=== PATIENT | male | born 1955 | race Caucasian/White ===

== ENCOUNTER 2019-12-31 05:40 | Outpatient (RCR) | payer BC ==
[~2019-12-31] VITALS: Ht 185 cm; Wt 117.0 kg
[~2019-12-31 05:40] MED LIST: AMLO10TA82 PO; ASP325TEC PO; ASP81CT PO; ASPI-892 PO; ATEN-158 PO; ATEN100T88 PO; ATEN50TA PO; ATOR80TA PO; BICA50TA4 PO; CARV25TA PO; CHLO25TA2 PO; CHLORTHALID PO; CLN.1T PO; CLOP75TA PO; CLPD75T PO; CYCL10TA9 PO; DLT120CCR PO; HCT25T PO; LISI20TA PO; LISI40TA PO; LORA0.5T PO; LVT.025T PO; MULT-633 PO; OMEP-10 PO; OMG1KC PO; PNT40TEC PO; POTA10CA43 PO; PRAV40TA PO; PRV20T PO; VENL150C PO; VILA40TA PO
== END 2019-12-31 13:32 | disposition home or self-care (01) ==
LOC: PREOP 05:40
PROVIDERS: ATTEND Specialist
DX: Z01.812 Encounter for preprocedural laboratory examination (principal); H26.9 Unspecified cataract; Z20.828 Contact with and (suspected) exposure to other viral communicable diseases
CPT/HCPCS: 87635

== ENCOUNTER 2020-01-03 06:59 | Day surgery (SDC) | payer MEDICARE, OTHER ==
[~2020-01-03] VITALS: Ht 185 cm; Wt 117.0 kg
[2020-01-03 07:05] VITALS: BP 182/108
[2020-01-03] MEDS ORDERED: POVIDONE (BETADINE) OPHTH SOLN 5% 30 ML OP ONE (07:15)
[2020-01-03] MEDS ORDERED: MOXIFLOXACIN OPHTH SOLN 5 MG/ML 0.3 ML SYRINGE OP ONE (07:15)
[2020-01-03] MEDS ORDERED: LIDOCAINE PF 1% 2 ML VIAL IR PRN (07:15)
[2020-01-03] MEDS ORDERED: TIMOLOL MALEATE 0.5% 5 ML (TIMOPTIC) BTL OU PRN (07:15)
[2020-01-03] MEDS: TETRACAINE 0.5% OPHTH SOLN 4 ML BTL (SINGLE DOSE ONLY) OU PRN ×4 (07:17→07:49)
[2020-01-03] MEDS: PHENYLEPHRINE 10% OPHTH (NEO-SYN) 5 ML BTL OU SCH ×3 (07:31→07:49)
[2020-01-03] MEDS: CYCLOPENTOLATE 1% (CYCLOGYL) 2 ML DROPS OP SCH ×3 (07:31→07:49)
--- NOTE | 2020-01-03 08:25 | Ophthalmologist Pre-Op Note ---
Pre-Operative Progress Note H&P Reviewed The H&P was reviewed, patient examined and no changes noted. Date H&P Reviewed: Jan 03, 2020 Time H&P Reviewed: 08:25 Pre-Op Dx Cataract, Right Eye CASSY LEVI MD Jan 03, 2020 08:25
[2020-01-03] MEDS ORDERED: MIDAZOLAM 2 MG/2 ML (VERSED) VIAL ONE (08:29)
[2020-01-03] MEDS ORDERED: acetaZOLAMIDE ER 500 MG CAP (DIAMOX SEQUELS) PO ONE (08:30)
--- NOTE | 2020-01-03 08:49 | Ophthalmology Operative Report ---
Cataract removal/placement IOL PREOPERATIVE DIAGNOSIS: Cataract Right Eye POSTOPERATIVE DIAGNOSIS: Cataract Right Eye PROCEDURE: Cataract removal and placement of posterior chamber implant, right eye SURGEON: Christiano Levi ANESTHESIA: Topical with sedation COMPLICATIONS: None ESTIMATED BLOOD LOSS: Minimal DESCRIPTION OF PROCEDURE: After proper informed consent was obtained, the patient, a 64 male, was taken to the Operating Room and the right eye was anesthetized with tetracaine. The right eye was then prepped and draped in the usual manner. A wire lid speculum was placed. A paracentesis was made at the left hand position. Preservative free lidocaine was injected into the anterior chamber followed by viscoelastic. A clear corneal incision was made in the temporal position. A capsulorrhexis was preformed and the central nuclear and cortical material were removed. The posterior capsule was polished and Jono 19.5 AU00T0 IOL was placed into the capsular bag. The residual viscoelastic was aspirated and balanced saline solution was injected into the anterior chamber. Moxifloxacin was injected into the anterior chamber. The wound was checked and found to be water tight. The patient tolerated the procedure well without complications. CHRISTIANO LEVI MD Jan 03, 2020 08:49
[2020-01-03 09:00] VITALS: BP 181/97
--- NOTE | 2020-01-03 12:25 | Anesthesia-General Post-Op ---
MAC Patient Condition Mental Status/LOC: Same as Preop Cardiovascular: Satisfactory Nausea/Vomiting: Absent Respiratory: Satisfactory Pain: Controlled Complications: Absent Post Op Complications Complications None Follow Up Care/Instructions Patient Instructions None needed. Anesthesiology Discharge Order Discharge Order Patient is doing well, no complaints, stable vital signs, no apparent adverse anesthesia problems. No complications reported per nursing. MATTHIEU GOLDBERG CRNA Jan 03, 2020 12:25
== END 2020-01-03 09:00 | disposition home or self-care (01) ==
LOC: SDC 06:59
PROVIDERS: ATTEND Specialist
DX: H25.11 Age-related nuclear cataract, right eye (principal); I10 Essential (primary) hypertension; Z79.899 Other long term (current) drug therapy; Z83.3 Family history of diabetes mellitus
CPT/HCPCS: 66984; V2632

== ENCOUNTER 2020-01-14 05:45 | Outpatient (CLI) | payer MEDICARE, OTHER ==
[~2020-01-14] VITALS: Ht 185.5 cm; Wt 117.0 kg
== END 2020-01-14 13:05 | disposition home or self-care (01) ==
LOC: PREOP 05:45 → EDSTATUS 15:00
PROVIDERS: ATTEND Specialist
DX: Z01.818 Encounter for other preprocedural examination (principal)

== ENCOUNTER 2020-01-17 06:30 | Day surgery (SDC) | payer MEDICARE, OTHER ==
[~2020-01-17] VITALS: Ht 185.5 cm; Wt 117.0 kg
--- OUTSIDE RECORDS SUMMARY | 2020-01-17 06:35 | XMS REPORT ---
Author Author Yogesh Kelly Doctor Organization [facility] Address Unknown Phone Unavailable Care Team Providers Care Runner Out Name Role Phone Migration, Doctor Unavailable Unavailable PROBLEMS Type Condition ICD9-CM Code UUH54-HP Code Onset Dates Condition S tatus SNOMED Code Problem Encounter for long-term (current) use of other medications V58.69 Active 632291839 Problem Routine general medical examination at [facility] V70.0 Active 067890290 Problem Family history of unspecified malignant neoplasm V16.9 Active 823039986 Problem Nonspecific elevation of lev els of transaminase or lactic acid dehydrogenase (LDH) 790.4 Active 84946729 2 Problem Personal history of other allergy, other than to medicinal agents V15.09 Active 320455063 Problem Essential hypertension, benign 401.1 Active 9164549 Problem Coronary atherosclerosis of unspecified type of vessel, rincon or graft 414.00 Active 481205226 Problem Dizziness and giddiness 780.4 Active 926139105 Problem Chest pain, unspecified 786.50 Active 51253912 Problem Lumbago 724.2 Active 780521258 Problem Cervicalgia 723.1 Active 90163848 Problem Other specified cardiac dysrhythmias 427.89 Active 179630895 Problem Peptic ulcer, unspecified si te, unspecified as acute or chronic, without mention of hemorrhage, perforation, or obstruction 533.90 Active 05075223 Problem Right bundle branch block 426.4 Acti ve 84635310 Problem 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 Active 97274664 Problem Unspecified tinnitus 388.30 Active 41125461 Problem Unspecified hearing loss 389.9 Activ e 12868577 Problem Unspecified otalgia 388.70 Active 44089403 Problem Malignant neoplasm of prostate 185 Active 136852562 Problem Polyuria 788.42 Active 22805995 Problem Unspecified viral hepatitis C without hepatic coma 070.70 Active 94786062 Problem Abdominal or pelvic swelling, mass or lump, unspecified si te 789.30 Active 235156882 Problem Dysuria 788.1 Active 08451590 Problem Unspecified cataract 366.9 Active 406782477 Problem Unspecified episodic mood disorder 296.90 Active 006450254 Problem Other and unspecified hyperlipidemia 272.4 Active 70292826 Problem Unspecified hypothyroidism 244.9 Act katty 87147450 ALLERGIES No Information ENCOUNTERS Encounter Location Date Diagnosis [facility] [address] [id number] [address] [place] [address] 14 Sep, 2014 [facility] [address] [id number] [address] [place] [address] Sep, [facility] [address] [id number] [address] [place] [address] Jun, [facility] [address] [id number] [address] [place] [address] Jun, [facility] [address] [id number] [address] [place] [address] May, [facility] [address] [id number] [address] [place] [address] May, [facility] [address] [id number] [address] [place] [address] Feb, [facility] [address] [id number] [address] [place] [address] Feb, [facility] [address] [id number] [address] [place] [address] Feb, [facility] [address] [id number] [address] [place] [address] Jan, [facility] [address] [id number] [address] [place] [address] Jan, [facility] [address] [id number] [address] [place] [address] Nov, [facility] [address] [id number] [address] [place] [address] Nov, [facility] [address] [id number] [address] [place] [address] 05 Nov, 2013 [facility] [address] [id number] [facility] [place] [address] 05 Nov, 2013 [facility] [address] [id number] [facility] [place] [address] Aug, [facility] [address] [id number] [facility] [place] [address] Aug, [facility] [address] [id number] [address] [place] [address], [place] [address] Aug, [facility] [address] [id number] [facility] [place] [address] Aug, [facility] [address] [id number] [address] [place] [address], [place] [address] Aug, [facility] [address] [id number] [address] [place] [address], [place] [address] Aug, [facility] [address] [id number] [address] [place] [address], [place] [address] Aug, [facility] [address] [id number] [address] [place] [address], [place] [address] Aug, [facility] [address] [id number] [address] [place] [address], [place] [address] Aug, [facility] [address] [id number] [address] [place] [address], [place] [address] Aug, [facility] [address] [id number] [address] [place] [address], [place] [address] Jul, [facility] [address] [id number] [address] [place] [address], [place] [address] Jul, [facility] [address] [id number] [address] [place] [address], [place] [address] Jul, [facility] [address] [id number] [address] [place] [address], [place] [address] Jul, [facility] [address] [id number] [address] [place] [address], [place] [address] Jul, [facility] [address] [id number] [address] [place] [address], [place] [address] Jul, [facility] [address] [id number] [address] [place] [address], [place] [address] Jul, [facility] [address] [id number] [address] [place] [address], [place] [address] Jul, [facility] [address] [id number] [address] [place] [address], [place] [address] Jun, [facility] [address] [id number] [address] [place] [address], [place] [address] Jun, [facility] [address] [id number] [address] [place] [address], [place] [address] Jun, [facility] [address] [id number] [address] [place] [address], [place] [address] Jun, [facility] [address] [id number] [address] [place] [address], [place] [address] Jun, [facility] [address] [id number] [address] [place] [address], [place] [address] Jun, [facility] [address] [id number] [address] [place] [address], [place] [address] Jun, [facility] [address] [id number] [address] [place] [address], [place] [address] Jun, [facility] [address] [id number] [address] [place] [address], [place] [address] May, [facility] [address] [id number] [address] [place] [address], [place] [address] May, [facility] [address] [id number] [address] [place] [address], [place] [address] May, [facility] [address] [id number] [address] [place] [address], [place] [address] May, [facility] [address] [id number] [address] [place] [address], [place] [address] May, [facility] [address] [id number] [address] [place] [address], [place] [address] May, [facility] [address] [id number] [address] [place] [address], [place] [address] May, [facility] [address] [id number] [address] [place] [address], [place] [address] May, [facility] [address] [id number] [address] [place] [address], [place] [address] Apr, [facility] [address] [id number] [address] [place] [address] Apr, [facility] [address] [id number] [address] [place] [address], [place] [address] Apr, [facility] [address] [id number] [address] [place] [address], [place] [address] Apr, [facility] [address] [id number] [address] [place] [address], [place] [address] Apr, [facility] [address] [id number] [address] [place] [address] Apr, [facility] [address] [id number] [address] [place] [address] Apr, [facility] [address] [id number] [address] [place] [address] 18 Apr, 2013 [facility] [address] [id number] [address] [place] [address], [place] [address] Mar, [facility] [address] [id number] [address] [place] [address] 14 Mar, 2013 [facility] [address] [id number] [address] [place] [address] 18 Feb, 2013 [facility] [address] [id number] [address] [place] [address], [place] [address] Feb, [facility] [address] [id number] [address] [place] [address], [place] [address] Feb, [facility] [address] [id number] [address] [place] [address], [place] [address] Jan, [facility] [address] [id number] [address] [place] [address], [place] [address] Jan, [facility] [address] [id number] [address] [place] [address], [place] [address] Jan, [facility] [address] [id number] [address] [place] [address], [place] [address] Jan, [facility] [address] [id number] [address] [place] [address], [place] [address] Jan, [facility] [address] [id number] [address] [place] [address], [place] [address] Jan, [facility] [address] [id number] [address] [place] [address], [place] [address] Jan, [facility] [address] [id number] [address] [place] [address], [place] [address] Dec, [facility] [address] [id number] [address] [place] [address], [place] [address] Dec, [facility] [address] [id number] [address] [place] [address], [place] [address] Dec, [facility] [address] [id number] [address] [place] [address], [place] [address] Dec, [facility] [address] [id number] [address] [place] [address], [place] [address] Nov, [facility] [address] [id number] [address] [place] [address], [place] [address] Nov, [facility] [address] [id number] [address] [place] [address], [place] [address] Nov, [facility] [address] [id number] [address] [place] [address], [place] [address] October, [facility] [address] [id number] [address] [place] [address], [place] [address] Sep, [facility] [address] [id number] [address] [place] [address], [place] [address] Sep, [facility] [address] [id number] [address] [place] [address], [place] [address] Sep, [facility] [address] [id number] [address] [place] [address], [place] [address] Sep, [facility] [address] [id number] [address] [place] [address], [place] [address] Sep, [facility] [address] [id number] [address] [place] [address], [place] [address] Sep, [facility] [address] [id number] [address] [place] [address], [place] [address] Sep, [facility] [address] [id number] [address] [place] [address], [place] [address] Sep, [facility] [address] [id number] [address] [place] [address], [place] [address] Sep, [facility] [address] [id number] [address] [place] [address], [place] [address] Aug, [facility] [address] [id number] [address] [place] [address], [place] [address] Aug, [facility] [address] [id number] [address] [place] [address], [place] [address] Jul, [facility] [address] [id number] [address] [place] [address], [place] [address] Jul, [facility] [address] [id number] [address] [place] [address], [place] [address] Jul, [facility] [address] [id number] [address] [place] [address] [place] [address] Jun, [facility] [address] [id number] [address] [place] [address], [place] [address] Apr, [facility] [address] [id number] [address] [place] [address], [place] [address] Apr, [facility] [address] [id number] [address] [place] [address], [place] [address] Apr, [facility] [address] [id number] [address] [place] [address], [place] [address] Apr, [facility] [address] [id number] [address] [place] [address], [place] [address] Apr, [facility] [address] [id number] [address] [place] [address], [place] [address] Apr, [facility] [address] [id number] [address] [place] [address], [place] [address] Apr, [facility] [address] [id number] [address] [place] [address], [place] [address] Apr, [facility] [address] [id number] [address] [place] [address], [place] [address] Apr, [facility] [address] [id number] [address] [place] [address], [place] [address] Apr, [facility] [address] [id number] [address] [place] [address], [place] [address] Apr, [facility] [address] [id number] [address] [place] [address] Apr, [facility] [address] [id number] [address] [place] [address], [place] [address] Mar, [facility] [address] [id number] [address] [place] [address], [place] [address] Mar, [facility] [address] [id number] [address] [place] [address], [place] [address] Mar, [facility] [address] [id number] [address] [place] [address] 15 Mar, 2012 [facility] [address] [id number] [address] [place] [address] Mar, [facility] [address] [id number] [address] [place] [address] Mar, [facility] [address] [id number] [address] [place] [address] Mar, [facility] [address] [id number] [address] [place] [address] 25 Feb, 2012 [facility] [address] [id number] [address] [place] [address] 24 Feb, 2012 [facility] [address] [id number] [address] [place] [address] Feb, [facility] [address] [id number] [address] [place] [address] Feb, [facility] [address] [id number] [address] [place] [address] Jan, [facility] [address] [id number] [address] [place] [address] Jan, [facility] [address] [id number] [address] [place] [address] Jan, [facility] [address] [id number] [address] [place] [address] Jan, IMMUNIZATIONS No Known Immunizations SOCIAL HISTORY Never Assessed REASON FOR VISIT PLAN OF CARE VITAL SIGNS MEDICATIONS Unknown Medications RESULTS No Results PROCEDURES No Known procedures INSTRUCTIONS MEDICATIONS ADMINISTERED No Known Medications
--- OUTSIDE RECORDS SUMMARY | 2020-01-17 06:35 | XMS REPORT ---
Author Author Yogesh Kelly Doctor Organization 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 Name Role Phone Migration, Doctor Unavailable Unavailable PROBLEMS Type Condition ICD9-CM Code [id number] Code Onset Dates Condition S tatus SNOMED Code Problem Encounter for long-term (current) use of other medications V58.69 Active 737898567 Problem Routine general medical examination at [facility] V70.0 Active 853340526 Problem Family history of unspecified malignant neoplasm V16.9 Active 489974629 Problem Nonspecific elevation of lev els of transaminase or lactic acid dehydrogenase (LDH) 790.4 Active 17635411 2 Problem Personal history of other allergy, other than to medicinal agents V15.09 Active 835323745 Problem Essential hypertension, benign 401.1 Active 3863896 Problem Coronary atherosclerosis of unspecified type of vessel, eyak or graft 414.00 Active 346500344 Problem Dizziness and giddiness 780.4 Active 593692064 Problem Chest pain, unspecified 786.50 Active 72386846 Problem Lumbago 724.2 Active 219232819 Problem Cervicalgia 723.1 Active 91326223 Problem Other specified cardiac dysrhythmias 427.89 Active 346581133 Problem Peptic ulcer, unspecified si te, unspecified as acute or chronic, without mention of hemorrhage, perforation, or obstruction 533.90 Active 79932482 Problem Right bundle branch block 426.4 Acti ve 97332211 Problem 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 Active 42868664 Problem Unspecified tinnitus 388.30 Active 53157675 Problem Unspecified hearing loss 389.9 Activ e 01279748 Problem Unspecified otalgia 388.70 Active 96831220 Problem Malignant neoplasm of prostate 185 Active 090798968 Problem Polyuria 788.42 Active 18367876 Problem Unspecified viral hepatitis C without hepatic coma 070.70 Active 29931596 Problem Abdominal or pelvic swelling, mass or lump, unspecified si te 789.30 Active 306019551 Problem Dysuria 788.1 Active 33220623 Problem Unspecified cataract 366.9 Active 084184873 Problem Unspecified episodic mood disorder 296.90 Active 092754619 Problem Other and unspecified hyperlipidemia 272.4 Active 92177437 Problem Unspecified hypothyroidism 244.9 Act katty [id number] ALLERGIES No Information ENCOUNTERS Encounter Location Date Diagnosis [facility] [place] [address] [id number] [address] [place] [phone] 14 Sep, 2014 [facility] [place] [address] [id number] [address] [place] [id number] Sep, [facility] [place] [address] [id number] [address] [place] [phone] Jun, [facility] [place] [address] [id number] [address] [place] [phone] Jun, [facility] [place] [address] [id number] [address] [place] [phone] May, [facility] [place] [address] [id number] [address] [place] [phone] May, [facility] [place] [address] [id number] [address] [place] [phone] Feb, [facility] [place] [address] [id number] [address] [place] [phone] Feb, [facility] [place] [address] [id number] [address] [place] [phone] Feb, [facility] [place] [address] [id number] [address] [place] [phone] Jan, [facility] [place] [address] [id number] [address] [place] [phone] Jan, [facility] [place] [address] [id number] [address] [place] [phone] Nov, [facility] [place] [address] [id number] [address] [place] [phone] Nov, [facility] [place] [address] [id number] [address] [place] [id number] 05 Nov, 2013 [facility] [address] [id number] [facility] [place] [address] 05 Nov, 2013 [facility] [address] [id number] [facility] [place] [address] Aug, [facility] [address] [id number] [facility] [place] [address] Aug, [facility] [address] [id number] [address] [place] [address], [place] [address] Aug, [facility] [address] [id number] [facility] [place] [address] Aug, [facility] [address] [id number] [address] [place] [address], [place] [address] Aug, [facility] [address] [id number] [address] [place] [address], [place] [address] Aug, [facility] [address] [id number] [address] [place] [address], [place] [address] Aug, [facility] [address] [id number] [address] [place] [address], [place] [address] Aug, [facility] [address] [id number] [address] [place] [address], [place] [address] Aug, [facility] [address] [id number] [address] [place] [address], [place] [address] Aug, [facility] [address] [id number] [address] [place] [address], [place] [address] Jul, [facility] [address] [id number] [address] [place] [address], [place] [address] Jul, [facility] [address] [id number] [address] [place] [address], [place] [address] Jul, [facility] [address] [id number] [address] [place] [address], [place] [address] Jul, [facility] [address] [id number] [address] [place] [address], [place] [address] Jul, [facility] [address] [id number] [address] [place] [address], [place] [address] Jul, [facility] [address] [id number] [address] [place] [address], [place] [address] Jul, [facility] [address] [id number] [address] [place] [address], [place] [address] Jul, [facility] [address] [id number] [address] [place] [address], [place] [address] Jun, [facility] [address] [id number] [address] [place] [address], [place] [address] Jun, [facility] [address] [id number] [address] [place] [address], [place] [address] Jun, [facility] [address] [id number] [address] [place] [address], [place] [address] Jun, [facility] [address] [id number] [address] [place] [address], [place] [address] Jun, [facility] [address] [id number] [address] [place] [address], [place] [address] Jun, [facility] [address] [id number] [address] [place] [address], [place] [address] Jun, [facility] [address] [id number] [address] [place] [address], [place] [address] Jun, [facility] [address] [id number] [address] [place] [address], [place] [address] May, [facility] [address] [id number] [address] [place] [address], [place] [address] May, [facility] [address] [id number] [address] [place] [address], [place] [address] May, [facility] [address] [id number] [address] [place] [address], [place] [address] May, [facility] [address] [id number] [address] [place] [address], [place] [address] May, [facility] [address] [id number] [address] [place] [address], [place] [address] May, [facility] [address] [id number] [address] [place] [address], [place] [address] May, [facility] [address] [id number] [address] [place] [address], [place] [address] May, [facility] [address] [id number] [address] [place] [address], [place] [address] Apr, [facility] [address] [id number] [address] [place] [phone] Apr, [facility] [address] [id number] [address] [place] [address], [place] [address] Apr, [facility] [address] [id number] [address] [place] [address], [place] [address] Apr, [facility] [address] [id number] [address] [place] [address], [place] [address] Apr, [facility] [address] [id number] [address] [place] [phone] Apr, [facility] [address] [id number] [address] [place] [phone] Apr, [facility] [address] [id number] [address] [place] [id number] 18 Apr, 2013 [facility] [address] [id number] [address] [place] [address], [place] [address] Mar, [facility] [address] [id number] [address] [place] [phone] 14 Mar, 2013 [facility] [address] [id number] [address] [place] [id number] 18 Feb, 2013 [facility] [address] [id number] [address] [place] [address], [place] [address] Feb, [facility] [address] [id number] [address] [place] [address], [place] [address] Feb, [facility] [address] [id number] [address] [place] [address], [place] [address] Jan, [facility] [address] [id number] [address] [place] [address], [place] [address] Jan, [facility] [address] [id number] [address] [place] [address], [place] [address] Jan, [facility] [address] [id number] [address] [place] [address], [place] [address] Jan, [facility] [address] [id number] [address] [place] [address], [place] [address] Jan, [facility] [address] [id number] [address] [place] [address], [place] [address] Jan, [facility] [address] [id number] [address] [place] [address], [place] [address] Jan, [facility] [address] [id number] [address] [place] [address], [place] [address] Dec, [facility] [address] [id number] [address] [place] [address], [place] [address] Dec, [facility] [address] [id number] [address] [place] [address], [place] [address] Dec, [facility] [address] [id number] [address] [place] [address], [place] [address] Dec, [facility] [address] [id number] [address] [place] [address], [place] [address] Nov, [facility] [address] [id number] [address] [place] [address], [place] [address] Nov, [facility] [address] [id number] [address] [place] [address], [place] [address] Nov, [facility] [address] [id number] [address] [place] [address], [place] [address] October, [facility] [address] [id number] [address] [place] [address], [place] [address] Sep, [facility] [address] [id number] [address] [place] [address], [place] [address] Sep, [facility] [address] [id number] [address] [place] [address], [place] [address] Sep, [facility] [address] [id number] [address] [place] [address], [place] [address] Sep, [facility] [address] [id number] [address] [place] [address], [place] [address] Sep, [facility] [address] [id number] [address] [place] [address], [place] [address] Sep, [facility] [address] [id number] [address] [place] [address], [place] [address] Sep, [facility] [address] [id number] [address] [place] [address], [place] [address] Sep, [facility] [address] [id number] [address] [place] [address], [place] [address] Sep, [facility] [address] [id number] [address] [place] [address], [place] [address] Aug, [facility] [address] [id number] [address] [place] [address], [place] [address] Aug, [facility] [address] [id number] [address] [place] [address], [place] [address] Jul, [facility] [address] [id number] [address] [place] [address], [place] [address] Jul, [facility] [address] [id number] [address] [place] [address], [place] [address] Jul, [facility] [address] [id number] [address] [place] [address] [place] [address] Jun, [facility] [address] [id number] [address] [place] [address], [place] [address] Apr, [facility] [address] [id number] [address] [place] [address], [place] [address] Apr, [facility] [address] [id number] [address] [place] [address], [place] [address] Apr, [facility] [address] [id number] [address] [place] [address], [place] [address] Apr, [facility] [address] [id number] [address] [place] [address], [place] [address] Apr, [facility] [address] [id number] [address] [place] [address], [place] [address] Apr, [facility] [address] [id number] [address] [place] [address], [place] [address] Apr, [facility] [address] [id number] [address] [place] [address], [place] [address] Apr, [facility] [address] [id number] [address] [place] [address], [place] [address] Apr, [facility] [address] [id number] [address] [place] [address], [place] [address] Apr, [facility] [address] [id number] [address] [place] [address], [place] [address] Apr, [facility] [address] [id number] [address] [place] [address] Apr, [facility] [address] [id number] [address] [place] [address], [place] [address] Mar, [facility] [address] [id number] [address] [place] [address], [place] [address] Mar, [facility] [address] [id number] [address] [place] [address], [place] [address] Mar, [facility] [address] [id number] [address] [place] [id number] 15 Mar, 2012 [facility] [place] [address] [id number] [address] [place] [address] Mar, [facility] [place] [address] [id number] [address] [place] [id number] Mar, [facility] [place] [address] [id number] [address] [place] [id number] Mar, [facility] [place] [address] [id number] [address] [place] [id number] 25 Feb, 2012 [facility] [place] [address] [id number] [address] [place] [phone] 24 Feb, 2012 [facility] [place] [address] [id number] [address] [place] [id number] Feb, [facility] [place] [address] [id number] [address] [place] [phone] Feb, [facility] [place] [address] [id number] [address] [place] [phone] Jan, [facility] [place] [address] [id number] [address] [place] [phone] Jan, [facility] [place] [address] [id number] [address] [place] [phone] Jan, [facility] [place] [address] [id number] [address] [place] [phone] Jan, IMMUNIZATIONS No Known Immunizations SOCIAL HISTORY Never Assessed REASON FOR VISIT PLAN OF CARE VITAL SIGNS MEDICATIONS Unknown Medications RESULTS No Results PROCEDURES No Known procedures INSTRUCTIONS MEDICATIONS ADMINISTERED No Known Medications
--- OUTSIDE RECORDS SUMMARY | 2020-01-17 06:35 | XMS REPORT | Clinical Summary ---
Author Author [facility] Organization [facility] Address Unknown Phone Unavailable Care Team Providers Care Assistant Professor Of Economics Name Role Phone Onel Moore PA-C Unavailable Neo Keller MD Unavailable Unavailable Source Comments Some departments are not documenting in the electronic medical record. If you d o not see the information that you expected, contact Release of Information in [facility] [employer] Information Management department at [phone] for further assistan ce in locating additional records.[facility] Allergies Not on File Medications End Date Status Medication Sig Dispensed Refills Start Date Active MULTIVITS-MINERALS/FA/LYC Take by 0 OPENE (ONE-A-DAY MEN'S mouth. MULTIVITAMIN PO) Active aspirin 81 mg chewable Take 81 mg by 0 tablet mouth daily. Active Omeprazole 20 mg TbEC Take by 0 mouth. Active atorvastatin (LIPITOR) 40 Take 40 mg by 0 mg tablet mouth daily. Active amLODIPine (NORVASC) 10 Take 10 mg by 0 mg tablet mouth daily. Active venlafaxine XR (EFFEXOR Take 150 mg 0 XR) 150 mg capsule by mouth daily. Active MV-MIN/FA/C/GLU/ROSALINA Take by 0 HCL/HC124 ([place] (WITH mouth. FOLIC ACID) PO) Active DOXYCYCLINE CALCIUM Take by 0 (VIBRAMYCIN PO) mouth. Active GLUC ACOSTA/MSM/CHONDRO ACOSTA Take by 0 A/C/MN (FLEXI JOINT PO) mouth. Active Problems Problem Noted Date Prostate cancer 06/03/2013 Overview: PSA (05/01/2013) = 9.00 ng/mL. TRUS Vol = 55.4 mL. PNBx (06/03/2013): (L) Zuly 5+4=9, 3 /6 cores, 70-90%; (L) Zuly 3+4=7, 1/6 cores, 75%; (L) Equality 3+3=6, 1/6 cores; (R) Zuly 3+3=6, 1/6 cores, 60%; HG PIN 1/6 cores; Dr. Dominguez. CT & Bone Scan --> no evidence of metas tatic dz. L ast Assessment & Plan: I had an extensive consultation with marty e patient today reviewing the spectrum of prostate cancer treatment o ptions, including the pros and cons and risks and benefits of each. Surgery Radiation (XRT, BrachyTx) Cryoablation Androgen Deprivation Tx (ADT) Active surveillance () D/t his high risk prostate cancer, he w ill likely need a multi-modality approach, no matter which primary tx op tion he elects to pursue. Risks of surgery reviewed in detail including in continence & ED. After careful consideration, the patien t would like to discuss options w/ his local Radiation/ Oncologist. ED (erectile dysfunction) Social History Date Tobacco Use Types Packs/Day Years Used Former Smoker Cigarettes Smokeless Tobacco: Never Used Drinks/Week oz/Week Comments Alcohol Use 1 Cans of beer 1.0 Yes Sex Assigned at Date Recorded Not on file Industry Job Start Date Occupation Not on file Not on file Not on file Travel End Travel History Travel Start No recent travel history available. 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
--- OUTSIDE RECORDS SUMMARY | 2020-01-17 06:36 | XMS REPORT ---
Author Author Yogesh Kelly Doctor Organization [facility] Address Unknown Phone Unavailable Care Team Providers Care Loadmaster Name Role Phone Migration, Doctor Unavailable Unavailable PROBLEMS Type Condition ICD9-CM Code ILU60-SI Code Onset Dates Condition S tatus SNOMED Code Problem Encounter for long-term (current) use of other medications V58.69 Active 536303223 Problem Routine general medical examination at [facility] V70.0 Active 135192087 Problem Family history of unspecified malignant neoplasm V16.9 Active 550250802 Problem Nonspecific elevation of lev els of transaminase or lactic acid dehydrogenase (LDH) 790.4 Active 93218156 2 Problem Personal history of other allergy, other than to medicinal agents V15.09 Active 033095661 Problem Essential hypertension, benign 401.1 Active 8666371 Problem Coronary atherosclerosis of unspecified type of vessel, [place] or graft 414.00 Active 603456522 Problem Dizziness and giddiness 780.4 Active 027855121 Problem Chest pain, unspecified 786.50 Active 72525131 Problem Lumbago 724.2 Active 837757413 Problem Cervicalgia 723.1 Active 62574378 Problem Other specified cardiac dysrhythmias 427.89 Active 044977978 Problem Peptic ulcer, unspecified si te, unspecified as acute or chronic, without mention of hemorrhage, perforation, or obstruction 533.90 Active 91925771 Problem Right bundle branch block 426.4 Acti ve 76598230 Problem 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 Active 90974408 Problem Unspecified tinnitus 388.30 Active 03111367 Problem Unspecified hearing loss 389.9 Activ e 37508475 Problem Unspecified otalgia 388.70 Active 15076197 Problem Malignant neoplasm of prostate 185 Active 514309506 Problem Polyuria 788.42 Active 41488254 Problem Unspecified viral hepatitis C without hepatic coma 070.70 Active 69657393 Problem Abdominal or pelvic swelling, mass or lump, unspecified si te 789.30 Active 564362652 Problem Dysuria 788.1 Active 25781450 Problem Unspecified cataract 366.9 Active 919699991 Problem Unspecified episodic mood disorder 296.90 Active 702498126 Problem Other and unspecified hyperlipidemia 272.4 Active 92888550 Problem Unspecified hypothyroidism 244.9 Act katty [id number] ALLERGIES No Information ENCOUNTERS Encounter Location Date Diagnosis [facility] [address] [id number] [address] [place] [address] 14 Sep, 2014 [facility] [address] [id number] [address] [place] [address] Sep, [facility] [address] [id number] [address] [place] [address] Jun, [facility] [address] [id number] [address] [place] [address] Jun, [facility] [address] [id number] [address] [place] [address] May, [facility] [address] [id number] [address] [place] [address] May, [facility] [address] [id number] [address] [place] [address] Feb, [facility] [address] [id number] [address] [place] [address] Feb, [facility] [address] [id number] [address] [place] [address] Feb, [facility] [address] [id number] [address] [place] [address] Jan, [facility] [address] [id number] [address] [place] [address] Jan, [facility] [address] [id number] [address] [place] [address] Nov, [facility] [address] [id number] [address] [place] [address] Nov, [facility] [address] [id number] [address] [place] [address] 05 Nov, 2013 [facility] [address] [id number] [facility] [place] [address] 05 Nov, 2013 [facility] [address] [id number] [facility] [place] [address] Aug, [facility] [address] [id number] [facility] [place] [address] Aug, [facility] [address] [id number] [address] [place] [address], [place] [address] Aug, [facility] [address] [id number] [facility] [place] [address] Aug, [facility] [address] [id number] [address] [place] [address], [place] [address] Aug, [facility] [address] [id number] [address] [place] [address], [place] [address] Aug, [facility] [address] [id number] [address] [place] [address], [place] [address] Aug, [facility] [address] [id number] [address] [place] [address], [place] [address] Aug, [facility] [address] [id number] [address] [place] [address], [place] [address] Aug, [facility] [address] [id number] [address] [place] [address], [place] [address] Aug, [facility] [address] [id number] [address] [place] [address], [place] [address] Jul, [facility] [address] [id number] [address] [place] [address], [place] [address] Jul, [facility] [address] [id number] [address] [place] [address], [place] [address] Jul, [facility] [address] [id number] [address] [place] [address], [place] [address] Jul, [facility] [address] [id number] [address] [place] [address], [place] [address] Jul, [facility] [address] [id number] [address] [place] [address], [place] [address] Jul, [facility] [address] [id number] [address] [place] [address], [place] [address] Jul, [facility] [address] [id number] [address] [place] [address], [place] [address] Jul, [facility] [address] [id number] [address] [place] [address], [place] [address] Jun, [facility] [address] [id number] [address] [place] [address], [place] [address] Jun, [facility] [address] [id number] [address] [place] [address], [place] [address] Jun, [facility] [address] [id number] [address] [place] [address], [place] [address] Jun, [facility] [address] [id number] [address] [place] [address], [place] [address] Jun, [facility] [address] [id number] [address] [place] [address], [place] [address] Jun, [facility] [address] [id number] [address] [place] [address], [place] [address] Jun, [facility] [address] [id number] [address] [place] [address], [place] [address] Jun, [facility] [address] [id number] [address] [place] [address], [place] [address] May, [facility] [address] [id number] [address] [place] [address], [place] [address] May, [facility] [address] [id number] [address] [place] [address], [place] [address] May, [facility] [address] [id number] [address] [place] [address], [place] [address] May, [facility] [address] [id number] [address] [place] [address], [place] [address] May, [facility] [address] [id number] [address] [place] [address], [place] [address] May, [facility] [address] [id number] [address] [place] [address], [place] [address] May, [facility] [address] [id number] [address] [place] [address], [place] [address] May, [facility] [address] [id number] [address] [place] [address], [place] [address] Apr, [facility] [address] [id number] [address] [place] [address] Apr, [facility] [address] [id number] [address] [place] [address], [place] [address] Apr, [facility] [address] [id number] [address] [place] [address], [place] [address] Apr, [facility] [address] [id number] [address] [place] [address], [place] [address] Apr, [facility] [address] [id number] [address] [place] [address] Apr, [facility] [address] [id number] [address] [place] [address] Apr, [facility] [address] [id number] [address] [place] [address] 18 Apr, 2013 [facility] [address] [id number] [address] [place] [address], [place] [address] Mar, [facility] [address] [id number] [address] [place] [address] 14 Mar, 2013 [facility] [address] [id number] [address] [place] [address] 18 Feb, 2013 [facility] [address] [id number] [address] [place] [address], [place] [address] Feb, [facility] [address] [id number] [address] [place] [address], [place] [address] Feb, [facility] [address] [id number] [address] [place] [address], [place] [address] Jan, [facility] [address] [id number] [address] [place] [address], [place] [address] Jan, [facility] [address] [id number] [address] [place] [address], [place] [address] Jan, [facility] [address] [id number] [address] [place] [address], [place] [address] Jan, [facility] [address] [id number] [address] [place] [address], [place] [address] Jan, [facility] [address] [id number] [address] [place] [address], [place] [address] Jan, [facility] [address] [id number] [address] [place] [address], [place] [address] Jan, [facility] [address] [id number] [address] [place] [address], [place] [address] Dec, [facility] [address] [id number] [address] [place] [address], [place] [address] Dec, [facility] [address] [id number] [address] [place] [address], [place] [address] Dec, [facility] [address] [id number] [address] [place] [address], [place] [address] Dec, [facility] [address] [id number] [address] [place] [address], [place] [address] Nov, [facility] [address] [id number] [address] [place] [address], [place] [address] Nov, [facility] [address] [id number] [address] [place] [address], [place] [address] Nov, [facility] [address] [id number] [address] [place] [address], [place] [address] October, [facility] [address] [id number] [address] [place] [address], [place] [address] Sep, [facility] [address] [id number] [address] [place] [address], [place] [address] Sep, [facility] [address] [id number] [address] [place] [address], [place] [address] Sep, [facility] [address] [id number] [address] [place] [address], [place] [address] Sep, [facility] [address] [id number] [address] [place] [address], [place] [address] Sep, [facility] [address] [id number] [address] [place] [address], [place] [address] Sep, [facility] [address] [id number] [address] [place] [address], [place] [address] Sep, [facility] [address] [id number] [address] [place] [address], [place] [address] Sep, [facility] [address] [id number] [address] [place] [address], [place] [address] Sep, [facility] [address] [id number] [address] [place] [address], [place] [address] Aug, [facility] [address] [id number] [address] [place] [address], [place] [address] Aug, [facility] [address] [id number] [address] [place] [address], [place] [address] Jul, [facility] [address] [id number] [address] [place] [address], [place] [address] Jul, [facility] [address] [id number] [address] [place] [address], [place] [address] Jul, [facility] [address] [id number] [address] [place] [address] [place] [address] Jun, [facility] [address] [id number] [address] [place] [address], [place] [address] Apr, [facility] [address] [id number] [address] [place] [address], [place] [address] Apr, [facility] [address] [id number] [address] [place] [address], [place] [address] Apr, [facility] [address] [id number] [address] [place] [address], [place] [address] Apr, [facility] [address] [id number] [address] [place] [address], [place] [address] Apr, [facility] [address] [id number] [address] [place] [address], [place] [address] Apr, [facility] [address] [id number] [address] [place] [address], [place] [address] Apr, [facility] [address] [id number] [address] [place] [address], [place] [address] Apr, [facility] [address] [id number] [address] [place] [address], [place] [address] Apr, [facility] [address] [id number] [address] [place] [address], [place] [address] Apr, [facility] [address] [id number] [address] [place] [address], [place] [address] Apr, [facility] [address] [id number] [address] [place] [address] Apr, [facility] [address] [id number] [address] [place] [address], [place] [address] Mar, [facility] [address] [id number] [address] [place] [address], [place] [address] Mar, [facility] [address] [id number] [address] [place] [address], [place] [address] Mar, [facility] [address] [id number] [address] [place] [address] 15 Mar, 2012 [facility] [address] [id number] [address] [place] [address] Mar, [facility] [address] [id number] [address] [place] [address] Mar, [facility] [address] [id number] [address] [place] [address] Mar, [facility] [address] [id number] [address] [place] [address] 25 Feb, 2012 [facility] [address] [id number] [address] [place] [address] 24 Feb, 2012 [facility] [address] [id number] [address] [place] [address] Feb, [facility] [address] [id number] [address] [place] [address] Feb, [facility] [address] [id number] [address] [place] [address] Jan, [facility] [address] [id number] [address] [place] [address] Jan, [facility] [address] [id number] [address] [place] [address] Jan, [facility] [address] [id number] [address] [place] [address] Jan, IMMUNIZATIONS No Known Immunizations SOCIAL HISTORY Never Assessed REASON FOR VISIT PLAN OF CARE VITAL SIGNS MEDICATIONS Unknown Medications RESULTS No Results PROCEDURES No Known procedures INSTRUCTIONS MEDICATIONS ADMINISTERED No Known Medications
--- OUTSIDE RECORDS SUMMARY | 2020-01-17 06:36 | XMS REPORT ---
Author Author Yogesh Kelly Doctor Organization [facility] Address Unknown Phone Unavailable Care Team Providers Care [employer] Chair Name Role Phone Migration, Doctor Unavailable Unavailable PROBLEMS Type Condition ICD9-CM Code JTG64-AT Code Onset Dates Condition S tatus SNOMED Code Problem Encounter for long-term (current) use of other medications V58.69 Active 738681576 Problem Routine general medical examination at [facility] V70.0 Active 142820311 Problem Family history of unspecified malignant neoplasm V16.9 Active 897150819 Problem Nonspecific elevation of lev els of transaminase or lactic acid dehydrogenase (LDH) 790.4 Active 28958805 2 Problem Personal history of other allergy, other than to medicinal agents V15.09 Active 389108096 Problem Essential hypertension, benign 401.1 Active 2430785 Problem Coronary atherosclerosis of unspecified type of vessel, duckwater or graft 414.00 Active 426361035 Problem Dizziness and giddiness 780.4 Active 510776811 Problem Chest pain, unspecified 786.50 Active 86817662 Problem Lumbago 724.2 Active 958900378 Problem Cervicalgia 723.1 Active 16498442 Problem Other specified cardiac dysrhythmias 427.89 Active 311701788 Problem Peptic ulcer, unspecified si te, unspecified as acute or chronic, without mention of hemorrhage, perforation, or obstruction 533.90 Active 82366374 Problem Right bundle branch block 426.4 Acti ve 22434954 Problem 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 Active 20445046 Problem Unspecified tinnitus 388.30 Active 71114295 Problem Unspecified hearing loss 389.9 Activ e 10669021 Problem Unspecified otalgia 388.70 Active 58768461 Problem Malignant neoplasm of prostate 185 Active 706840675 Problem Polyuria 788.42 Active 02595687 Problem Unspecified viral hepatitis C without hepatic coma 070.70 Active 46461038 Problem Abdominal or pelvic swelling, mass or lump, unspecified si te 789.30 Active 524378600 Problem Dysuria 788.1 Active 71163089 Problem Unspecified cataract 366.9 Active 701160631 Problem Unspecified episodic mood disorder 296.90 Active 331089798 Problem Other and unspecified hyperlipidemia 272.4 Active 72955458 Problem Unspecified hypothyroidism 244.9 Act katty [id number] ALLERGIES No Information ENCOUNTERS Encounter Location Date Diagnosis [facility] [address] [id number] [address] [place] [id number] 14 Sep, 2014 [facility] [address] [id number] [address] [place] [address] Sep, [facility] [address] [id number] [address] [place] [address] Jun, [facility] [address] [id number] [address] [place] [address] Jun, [facility] [address] [id number] [address] [place] [address] May, [facility] [address] [id number] [address] [place] [address] May, [facility] [address] [id number] [address] [place] [address] Feb, [facility] [address] [id number] [address] [place] [address] Feb, [facility] [address] [id number] [address] [place] [address] Feb, [facility] [address] [id number] [address] [place] [address] Jan, [facility] [address] [id number] [address] [place] [address] Jan, [facility] [address] [id number] [address] [place] [address] Nov, [facility] [address] [id number] [address] [place] [address] Nov, [facility] [address] [id number] [address] [place] [address] 05 Nov, 2013 [facility] [address] [id number] [facility] [place] [address] 05 Nov, 2013 [facility] [address] [id number] [facility] [place] [address] Aug, [facility] [address] [id number] [facility] [place] [address] Aug, [facility] [address] [id number] [address] [place] [address], [place] [address] Aug, [facility] [address] [id number] [facility] [place] [address] Aug, [facility] [address] [id number] [address] [place] [address], [place] [address] Aug, [facility] [address] [id number] [address] [place] [address], [place] [address] Aug, [facility] [address] [id number] [address] [place] [address], [place] [address] Aug, [facility] [address] [id number] [address] [place] [address], [place] [address] Aug, [facility] [address] [id number] [address] [place] [address], [place] [address] Aug, [facility] [address] [id number] [address] [place] [address], [place] [address] Aug, [facility] [address] [id number] [address] [place] [address], [place] [address] Jul, [facility] [address] [id number] [address] [place] [address], [place] [address] Jul, [facility] [address] [id number] [address] [place] [address], [place] [address] Jul, [facility] [address] [id number] [address] [place] [address], [place] [address] Jul, [facility] [address] [id number] [address] [place] [address], [place] [address] Jul, [facility] [address] [id number] [address] [place] [address], [place] [address] Jul, [facility] [address] [id number] [address] [place] [address], [place] [address] Jul, [facility] [address] [id number] [address] [place] [address], [place] [address] Jul, [facility] [address] [id number] [address] [place] [address], [place] [address] Jun, [facility] [address] [id number] [address] [place] [address], [place] [address] Jun, [facility] [address] [id number] [address] [place] [address], [place] [address] Jun, [facility] [address] [id number] [address] [place] [address], [place] [address] Jun, [facility] [address] [id number] [address] [place] [address], [place] [address] Jun, [facility] [address] [id number] [address] [place] [address], [place] [address] Jun, [facility] [address] [id number] [address] [place] [address], [place] [address] Jun, [facility] [address] [id number] [address] [place] [address], [place] [address] Jun, [facility] [address] [id number] [address] [place] [address], [place] [address] May, [facility] [address] [id number] [address] [place] [address], [place] [address] May, [facility] [address] [id number] [address] [place] [address], [place] [address] May, [facility] [address] [id number] [address] [place] [address], [place] [address] May, [facility] [address] [id number] [address] [place] [address], [place] [address] May, [facility] [address] [id number] [address] [place] [address], [place] [address] May, [facility] [address] [id number] [address] [place] [address], [place] [address] May, [facility] [address] [id number] [address] [place] [address], [place] [address] May, [facility] [address] [id number] [address] [place] [address], [place] [address] Apr, [facility] [address] [id number] [address] [place] [address] Apr, [facility] [address] [id number] [address] [place] [address], [place] [address] Apr, [facility] [address] [id number] [address] [place] [address], [place] [address] Apr, [facility] [address] [id number] [address] [place] [address], [place] [address] Apr, [facility] [address] [id number] [address] [place] [address] Apr, [facility] [address] [id number] [address] [place] [address] Apr, [facility] [address] [id number] [address] [place] [address] 18 Apr, 2013 [facility] [address] [id number] [address] [place] [address], [place] [address] Mar, [facility] [address] [id number] [address] [place] [id number] 14 Mar, 2013 [facility] [address] [id number] [address] [place] [address] 18 Feb, 2013 [facility] [address] [id number] [address] [place] [address], [place] [address] Feb, [facility] [address] [id number] [address] [place] [address], [place] [address] Feb, [facility] [address] [id number] [address] [place] [address], [place] [address] Jan, [facility] [address] [id number] [address] [place] [address], [place] [address] Jan, [facility] [address] [id number] [address] [place] [address], [place] [address] Jan, [facility] [address] [id number] [address] [place] [address], [place] [address] Jan, [facility] [address] [id number] [address] [place] [address], [place] [address] Jan, [facility] [address] [id number] [address] [place] [address], [place] [address] Jan, [facility] [address] [id number] [address] [place] [address], [place] [address] Jan, [facility] [address] [id number] [address] [place] [address], [place] [address] Dec, [facility] [address] [id number] [address] [place] [address], [place] [address] Dec, [facility] [address] [id number] [address] [place] [address], [place] [address] Dec, [facility] [address] [id number] [address] [place] [address], [place] [address] Dec, [facility] [address] [id number] [address] [place] [address], [place] [address] Nov, [facility] [address] [id number] [address] [place] [address], [place] [address] Nov, [facility] [address] [id number] [address] [place] [address], [place] [address] Nov, [facility] [address] [id number] [address] [place] [address], [place] [address] October, [facility] [address] [id number] [address] [place] [address], [place] [address] Sep, [facility] [address] [id number] [address] [place] [address], [place] [address] Sep, [facility] [address] [id number] [address] [place] [address], [place] [address] Sep, [facility] [address] [id number] [address] [place] [address], [place] [address] Sep, [facility] [address] [id number] [address] [place] [address], [place] [address] Sep, [facility] [address] [id number] [address] [place] [address], [place] [address] Sep, [facility] [address] [id number] [address] [place] [address], [place] [address] Sep, [facility] [address] [id number] [address] [place] [address], [place] [address] Sep, [facility] [address] [id number] [address] [place] [address], [place] [address] Sep, [facility] [address] [id number] [address] [place] [address], [place] [address] Aug, [facility] [address] [id number] [address] [place] [address], [place] [address] Aug, [facility] [address] [id number] [address] [place] [address], [place] [address] Jul, [facility] [address] [id number] [address] [place] [address], [place] [address] Jul, [facility] [address] [id number] [address] [place] [address], [place] [address] Jul, [facility] [address] [id number] [address] [place] [address] [place] [address] Jun, [facility] [address] [id number] [address] [place] [address], [place] [address] Apr, [facility] [address] [id number] [address] [place] [address], [place] [address] Apr, [facility] [address] [id number] [address] [place] [address], [place] [address] Apr, [facility] [address] [id number] [address] [place] [address], [place] [address] Apr, [facility] [address] [id number] [address] [place] [address], [place] [address] Apr, [facility] [address] [id number] [address] [place] [address], [place] [address] Apr, [facility] [address] [id number] [address] [place] [address], [place] [address] Apr, [facility] [address] [id number] [address] [place] [address], [place] [address] Apr, [facility] [address] [id number] [address] [place] [address], [place] [address] Apr, [facility] [address] [id number] [address] [place] [address], [place] [address] Apr, [facility] [address] [id number] [address] [place] [address], [place] [address] Apr, [facility] [address] [id number] [address] [place] [address] Apr, [facility] [address] [id number] [address] [place] [address], [place] [address] Mar, [facility] [address] [id number] [address] [place] [address], [place] [address] Mar, [facility] [address] [id number] [address] [place] [address], [place] [address] Mar, [facility] [address] [id number] [address] [place] [address] 15 Mar, 2012 [facility] [address] [id number] [address] [place] [address] Mar, [facility] [address] [id number] [address] [place] [address] Mar, [facility] [address] [id number] [address] [place] [address] Mar, [facility] [address] [id number] [address] [place] [address] 25 Feb, 2012 [facility] [address] [id number] [address] [place] [address] 24 Feb, 2012 [facility] [address] [id number] [address] [place] [address] Feb, [facility] [address] [id number] [address] [place] [address] Feb, [facility] [address] [id number] [address] [place] [address] Jan, [facility] [address] [id number] [address] [place] [address] Jan, [facility] [address] [id number] [address] [place] [address] Jan, [facility] [address] [id number] [address] [place] [address] Jan, IMMUNIZATIONS No Known Immunizations SOCIAL HISTORY Never Assessed REASON FOR VISIT PLAN OF CARE VITAL SIGNS MEDICATIONS Unknown Medications RESULTS No Results PROCEDURES No Known procedures INSTRUCTIONS MEDICATIONS ADMINISTERED No Known Medications
--- OUTSIDE RECORDS SUMMARY | 2020-01-17 06:36 | XMS REPORT ---
Author Author Yogesh Kelly Doctor Organization [facility] Address Unknown Phone Unavailable Care Team Providers Care Account Support Rep Name Role Phone Migration, Doctor Unavailable Unavailable PROBLEMS Type Condition ICD9-CM Code UST64-LN Code Onset Dates Condition S tatus SNOMED Code Problem Encounter for long-term (current) use of other medications V58.69 Active 601919728 Problem Routine general medical examination at [facility] V70.0 Active 860270423 Problem Family history of unspecified malignant neoplasm V16.9 Active 492855873 Problem Nonspecific elevation of lev els of transaminase or lactic acid dehydrogenase (LDH) 790.4 Active 80128288 2 Problem Personal history of other allergy, other than to medicinal agents V15.09 Active 378307716 Problem Essential hypertension, benign 401.1 Active 3969833 Problem Coronary atherosclerosis of unspecified type of vessel, douglas or graft 414.00 Active 785097587 Problem Dizziness and giddiness 780.4 Active 620712012 Problem Chest pain, unspecified 786.50 Active 81801200 Problem Lumbago 724.2 Active 435859113 Problem Cervicalgia 723.1 Active 13563727 Problem Other specified cardiac dysrhythmias 427.89 Active 153804906 Problem Peptic ulcer, unspecified si te, unspecified as acute or chronic, without mention of hemorrhage, perforation, or obstruction 533.90 Active 77162386 Problem Right bundle branch block 426.4 Acti ve 90689616 Problem 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 Active 28453608 Problem Unspecified tinnitus 388.30 Active 77169201 Problem Unspecified hearing loss 389.9 Activ e 81225061 Problem Unspecified otalgia 388.70 Active 54627089 Problem Malignant neoplasm of prostate 185 Active 461391977 Problem Polyuria 788.42 Active 12301586 Problem Unspecified viral hepatitis C without hepatic coma 070.70 Active 92621932 Problem Abdominal or pelvic swelling, mass or lump, unspecified si te 789.30 Active 784237261 Problem Dysuria 788.1 Active 20877610 Problem Unspecified cataract 366.9 Active 471559248 Problem Unspecified episodic mood disorder 296.90 Active 477239883 Problem Other and unspecified hyperlipidemia 272.4 Active 77215052 Problem Unspecified hypothyroidism 244.9 Act katty 77875222 ALLERGIES No Information ENCOUNTERS Encounter Location Date Diagnosis [facility] [address] [id number] [address] [place] [id number] 14 Sep, 2014 [facility] [address] [id number] [address] [place] [phone] Sep, [facility] [address] [id number] [address] [place] [phone] Jun, [facility] [address] [id number] [address] [place] [phone] Jun, [facility] [address] [id number] [address] [place] [phone] May, [facility] [address] [id number] [address] [place] [phone] May, [facility] [address] [id number] [address] [place] [phone] Feb, [facility] [address] [id number] [address] [place] [phone] Feb, [facility] [address] [id number] [address] [place] [phone] Feb, [facility] [address] [id number] [address] [place] [phone] Jan, [facility] [address] [id number] [address] [place] [phone] Jan, [facility] [address] [id number] [address] [place] [phone] Nov, [facility] [address] [id number] [address] [place] [phone] Nov, [facility] [address] [id number] [address] [place] [phone] 05 Nov, 2013 [facility] [address] [id number] [address] [place] [address] 05 Nov, 2013 [facility] [address] [id number] [facility] [place] [address] Aug, [facility] [address] [id number] [facility] [place] [address] Aug, [facility] [address] [id number] [address] [place] [address], [place] [address] Aug, [facility] [address] [id number] [address] [place] [address] Aug, [facility] [address] [id number] [address] [place] [address], [place] [address] Aug, [facility] [address] [id number] [address] [place] [address], [place] [address] Aug, [facility] [address] [id number] [address] [place] [address], [place] [address] Aug, [facility] [address] [id number] [address] [place] [address], [place] [address] Aug, [facility] [address] [id number] [address] [place] [address], [place] [address] Aug, [facility] [address] [id number] [address] [place] [address], [place] [address] Aug, [facility] [address] [id number] [address] [place] [address], [place] [address] Jul, [facility] [address] [id number] [address] [place] [address], [place] [address] Jul, [facility] [address] [id number] [address] [place] [address], [place] [address] Jul, [facility] [address] [id number] [address] [place] [address], [place] [address] Jul, [facility] [address] [id number] [address] [place] [address], [place] [address] Jul, [facility] [address] [id number] [address] [place] [address], [place] [address] Jul, [facility] [address] [id number] [address] [place] [address], [place] [address] Jul, [facility] [address] [id number] [address] [place] [address], [place] [address] Jul, [facility] [address] [id number] [address] [place] [address], [place] [address] Jun, [facility] [address] [id number] [address] [place] [address], [place] [address] Jun, [facility] [address] [id number] [address] [place] [address], [place] [address] Jun, [facility] [address] [id number] [address] [place] [address], [place] [address] Jun, [facility] [address] [id number] [address] [place] [address], [place] [address] Jun, [facility] [address] [id number] [address] [place] [address], [place] [address] Jun, [facility] [address] [id number] [address] [place] [address], [place] [address] Jun, [facility] [address] [id number] [address] [place] [address], [place] [address] Jun, [facility] [address] [id number] [address] [place] [address], [place] [address] May, [facility] [address] [id number] [address] [place] [address], [place] [address] May, [facility] [address] [id number] [address] [place] [address], [place] [address] May, [facility] [address] [id number] [address] [place] [address], [place] [address] May, [facility] [address] [id number] [address] [place] [address], [place] [address] May, [facility] [address] [id number] [address] [place] [address], [place] [address] May, [facility] [address] [id number] [address] [place] [address], [place] [address] May, [facility] [address] [id number] [address] [place] [address], [place] [address] May, [facility] [address] [id number] [address] [place] [address], [place] [address] Apr, [facility] [address] [id number] [address] [place] [address] Apr, [facility] [address] [id number] [address] [place] [address], [place] [address] Apr, [facility] [address] [id number] [address] [place] [address], [place] [address] Apr, [facility] [address] [id number] [address] [place] [address], [place] [address] Apr, [facility] [address] [id number] [address] [place] [address] Apr, [facility] [address] [id number] [address] [place] [address] Apr, [facility] [address] [id number] [address] [place] [id number] 18 Apr, 2013 [facility] [address] [id number] [address] [place] [address], [place] [address] Mar, [facility] [address] [id number] [address] [place] [id number] 14 Mar, 2013 [facility] [address] [id number] [address] [place] [phone] 18 Feb, 2013 [facility] [address] [id number] [address] [place] [address], [place] [address] Feb, [facility] [address] [id number] [address] [place] [address], [place] [address] Feb, [facility] [address] [id number] [address] [place] [address], [place] [address] Jan, [facility] [address] [id number] [address] [place] [address], [place] [address] Jan, [facility] [address] [id number] [address] [place] [address], [place] [address] Jan, [facility] [address] [id number] [address] [place] [address], [place] [address] Jan, [facility] [address] [id number] [address] [place] [address], [place] [address] Jan, [facility] [address] [id number] [address] [place] [address], [place] [address] Jan, [facility] [address] [id number] [address] [place] [address], [place] [address] Jan, [facility] [address] [id number] [address] [place] [address], [place] [address] Dec, [facility] [address] [id number] [address] [place] [address], [place] [address] Dec, [facility] [address] [id number] [address] [place] [address], [place] [address] Dec, [facility] [address] [id number] [address] [place] [address], [place] [address] Dec, [facility] [address] [id number] [address] [place] [address], [place] [address] Nov, [facility] [address] [id number] [address] [place] [address], [place] [address] Nov, [facility] [address] [id number] [address] [place] [address], [place] [address] Nov, [facility] [address] [id number] [address] [place] [address], [place] [address] October, [facility] [address] [id number] [address] [place] [address], [place] [address] Sep, [facility] [address] [id number] [address] [place] [address], [place] [address] Sep, [facility] [address] [id number] [address] [place] [address], [place] [address] Sep, [facility] [address] [id number] [address] [place] [address], [place] [address] Sep, [facility] [address] [id number] [address] [place] [address], [place] [address] Sep, [facility] [address] [id number] [address] [place] [address], [place] [address] Sep, [facility] [address] [id number] [address] [place] [address], [place] [address] Sep, [facility] [address] [id number] [address] [place] [address], [place] [address] Sep, [facility] [address] [id number] [address] [place] [address], [place] [address] Sep, [facility] [address] [id number] [address] [place] [address], [place] [address] Aug, [facility] [address] [id number] [address] [place] [address], [place] [address] Aug, [facility] [address] [id number] [address] [place] [address], [place] [address] Jul, [facility] [address] [id number] [address] [place] [address], [place] [address] Jul, [facility] [address] [id number] [address] [place] [address], [place] [address] Jul, [facility] [address] [id number] [address] [place] [address] [place] [address] Jun, [facility] [address] [id number] [address] [place] [address], [place] [address] Apr, [facility] [address] [id number] [address] [place] [address], [place] [address] Apr, [facility] [address] [id number] [address] [place] [address], [place] [address] Apr, [facility] [address] [id number] [address] [place] [address], [place] [address] Apr, [facility] [address] [id number] [address] [place] [address], [place] [address] Apr, [facility] [address] [id number] [address] [place] [address], [place] [address] Apr, [facility] [address] [id number] [address] [place] [address], [place] [address] Apr, [facility] [address] [id number] [address] [place] [address], [place] [address] Apr, [facility] [address] [id number] [address] [place] [address], [place] [address] Apr, [facility] [address] [id number] [address] [place] [address], [place] [address] Apr, [facility] [address] [id number] [address] [place] [address], [place] [address] Apr, [facility] [address] [id number] [address] [place] [address] Apr, [facility] [address] [id number] [address] [place] [address], [place] [address] Mar, [facility] [address] [id number] [address] [place] [address], [place] [address] Mar, [facility] [address] [id number] [address] [place] [address], [place] [address] Mar, [facility] [address] [id number] [address] [place] [address] 15 Mar, 2012 [facility] [address] [id number] [address] [place] [address] 15 Mar, 2012 [facility] [address] [id number] [address] [place] [address] Mar, [facility] [address] [id number] [address] [place] [address] 05 Mar, 2012 [facility] [address] [id number] [address] [place] [address] 25 Feb, 2012 [facility] [address] [id number] [address] [place] [address] 24 Feb, 2012 [facility] [address] [id number] [address] [place] [phone] Feb, [facility] [address] [id number] [address] [place] [phone] 06 Feb, 2012 [facility] [address] [id number] [address] [place] [address] Jan, [facility] [address] [id number] [address] [place] [id number] Jan, [facility] [address] [id number] [address] [place] [phone] Jan, [facility] [address] [id number] [address] [place] [address] Jan, IMMUNIZATIONS No Known Immunizations SOCIAL HISTORY Never Assessed REASON FOR VISIT PLAN OF CARE VITAL SIGNS Height 72 in 2013-05-03 Weight 259.8 lbs 2013-05-03 Temperature 97 degrees Fahrenheit 2013-05-03 Heart Rate 72 bpm 2013-05-03 Respiratory Rate 16 2013-05-03 Blood pressure systolic 108 mmHg 2013-05-03 Blood pressure diastolic 74 mmHg 2013-05-03 MEDICATIONS Unknown Medications RESULTS No Results PROCEDURES Procedure Date Ordered Result Body Site BLOOD SEROLOGY, QUALITATIVE May 03, 2013 ASSAY THYROID STIM HORMONE May 03, 2013 NATRIURETIC PEPTIDE May 03, 2013 GLYCATED HEMOGLOBIN TEST May 03, 2013 LIPID PANEL May 03, 2013 MRI BRAIN W/O&W DYE May 03, 2013 ASSAY OF PSA, FREE May 03, 2013 URINALYSIS, AUTO, W/O SCOPE May 03, 2013 VENIPUNCT, ROUTINE* May 03, 2013 INSTRUCTIONS MEDICATIONS ADMINISTERED No Known Medications
--- OUTSIDE RECORDS SUMMARY | 2020-01-17 06:36 | XMS REPORT ---
Author Author Yogesh Kelly Doctor Organization [facility] Address Unknown Phone Unavailable Care Team Providers Care Hosted Services Analyst Name Role Phone Migration, Doctor Unavailable Unavailable PROBLEMS Type Condition ICD9-CM Code [id number] Code Onset Dates Condition S tatus SNOMED Code Problem Encounter for long-term (current) use of other medications V58.69 Active 075313373 Problem Routine general medical examination at [facility] V70.0 Active 814437374 Problem Family history of unspecified malignant neoplasm V16.9 Active 115224143 Problem Nonspecific elevation of lev els of transaminase or lactic acid dehydrogenase (LDH) 790.4 Active 63608631 2 Problem Personal history of other allergy, other than to medicinal agents V15.09 Active 126677052 Problem Essential hypertension, benign 401.1 Active 9662960 Problem Coronary atherosclerosis of unspecified type of vessel, [place] or graft 414.00 Active 373087259 Problem Dizziness and giddiness 780.4 Active 211295829 Problem Chest pain, unspecified 786.50 Active 32002785 Problem Lumbago 724.2 Active 076861804 Problem Cervicalgia 723.1 Active 32733178 Problem Other specified cardiac dysrhythmias 427.89 Active 377714624 Problem Peptic ulcer, unspecified si te, unspecified as acute or chronic, without mention of hemorrhage, perforation, or obstruction 533.90 Active 97350903 Problem Right bundle branch block 426.4 Acti ve 04184544 Problem 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 Active 36396328 Problem Unspecified tinnitus 388.30 Active 27842398 Problem Unspecified hearing loss 389.9 Activ e 09277321 Problem Unspecified otalgia 388.70 Active 02252157 Problem Malignant neoplasm of prostate 185 Active 965575437 Problem Polyuria 788.42 Active 71375003 Problem Unspecified viral hepatitis C without hepatic coma 070.70 Active 42935924 Problem Abdominal or pelvic swelling, mass or lump, unspecified si te 789.30 Active 752034309 Problem Dysuria 788.1 Active 59789653 Problem Unspecified cataract 366.9 Active 251109832 Problem Unspecified episodic mood disorder 296.90 Active 444353214 Problem Other and unspecified hyperlipidemia 272.4 Active 67860897 Problem Unspecified hypothyroidism 244.9 Act katty 25404037 ALLERGIES No Information ENCOUNTERS Encounter Location Date Diagnosis [facility] [address] [id number] [address] [place] [id number] 14 Sep, 2014 [facility] [address] [id number] [address] [place] [address] Sep, [facility] [address] [id number] [address] [place] [address] Jun, [facility] [address] [id number] [address] [place] [address] Jun, [facility] [address] [id number] [address] [place] [address] May, [facility] [address] [id number] [address] [place] [address] May, [facility] [address] [id number] [address] [place] [address] Feb, [facility] [address] [id number] [address] [place] [address] Feb, [facility] [address] [id number] [address] [place] [address] Feb, [facility] [address] [id number] [address] [place] [address] Jan, [facility] [address] [id number] [address] [place] [address] Jan, [facility] [address] [id number] [address] [place] [address] Nov, [facility] [address] [id number] [address] [place] [address] Nov, [facility] [address] [id number] [address] [place] [address] 05 Nov, 2013 [facility] [address] [id number] [facility] [place] [address] 05 Nov, 2013 [facility] [address] [id number] [facility] [place] [address] Aug, [facility] [address] [id number] [facility] [place] [address] Aug, [facility] [address] [id number] [address] [place] [address], [place] [address] Aug, [facility] [address] [id number] [facility] [place] [address] Aug, [facility] [address] [id number] [address] [place] [address], [place] [address] Aug, [facility] [address] [id number] [address] [place] [address], [place] [address] Aug, [facility] [address] [id number] [address] [place] [address], [place] [address] Aug, [facility] [address] [id number] [address] [place] [address], [place] [address] Aug, [facility] [address] [id number] [address] [place] [address], [place] [address] Aug, [facility] [address] [id number] [address] [place] [address], [place] [address] Aug, [facility] [address] [id number] [address] [place] [address], [place] [address] Jul, [facility] [address] [id number] [address] [place] [address], [place] [address] Jul, [facility] [address] [id number] [address] [place] [address], [place] [address] Jul, [facility] [address] [id number] [address] [place] [address], [place] [address] Jul, [facility] [address] [id number] [address] [place] [address], [place] [address] Jul, [facility] [address] [id number] [address] [place] [address], [place] [address] Jul, [facility] [address] [id number] [address] [place] [address], [place] [address] Jul, [facility] [address] [id number] [address] [place] [address], [place] [address] Jul, [facility] [address] [id number] [address] [place] [address], [place] [address] Jun, [facility] [address] [id number] [address] [place] [address], [place] [address] Jun, [facility] [address] [id number] [address] [place] [address], [place] [address] Jun, [facility] [address] [id number] [address] [place] [address], [place] [address] Jun, [facility] [address] [id number] [address] [place] [address], [place] [address] Jun, [facility] [address] [id number] [address] [place] [address], [place] [address] Jun, [facility] [address] [id number] [address] [place] [address], [place] [address] Jun, [facility] [address] [id number] [address] [place] [address], [place] [address] Jun, [facility] [address] [id number] [address] [place] [address], [place] [address] May, [facility] [address] [id number] [address] [place] [address], [place] [address] May, [facility] [address] [id number] [address] [place] [address], [place] [address] May, [facility] [address] [id number] [address] [place] [address], [place] [address] May, [facility] [address] [id number] [address] [place] [address], [place] [address] May, [facility] [address] [id number] [address] [place] [address], [place] [address] May, [facility] [address] [id number] [address] [place] [address], [place] [address] May, [facility] [address] [id number] [address] [place] [address], [place] [address] May, [facility] [address] [id number] [address] [place] [address], [place] [address] Apr, [facility] [address] [id number] [address] [place] [address] Apr, [facility] [address] [id number] [address] [place] [address], [place] [address] Apr, [facility] [address] [id number] [address] [place] [address], [place] [address] Apr, [facility] [address] [id number] [address] [place] [address], [place] [address] Apr, [facility] [address] [id number] [address] [place] [address] Apr, [facility] [address] [id number] [address] [place] [address] Apr, [facility] [address] [id number] [address] [place] [address] 18 Apr, 2013 [facility] [address] [id number] [address] [place] [address], [place] [address] Mar, [facility] [address] [id number] [address] [place] [address] 14 Mar, 2013 [facility] [address] [id number] [address] [place] [address] 18 Feb, 2013 [facility] [address] [id number] [address] [place] [address], [place] [address] Feb, [facility] [address] [id number] [address] [place] [address], [place] [address] Feb, [facility] [address] [id number] [address] [place] [address], [place] [address] Jan, [facility] [address] [id number] [address] [place] [address], [place] [address] Jan, [facility] [address] [id number] [address] [place] [address], [place] [address] Jan, [facility] [address] [id number] [address] [place] [address], [place] [address] Jan, [facility] [address] [id number] [address] [place] [address], [place] [address] Jan, [facility] [address] [id number] [address] [place] [address], [place] [address] Jan, [facility] [address] [id number] [address] [place] [address], [place] [address] Jan, [facility] [address] [id number] [address] [place] [address], [place] [address] Dec, [facility] [address] [id number] [address] [place] [address], [place] [address] Dec, [facility] [address] [id number] [address] [place] [address], [place] [address] Dec, [facility] [address] [id number] [address] [place] [address], [place] [address] Dec, [facility] [address] [id number] [address] [place] [address], [place] [address] Nov, [facility] [address] [id number] [address] [place] [address], [place] [address] Nov, [facility] [address] [id number] [address] [place] [address], [place] [address] Nov, [facility] [address] [id number] [address] [place] [address], [place] [address] October, [facility] [address] [id number] [address] [place] [address], [place] [address] Sep, [facility] [address] [id number] [address] [place] [address], [place] [address] Sep, [facility] [address] [id number] [address] [place] [address], [place] [address] Sep, [facility] [address] [id number] [address] [place] [address], [place] [address] Sep, [facility] [address] [id number] [address] [place] [address], [place] [address] Sep, [facility] [address] [id number] [address] [place] [address], [place] [address] Sep, [facility] [address] [id number] [address] [place] [address], [place] [address] Sep, [facility] [address] [id number] [address] [place] [address], [place] [address] Sep, [facility] [address] [id number] [address] [place] [address], [place] [address] Sep, [facility] [address] [id number] [address] [place] [address], [place] [address] Aug, [facility] [address] [id number] [address] [place] [address], [place] [address] Aug, [facility] [address] [id number] [address] [place] [address], [place] [address] Jul, [facility] [address] [id number] [address] [place] [address], [place] [address] Jul, [facility] [address] [id number] [address] [place] [address], [place] [address] Jul, [facility] [address] [id number] [address] [place] [address] [place] [address] Jun, [facility] [address] [id number] [address] [place] [address], [place] [address] Apr, [facility] [address] [id number] [address] [place] [address], [place] [address] Apr, [facility] [address] [id number] [address] [place] [address], [place] [address] Apr, [facility] [address] [id number] [address] [place] [address], [place] [address] Apr, [facility] [address] [id number] [address] [place] [address], [place] [address] Apr, [facility] [address] [id number] [address] [place] [address], [place] [address] Apr, [facility] [address] [id number] [address] [place] [address], [place] [address] Apr, [facility] [address] [id number] [address] [place] [address], [place] [address] Apr, [facility] [address] [id number] [address] [place] [address], [place] [address] Apr, [facility] [address] [id number] [address] [place] [address], [place] [address] Apr, [facility] [address] [id number] [address] [place] [address], [place] [address] Apr, [facility] [address] [id number] [address] [place] [address] Apr, [facility] [address] [id number] [address] [place] [address], [place] [address] Mar, [facility] [address] [id number] [address] [place] [address], [place] [address] Mar, [facility] [address] [id number] [address] [place] [address], [place] [address] Mar, [facility] [address] [id number] [address] [place] [address] 15 Mar, 2012 [facility] [address] [id number] [address] [place] [address] Mar, [facility] [address] [id number] [address] [place] [address] Mar, [facility] [address] [id number] [address] [place] [address] Mar, [facility] [address] [id number] [address] [place] [address] 25 Feb, 2012 [facility] [address] [id number] [address] [place] [address] 24 Feb, 2012 [facility] [address] [id number] [address] [place] [address] Feb, [facility] [address] [id number] [address] [place] [address] Feb, [facility] [address] [id number] [address] [place] [address] Jan, [facility] [address] [id number] [address] [place] [address] Jan, [facility] [address] [id number] [address] [place] [address] Jan, [facility] [address] [id number] [address] [place] [address] Jan, IMMUNIZATIONS No Known Immunizations SOCIAL HISTORY Never Assessed REASON FOR VISIT PLAN OF CARE VITAL SIGNS MEDICATIONS Unknown Medications RESULTS No Results PROCEDURES No Known procedures INSTRUCTIONS MEDICATIONS ADMINISTERED No Known Medications
--- OUTSIDE RECORDS SUMMARY | 2020-01-17 06:36 | XMS REPORT ---
Author Author Yogesh Kelly Doctor Organization [facility] Address Unknown Phone Unavailable Care Team Providers Care Business Reporter Name Role Phone Migration, Doctor Unavailable Unavailable PROBLEMS Type Condition ICD9-CM Code [id number] Code Onset Dates Condition S tatus SNOMED Code Problem Encounter for long-term (current) use of other medications V58.69 Active 395447435 Problem Routine general medical examination [facility] V70.0 Active 579451299 Problem Family history of unspecified malignant neoplasm V16.9 Active 393051111 Problem Nonspecific elevation of lev els of transaminase or lactic acid dehydrogenase (LDH) 790.4 Active 75546653 2 Problem Personal history of other allergy, other than to medicinal agents V15.09 Active 399462785 Problem Essential hypertension, benign 401.1 Active 6363081 Problem Coronary atherosclerosis of unspecified type of vessel, [place] or graft 414.00 Active 351976200 Problem Dizziness and giddiness 780.4 Active 852402661 Problem Chest pain, unspecified 786.50 Active 27705959 Problem Lumbago 724.2 Active 868219886 Problem Cervicalgia 723.1 Active 13600682 Problem Other specified cardiac dysrhythmias 427.89 Active 554288995 Problem Peptic ulcer, unspecified si te, unspecified as acute or chronic, without mention of hemorrhage, perforation, or obstruction 533.90 Active 51048497 Problem Right bundle branch block 426.4 Acti ve 73291183 Problem 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 Active 97147501 Problem Unspecified tinnitus 388.30 Active 98854801 Problem Unspecified hearing loss 389.9 Activ e 66085581 Problem Unspecified otalgia 388.70 Active 21315987 Problem Malignant neoplasm of prostate 185 Active 110809932 Problem Polyuria 788.42 Active 00749530 Problem Unspecified viral hepatitis C without hepatic coma 070.70 Active 38908628 Problem Abdominal or pelvic swelling, mass or lump, unspecified si te 789.30 Active 126874493 Problem Dysuria 788.1 Active 28562501 Problem Unspecified cataract 366.9 Active 858828573 Problem Unspecified episodic mood disorder 296.90 Active 388297664 Problem Other and unspecified hyperlipidemia 272.4 Active 53280517 Problem Unspecified hypothyroidism 244.9 Act katty [id number] ALLERGIES No Information ENCOUNTERS Encounter Location Date Diagnosis [facility] [address] [id number] [address] [place] [id number] 14 Sep, 2014 [facility] [address] [id number] [address] [place] [address] Sep, [facility] [address] [id number] [address] [place] [address] Jun, [facility] [address] [id number] [address] [place] [address] Jun, [facility] [address] [id number] [address] [place] [address] May, [facility] [address] [id number] [address] [place] [address] May, [facility] [address] [id number] [address] [place] [address] Feb, [facility] [address] [id number] [address] [place] [address] Feb, [facility] [address] [id number] [address] [place] [address] Feb, [facility] [address] [id number] [address] [place] [address] Jan, [facility] [address] [id number] [address] [place] [address] Jan, [facility] [address] [id number] [address] [place] [address] Nov, [facility] [address] [id number] [address] [place] [address] Nov, [facility] [address] [id number] [address] [place] [id number] 05 Nov, 2013 [facility] [address] [id number] [facility] [place] [address] 05 Nov, 2013 [facility] [address] [id number] [facility] [place] [address] Aug, [facility] [address] [id number] [facility] [place] [address] Aug, [facility] [address] [id number] [address] [place] [address], [place] [address] Aug, [facility] [address] [id number] [facility] [place] [address] Aug, [facility] [address] [id number] [address] [place] [address], [place] [address] Aug, [facility] [address] [id number] [address] [place] [address], [place] [address] Aug, [facility] [address] [id number] [address] [place] [address], [place] [address] Aug, [facility] [address] [id number] [address] [place] [address], [place] [address] Aug, [facility] [address] [id number] [address] [place] [address], [place] [address] Aug, [facility] [address] [id number] [address] [place] [address], [place] [address] Aug, [facility] [address] [id number] [address] [place] [address], [place] [address] Jul, [facility] [address] [id number] [address] [place] [address], [place] [address] Jul, [facility] [address] [id number] [address] [place] [address], [place] [address] Jul, [facility] [address] [id number] [address] [place] [address], [place] [address] Jul, [facility] [address] [id number] [address] [place] [address], [place] [address] Jul, [facility] [address] [id number] [address] [place] [address], [place] [address] Jul, [facility] [address] [id number] [address] [place] [address], [place] [address] Jul, [facility] [address] [id number] [address] [place] [address], [place] [address] Jul, [facility] [address] [id number] [address] [place] [address], [place] [address] Jun, [facility] [address] [id number] [address] [place] [address], [place] [address] Jun, [facility] [address] [id number] [address] [place] [address], [place] [address] Jun, [facility] [address] [id number] [address] [place] [address], [place] [address] Jun, [facility] [address] [id number] [address] [place] [address], [place] [address] Jun, [facility] [address] [id number] [address] [place] [address], [place] [address] Jun, [facility] [address] [id number] [address] [place] [address], [place] [address] Jun, [facility] [address] [id number] [address] [place] [address], [place] [address] Jun, [facility] [address] [id number] [address] [place] [address], [place] [address] May, [facility] [address] [id number] [address] [place] [address], [place] [address] May, [facility] [address] [id number] [address] [place] [address], [place] [address] May, [facility] [address] [id number] [address] [place] [address], [place] [address] May, [facility] [address] [id number] [address] [place] [address], [place] [address] May, [facility] [address] [id number] [address] [place] [address], [place] [address] May, [facility] [address] [id number] [address] [place] [address], [place] [address] May, [facility] [address] [id number] [address] [place] [address], [place] [address] May, [facility] [address] [id number] [address] [place] [address], [place] [address] Apr, [facility] [address] [id number] [address] [place] [address] Apr, [facility] [address] [id number] [address] [place] [address], [place] [address] Apr, [facility] [address] [id number] [address] [place] [address], [place] [address] Apr, [facility] [address] [id number] [address] [place] [address], [place] [address] Apr, [facility] [address] [id number] [address] [place] [address] Apr, [facility] [address] [id number] [address] [place] [address] Apr, [facility] [address] [id number] [address] [place] [address] 18 Apr, 2013 [facility] [address] [id number] [address] [place] [address], [place] [address] Mar, [facility] [address] [id number] [address] [place] [address] 14 Mar, 2013 [facility] [address] [id number] [address] [place] [address] 18 Feb, 2013 [facility] [address] [id number] [address] [place] [address], [place] [address] Feb, [facility] [address] [id number] [address] [place] [address], [place] [address] Feb, [facility] [address] [id number] [address] [place] [address], [place] [address] Jan, [facility] [address] [id number] [address] [place] [address], [place] [address] Jan, [facility] [address] [id number] [address] [place] [address], [place] [address] Jan, [facility] [address] [id number] [address] [place] [address], [place] [address] Jan, [facility] [address] [id number] [address] [place] [address], [place] [address] Jan, [facility] [address] [id number] [address] [place] [address], [place] [address] Jan, [facility] [address] [id number] [address] [place] [address], [place] [address] Jan, [facility] [address] [id number] [address] [place] [address], [place] [address] Dec, [facility] [address] [id number] [address] [place] [address], [place] [address] Dec, [facility] [address] [id number] [address] [place] [address], [place] [address] Dec, [facility] [address] [id number] [address] [place] [address], [place] [address] Dec, [facility] [address] [id number] [address] [place] [address], [place] [address] Nov, [facility] [address] [id number] [address] [place] [address], [place] [address] Nov, [facility] [address] [id number] [address] [place] [address], [place] [address] Nov, [facility] [address] [id number] [address] [place] [address], [place] [address] October, [facility] [address] [id number] [address] [place] [address], [place] [address] Sep, [facility] [address] [id number] [address] [place] [address], [place] [address] Sep, [facility] [address] [id number] [address] [place] [address], [place] [address] Sep, [facility] [address] [id number] [address] [place] [address], [place] [address] Sep, [facility] [address] [id number] [address] [place] [address], [place] [address] Sep, [facility] [address] [id number] [address] [place] [address], [place] [address] Sep, [facility] [address] [id number] [address] [place] [address], [place] [address] Sep, [facility] [address] [id number] [address] [place] [address], [place] [address] Sep, [facility] [address] [id number] [address] [place] [address], [place] [address] Sep, [facility] [address] [id number] [address] [place] [address], [place] [address] Aug, [facility] [address] [id number] [address] [place] [address], [place] [address] Aug, [facility] [address] [id number] [address] [place] [address], [place] [address] Jul, [facility] [address] [id number] [address] [place] [address], [place] [address] Jul, [facility] [address] [id number] [address] [place] [address], [place] [address] Jul, [facility] [address] [id number] [address] [address] [place] [address] Jun, [facility] [address] [id number] [address] [place] [address], [place] [address] Apr, [facility] [address] [id number] [address] [place] [address], [place] [address] Apr, [facility] [address] [id number] [address] [place] [address], [place] [address] Apr, [facility] [address] [id number] [address] [place] [address], [place] [address] Apr, [facility] [address] [id number] [address] [place] [address], [place] [address] Apr, [facility] [address] [id number] [address] [place] [address], [place] [address] Apr, [facility] [address] [id number] [address] [place] [address], [place] [address] Apr, [facility] [address] [id number] [address] [place] [address], [place] [address] Apr, [facility] [address] [id number] [address] [place] [address], [place] [address] Apr, [facility] [address] [id number] [address] [place] [address], [place] [address] Apr, [facility] [address] [id number] [address] [place] [address], [place] [address] Apr, [facility] [address] [id number] [address] [place] [address] Apr, [facility] [address] [id number] [address] [place] [address], [place] [address] Mar, [facility] [address] [id number] [address] [place] [address], [place] [address] Mar, [facility] [address] [id number] [address] [place] [address], [place] [address] Mar, [facility] [address] [id number] [address] [place] [address] 15 Mar, 2012 [facility] [address] [id number] [address] [place] [address] Mar, [facility] [address] [id number] [address] [place] [address] Mar, [facility] [address] [id number] [address] [place] [address] Mar, [facility] [address] [id number] [address] [place] [address] 25 Feb, 2012 [facility] [address] [id number] [address] [place] [address] 24 Feb, 2012 [facility] [address] [id number] [address] [place] [address] Feb, [facility] [address] [id number] [address] [place] [address] Feb, [facility] [address] [id number] [address] [place] [address] Jan, [facility] [address] [id number] [address] [place] [address] Jan, [facility] [address] [id number] [address] [place] [address] Jan, [facility] [address] [id number] [address] [place] [address] Jan, IMMUNIZATIONS No Known Immunizations SOCIAL HISTORY Never Assessed REASON FOR VISIT PLAN OF CARE VITAL SIGNS MEDICATIONS Unknown Medications RESULTS No Results PROCEDURES No Known procedures INSTRUCTIONS MEDICATIONS ADMINISTERED No Known Medications
--- OUTSIDE RECORDS SUMMARY | 2020-01-17 06:36 | XMS REPORT ---
Author Author Yogesh Kelly Doctor Organization [facility] Address Unknown Phone Unavailable Care Team Providers Care Assistant Finance Manager Name Role Phone Migration, Doctor Unavailable Unavailable PROBLEMS Type Condition ICD9-CM Code HTR81-NW Code Onset Dates Condition S tatus SNOMED Code Problem Encounter for long-term (current) use of other medications V58.69 Active 187149895 Problem Routine general medical examination at [facility] V70.0 Active 410649895 Problem Family history of unspecified malignant neoplasm V16.9 Active 208802693 Problem Nonspecific elevation of lev els of transaminase or lactic acid dehydrogenase (LDH) 790.4 Active 20254874 2 Problem Personal history of other allergy, other than to medicinal agents V15.09 Active 315294303 Problem Essential hypertension, benign 401.1 Active 3704403 Problem Coronary atherosclerosis of unspecified type of vessel, jamul or graft 414.00 Active 414247106 Problem Dizziness and giddiness 780.4 Active 391567426 Problem Chest pain, unspecified 786.50 Active 90188990 Problem Lumbago 724.2 Active 751081219 Problem Cervicalgia 723.1 Active 60540767 Problem Other specified cardiac dysrhythmias 427.89 Active 885119127 Problem Peptic ulcer, unspecified si te, unspecified as acute or chronic, without mention of hemorrhage, perforation, or obstruction 533.90 Active 40064852 Problem Right bundle branch block 426.4 Acti ve 03091879 Problem 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 Active 29409405 Problem Unspecified tinnitus 388.30 Active 11429526 Problem Unspecified hearing loss 389.9 Activ e 01411051 Problem Unspecified otalgia 388.70 Active 62304345 Problem Malignant neoplasm of prostate 185 Active 919964989 Problem Polyuria 788.42 Active 47117802 Problem Unspecified viral hepatitis C without hepatic coma 070.70 Active 36339809 Problem Abdominal or pelvic swelling, mass or lump, unspecified si te 789.30 Active 741234342 Problem Dysuria 788.1 Active 27902235 Problem Unspecified cataract 366.9 Active 894349657 Problem Unspecified episodic mood disorder 296.90 Active 911224179 Problem Other and unspecified hyperlipidemia 272.4 Active 94699221 Problem Unspecified hypothyroidism 244.9 Act katty [id number] ALLERGIES No Information ENCOUNTERS Encounter Location Date Diagnosis [facility] [address] [id number] [address] [place] [id number] 14 Sep, 2014 [facility] [address] [id number] [address] [place] [address] Sep, [facility] [address] [id number] [address] [place] [address] Jun, [facility] [address] [id number] [address] [place] [address] Jun, [facility] [address] [id number] [address] [place] [address] May, [facility] [address] [id number] [address] [place] [address] May, [facility] [address] [id number] [address] [place] [phone] Feb, [facility] [address] [id number] [address] [place] [address] Feb, [facility] [address] [id number] [address] [place] [address] Feb, [facility] [address] [id number] [address] [place] [address] Jan, [facility] [address] [id number] [address] [place] [phone] Jan, [facility] [address] [id number] [address] [place] [address] Nov, [facility] [address] [id number] [address] [place] [address] Nov, [facility] [address] [id number] [address] [place] [id number] 05 Nov, 2013 [facility] [address] [id number] [facility] [place] [address] 05 Nov, 2013 [facility] [address] [id number] [facility] [place] [address] Aug, [facility] [address] [id number] [facility] [place] [address] Aug, [facility] [address] [id number] [address] [place] [address], [place] [address] Aug, [facility] [address] [id number] [facility] [place] [address] Aug, [facility] [address] [id number] [address] [place] [address], [place] [address] Aug, [facility] [address] [id number] [address] [place] [address], [place] [address] Aug, [facility] [address] [id number] [address] [place] [address], [place] [address] Aug, [facility] [address] [id number] [address] [place] [address], [place] [address] Aug, [facility] [address] [id number] [address] [place] [address], [place] [address] Aug, [facility] [address] [id number] [address] [place] [address], [place] [address] Aug, [facility] [address] [id number] [address] [place] [address], [place] [address] Jul, [facility] [address] [id number] [address] [place] [address], [place] [address] Jul, [facility] [address] [id number] [address] [place] [address], [place] [address] Jul, [facility] [address] [id number] [address] [place] [address], [place] [address] Jul, [facility] [address] [id number] [address] [place] [address], [place] [address] Jul, [facility] [address] [id number] [address] [place] [address], [place] [address] Jul, [facility] [address] [id number] [address] [place] [address], [place] [address] Jul, [facility] [address] [id number] [address] [place] [address], [place] [address] Jul, [facility] [address] [id number] [address] [place] [address], [place] [address] Jun, [facility] [address] [id number] [address] [place] [address], [place] [address] Jun, [facility] [address] [id number] [address] [place] [address], [place] [address] Jun, [facility] [address] [id number] [address] [place] [address], [place] [address] Jun, [facility] [address] [id number] [address] [place] [address], [place] [address] Jun, [facility] [address] [id number] [address] [place] [address], [place] [address] Jun, [facility] [address] [id number] [address] [place] [address], [place] [address] Jun, [facility] [address] [id number] [address] [place] [address], [place] [address] Jun, [facility] [address] [id number] [address] [place] [address], [place] [address] May, [facility] [address] [id number] [address] [place] [address], [place] [address] May, [facility] [address] [id number] [address] [place] [address], [place] [address] May, [facility] [address] [id number] [address] [place] [address], [place] [address] May, [facility] [address] [id number] [address] [place] [address], [place] [address] May, [facility] [address] [id number] [address] [place] [address], [place] [address] May, [facility] [address] [id number] [address] [place] [address], [place] [address] May, [facility] [address] [id number] [address] [place] [address], [place] [address] May, [facility] [address] [id number] [address] [place] [address], [place] [address] Apr, [facility] [address] [id number] [address] [place] [address] Apr, [facility] [address] [id number] [address] [place] [address], [place] [address] Apr, [facility] [address] [id number] [address] [place] [address], [place] [address] Apr, [facility] [address] [id number] [address] [place] [address], [place] [address] Apr, [facility] [address] [id number] [address] [place] [address] Apr, [facility] [address] [id number] [address] [place] [address] Apr, [facility] [address] [id number] [address] [place] [address] 18 Apr, 2013 [facility] [address] [id number] [address] [place] [address], [place] [address] Mar, [facility] [address] [id number] [address] [place] [address] 14 Mar, 2013 [facility] [address] [id number] [address] [place] [address] 18 Feb, 2013 [facility] [address] [id number] [address] [place] [address], [place] [address] Feb, [facility] [address] [id number] [address] [place] [address], [place] [address] Feb, [facility] [address] [id number] [address] [place] [address], [place] [address] Jan, [facility] [address] [id number] [address] [place] [address], [place] [address] Jan, [facility] [address] [id number] [address] [place] [address], [place] [address] Jan, [facility] [address] [id number] [address] [place] [address], [place] [address] Jan, [facility] [address] [id number] [address] [place] [address], [place] [address] Jan, [facility] [address] [id number] [address] [place] [address], [place] [address] Jan, [facility] [address] [id number] [address] [place] [address], [place] [address] Jan, [facility] [address] [id number] [address] [place] [address], [place] [address] Dec, [facility] [address] [id number] [address] [place] [address], [place] [address] Dec, [facility] [address] [id number] [address] [place] [address], [place] [address] Dec, [facility] [address] [id number] [address] [place] [address], [place] [address] Dec, [facility] [address] [id number] [address] [place] [address], [place] [address] Nov, [facility] [address] [id number] [address] [place] [address], [place] [address] Nov, [facility] [address] [id number] [address] [place] [address], [place] [address] Nov, [facility] [address] [id number] [address] [place] [address], [place] [address] October, [facility] [address] [id number] [address] [place] [address], [place] [address] Sep, [facility] [address] [id number] [address] [place] [address], [place] [address] Sep, [facility] [address] [id number] [address] [place] [address], [place] [address] Sep, [facility] [address] [id number] [address] [place] [address], [place] [address] Sep, [facility] [address] [id number] [address] [place] [address], [place] [address] Sep, [facility] [address] [id number] [address] [place] [address], [place] [address] Sep, [facility] [address] [id number] [address] [place] [address], [place] [address] Sep, [facility] [address] [id number] [address] [place] [address], [place] [address] Sep, [facility] [address] [id number] [address] [place] [address], [place] [address] Sep, [facility] [address] [id number] [address] [place] [address], [place] [address] Aug, [facility] [address] [id number] [address] [place] [address], [place] [address] Aug, [facility] [address] [id number] [address] [place] [address], [place] [address] Jul, [facility] [address] [id number] [address] [place] [address], [place] [address] Jul, [facility] [address] [id number] [address] [place] [address], [place] [address] Jul, [facility] [address] [id number] [address] [place] [address] [place] [address] Jun, [facility] [address] [id number] [address] [place] [address], [place] [address] Apr, [facility] [address] [id number] [address] [place] [address], [place] [address] Apr, [facility] [address] [id number] [address] [place] [address], [place] [address] Apr, [facility] [address] [id number] [address] [place] [address], [place] [address] Apr, [facility] [address] [id number] [address] [place] [address], [place] [address] Apr, [facility] [address] [id number] [address] [place] [address], [place] [address] Apr, [facility] [address] [id number] [address] [place] [address], [place] [address] Apr, [facility] [address] [id number] [address] [place] [address], [place] [address] Apr, [facility] [address] [id number] [address] [place] [address], [place] [address] Apr, [facility] [address] [id number] [address] [place] [address], [place] [address] Apr, [facility] [address] [id number] [address] [place] [address], [place] [address] Apr, [facility] [address] [id number] [address] [place] [address] Apr, [facility] [address] [id number] [address] [place] [address], [place] [address] Mar, [facility] [address] [id number] [address] [place] [address], [place] [address] Mar, [facility] [address] [id number] [address] [place] [address], [place] [address] Mar, [facility] [address] [id number] [address] [place] [address] 15 Mar, 2012 [facility] [address] [id number] [address] [place] [address] Mar, [facility] [address] [id number] [address] [place] [address] Mar, [facility] [address] [id number] [address] [place] [address] Mar, [facility] [address] [id number] [address] [place] [address] 25 Feb, 2012 [facility] [address] [id number] [address] [place] [address] 24 Feb, 2012 [facility] [address] [id number] [address] [place] [address] Feb, [facility] [address] [id number] [address] [place] [address] Feb, [facility] [address] [id number] [address] [place] [address] Jan, [facility] [address] [id number] [address] [place] [address] Jan, [facility] [address] [id number] [address] [place] [phone] Jan, [facility] [address] [id number] [address] [place] [address] Jan, IMMUNIZATIONS No Known Immunizations SOCIAL HISTORY Never Assessed REASON FOR VISIT PLAN OF CARE VITAL SIGNS MEDICATIONS Unknown Medications RESULTS No Results PROCEDURES No Known procedures INSTRUCTIONS MEDICATIONS ADMINISTERED No Known Medications
--- OUTSIDE RECORDS SUMMARY | 2020-01-17 06:36 | XMS REPORT ---
Author Author Yogesh Kelly Doctor Organization [facility] Address Unknown Phone Unavailable Care Team Providers Care Steel Cutter Name Role Phone Migration, Doctor Unavailable Unavailable PROBLEMS Type Condition ICD9-CM Code KRS77-LA Code Onset Dates Condition S tatus SNOMED Code Problem Encounter for long-term (current) use of other medications V58.69 Active 149321429 Problem Routine general medical examination at [facility] V70.0 Active 076280725 Problem Family history of unspecified malignant neoplasm V16.9 Active 391060887 Problem Nonspecific elevation of lev els of transaminase or lactic acid dehydrogenase (LDH) 790.4 Active 33853782 2 Problem Personal history of other allergy, other than to medicinal agents V15.09 Active 338698623 Problem Essential hypertension, benign 401.1 Active 9424551 Problem Coronary atherosclerosis of unspecified type of vessel, [place] or graft 414.00 Active 745485245 Problem Dizziness and giddiness 780.4 Active 286713216 Problem Chest pain, unspecified 786.50 Active 05381122 Problem Lumbago 724.2 Active 048378465 Problem Cervicalgia 723.1 Active 51714636 Problem Other specified cardiac dysrhythmias 427.89 Active 857088743 Problem Peptic ulcer, unspecified si te, unspecified as acute or chronic, without mention of hemorrhage, perforation, or obstruction 533.90 Active 63209950 Problem Right bundle branch block 426.4 Acti ve 88326027 Problem 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 Active 20150514 Problem Unspecified tinnitus 388.30 Active 33339651 Problem Unspecified hearing loss 389.9 Activ e 73457937 Problem Unspecified otalgia 388.70 Active 61151126 Problem Malignant neoplasm of prostate 185 Active 723798305 Problem Polyuria 788.42 Active 83278752 Problem Unspecified viral hepatitis C without hepatic coma 070.70 Active 23245866 Problem Abdominal or pelvic swelling, mass or lump, unspecified si te 789.30 Active 387394378 Problem Dysuria 788.1 Active 49822927 Problem Unspecified cataract 366.9 Active 791045715 Problem Unspecified episodic mood disorder 296.90 Active 716302277 Problem Other and unspecified hyperlipidemia 272.4 Active 25319461 Problem Unspecified hypothyroidism 244.9 Act katty 08164552 ALLERGIES No Information ENCOUNTERS Encounter Location Date Diagnosis [facility] [address] [id number] [address] [place] [id number] 14 Sep, 2014 [facility] [address] [id number] [address] [place] [address] Sep, [facility] [address] [id number] [address] [place] [phone] Jun, [facility] [address] [id number] [address] [place] [phone] Jun, [facility] [address] [id number] [address] [place] [address] May, [facility] [address] [id number] [address] [place] [address] May, [facility] [address] [id number] [address] [place] [address] Feb, [facility] [address] [id number] [address] [place] [phone] Feb, [facility] [address] [id number] [address] [place] [address] Feb, [facility] [address] [id number] [address] [place] [address] Jan, [facility] [address] [id number] [address] [place] [phone] Jan, [facility] [address] [id number] [address] [place] [id number] Nov, [facility] [address] [id number] [address] [place] [id number] Nov, [facility] [address] [id number] [address] [place] [id number] 05 Nov, 2013 [facility] [address] [id number] [facility] [address] 05 Nov, 2013 [facility] [address] [id number] [facility] [address] Aug, [facility] [address] [id number] [facility] [address] Aug, [facility] [address] [id number] [address] [place] [address], [place] [address] Aug, [facility] [address] [id number] [facility] [address] Aug, [facility] [address] [id number] [address] [place] [address], [place] [address] Aug, [facility] [address] [id number] [address] [place] [address], [place] [address] Aug, [facility] [address] [id number] [address] [place] [address], [place] [address] Aug, [facility] [address] [id number] [address] [place] [address], [place] [address] Aug, [facility] [address] [id number] [address] [place] [address], [place] [address] Aug, [facility] [address] [id number] [address] [place] [address], [place] [address] Aug, [facility] [address] [id number] [address] [place] [address], [place] [address] Jul, [facility] [address] [id number] [address] [place] [address], [place] [address] Jul, [facility] [address] [id number] [address] [place] [address], [place] [address] Jul, [facility] [address] [id number] [address] [place] [address], [place] [address] Jul, [facility] [address] [id number] [address] [place] [address], [place] [address] Jul, [facility] [address] [id number] [address] [place] [address], [place] [address] Jul, [facility] [address] [id number] [address] [place] [address], [place] [address] Jul, [facility] [address] [id number] [address] [place] [address], [place] [address] Jul, [facility] [address] [id number] [address] [place] [address], [place] [address] Jun, [facility] [address] [id number] [address] [place] [address], [place] [address] Jun, [facility] [address] [id number] [address] [place] [address], [place] [address] Jun, [facility] [address] [id number] [address] [place] [address], [place] [address] Jun, [facility] [address] [id number] [address] [place] [address], [place] [address] Jun, [facility] [address] [id number] [address] [place] [address], [place] [address] Jun, [facility] [address] [id number] [address] [place] [address], [place] [address] Jun, [facility] [address] [id number] [address] [place] [address], [place] [address] Jun, [facility] [address] [id number] [address] [place] [address], [place] [address] May, [facility] [address] [id number] [address] [place] [address], [place] [address] May, [facility] [address] [id number] [address] [place] [address], [place] [address] May, [facility] [address] [id number] [address] [place] [address], [place] [address] May, [facility] [address] [id number] [address] [place] [address], [place] [address] May, [facility] [address] [id number] [address] [place] [address], [place] [address] May, [facility] [address] [id number] [address] [place] [address], [place] [address] May, [facility] [address] [id number] [address] [place] [address], [place] [address] May, [facility] [address] [id number] [address] [place] [address], [place] [address] Apr, [facility] [address] [id number] [address] [place] [id number] Apr, [facility] [address] [id number] [address] [place] [address], [place] [address] Apr, [facility] [address] [id number] [address] [place] [address], [place] [address] Apr, [facility] [address] [id number] [address] [place] [address], [place] [address] Apr, [facility] [address] [id number] [address] [place] [address] Apr, [facility] [address] [id number] [address] [place] [address] Apr, [facility] [address] [id number] [address] [place] [phone] 18 Apr, 2013 [facility] [address] [id number] [address] [place] [address], [place] [address] Mar, [facility] [address] [id number] [address] [place] [address] 14 Mar, 2013 [facility] [address] [id number] [address] [place] [id number] 18 Feb, 2013 [facility] [address] [id number] [address] [place] [address], [place] [address] Feb, [facility] [address] [id number] [address] [place] [address], [place] [address] Feb, [facility] [address] [id number] [address] [place] [address], [place] [address] Jan, [facility] [address] [id number] [address] [place] [address], [place] [address] Jan, [facility] [address] [id number] [address] [place] [address], [place] [address] Jan, [facility] [address] [id number] [address] [place] [address], [place] [address] Jan, [facility] [address] [id number] [address] [place] [address], [place] [address] Jan, [facility] [address] [id number] [address] [place] [address], [place] [address] Jan, [facility] [address] [id number] [address] [place] [address], [place] [address] Jan, [facility] [address] [id number] [address] [place] [address], [place] [address] Dec, [facility] [address] [id number] [address] [place] [address], [place] [address] Dec, [facility] [address] [id number] [address] [place] [address], [place] [address] Dec, [facility] [address] [id number] [address] [place] [address], [place] [address] Dec, [facility] [address] [id number] [address] [place] [address], [place] [address] Nov, [facility] [address] [id number] [address] [place] [address], [place] [address] Nov, [facility] [address] [id number] [address] [place] [address], [place] [address] Nov, [facility] [address] [id number] [address] [place] [address], [place] [address] October, [facility] [address] [id number] [address] [place] [address], [place] [address] Sep, [facility] [address] [id number] [address] [place] [address], [place] [address] Sep, [facility] [address] [id number] [address] [place] [address], [place] [address] Sep, [facility] [address] [id number] [address] [place] [address], [place] [address] Sep, [facility] [address] [id number] [address] [place] [address], [place] [address] Sep, [facility] [address] [id number] [address] [place] [address], [place] [address] Sep, [facility] [address] [id number] [address] [place] [address], [place] [address] Sep, [facility] [address] [id number] [address] [place] [address], [place] [address] Sep, [facility] [address] [id number] [address] [place] [address], [place] [address] Sep, [facility] [address] [id number] [address] [place] [address], [place] [address] Aug, [facility] [address] [id number] [address] [place] [address], [place] [address] Aug, [facility] [address] [id number] [address] [place] [address], [place] [address] Jul, [facility] [address] [id number] [address] [place] [address], [place] [address] Jul, [facility] [address] [id number] [address] [place] [address], [place] [address] Jul, [facility] [address] [id number] [address] [place] [address] [place] [address] Jun, [facility] [address] [id number] [address] [place] [address], [place] [address] Apr, [facility] [address] [id number] [address] [place] [address], [place] [address] Apr, [facility] [address] [id number] [address] [place] [address], [place] [address] Apr, [facility] [address] [id number] [address] [place] [address], [place] [address] Apr, [facility] [address] [id number] [address] [place] [address], [place] [address] Apr, [facility] [address] [id number] [address] [place] [address], [place] [address] Apr, [facility] [address] [id number] [address] [place] [address], [place] [address] Apr, [facility] [address] [id number] [address] [place] [address], [place] [address] Apr, [facility] [address] [id number] [address] [place] [address], [place] [address] Apr, [facility] [address] [id number] [address] [place] [address], [place] [address] Apr, [facility] [address] [id number] [address] [place] [address], [place] [address] Apr, [facility] [address] [id number] [address] [place] [address] Apr, [facility] [address] [id number] [address] [place] [address], [place] [address] Mar, [facility] [address] [id number] [address] [place] [address], [place] [address] Mar, [facility] [address] [id number] [address] [place] [address], [place] [address] Mar, [facility] [address] [id number] [address] [place] [address] 15 Mar, 2012 [facility] [address] [id number] [address] [place] [address] Mar, [facility] [address] [id number] [address] [place] [address] Mar, [facility] [address] [id number] [address] [place] [address] Mar, [facility] [address] [id number] [address] [place] [address] 25 Feb, 2012 [facility] [address] [id number] [address] [place] [id number] 24 Feb, 2012 [facility] [address] [id number] [address] [place] [address] Feb, [facility] [address] [id number] [address] [place] [address] Feb, [facility] [address] [id number] [address] [place] [address] Jan, [facility] [address] [id number] [address] [place] [address] Jan, [facility] [address] [id number] [address] [place] [address] Jan, [facility] [address] [id number] [address] [place] [address] Jan, IMMUNIZATIONS No Known Immunizations SOCIAL HISTORY Never Assessed REASON FOR VISIT PLAN OF CARE VITAL SIGNS MEDICATIONS Unknown Medications RESULTS No Results PROCEDURES No Known procedures INSTRUCTIONS MEDICATIONS ADMINISTERED No Known Medications
--- OUTSIDE RECORDS SUMMARY | 2020-01-17 06:37 | XMS REPORT ---
Author Author Yogesh Kelly Doctor Organization [facility] Address Unknown Phone Unavailable Care Team Providers Care Musical String Maker Name Role Phone Migration, Doctor Unavailable Unavailable PROBLEMS Type Condition ICD9-CM Code FYA92-GM Code Onset Dates Condition S tatus SNOMED Code Problem Encounter for long-term (current) use of other medications V58.69 Active 066619555 Problem Routine [facility] V70.0 Active 789287238 Problem Family history of unspecified malignant neoplasm V16.9 Active 749457186 Problem Nonspecific elevation of lev els of transaminase or lactic acid dehydrogenase (LDH) 790.4 Active 55173924 2 Problem Personal history of other allergy, other than to medicinal agents V15.09 Active 400895918 Problem Essential hypertension, benign 401.1 Active 9068285 Problem Coronary atherosclerosis of unspecified type of vessel, venetie ira or graft 414.00 Active 459846083 Problem Dizziness and giddiness 780.4 Active 890481460 Problem Chest pain, unspecified 786.50 Active 35407770 Problem Lumbago 724.2 Active 491961150 Problem Cervicalgia 723.1 Active 79453950 Problem Other specified cardiac dysrhythmias 427.89 Active 761211576 Problem Peptic ulcer, unspecified si te, unspecified as acute or chronic, without mention of hemorrhage, perforation, or obstruction 533.90 Active 28180938 Problem Right bundle branch block 426.4 Acti ve 83828860 Problem 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 Active 02944474 Problem Unspecified tinnitus 388.30 Active 17480404 Problem Unspecified hearing loss 389.9 Activ e 77610500 Problem Unspecified otalgia 388.70 Active 37196314 Problem Malignant neoplasm of prostate 185 Active 609093301 Problem Polyuria 788.42 Active 13163866 Problem Unspecified viral hepatitis C without hepatic coma 070.70 Active 57518645 Problem Abdominal or pelvic swelling, mass or lump, unspecified si te 789.30 Active 968074891 Problem Dysuria 788.1 Active 30883265 Problem Unspecified cataract 366.9 Active 810594561 Problem Unspecified episodic mood disorder 296.90 Active 233223714 Problem Other and unspecified hyperlipidemia 272.4 Active 61566717 Problem Unspecified hypothyroidism 244.9 Act katty [id number] ALLERGIES No Information ENCOUNTERS Encounter Location Date Diagnosis [facility] [address] [id number] [address] [place] [address] 14 Sep, 2014 [facility] [address] [id number] [address] [place] [address] Sep, [facility] [address] [id number] [address] [place] [address] Jun, [facility] [address] [id number] [address] [place] [address] Jun, [facility] [address] [id number] [address] [place] [address] May, [facility] [address] [id number] [address] [place] [address] May, [facility] [address] [id number] [address] [place] [address] Feb, [facility] [address] [id number] [address] [place] [address] Feb, [facility] [address] [id number] [address] [place] [address] Feb, [facility] [address] [id number] [address] [place] [address] Jan, [facility] [address] [id number] [address] [place] [address] Jan, [facility] [address] [id number] [address] [place] [address] Nov, [facility] [address] [id number] [address] [place] [address] Nov, [facility] [address] [id number] [address] [place] [address] 05 Nov, 2013 [facility] [address] [id number] [facility] [place] [address] 05 Nov, 2013 [facility] [address] [id number] [facility] [place] [address] Aug, [facility] [address] [id number] [facility] [place] [address] Aug, [facility] [address] [id number] [address] [place] [address], [place] [address] Aug, [facility] [address] [id number] [facility] [place] [address] Aug, [facility] [address] [id number] [address] [place] [address], [place] [address] Aug, [facility] [address] [id number] [address] [place] [address], [place] [address] Aug, [facility] [address] [id number] [address] [place] [address], [place] [address] Aug, [facility] [address] [id number] [address] [place] [address], [place] [address] Aug, [facility] [address] [id number] [address] [place] [address], [place] [address] Aug, [facility] [address] [id number] [address] [place] [address], [place] [address] Aug, [facility] [address] [id number] [address] [place] [address], [place] [address] Jul, [facility] [address] [id number] [address] [place] [address], [place] [address] Jul, [facility] [address] [id number] [address] [place] [address], [place] [address] Jul, [facility] [address] [id number] [address] [place] [address], [place] [address] Jul, [facility] [address] [id number] [address] [place] [address], [place] [address] Jul, [facility] [address] [id number] [address] [place] [address], [place] [address] Jul, [facility] [address] [id number] [address] [place] [address], [place] [address] Jul, [facility] [address] [id number] [address] [place] [address], [place] [address] Jul, [facility] [address] [id number] [address] [place] [address], [place] [address] Jun, [facility] [address] [id number] [address] [place] [address], [place] [address] Jun, [facility] [address] [id number] [address] [place] [address], [place] [address] Jun, [facility] [address] [id number] [address] [place] [address], [place] [address] Jun, [facility] [address] [id number] [address] [place] [address], [place] [address] Jun, [facility] [address] [id number] [address] [place] [address], [place] [address] Jun, [facility] [address] [id number] [address] [place] [address], [place] [address] Jun, [facility] [address] [id number] [address] [place] [address], [place] [address] Jun, [facility] [address] [id number] [address] [place] [address], [place] [address] May, [facility] [address] [id number] [address] [place] [address], [place] [address] May, [facility] [address] [id number] [address] [place] [address], [place] [address] May, [facility] [address] [id number] [address] [place] [address], [place] [address] May, [facility] [address] [id number] [address] [place] [address], [place] [address] May, [facility] [address] [id number] [address] [place] [address], [place] [address] May, [facility] [address] [id number] [address] [place] [address], [place] [address] May, [facility] [address] [id number] [address] [place] [address], [place] [address] May, [facility] [address] [id number] [address] [place] [address], [place] [address] Apr, [facility] [address] [id number] [address] [place] [address] Apr, [facility] [address] [id number] [address] [place] [address], [place] [address] Apr, [facility] [address] [id number] [address] [place] [address], [place] [address] Apr, [facility] [address] [id number] [address] [place] [address], [place] [address] Apr, [facility] [address] [id number] [address] [place] [address] Apr, [facility] [address] [id number] [address] [place] [address] Apr, [facility] [address] [id number] [address] [place] [address] 18 Apr, 2013 [facility] [address] [id number] [address] [place] [address], [place] [address] Mar, [facility] [address] [id number] [address] [place] [address] 14 Mar, 2013 [facility] [address] [id number] [address] [place] [address] 18 Feb, 2013 [facility] [address] [id number] [address] [place] [address], [place] [address] Feb, [facility] [address] [id number] [address] [place] [address], [place] [address] Feb, [facility] [address] [id number] [address] [place] [address], [place] [address] Jan, [facility] [address] [id number] [address] [place] [address], [place] [address] Jan, [facility] [address] [id number] [address] [place] [address], [place] [address] Jan, [facility] [address] [id number] [address] [place] [address], [place] [address] Jan, [facility] [address] [id number] [address] [place] [address], [place] [address] Jan, [facility] [address] [id number] [address] [place] [address], [place] [address] Jan, [facility] [address] [id number] [address] [place] [address], [place] [address] Jan, [facility] [address] [id number] [address] [place] [address], [place] [address] Dec, [facility] [address] [id number] [address] [place] [address], [place] [address] Dec, [facility] [address] [id number] [address] [place] [address], [place] [address] Dec, [facility] [address] [id number] [address] [place] [address], [place] [address] Dec, [facility] [address] [id number] [address] [place] [address], [place] [address] Nov, [facility] [address] [id number] [address] [place] [address], [place] [address] Nov, [facility] [address] [id number] [address] [place] [address], [place] [address] Nov, [facility] [address] [id number] [address] [place] [address], [place] [address] October, [facility] [address] [id number] [address] [place] [address], [place] [address] Sep, [facility] [address] [id number] [address] [place] [address], [place] [address] Sep, [facility] [address] [id number] [address] [place] [address], [place] [address] Sep, [facility] [address] [id number] [address] [place] [address], [place] [address] Sep, [facility] [address] [id number] [address] [place] [address], [place] [address] Sep, [facility] [address] [id number] [address] [place] [address], [place] [address] Sep, [facility] [address] [id number] [address] [place] [address], [place] [address] Sep, [facility] [address] [id number] [address] [place] [address], [place] [address] Sep, [facility] [address] [id number] [address] [place] [address], [place] [address] Sep, [facility] [address] [id number] [address] [place] [address], [place] [address] Aug, [facility] [address] [id number] [address] [place] [address], [place] [address] Aug, [facility] [address] [id number] [address] [place] [address], [place] [address] Jul, [facility] [address] [id number] [address] [place] [address], [place] [address] Jul, [facility] [address] [id number] [address] [place] [address], [place] [address] Jul, [facility] [address] [id number] [address] [place] [address] [place] [address] Jun, [facility] [address] [id number] [address] [place] [address], [place] [address] Apr, [facility] [address] [id number] [address] [place] [address], [place] [address] Apr, [facility] [address] [id number] [address] [place] [address], [place] [address] Apr, [facility] [address] [id number] [address] [place] [address], [place] [address] Apr, [facility] [address] [id number] [address] [place] [address], [place] [address] Apr, [facility] [address] [id number] [address] [place] [address], [place] [address] Apr, [facility] [address] [id number] [address] [place] [address], [place] [address] Apr, [facility] [address] [id number] [address] [place] [address], [place] [address] Apr, [facility] [address] [id number] [address] [place] [address], [place] [address] Apr, [facility] [address] [id number] [address] [place] [address], [place] [address] Apr, [facility] [address] [id number] [address] [place] [address], [place] [address] Apr, [facility] [address] [id number] [address] [place] [address] Apr, [facility] [address] [id number] [address] [place] [address], [place] [address] Mar, [facility] [address] [id number] [address] [place] [address], [place] [address] Mar, [facility] [address] [id number] [address] [place] [address], [place] [address] Mar, [facility] [address] [id number] [address] [place] [address] 15 Mar, 2012 [facility] [address] [id number] [address] [place] [address] 15 Mar, 2012 [facility] [address] [id number] [address] [place] [address] Mar, [facility] [address] [id number] [address] [place] [address] Mar, [facility] [address] [id number] [address] [place] [address] 25 Feb, 2012 [facility] [address] [id number] [address] [place] [address] 24 Feb, 2012 [facility] [address] [id number] [address] [place] [address] Feb, [facility] [address] [id number] [address] [place] [address] Feb, [facility] [address] [id number] [address] [place] [address] Jan, [facility] [address] [id number] [address] [place] [address] Jan, [facility] [address] [id number] [address] [place] [address] Jan, [facility] [address] [id number] [address] [place] [address] Jan, IMMUNIZATIONS No Known Immunizations SOCIAL HISTORY Never Assessed REASON FOR VISIT PLAN OF CARE VITAL SIGNS Height 72 in 2013-03-25 Weight 267 lbs 2013-03-25 Temperature 98.6 degrees Fahrenheit 2013-03-25 Heart Rate 72 bpm 2013-03-25 Respiratory Rate 16 2013-03-25 Blood pressure systolic 128 mmHg 2013-03-25 Blood pressure diastolic 88 mmHg 2013-03-25 MEDICATIONS Unknown Medications RESULTS No Results PROCEDURES No Known procedures INSTRUCTIONS MEDICATIONS ADMINISTERED No Known Medications
--- OUTSIDE RECORDS SUMMARY | 2020-01-17 06:37 | XMS REPORT ---
Author Author Yogesh Kelly Doctor Organization [facility] Address Unknown Phone Unavailable Care Team Providers Care Net Software Architect Name Role Phone Migration, Doctor Unavailable Unavailable PROBLEMS Type Condition ICD9-CM Code TML53-VA Code Onset Dates Condition S tatus SNOMED Code Problem Encounter for long-term (current) use of other medications V58.69 Active 060950117 Problem Routine general medical examination at [facility] V70.0 Active 123683794 Problem Family history of unspecified malignant neoplasm V16.9 Active 634830739 Problem Nonspecific elevation of lev els of transaminase or lactic acid dehydrogenase (LDH) 790.4 Active 32611897 2 Problem Personal history of other allergy, other than to medicinal agents V15.09 Active 252969364 Problem Essential hypertension, benign 401.1 Active 1256164 Problem Coronary atherosclerosis of unspecified type of vessel, [place] or graft 414.00 Active 515890443 Problem Dizziness and giddiness 780.4 Active 717923197 Problem Chest pain, unspecified 786.50 Active 02601328 Problem Lumbago 724.2 Active 873806080 Problem Cervicalgia 723.1 Active 26819910 Problem Other specified cardiac dysrhythmias 427.89 Active 125014648 Problem Peptic ulcer, unspecified si te, unspecified as acute or chronic, without mention of hemorrhage, perforation, or obstruction 533.90 Active 13947952 Problem Right bundle branch block 426.4 Acti ve 19296600 Problem 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 Active 13600631 Problem Unspecified tinnitus 388.30 Active 60680104 Problem Unspecified hearing loss 389.9 Activ e 54586945 Problem Unspecified otalgia 388.70 Active 72325393 Problem Malignant neoplasm of prostate 185 Active 794056073 Problem Polyuria 788.42 Active 35897451 Problem Unspecified viral hepatitis C without hepatic coma 070.70 Active 27790757 Problem Abdominal or pelvic swelling, mass or lump, unspecified si te 789.30 Active 113869971 Problem Dysuria 788.1 Active 22278179 Problem Unspecified cataract 366.9 Active 481579014 Problem Unspecified episodic mood disorder 296.90 Active 260358242 Problem Other and unspecified hyperlipidemia 272.4 Active 46052651 Problem Unspecified hypothyroidism 244.9 Act katty [id number] ALLERGIES No Information ENCOUNTERS Encounter Location Date Diagnosis [facility] [address] [id number] [address] [place] [address] 14 Sep, 2014 [facility] [address] [id number] [address] [place] [address] Sep, [facility] [address] [id number] [address] [place] [address] Jun, [facility] [address] [id number] [address] [place] [address] Jun, [facility] [address] [id number] [address] [place] [address] May, [facility] [address] [id number] [address] [place] [address] May, [facility] [address] [id number] [address] [place] [address] Feb, [facility] [address] [id number] [address] [place] [address] Feb, [facility] [address] [id number] [address] [place] [address] Feb, [facility] [address] [id number] [address] [place] [address] Jan, [facility] [address] [id number] [address] [place] [address] Jan, [facility] [address] [id number] [address] [place] [address] Nov, [facility] [address] [id number] [address] [place] [address] Nov, [facility] [address] [id number] [address] [place] [address] 05 Nov, 2013 [facility] [address] [id number] [facility] [place] [address] 05 Nov, 2013 [facility] [address] [id number] [facility] [place] [address] Aug, [facility] [address] [id number] [facility] [place] [address] Aug, [facility] [address] [id number] [address] [place] [address], [place] [address] Aug, [facility] [address] [id number] [facility] [place] [address] Aug, [facility] [address] [id number] [address] [place] [address], [place] [address] Aug, [facility] [address] [id number] [address] [place] [address], [place] [address] Aug, [facility] [address] [id number] [address] [place] [address], [place] [address] Aug, [facility] [address] [id number] [address] [place] [address], [place] [address] Aug, [facility] [address] [id number] [address] [place] [address], [place] [address] Aug, [facility] [address] [id number] [address] [place] [address], [place] [address] Aug, [facility] [address] [id number] [address] [place] [address], [place] [address] Jul, [facility] [address] [id number] [address] [place] [address], [place] [address] Jul, [facility] [address] [id number] [address] [place] [address], [place] [address] Jul, [facility] [address] [id number] [address] [place] [address], [place] [address] Jul, [facility] [address] [id number] [address] [place] [address], [place] [address] Jul, [facility] [address] [id number] [address] [place] [address], [place] [address] Jul, [facility] [address] [id number] [address] [place] [address], [place] [address] Jul, [facility] [address] [id number] [address] [place] [address], [place] [address] Jul, [facility] [address] [id number] [address] [place] [address], [place] [address] Jun, [facility] [address] [id number] [address] [place] [address], [place] [address] Jun, [facility] [address] [id number] [address] [place] [address], [place] [address] Jun, [facility] [address] [id number] [address] [place] [address], [place] [address] Jun, [facility] [address] [id number] [address] [place] [address], [place] [address] Jun, [facility] [address] [id number] [address] [place] [address], [place] [address] Jun, [facility] [address] [id number] [address] [place] [address], [place] [address] Jun, [facility] [address] [id number] [address] [place] [address], [place] [address] Jun, [facility] [address] [id number] [address] [place] [address], [place] [address] May, [facility] [address] [id number] [address] [place] [address], [place] [address] May, [facility] [address] [id number] [address] [place] [address], [place] [address] May, [facility] [address] [id number] [address] [place] [address], [place] [address] May, [facility] [address] [id number] [address] [place] [address], [place] [address] May, [facility] [address] [id number] [address] [place] [address], [place] [address] May, [facility] [address] [id number] [address] [place] [address], [place] [address] May, [facility] [address] [id number] [address] [place] [address], [place] [address] May, [facility] [address] [id number] [address] [place] [address], [place] [address] Apr, [facility] [address] [id number] [address] [place] [address] Apr, [facility] [address] [id number] [address] [place] [address], [place] [address] Apr, [facility] [address] [id number] [address] [place] [address], [place] [address] Apr, [facility] [address] [id number] [address] [place] [address], [place] [address] Apr, [facility] [address] [id number] [address] [place] [address] Apr, [facility] [address] [id number] [address] [place] [address] Apr, [facility] [address] [id number] [address] [place] [address] 18 Apr, 2013 [facility] [address] [id number] [address] [place] [address], [place] [address] Mar, [facility] [address] [id number] [address] [place] [address] 14 Mar, 2013 [facility] [address] [id number] [address] [place] [address] 18 Feb, 2013 [facility] [address] [id number] [address] [place] [address], [place] [address] Feb, [facility] [address] [id number] [address] [place] [address], [place] [address] Feb, [facility] [address] [id number] [address] [place] [address], [place] [address] Jan, [facility] [address] [id number] [address] [place] [address], [place] [address] Jan, [facility] [address] [id number] [address] [place] [address], [place] [address] Jan, [facility] [address] [id number] [address] [place] [address], [place] [address] Jan, [facility] [address] [id number] [address] [place] [address], [place] [address] Jan, [facility] [address] [id number] [address] [place] [address], [place] [address] Jan, [facility] [address] [id number] [address] [place] [address], [place] [address] Jan, [facility] [address] [id number] [address] [place] [address], [place] [address] Dec, [facility] [address] [id number] [address] [place] [address], [place] [address] Dec, [facility] [address] [id number] [address] [place] [address], [place] [address] Dec, [facility] [address] [id number] [address] [place] [address], [place] [address] Dec, [facility] [address] [id number] [address] [place] [address], [place] [address] Nov, [facility] [address] [id number] [address] [place] [address], [place] [address] Nov, [facility] [address] [id number] [address] [place] [address], [place] [address] Nov, [facility] [address] [id number] [address] [place] [address], [place] [address] October, [facility] [address] [id number] [address] [place] [address], [place] [address] Sep, [facility] [address] [id number] [address] [place] [address], [place] [address] Sep, [facility] [address] [id number] [address] [place] [address], [place] [address] Sep, [facility] [address] [id number] [address] [place] [address], [place] [address] Sep, [facility] [address] [id number] [address] [place] [address], [place] [address] Sep, [facility] [address] [id number] [address] [place] [address], [place] [address] Sep, [facility] [address] [id number] [address] [place] [address], [place] [address] Sep, [facility] [address] [id number] [address] [place] [address], [place] [address] Sep, [facility] [address] [id number] [address] [place] [address], [place] [address] Sep, [facility] [address] [id number] [address] [place] [address], [place] [address] Aug, [facility] [address] [id number] [address] [place] [address], [place] [address] Aug, [facility] [address] [id number] [address] [place] [address], [place] [address] Jul, [facility] [address] [id number] [address] [place] [address], [place] [address] Jul, [facility] [address] [id number] [address] [place] [address], [place] [address] Jul, [facility] [address] [id number] [address] [place] [address] [place] [address] Jun, [facility] [address] [id number] [address] [place] [address], [place] [address] Apr, [facility] [address] [id number] [address] [place] [address], [place] [address] Apr, [facility] [address] [id number] [address] [place] [address], [place] [address] Apr, [facility] [address] [id number] [address] [place] [address], [place] [address] Apr, [facility] [address] [id number] [address] [place] [address], [place] [address] Apr, [facility] [address] [id number] [address] [place] [address], [place] [address] Apr, [facility] [address] [id number] [address] [place] [address], [place] [address] Apr, [facility] [address] [id number] [address] [place] [address], [place] [address] Apr, [facility] [address] [id number] [address] [place] [address], [place] [address] Apr, [facility] [address] [id number] [address] [place] [address], [place] [address] Apr, [facility] [address] [id number] [address] [place] [address], [place] [address] Apr, [facility] [address] [id number] [address] [place] [address] Apr, [facility] [address] [id number] [address] [place] [address], [place] [address] Mar, [facility] [address] [id number] [address] [place] [address], [place] [address] Mar, [facility] [address] [id number] [address] [place] [address], [place] [address] Mar, [facility] [address] [id number] [address] [place] [address] 15 Mar, 2012 [facility] [address] [id number] [address] [place] [address] Mar, [facility] [address] [id number] [address] [place] [address] Mar, [facility] [address] [id number] [address] [place] [address] Mar, [facility] [address] [id number] [address] [place] [address] 25 Feb, 2012 [facility] [address] [id number] [address] [place] [address] 24 Feb, 2012 [facility] [address] [id number] [address] [place] [address] Feb, [facility] [address] [id number] [address] [place] [address] Feb, [facility] [address] [id number] [address] [place] [address] Jan, [facility] [address] [id number] [address] [place] [address] Jan, [facility] [address] [id number] [address] [place] [address] Jan, [facility] [address] [id number] [address] [place] [address] Jan, IMMUNIZATIONS No Known Immunizations SOCIAL HISTORY Never Assessed REASON FOR VISIT PLAN OF CARE VITAL SIGNS MEDICATIONS Unknown Medications RESULTS No Results PROCEDURES No Known procedures INSTRUCTIONS MEDICATIONS ADMINISTERED No Known Medications
--- OUTSIDE RECORDS SUMMARY | 2020-01-17 06:37 | XMS REPORT ---
Author Author Yogesh Kelly Doctor Organization [facility] Address Unknown Phone Unavailable Care Team Providers Care Rv Repairer Name Role Phone Migration, Doctor Unavailable Unavailable PROBLEMS Type Condition ICD9-CM Code [id number] Code Onset Dates Condition S tatus SNOMED Code Problem Encounter for long-term (current) use of other medications V58.69 Active 409296650 Problem Routine general medical examination at [facility] V70.0 Active 639010875 Problem Family history of unspecified malignant neoplasm V16.9 Active 602795499 Problem Nonspecific elevation of lev els of transaminase or lactic acid dehydrogenase (LDH) 790.4 Active 99806610 2 Problem Personal history of other allergy, other than to medicinal agents V15.09 Active 196903156 Problem Essential hypertension, benign 401.1 Active 2140787 Problem Coronary atherosclerosis of unspecified type of vessel, tetlin or graft 414.00 Active 410322107 Problem Dizziness and giddiness 780.4 Active 726901800 Problem Chest pain, unspecified 786.50 Active 41750979 Problem Lumbago 724.2 Active 345469814 Problem Cervicalgia 723.1 Active 04276533 Problem Other specified cardiac dysrhythmias 427.89 Active 221359437 Problem Peptic ulcer, unspecified si te, unspecified as acute or chronic, without mention of hemorrhage, perforation, or obstruction 533.90 Active 62925551 Problem Right bundle branch block 426.4 Acti ve 76369555 Problem 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 Active 31796709 Problem Unspecified tinnitus 388.30 Active 40663939 Problem Unspecified hearing loss 389.9 Activ e 07909460 Problem Unspecified otalgia 388.70 Active 50698630 Problem Malignant neoplasm of prostate 185 Active 554074102 Problem Polyuria 788.42 Active 99832205 Problem Unspecified viral hepatitis C without hepatic coma 070.70 Active 19574540 Problem Abdominal or pelvic swelling, mass or lump, unspecified si te 789.30 Active 656005104 Problem Dysuria 788.1 Active 11765624 Problem Unspecified cataract 366.9 Active 849982199 Problem Unspecified episodic mood disorder 296.90 Active 911318355 Problem Other and unspecified hyperlipidemia 272.4 Active 11604252 Problem Unspecified hypothyroidism 244.9 Act katty 18525751 ALLERGIES No Information ENCOUNTERS Encounter Location Date Diagnosis [facility] [address] [id number] [address] [place] [id number] 14 Sep, 2014 [facility] [address] [id number] [address] [place] [address] Sep, [facility] [address] [id number] [address] [place] [id number] Jun, [facility] [address] [id number] [address] [place] [phone] Jun, [facility] [address] [id number] [address] [place] [address] May, [facility] [address] [id number] [address] [place] [address] May, [facility] [address] [id number] [address] [place] [address] Feb, [facility] [address] [id number] [address] [place] [address] Feb, [facility] [address] [id number] [address] [place] [address] Feb, [facility] [address] [id number] [address] [place] [address] Jan, [facility] [address] [id number] [address] [place] [phone] Jan, [facility] [address] [id number] [address] [place] [address] Nov, [facility] [address] [id number] [address] [place] [phone] Nov, [facility] [address] [id number] [address] [place] [id number] 05 Nov, 2013 [facility] [address] [id number] [facility] [place] [address] 05 Nov, 2013 [facility] [address] [id number] [facility] [place] [address] Aug, [facility] [address] [id number] [facility] [place] [address] Aug, [facility] [address] [id number] [address] [place] [address], [place] [address] Aug, [facility] [address] [id number] [facility] [place] [address] Aug, [facility] [address] [id number] [address] [place] [address], [place] [address] Aug, [facility] [address] [id number] [address] [place] [address], [place] [address] Aug, [facility] [address] [id number] [address] [place] [address], [place] [address] Aug, [facility] [address] [id number] [address] [place] [address], [place] [address] Aug, [facility] [address] [id number] [address] [place] [address], [place] [address] Aug, [facility] [address] [id number] [address] [place] [address], [place] [address] Aug, [facility] [address] [id number] [address] [place] [address], [place] [address] Jul, [facility] [address] [id number] [address] [place] [address], [place] [address] Jul, [facility] [address] [id number] [address] [place] [address], [place] [address] Jul, [facility] [address] [id number] [address] [place] [address], [place] [address] Jul, [facility] [address] [id number] [address] [place] [address], [place] [address] Jul, [facility] [address] [id number] [address] [place] [address], [place] [address] Jul, [facility] [address] [id number] [address] [place] [address], [place] [address] Jul, [facility] [address] [id number] [address] [place] [address], [place] [address] Jul, [facility] [address] [id number] [address] [place] [address], [place] [address] Jun, [facility] [address] [id number] [address] [place] [address], [place] [address] Jun, [facility] [address] [id number] [address] [place] [address], [place] [address] Jun, [facility] [address] [id number] [address] [place] [address], [place] [address] Jun, [facility] [address] [id number] [address] [place] [address], [place] [address] Jun, [facility] [address] [id number] [address] [place] [address], [place] [address] Jun, [facility] [address] [id number] [address] [place] [address], [place] [address] Jun, [facility] [address] [id number] [address] [place] [address], [place] [address] Jun, [facility] [address] [id number] [address] [place] [address], [place] [address] May, [facility] [address] [id number] [address] [place] [address], [place] [address] May, [facility] [address] [id number] [address] [place] [address], [place] [address] May, [facility] [address] [id number] [address] [place] [address], [place] [address] May, [facility] [address] [id number] [address] [place] [address], [place] [address] May, [facility] [address] [id number] [address] [place] [address], [place] [address] May, [facility] [address] [id number] [address] [place] [address], [place] [address] May, [facility] [address] [id number] [address] [place] [address], [place] [address] May, [facility] [address] [id number] [address] [place] [address], [place] [address] Apr, [facility] [address] [id number] [address] [place] [address] Apr, [facility] [address] [id number] [address] [place] [address], [place] [address] Apr, [facility] [address] [id number] [address] [place] [address], [place] [address] Apr, [facility] [address] [id number] [address] [place] [address], [place] [address] Apr, [facility] [address] [id number] [address] [place] [address] Apr, [facility] [address] [id number] [address] [place] [address] Apr, [facility] [address] [id number] [address] [place] [phone] 18 Apr, 2013 [facility] [address] [id number] [address] [place] [address], [place] [address] Mar, [facility] [address] [id number] [address] [place] [address] 14 Mar, 2013 [facility] [address] [id number] [address] [place] [phone] 18 Feb, 2013 [facility] [address] [id number] [address] [place] [address], [place] [address] Feb, [facility] [address] [id number] [address] [place] [address], [place] [address] Feb, [facility] [address] [id number] [address] [place] [address], [place] [address] Jan, [facility] [address] [id number] [address] [place] [address], [place] [address] Jan, [facility] [address] [id number] [address] [place] [address], [place] [address] Jan, [facility] [address] [id number] [address] [place] [address], [place] [address] Jan, [facility] [address] [id number] [address] [place] [address], [place] [address] Jan, [facility] [address] [id number] [address] [place] [address], [place] [address] Jan, [facility] [address] [id number] [address] [place] [address], [place] [address] Jan, [facility] [address] [id number] [address] [place] [address], [place] [address] Dec, [facility] [address] [id number] [address] [place] [address], [place] [address] Dec, [facility] [address] [id number] [address] [place] [address], [place] [address] Dec, [facility] [address] [id number] [address] [place] [address], [place] [address] Dec, [facility] [address] [id number] [address] [place] [address], [place] [address] Nov, [facility] [address] [id number] [address] [place] [address], [place] [address] Nov, [facility] [address] [id number] [address] [place] [address], [place] [address] Nov, [facility] [address] [id number] [address] [place] [address], [place] [address] October, [facility] [address] [id number] [address] [place] [address], [place] [address] Sep, [facility] [address] [id number] [address] [place] [address], [place] [address] Sep, [facility] [address] [id number] [address] [place] [address], [place] [address] Sep, [facility] [address] [id number] [address] [place] [address], [place] [address] Sep, [facility] [address] [id number] [address] [place] [address], [place] [address] Sep, [facility] [address] [id number] [address] [place] [address], [place] [address] Sep, [facility] [address] [id number] [address] [place] [address], [place] [address] Sep, [facility] [address] [id number] [address] [place] [address], [place] [address] Sep, [facility] [address] [id number] [address] [place] [address], [place] [address] Sep, [facility] [address] [id number] [address] [place] [address], [place] [address] Aug, [facility] [address] [id number] [address] [place] [address], [place] [address] Aug, [facility] [address] [id number] [address] [place] [address], [place] [address] Jul, [facility] [address] [id number] [address] [place] [address], [place] [address] Jul, [facility] [address] [id number] [address] [place] [address], [place] [address] Jul, [facility] [address] [id number] [address] [place] [address] [place] [address] Jun, [facility] [address] [id number] [address] [place] [address], [place] [address] Apr, [facility] [address] [id number] [address] [place] [address], [place] [address] Apr, [facility] [address] [id number] [address] [place] [address], [place] [address] Apr, [facility] [address] [id number] [address] [place] [address], [place] [address] Apr, [facility] [address] [id number] [address] [place] [address], [place] [address] Apr, [facility] [address] [id number] [address] [place] [address], [place] [address] Apr, [facility] [address] [id number] [address] [place] [address], [place] [address] Apr, [facility] [address] [id number] [address] [place] [address], [place] [address] Apr, [facility] [address] [id number] [address] [place] [address], [place] [address] Apr, [facility] [address] [id number] [address] [place] [address], [place] [address] Apr, [facility] [address] [id number] [address] [place] [address], [place] [address] Apr, [facility] [address] [id number] [address] [place] [address] Apr, [facility] [address] [id number] [address] [place] [address], [place] [address] Mar, [facility] [address] [id number] [address] [place] [address], [place] [address] Mar, [facility] [address] [id number] [address] [place] [address], [place] [address] Mar, [facility] [address] [id number] [address] [place] [phone] 15 Mar, 2012 [facility] [address] [id number] [address] [place] [address] Mar, [facility] [address] [id number] [address] [place] [address] Mar, [facility] [address] [id number] [address] [place] [address] Mar, [facility] [address] [id number] [address] [place] [address] [address], [address] [facility] [address] [id number] [address] [place] [address] [address], [address] [facility] [address] [id number] [address] [place] [address] Feb, [facility] [address] [id number] [address] [place] [address] Feb, [facility] [address] [id number] [address] [place] [address] Jan, [facility] [address] [id number] [address] [place] [address] Jan, [facility] [address] [id number] [address] [place] [address] Jan, [facility] [address] [id number] [address] [place] [address] Jan, IMMUNIZATIONS No Known Immunizations SOCIAL HISTORY Never Assessed REASON FOR VISIT PLAN OF CARE VITAL SIGNS MEDICATIONS Unknown Medications RESULTS No Results PROCEDURES No Known procedures INSTRUCTIONS MEDICATIONS ADMINISTERED No Known Medications
--- OUTSIDE RECORDS SUMMARY | 2020-01-17 06:37 | XMS REPORT ---
Author Author Yogesh Kelly Doctor Organization [facility] Address Unknown Phone Unavailable Care Team Providers Care [place] Supervisor Name Role Phone Migration, Doctor Unavailable Unavailable PROBLEMS Type Condition ICD9-CM Code RLP15-PC Code Onset Dates Condition S tatus SNOMED Code Problem Encounter for long-term (current) use of other medications V58.69 Active 634900633 Problem Routine general medical examination at [facility] V70.0 Active 536407350 Problem Family history of unspecified malignant neoplasm V16.9 Active 180176782 Problem Nonspecific elevation of lev els of transaminase or lactic acid dehydrogenase (LDH) 790.4 Active 91669631 2 Problem Personal history of other allergy, other than to medicinal agents V15.09 Active 398531535 Problem Essential hypertension, benign 401.1 Active 1001837 Problem Coronary atherosclerosis of unspecified type of vessel, [place] or graft 414.00 Active 766920634 Problem Dizziness and giddiness 780.4 Active 759057321 Problem Chest pain, unspecified 786.50 Active 52857427 Problem Lumbago 724.2 Active 959489020 Problem Cervicalgia 723.1 Active 94212106 Problem Other specified cardiac dysrhythmias 427.89 Active 463281207 Problem Peptic ulcer, unspecified si te, unspecified as acute or chronic, without mention of hemorrhage, perforation, or obstruction 533.90 Active 06737750 Problem Right bundle branch block 426.4 Acti ve 92021968 Problem 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 Active 62637803 Problem Unspecified tinnitus 388.30 Active 61968133 Problem Unspecified hearing loss 389.9 Activ e 77523116 Problem Unspecified otalgia 388.70 Active 18845084 Problem Malignant neoplasm of prostate 185 Active 670504378 Problem Polyuria 788.42 Active 21519849 Problem Unspecified viral hepatitis C without hepatic coma 070.70 Active 26751295 Problem Abdominal or pelvic swelling, mass or lump, unspecified si te 789.30 Active 585527468 Problem Dysuria 788.1 Active 72606110 Problem Unspecified cataract 366.9 Active 468584578 Problem Unspecified episodic mood disorder 296.90 Active 363653094 Problem Other and unspecified hyperlipidemia 272.4 Active 85856613 Problem Unspecified hypothyroidism 244.9 Act katty 28984120 ALLERGIES No Information ENCOUNTERS Encounter Location Date Diagnosis [facility] [address] [id number] [address] [place] [address] 14 Sep, 2014 [facility] [address] [id number] [address] [place] [address] Sep, [facility] [address] [id number] [address] [place] [address] Jun, [facility] [address] [id number] [address] [place] [address] Jun, [facility] [address] [id number] [address] [place] [address] May, [facility] [address] [id number] [address] [place] [address] May, [facility] [address] [id number] [address] [place] [address] Feb, [facility] [address] [id number] [address] [place] [address] Feb, [facility] [address] [id number] [address] [place] [address] Feb, [facility] [address] [id number] [address] [place] [address] Jan, [facility] [address] [id number] [address] [place] [address] Jan, [facility] [address] [id number] [address] [place] [address] Nov, [facility] [address] [id number] [address] [place] [address] Nov, [facility] [address] [id number] [address] [place] [id number] 05 Nov, 2013 [facility] [address] [id number] [facility] [place] [address] 05 Nov, 2013 [facility] [address] [id number] [facility] [place] [address] Aug, [facility] [address] [id number] [facility] [place] [address] Aug, [facility] [address] [id number] [address] [place] [address], [place] [address] Aug, [facility] [address] [id number] [facility] [place] [address] Aug, [facility] [address] [id number] [address] [place] [address], [place] [address] Aug, [facility] [address] [id number] [address] [place] [address], [place] [address] Aug, [facility] [address] [id number] [address] [place] [address], [place] [address] Aug, [facility] [address] [id number] [address] [place] [address], [place] [address] Aug, [facility] [address] [id number] [address] [place] [address], [place] [address] Aug, [facility] [address] [id number] [address] [place] [address], [place] [address] Aug, [facility] [address] [id number] [address] [place] [address], [place] [address] Jul, [facility] [address] [id number] [address] [place] [address], [place] [address] Jul, [facility] [address] [id number] [address] [place] [address], [place] [address] Jul, [facility] [address] [id number] [address] [place] [address], [place] [address] Jul, [facility] [address] [id number] [address] [place] [address], [place] [address] Jul, [facility] [address] [id number] [address] [place] [address], [place] [address] Jul, [facility] [address] [id number] [address] [place] [address], [place] [address] Jul, [facility] [address] [id number] [address] [place] [address], [place] [address] Jul, [facility] [address] [id number] [address] [place] [address], [place] [address] Jun, [facility] [address] [id number] [address] [place] [address], [place] [address] Jun, [facility] [address] [id number] [address] [place] [address], [place] [address] Jun, [facility] [address] [id number] [address] [place] [address], [place] [address] Jun, [facility] [address] [id number] [address] [place] [address], [place] [address] Jun, [facility] [address] [id number] [address] [place] [address], [place] [address] Jun, [facility] [address] [id number] [address] [place] [address], [place] [address] Jun, [facility] [address] [id number] [address] [place] [address], [place] [address] Jun, [facility] [address] [id number] [address] [place] [address], [place] [address] May, [facility] [address] [id number] [address] [place] [address], [place] [address] May, [facility] [address] [id number] [address] [place] [address], [place] [address] May, [facility] [address] [id number] [address] [place] [address], [place] [address] May, [facility] [address] [id number] [address] [place] [address], [place] [address] May, [facility] [address] [id number] [address] [place] [address], [place] [address] May, [facility] [address] [id number] [address] [place] [address], [place] [address] May, [facility] [address] [id number] [address] [place] [address], [place] [address] May, [facility] [address] [id number] [address] [place] [address], [place] [address] Apr, [facility] [address] [id number] [address] [place] [address] Apr, [facility] [address] [id number] [address] [place] [address], [place] [address] Apr, [facility] [address] [id number] [address] [place] [address], [place] [address] Apr, [facility] [address] [id number] [address] [place] [address], [place] [address] Apr, [facility] [address] [id number] [address] [place] [address] Apr, [facility] [address] [id number] [address] [place] [address] Apr, [facility] [address] [id number] [address] [place] [address] 18 Apr, 2013 [facility] [address] [id number] [address] [place] [address], [place] [address] Mar, [facility] [address] [id number] [address] [place] [address] 14 Mar, 2013 [facility] [address] [id number] [address] [place] [address] 18 Feb, 2013 [facility] [address] [id number] [address] [place] [address], [place] [address] Feb, [facility] [address] [id number] [address] [place] [address], [place] [address] Feb, [facility] [address] [id number] [address] [place] [address], [place] [address] Jan, [facility] [address] [id number] [address] [place] [address], [place] [address] Jan, [facility] [address] [id number] [address] [place] [address], [place] [address] Jan, [facility] [address] [id number] [address] [place] [address], [place] [address] Jan, [facility] [address] [id number] [address] [place] [address], [place] [address] Jan, [facility] [address] [id number] [address] [place] [address], [place] [address] Jan, [facility] [address] [id number] [address] [place] [address], [place] [address] Jan, [facility] [address] [id number] [address] [place] [address], [place] [address] Dec, [facility] [address] [id number] [address] [place] [address], [place] [address] Dec, [facility] [address] [id number] [address] [place] [address], [place] [address] Dec, [facility] [address] [id number] [address] [place] [address], [place] [address] Dec, [facility] [address] [id number] [address] [place] [address], [place] [address] Nov, [facility] [address] [id number] [address] [place] [address], [place] [address] Nov, [facility] [address] [id number] [address] [place] [address], [place] [address] Nov, [facility] [address] [id number] [address] [place] [address], [place] [address] October, [facility] [address] [id number] [address] [place] [address], [place] [address] Sep, [facility] [address] [id number] [address] [place] [address], [place] [address] Sep, [facility] [address] [id number] [address] [place] [address], [place] [address] Sep, [facility] [address] [id number] [address] [place] [address], [place] [address] Sep, [facility] [address] [id number] [address] [place] [address], [place] [address] Sep, [facility] [address] [id number] [address] [place] [address], [place] [address] Sep, [facility] [address] [id number] [address] [place] [address], [place] [address] Sep, [facility] [address] [id number] [address] [place] [address], [place] [address] Sep, [facility] [address] [id number] [address] [place] [address], [place] [address] Sep, [facility] [address] [id number] [address] [place] [address], [place] [address] Aug, [facility] [address] [id number] [address] [place] [address], [place] [address] Aug, [facility] [address] [id number] [address] [place] [address], [place] [address] Jul, [facility] [address] [id number] [address] [place] [address], [place] [address] Jul, [facility] [address] [id number] [address] [place] [address], [place] [address] Jul, [facility] [address] [id number] [address] [place] [address] [place] [address] Jun, [facility] [address] [id number] [address] [place] [address], [place] [address] Apr, [facility] [address] [id number] [address] [place] [address], [place] [address] Apr, [facility] [address] [id number] [address] [place] [address], [place] [address] Apr, [facility] [address] [id number] [address] [place] [address], [place] [address] Apr, [facility] [address] [id number] [address] [place] [address], [place] [address] Apr, [facility] [address] [id number] [address] [place] [address], [place] [address] Apr, [facility] [address] [id number] [address] [place] [address], [place] [address] Apr, [facility] [address] [id number] [address] [place] [address], [place] [address] Apr, [facility] [address] [id number] [address] [place] [address], [place] [address] Apr, [facility] [address] [id number] [address] [place] [address], [place] [address] Apr, [facility] [address] [id number] [address] [place] [address], [place] [address] Apr, [facility] [address] [id number] [address] [place] [address] Apr, [facility] [address] [id number] [address] [place] [address], [place] [address] Mar, [facility] [address] [id number] [address] [place] [address], [place] [address] Mar, [facility] [address] [id number] [address] [place] [address], [place] [address] Mar, [facility] [address] [id number] [address] [place] [address] 15 Mar, 2012 [facility] [address] [id number] [address] [place] [address] Mar, [facility] [address] [id number] [address] [place] [address] Mar, [facility] [address] [id number] [address] [place] [address] Mar, [facility] [address] [id number] [address] [place] [address] 25 Feb, 2012 [facility] [address] [id number] [address] [place] [address] 24 Feb, 2012 [facility] [address] [id number] [address] [place] [address] Feb, [facility] [address] [id number] [address] [place] [address] Feb, [facility] [address] [id number] [address] [place] [address] Jan, [facility] [address] [id number] [address] [place] [address] Jan, [facility] [address] [id number] [address] [place] [address] Jan, [facility] [address] [id number] [address] [place] [address] Jan, IMMUNIZATIONS No Known Immunizations SOCIAL HISTORY Never Assessed REASON FOR VISIT PLAN OF CARE VITAL SIGNS MEDICATIONS Unknown Medications RESULTS No Results PROCEDURES No Known procedures INSTRUCTIONS MEDICATIONS ADMINISTERED No Known Medications
--- OUTSIDE RECORDS SUMMARY | 2020-01-17 06:37 | XMS REPORT ---
Author Author Yogesh Kelly Doctor Organization [facility] Address Unknown Phone Unavailable Care Team Providers Care Sales Advisor Name Role Phone Migration, Doctor Unavailable Unavailable PROBLEMS Type Condition ICD9-CM Code XBR35-IQ Code Onset Dates Condition S tatus SNOMED Code Problem Encounter for long-term (current) use of other medications V58.69 Active 829683146 Problem Routine general medical examination at [facility] V70.0 Active 870451952 Problem Family history of unspecified malignant neoplasm V16.9 Active 396675931 Problem Nonspecific elevation of lev els of transaminase or lactic acid dehydrogenase (LDH) 790.4 Active 14047258 2 Problem Personal history of other allergy, other than to medicinal agents V15.09 Active 768734996 Problem Essential hypertension, benign 401.1 Active 8492348 Problem Coronary atherosclerosis of unspecified type of vessel, upper [place] or graft 414.00 Active 796891332 Problem Dizziness and giddiness 780.4 Active 293293065 Problem Chest pain, unspecified 786.50 Active 43758715 Problem Lumbago 724.2 Active 961815774 Problem Cervicalgia 723.1 Active 72714960 Problem Other specified cardiac dysrhythmias 427.89 Active 538484106 Problem Peptic ulcer, unspecified si te, unspecified as acute or chronic, without mention of hemorrhage, perforation, or obstruction 533.90 Active 58893328 Problem Right bundle branch block 426.4 Acti ve 51446862 Problem 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 Active 49110209 Problem Unspecified tinnitus 388.30 Active 76108431 Problem Unspecified hearing loss 389.9 Activ e 98066464 Problem Unspecified otalgia 388.70 Active 06156523 Problem Malignant neoplasm of prostate 185 Active 360164436 Problem Polyuria 788.42 Active 42551008 Problem Unspecified viral hepatitis C without hepatic coma 070.70 Active 59404454 Problem Abdominal or pelvic swelling, mass or lump, unspecified si te 789.30 Active 036265007 Problem Dysuria 788.1 Active 72544059 Problem Unspecified cataract 366.9 Active 555442702 Problem Unspecified episodic mood disorder 296.90 Active 226748359 Problem Other and unspecified hyperlipidemia 272.4 Active 73663063 Problem Unspecified hypothyroidism 244.9 Act katty 11883504 ALLERGIES No Information ENCOUNTERS Encounter Location Date Diagnosis [facility] [address] [id number] [address] [place] [address] 14 Sep, 2014 [facility] [address] [id number] [address] [place] [address] Sep, [facility] [address] [id number] [address] [place] [address] Jun, [facility] [address] [id number] [address] [place] [address] Jun, [facility] [address] [id number] [address] [place] [address] May, [facility] [address] [id number] [address] [place] [address] May, [facility] [address] [id number] [address] [place] [address] Feb, [facility] [address] [id number] [address] [place] [address] Feb, [facility] [address] [id number] [address] [place] [address] Feb, [facility] [address] [id number] [address] [place] [address] Jan, [facility] [address] [id number] [address] [place] [address] Jan, [facility] [address] [id number] [address] [place] [address] Nov, [facility] [address] [id number] [address] [place] [address] Nov, [facility] [address] [id number] [address] [place] [address] 05 Nov, 2013 [facility] [address] [id number] [facility] [place] [address] 05 Nov, 2013 [facility] [address] [id number] [facility] [place] [address] Aug, [facility] [address] [id number] [facility] [place] [address] Aug, [facility] [address] [id number] [address] [place] [address], [place] [address] Aug, [facility] [address] [id number] [facility] [place] [address] Aug, [facility] [address] [id number] [address] [place] [address], [place] [address] Aug, [facility] [address] [id number] [address] [place] [address], [place] [address] Aug, [facility] [address] [id number] [address] [place] [address], [place] [address] Aug, [facility] [address] [id number] [address] [place] [address], [place] [address] Aug, [facility] [address] [id number] [address] [place] [address], [place] [address] Aug, [facility] [address] [id number] [address] [place] [address], [place] [address] Aug, [facility] [address] [id number] [address] [place] [address], [place] [address] Jul, [facility] [address] [id number] [address] [place] [address], [place] [address] Jul, [facility] [address] [id number] [address] [place] [address], [place] [address] Jul, [facility] [address] [id number] [address] [place] [address], [place] [address] Jul, [facility] [address] [id number] [address] [place] [address], [place] [address] Jul, [facility] [address] [id number] [address] [place] [address], [place] [address] Jul, [facility] [address] [id number] [address] [place] [address], [place] [address] Jul, [facility] [address] [id number] [address] [place] [address], [place] [address] Jul, [facility] [address] [id number] [address] [place] [address], [place] [address] Jun, [facility] [address] [id number] [address] [place] [address], [place] [address] Jun, [facility] [address] [id number] [address] [place] [address], [place] [address] Jun, [facility] [address] [id number] [address] [place] [address], [place] [address] Jun, [facility] [address] [id number] [address] [place] [address], [place] [address] Jun, [facility] [address] [id number] [address] [place] [address], [place] [address] Jun, [facility] [address] [id number] [address] [place] [address], [place] [address] Jun, [facility] [address] [id number] [address] [place] [address], [place] [address] Jun, [facility] [address] [id number] [address] [place] [address], [place] [address] May, [facility] [address] [id number] [address] [place] [address], [place] [address] May, [facility] [address] [id number] [address] [place] [address], [place] [address] May, [facility] [address] [id number] [address] [place] [address], [place] [address] May, [facility] [address] [id number] [address] [place] [address], [place] [address] May, [facility] [address] [id number] [address] [place] [address], [place] [address] May, [facility] [address] [id number] [address] [place] [address], [place] [address] May, [facility] [address] [id number] [address] [place] [address], [place] [address] May, [facility] [address] [id number] [address] [place] [address], [place] [address] Apr, [facility] [address] [id number] [address] [place] [address] Apr, [facility] [address] [id number] [address] [place] [address], [place] [address] Apr, [facility] [address] [id number] [address] [place] [address], [place] [address] Apr, [facility] [address] [id number] [address] [place] [address], [place] [address] Apr, [facility] [address] [id number] [address] [place] [address] Apr, [facility] [address] [id number] [address] [place] [address] Apr, [facility] [address] [id number] [address] [place] [address] 18 Apr, 2013 [facility] [address] [id number] [address] [place] [address], [place] [address] Mar, [facility] [address] [id number] [address] [place] [address] 14 Mar, 2013 [facility] [address] [id number] [address] [place] [address] 18 Feb, 2013 [facility] [address] [id number] [address] [place] [address], [place] [address] Feb, [facility] [address] [id number] [address] [place] [address], [place] [address] Feb, [facility] [address] [id number] [address] [place] [address], [place] [address] Jan, [facility] [address] [id number] [address] [place] [address], [place] [address] Jan, [facility] [address] [id number] [address] [place] [address], [place] [address] Jan, [facility] [address] [id number] [address] [place] [address], [place] [address] Jan, [facility] [address] [id number] [address] [place] [address], [place] [address] Jan, [facility] [address] [id number] [address] [place] [address], [place] [address] Jan, [facility] [address] [id number] [address] [place] [address], [place] [address] Jan, [facility] [address] [id number] [address] [place] [address], [place] [address] Dec, [facility] [address] [id number] [address] [place] [address], [place] [address] Dec, [facility] [address] [id number] [address] [place] [address], [place] [address] Dec, [facility] [address] [id number] [address] [place] [address], [place] [address] Dec, [facility] [address] [id number] [address] [place] [address], [place] [address] Nov, [facility] [address] [id number] [address] [place] [address], [place] [address] Nov, [facility] [address] [id number] [address] [place] [address], [place] [address] Nov, [facility] [address] [id number] [address] [place] [address], [place] [address] October, [facility] [address] [id number] [address] [place] [address], [place] [address] Sep, [facility] [address] [id number] [address] [place] [address], [place] [address] Sep, [facility] [address] [id number] [address] [place] [address], [place] [address] Sep, [facility] [address] [id number] [address] [place] [address], [place] [address] Sep, [facility] [address] [id number] [address] [place] [address], [place] [address] Sep, [facility] [address] [id number] [address] [place] [address], [place] [address] Sep, [facility] [address] [id number] [address] [place] [address], [place] [address] Sep, [facility] [address] [id number] [address] [place] [address], [place] [address] Sep, [facility] [address] [id number] [address] [place] [address], [place] [address] Sep, [facility] [address] [id number] [address] [place] [address], [place] [address] Aug, [facility] [address] [id number] [address] [place] [address], [place] [address] Aug, [facility] [address] [id number] [address] [place] [address], [place] [address] Jul, [facility] [address] [id number] [address] [place] [address], [place] [address] Jul, [facility] [address] [id number] [address] [place] [address], [place] [address] Jul, [facility] [address] [id number] [address] [place] [address] [place] [address] Jun, [facility] [address] [id number] [address] [place] [address], [place] [address] Apr, [facility] [address] [id number] [address] [place] [address], [place] [address] Apr, [facility] [address] [id number] [address] [place] [address], [place] [address] Apr, [facility] [address] [id number] [address] [place] [address], [place] [address] Apr, [facility] [address] [id number] [address] [place] [address], [place] [address] Apr, [facility] [address] [id number] [address] [place] [address], [place] [address] Apr, [facility] [address] [id number] [address] [place] [address], [place] [address] Apr, [facility] [address] [id number] [address] [place] [address], [place] [address] Apr, [facility] [address] [id number] [address] [place] [address], [place] [address] Apr, [facility] [address] [id number] [address] [place] [address], [place] [address] Apr, [facility] [address] [id number] [address] [place] [address], [place] [address] Apr, [facility] [address] [id number] [address] [place] [address] Apr, [facility] [address] [id number] [address] [place] [address], [place] [address] Mar, [facility] [address] [id number] [address] [place] [address], [place] [address] Mar, [facility] [address] [id number] [address] [place] [address], [place] [address] Mar, [facility] [address] [id number] [address] [place] [address] 15 Mar, 2012 [facility] [address] [id number] [address] [place] [address] Mar, [facility] [address] [id number] [address] [place] [address] Mar, [facility] [address] [id number] [address] [place] [address] Mar, [facility] [address] [id number] [address] [place] [address] 25 Feb, 2012 [facility] [address] [id number] [address] [place] [address] 24 Feb, 2012 [facility] [address] [id number] [address] [place] [address] Feb, [facility] [address] [id number] [address] [place] [address] Feb, [facility] [address] [id number] [address] [place] [address] Jan, [facility] [address] [id number] [address] [place] [address] Jan, [facility] [address] [id number] [address] [place] [address] Jan, [facility] [address] [id number] [address] [place] [address] Jan, IMMUNIZATIONS No Known Immunizations SOCIAL HISTORY Never Assessed REASON FOR VISIT PLAN OF CARE VITAL SIGNS MEDICATIONS Unknown Medications RESULTS No Results PROCEDURES No Known procedures INSTRUCTIONS MEDICATIONS ADMINISTERED No Known Medications
--- OUTSIDE RECORDS SUMMARY | 2020-01-17 06:37 | XMS REPORT ---
Author Author Yogesh Kelly Doctor Organization [facility] Address Unknown Phone Unavailable Care Team Providers Care Flat Sheet Maker Name Role Phone Migration, Doctor Unavailable Unavailable PROBLEMS Type Condition ICD9-CM Code [id number] Code Onset Dates Condition S tatus SNOMED Code Problem Encounter for long-term (current) use of other medications V58.69 Active 565818329 Problem Routine [facility] V70.0 Active 641253313 Problem Family history of unspecified malignant neoplasm V16.9 Active 424184522 Problem Nonspecific elevation of lev els of transaminase or lactic acid dehydrogenase (LDH) 790.4 Active 24663295 2 Problem Personal history of other allergy, other than to medicinal agents V15.09 Active 169240332 Problem Essential hypertension, benign 401.1 Active 7445640 Problem Coronary atherosclerosis of unspecified type of vessel, [place] or graft 414.00 Active 058095834 Problem Dizziness and giddiness 780.4 Active 359884057 Problem Chest pain, unspecified 786.50 Active 17276756 Problem Lumbago 724.2 Active 994032268 Problem Cervicalgia 723.1 Active 84623687 Problem Other specified cardiac dysrhythmias 427.89 Active 232706927 Problem Peptic ulcer, unspecified si te, unspecified as acute or chronic, without mention of hemorrhage, perforation, or obstruction 533.90 Active 20042281 Problem Right bundle branch block 426.4 Acti ve 44176118 Problem 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 Active 61812706 Problem Unspecified tinnitus 388.30 Active 27558645 Problem Unspecified hearing loss 389.9 Activ e 55666584 Problem Unspecified otalgia 388.70 Active 97601789 Problem Malignant neoplasm of prostate 185 Active 284196792 Problem Polyuria 788.42 Active 02181793 Problem Unspecified viral hepatitis C without hepatic coma 070.70 Active 26881105 Problem Abdominal or pelvic swelling, mass or lump, unspecified si te 789.30 Active 076049768 Problem Dysuria 788.1 Active 44051859 Problem Unspecified cataract 366.9 Active 865542756 Problem Unspecified episodic mood disorder 296.90 Active 744781838 Problem Other and unspecified hyperlipidemia 272.4 Active 97680201 Problem Unspecified hypothyroidism 244.9 Act katty 24045564 ALLERGIES No Information ENCOUNTERS Encounter Location Date Diagnosis [facility] [address] [id number] [address] [place] [address] 14 Sep, 2014 [facility] [address] [id number] [address] [place] [address] Sep, [facility] [address] [id number] [address] [place] [address] Jun, [facility] [address] [id number] [address] [place] [address] Jun, [facility] [address] [id number] [address] [place] [address] May, [facility] [address] [id number] [address] [place] [address] May, [facility] [address] [id number] [address] [place] [address] Feb, [facility] [address] [id number] [address] [place] [address] Feb, [facility] [address] [id number] [address] [place] [address] Feb, [facility] [address] [id number] [address] [place] [address] Jan, [facility] [address] [id number] [address] [place] [address] Jan, [facility] [address] [id number] [address] [place] [address] Nov, [facility] [address] [id number] [address] [place] [address] Nov, [facility] [address] [id number] [address] [place] [address] 05 Nov, 2013 [facility] [address] [id number] [facility] [place] [address] 05 Nov, 2013 [facility] [address] [id number] [facility] [place] [address] Aug, [facility] [address] [id number] [facility] [place] [address] Aug, [facility] [address] [id number] [address] [place] [address], [place] [address] Aug, [facility] [address] [id number] [facility] [place] [address] Aug, [facility] [address] [id number] [address] [place] [address], [place] [address] Aug, [facility] [address] [id number] [address] [place] [address], [place] [address] Aug, [facility] [address] [id number] [address] [place] [address], [place] [address] Aug, [facility] [address] [id number] [address] [place] [address], [place] [address] Aug, [facility] [address] [id number] [address] [place] [address], [place] [address] Aug, [facility] [address] [id number] [address] [place] [address], [place] [address] Aug, [facility] [address] [id number] [address] [place] [address], [place] [address] Jul, [facility] [address] [id number] [address] [place] [address], [place] [address] Jul, [facility] [address] [id number] [address] [place] [address], [place] [address] Jul, [facility] [address] [id number] [address] [place] [address], [place] [address] Jul, [facility] [address] [id number] [address] [place] [address], [place] [address] Jul, [facility] [address] [id number] [address] [place] [address], [place] [address] Jul, [facility] [address] [id number] [address] [place] [address], [place] [address] Jul, [facility] [address] [id number] [address] [place] [address], [place] [address] Jul, [facility] [address] [id number] [address] [place] [address], [place] [address] Jun, [facility] [address] [id number] [address] [place] [address], [place] [address] Jun, [facility] [address] [id number] [address] [place] [address], [place] [address] Jun, [facility] [address] [id number] [address] [place] [address], [place] [address] Jun, [facility] [address] [id number] [address] [place] [address], [place] [address] Jun, [facility] [address] [id number] [address] [place] [address], [place] [address] Jun, [facility] [address] [id number] [address] [place] [address], [place] [address] Jun, [facility] [address] [id number] [address] [place] [address], [place] [address] Jun, [facility] [address] [id number] [address] [place] [address], [place] [address] May, [facility] [address] [id number] [address] [place] [address], [place] [address] May, [facility] [address] [id number] [address] [place] [address], [place] [address] May, [facility] [address] [id number] [address] [place] [address], [place] [address] May, [facility] [address] [id number] [address] [place] [address], [place] [address] May, [facility] [address] [id number] [address] [place] [address], [place] [address] May, [facility] [address] [id number] [address] [place] [address], [place] [address] May, [facility] [address] [id number] [address] [place] [address], [place] [address] May, [facility] [address] [id number] [address] [place] [address], [place] [address] Apr, [facility] [address] [id number] [address] [place] [address] Apr, [facility] [address] [id number] [address] [place] [address], [place] [address] Apr, [facility] [address] [id number] [address] [place] [address], [place] [address] Apr, [facility] [address] [id number] [address] [place] [address], [place] [address] Apr, [facility] [address] [id number] [address] [place] [address] Apr, [facility] [address] [id number] [address] [place] [address] Apr, [facility] [address] [id number] [address] [place] [address] 18 Apr, 2013 [facility] [address] [id number] [address] [place] [address], [place] [address] Mar, [facility] [address] [id number] [address] [place] [address] 14 Mar, 2013 [facility] [address] [id number] [address] [place] [address] 18 Feb, 2013 [facility] [address] [id number] [address] [place] [address], [place] [address] Feb, [facility] [address] [id number] [address] [place] [address], [place] [address] Feb, [facility] [address] [id number] [address] [place] [address], [place] [address] Jan, [facility] [address] [id number] [address] [place] [address], [place] [address] Jan, [facility] [address] [id number] [address] [place] [address], [place] [address] Jan, [facility] [address] [id number] [address] [place] [address], [place] [address] Jan, [facility] [address] [id number] [address] [place] [address], [place] [address] Jan, [facility] [address] [id number] [address] [place] [address], [place] [address] Jan, [facility] [address] [id number] [address] [place] [address], [place] [address] Jan, [facility] [address] [id number] [address] [place] [address], [place] [address] Dec, [facility] [address] [id number] [address] [place] [address], [place] [address] Dec, [facility] [address] [id number] [address] [place] [address], [place] [address] Dec, [facility] [address] [id number] [address] [place] [address], [place] [address] Dec, [facility] [address] [id number] [address] [place] [address], [place] [address] Nov, [facility] [address] [id number] [address] [place] [address], [place] [address] Nov, [facility] [address] [id number] [address] [place] [address], [place] [address] Nov, [facility] [address] [id number] [address] [place] [address], [place] [address] October, [facility] [address] [id number] [address] [place] [address], [place] [address] Sep, [facility] [address] [id number] [address] [place] [address], [place] [address] Sep, [facility] [address] [id number] [address] [place] [address], [place] [address] Sep, [facility] [address] [id number] [address] [place] [address], [place] [address] Sep, [facility] [address] [id number] [address] [place] [address], [place] [address] Sep, [facility] [address] [id number] [address] [place] [address], [place] [address] Sep, [facility] [address] [id number] [address] [place] [address], [place] [address] Sep, [facility] [address] [id number] [address] [place] [address], [place] [address] Sep, [facility] [address] [id number] [address] [place] [address], [place] [address] Sep, [facility] [address] [id number] [address] [place] [address], [place] [address] Aug, [facility] [address] [id number] [address] [place] [address], [place] [address] Aug, [facility] [address] [id number] [address] [place] [address], [place] [address] Jul, [facility] [address] [id number] [address] [place] [address], [place] [address] Jul, [facility] [address] [id number] [address] [place] [address], [place] [address] Jul, [facility] [address] [id number] [address] [place] [address] [place] [address] Jun, [facility] [address] [id number] [address] [place] [address], [place] [address] Apr, [facility] [address] [id number] [address] [place] [address], [place] [address] Apr, [facility] [address] [id number] [address] [place] [address], [place] [address] Apr, [facility] [address] [id number] [address] [place] [address], [place] [address] Apr, [facility] [address] [id number] [address] [place] [address], [place] [address] Apr, [facility] [address] [id number] [address] [place] [address], [place] [address] Apr, [facility] [address] [id number] [address] [place] [address], [place] [address] Apr, [facility] [address] [id number] [address] [place] [address], [place] [address] Apr, [facility] [address] [id number] [address] [place] [address], [place] [address] Apr, [facility] [address] [id number] [address] [place] [address], [place] [address] Apr, [facility] [address] [id number] [address] [place] [address], [place] [address] Apr, [facility] [address] [id number] [address] [place] [address] Apr, [facility] [address] [id number] [address] [place] [address], [place] [address] Mar, [facility] [address] [id number] [address] [place] [address], [place] [address] Mar, [facility] [address] [id number] [address] [place] [address], [place] [address] Mar, [facility] [address] [id number] [address] [place] [address] 15 Mar, 2012 [facility] [address] [id number] [address] [place] [address] Mar, [facility] [address] [id number] [address] [place] [address] Mar, [facility] [address] [id number] [address] [place] [address] Mar, [facility] [address] [id number] [address] [place] [address] 25 Feb, 2012 [facility] [address] [id number] [address] [place] [address] 24 Feb, 2012 [facility] [address] [id number] [address] [place] [address] Feb, [facility] [address] [id number] [address] [place] [address] Feb, [facility] [address] [id number] [address] [place] [address] Jan, [facility] [address] [id number] [address] [place] [address] Jan, [facility] [address] [id number] [address] [place] [address] Jan, [facility] [address] [id number] [address] [place] [address] Jan, IMMUNIZATIONS No Known Immunizations SOCIAL HISTORY Never Assessed REASON FOR VISIT PLAN OF CARE VITAL SIGNS MEDICATIONS Unknown Medications RESULTS No Results PROCEDURES No Known procedures INSTRUCTIONS MEDICATIONS ADMINISTERED No Known Medications
--- OUTSIDE RECORDS SUMMARY | 2020-01-17 06:37 | XMS REPORT ---
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 Role Phone Migration, Doctor Unavailable Unavailable PROBLEMS Type Condition ICD9-CM Code QGU86-SW Code Onset Dates Condition S tatus SNOMED Code Problem Encounter for long-term (current) use of other medications V58.69 Active 624323289 Problem Routine general medical examination at [facility] V70.0 Active 126282109 Problem Family history of unspecified malignant neoplasm V16.9 Active 655019715 Problem Nonspecific elevation of lev els of transaminase or lactic acid dehydrogenase (LDH) 790.4 Active 10950750 2 Problem Personal history of other allergy, other than to medicinal agents V15.09 Active 114266948 Problem Essential hypertension, benign 401.1 Active 7971597 Problem Coronary atherosclerosis of unspecified type of vessel, chickaloon or graft 414.00 Active 125297924 Problem Dizziness and giddiness 780.4 Active 489203810 Problem Chest pain, unspecified 786.50 Active 53872107 Problem Lumbago 724.2 Active 003737015 Problem Cervicalgia 723.1 Active 40981685 Problem Other specified cardiac dysrhythmias 427.89 Active 893593793 Problem Peptic ulcer, unspecified si te, unspecified as acute or chronic, without mention of hemorrhage, perforation, or obstruction 533.90 Active 12635241 Problem Right bundle branch block 426.4 Acti ve 51700842 Problem 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 Active 36277923 Problem Unspecified tinnitus 388.30 Active 10195815 Problem Unspecified hearing loss 389.9 Activ e 79745547 Problem Unspecified otalgia 388.70 Active 42392450 Problem Malignant neoplasm of prostate 185 Active 007885558 Problem Polyuria 788.42 Active 80402094 Problem Unspecified viral hepatitis C without hepatic coma 070.70 Active 82111023 Problem Abdominal or pelvic swelling, mass or lump, unspecified si te 789.30 Active 857379063 Problem Dysuria 788.1 Active 87585190 Problem Unspecified cataract 366.9 Active 984066638 Problem Unspecified episodic mood disorder 296.90 Active 430789345 Problem Other and unspecified hyperlipidemia 272.4 Active 73746638 Problem Unspecified hypothyroidism 244.9 Act katty [id number] ALLERGIES No Information ENCOUNTERS Encounter Location Date Diagnosis [facility] [address] [id number] [address] [place] [address] 14 Sep, 2014 [facility] [address] [id number] [address] [place] [address] Sep, [facility] [address] [id number] [address] [place] [address] Jun, [facility] [address] [id number] [address] [place] [address] Jun, [facility] [address] [id number] [address] [place] [address] May, [facility] [address] [id number] [address] [place] [address] May, [facility] [address] [id number] [address] [place] [address] Feb, [facility] [address] [id number] [address] [place] [address] Feb, [facility] [address] [id number] [address] [place] [address] Feb, [facility] [address] [id number] [address] [place] [address] Jan, [facility] [address] [id number] [address] [place] [address] Jan, [facility] [address] [id number] [address] [place] [address] Nov, [facility] [address] [id number] [address] [place] [address] Nov, [facility] [address] [id number] [address] [place] [address] 05 Nov, 2013 [facility] [address] [id number] [facility] [place] [address] 05 Nov, 2013 [facility] [address] [id number] [facility] [place] [address] Aug, [facility] [address] [id number] [facility] [place] [address] Aug, [facility] [address] [id number] [address] [place] [address], [place] [address] Aug, [facility] [address] [id number] [facility] [place] [address] Aug, [facility] [address] [id number] [address] [place] [address], [place] [address] Aug, [facility] [address] [id number] [address] [place] [address], [place] [address] Aug, [facility] [address] [id number] [address] [place] [address], [place] [address] Aug, [facility] [address] [id number] [address] [place] [address], [place] [address] Aug, [facility] [address] [id number] [address] [place] [address], [place] [address] Aug, [facility] [address] [id number] [address] [place] [address], [place] [address] Aug, [facility] [address] [id number] [address] [place] [address], [place] [address] Jul, [facility] [address] [id number] [address] [place] [address], [place] [address] Jul, [facility] [address] [id number] [address] [place] [address], [place] [address] Jul, [facility] [address] [id number] [address] [place] [address], [place] [address] Jul, [facility] [address] [id number] [address] [place] [address], [place] [address] Jul, [facility] [address] [id number] [address] [place] [address], [place] [address] Jul, [facility] [address] [id number] [address] [place] [address], [place] [address] Jul, [facility] [address] [id number] [address] [place] [address], [place] [address] Jul, [facility] [address] [id number] [address] [place] [address], [place] [address] Jun, [facility] [address] [id number] [address] [place] [address], [place] [address] Jun, [facility] [address] [id number] [address] [place] [address], [place] [address] Jun, [facility] [address] [id number] [address] [place] [address], [place] [address] Jun, [facility] [address] [id number] [address] [place] [address], [place] [address] Jun, [facility] [address] [id number] [address] [place] [address], [place] [address] Jun, [facility] [address] [id number] [address] [place] [address], [place] [address] Jun, [facility] [address] [id number] [address] [place] [address], [place] [address] Jun, [facility] [address] [id number] [address] [place] [address], [place] [address] May, [facility] [address] [id number] [address] [place] [address], [place] [address] May, [facility] [address] [id number] [address] [place] [address], [place] [address] May, [facility] [address] [id number] [address] [place] [address], [place] [address] May, [facility] [address] [id number] [address] [place] [address], [place] [address] May, [facility] [address] [id number] [address] [place] [address], [place] [address] May, [facility] [address] [id number] [address] [place] [address], [place] [address] May, [facility] [address] [id number] [address] [place] [address], [place] [address] May, [facility] [address] [id number] [address] [place] [address], [place] [address] Apr, [facility] [address] [id number] [address] [place] [address] Apr, [facility] [address] [id number] [address] [place] [address], [place] [address] Apr, [facility] [address] [id number] [address] [place] [address], [place] [address] Apr, [facility] [address] [id number] [address] [place] [address], [place] [address] Apr, [facility] [address] [id number] [address] [place] [address] Apr, [facility] [address] [id number] [address] [place] [address] Apr, [facility] [address] [id number] [address] [place] [address] 18 Apr, 2013 [facility] [address] [id number] [address] [place] [address], [place] [address] Mar, [facility] [address] [id number] [address] [place] [address] 14 Mar, 2013 [facility] [address] [id number] [address] [place] [id number] 18 Feb, 2013 [facility] [address] [id number] [address] [place] [address], [place] [address] Feb, [facility] [address] [id number] [address] [place] [address], [place] [address] Feb, [facility] [address] [id number] [address] [place] [address], [place] [address] Jan, [facility] [address] [id number] [address] [place] [address], [place] [address] Jan, [facility] [address] [id number] [address] [place] [address], [place] [address] Jan, [facility] [address] [id number] [address] [place] [address], [place] [address] Jan, [facility] [address] [id number] [address] [place] [address], [place] [address] Jan, [facility] [address] [id number] [address] [place] [address], [place] [address] Jan, [facility] [address] [id number] [address] [place] [address], [place] [address] Jan, [facility] [address] [id number] [address] [place] [address], [place] [address] Dec, [facility] [address] [id number] [address] [place] [address], [place] [address] Dec, [facility] [address] [id number] [address] [place] [address], [place] [address] Dec, [facility] [address] [id number] [address] [place] [address], [place] [address] Dec, [facility] [address] [id number] [address] [place] [address], [place] [address] Nov, [facility] [address] [id number] [address] [place] [address], [place] [address] Nov, [facility] [address] [id number] [address] [place] [address], [place] [address] Nov, [facility] [address] [id number] [address] [place] [address], [place] [address] October, [facility] [address] [id number] [address] [place] [address], [place] [address] Sep, [facility] [address] [id number] [address] [place] [address], [place] [address] Sep, [facility] [address] [id number] [address] [place] [address], [place] [address] Sep, [facility] [address] [id number] [address] [place] [address], [place] [address] Sep, [facility] [address] [id number] [address] [place] [address], [place] [address] Sep, [facility] [address] [id number] [address] [place] [address], [place] [address] Sep, [facility] [address] [id number] [address] [place] [address], [place] [address] Sep, [facility] [address] [id number] [address] [place] [address], [place] [address] Sep, [facility] [address] [id number] [address] [place] [address], [place] [address] Sep, [facility] [address] [id number] [address] [place] [address], [place] [address] Aug, [facility] [address] [id number] [address] [place] [address], [place] [address] Aug, [facility] [address] [id number] [address] [place] [address], [place] [address] Jul, [facility] [address] [id number] [address] [place] [address], [place] [address] Jul, [facility] [address] [id number] [address] [place] [address], [place] [address] Jul, [facility] [address] [id number] [address] [place] [address] [place] [address] Jun, [facility] [address] [id number] [address] [place] [address], [place] [address] Apr, [facility] [address] [id number] [address] [place] [address], [place] [address] Apr, [facility] [address] [id number] [address] [place] [address], [place] [address] Apr, [facility] [address] [id number] [address] [place] [address], [place] [address] Apr, [facility] [address] [id number] [address] [place] [address], [place] [address] Apr, [facility] [address] [id number] [address] [place] [address], [place] [address] Apr, [facility] [address] [id number] [address] [place] [address], [place] [address] Apr, [facility] [address] [id number] [address] [place] [address], [place] [address] Apr, [facility] [address] [id number] [address] [place] [address], [place] [address] Apr, [facility] [address] [id number] [address] [place] [address], [place] [address] Apr, [facility] [address] [id number] [address] [place] [address], [place] [address] Apr, [facility] [address] [id number] [address] [place] [address] Apr, [facility] [address] [id number] [address] [place] [address], [place] [address] Mar, [facility] [address] [id number] [address] [place] [address], [place] [address] Mar, [facility] [address] [id number] [address] [place] [address], [place] [address] Mar, [facility] [address] [id number] [address] [place] [address] 15 Mar, 2012 [facility] [address] [id number] [address] [place] [address] 15 Mar, 2012 [facility] [address] [id number] [address] [place] [address] Mar, [facility] [address] [id number] [address] [place] [address] 05 Mar, 2012 [facility] [address] [id number] [address] [place] [address] 25 Feb, 2012 [facility] [address] [id number] [address] [place] [address] 24 Feb, 2012 [facility] [address] [id number] [address] [place] [address] Feb, [facility] [address] [id number] [address] [place] [address] 06 Feb, 2012 [facility] [address] [id number] [address] [place] [address] Jan, [facility] [address] [id number] [address] [place] [address] Jan, [facility] [address] [id number] [address] [place] [address] Jan, [facility] [address] [id number] [address] [place] [address] Jan, IMMUNIZATIONS No Known Immunizations SOCIAL HISTORY Never Assessed REASON FOR VISIT PLAN OF CARE VITAL SIGNS Height 72 in 2013-01-30 Weight 260.23 lbs 2013-01-30 Temperature 97.3 degrees Fahrenheit 2013-01-30 Heart Rate 47 bpm 2013-01-30 Respiratory Rate 18 2013-01-30 Blood pressure systolic 130 mmHg 2013-01-30 Blood pressure diastolic 92 mmHg 2013-01-30 MEDICATIONS Unknown Medications RESULTS No Results PROCEDURES Procedure Date Ordered Result Body Site IRON BINDING TEST Jan 30, 2013 ASSAY OF IRON Jan 30, 2013 ASSAY OF FERRITIN Jan 30, 2013 ACUTE HEPATITIS PANEL Jan 30, 2013 VENIPUNCT, ROUTINE* Jan 30, 2013 INSTRUCTIONS MEDICATIONS ADMINISTERED No Known Medications
--- OUTSIDE RECORDS SUMMARY | 2020-01-17 06:38 | XMS REPORT ---
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 Role Phone Migration, Doctor Unavailable Unavailable PROBLEMS Type Condition ICD9-CM Code [id number] Code Onset Dates Condition S tatus SNOMED Code Problem Encounter for long-term (current) use of other medications V58.69 Active 438312255 Problem Routine general medical examination at [facility] V70.0 Active 334935264 Problem Family history of unspecified malignant neoplasm V16.9 Active 082468954 Problem Nonspecific elevation of lev els of transaminase or lactic acid dehydrogenase (LDH) 790.4 Active 29405660 2 Problem Personal history of other allergy, other than to medicinal agents V15.09 Active 107287871 Problem Essential hypertension, benign 401.1 Active 7336984 Problem Coronary atherosclerosis of unspecified type of vessel, [place] or graft 414.00 Active 570017688 Problem Dizziness and giddiness 780.4 Active 126430742 Problem Chest pain, unspecified 786.50 Active 78072960 Problem Lumbago 724.2 Active 349173492 Problem Cervicalgia 723.1 Active 15257777 Problem Other specified cardiac dysrhythmias 427.89 Active 911887430 Problem Peptic ulcer, unspecified si te, unspecified as acute or chronic, without mention of hemorrhage, perforation, or obstruction 533.90 Active 21282751 Problem Right bundle branch block 426.4 Acti ve 78258785 Problem 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 Active 72164116 Problem Unspecified tinnitus 388.30 Active 63427948 Problem Unspecified hearing loss 389.9 Activ e 48264078 Problem Unspecified otalgia 388.70 Active 89895091 Problem Malignant neoplasm of prostate 185 Active 204827171 Problem Polyuria 788.42 Active 93450010 Problem Unspecified viral hepatitis C without hepatic coma 070.70 Active 06640029 Problem Abdominal or pelvic swelling, mass or lump, unspecified si te 789.30 Active 234439164 Problem Dysuria 788.1 Active 87164577 Problem Unspecified cataract 366.9 Active 430239315 Problem Unspecified episodic mood disorder 296.90 Active 168699759 Problem Other and unspecified hyperlipidemia 272.4 Active 86296993 Problem Unspecified hypothyroidism 244.9 Act katty [id number] ALLERGIES No Information ENCOUNTERS Encounter Location Date Diagnosis [facility] [id number] [place] [address] 14 Sep, 2014 [facility] [id number] [place] [address] Sep, [facility] [id number] [place] [address] Jun, [facility] [address] [address] Jun, [facility] [id number] [place] [address] May, [facility] [id number] [place] [address] May, [facility] [id number] [place] [address] Feb, [facility] [address] [address] Feb, [facility] [id number] [place] [address] Feb, [facility] [id number] [place] [address] Jan, [facility] [id number] [place] [address] Jan, [facility] [id number] [place] [address] Nov, [facility] [id number] [place] [address] Nov, [facility] [id number] [place] [address] Nov, [facility] [id number] [place] [address] 05 Nov, 2013 [facility] [place] [facility] [address] [facility] [id number] [place] [address] Aug, [facility] [place] [facility] [address] [facility] [id number] [place] [address] 28 Aug, 2013 [facility] [place] [facility] [address] [id number] [place] [address] 14 Aug, 2013 [facility] [place] [facility] [address] [id number] [place] [address] 14 Aug, 2013 [facility] [place] [facility] [address] [facility] [id number] [place] [address] Aug, [facility] [place] [facility] [address] [id number] [place] [address] Aug, [facility] [place] [facility] [address] [id number] [place] [address] Aug, [facility] [place] [facility] [address] [id number] [place] [address] Aug, [facility] [place] [facility] [address] [id number] [place] [address] Aug, [facility] [place] [facility] [address] [id number] [place] [address] Aug, [facility] [place] [facility] [address] [id number] [place] [address] Jul, [facility] [place] [facility] [address] [id number] [place] [address] Jul, [facility] [place] [facility] [address] [id number] [place] [address] Jul, [facility] [place] [facility] [address] [id number] [place] [address] Jul, [facility] [place] [facility] [address] [id number] [place] [address] Jul, [facility] [place] [facility] [address] [id number] [place] [address] Jul, [facility] [place] [facility] [address] [id number] [place] [address] Jul, [facility] [place] [facility] [address] [id number] [place] [address] Jul, [facility] [place] [facility] [address] [id number] [place] [address] Jun, [facility] [place] [facility] [address] [id number] [place] [address] Jun, [facility] [place] [facility] [address] [id number] [place] [address] Jun, [facility] [place] [facility] [address] [id number] [place] [address] Jun, [facility] [place] [facility] [address] [id number] [place] [address] Jun, [facility] [place] [facility] [address] [id number] [place] [address] Jun, [facility] [place] [facility] [address] [id number] [place] [address] Jun, [facility] [place] [facility] [address] [id number] [place] [address] Jun, [facility] [place] [facility] [address] [id number] [place] [address] May, [facility] [place] [facility] [address] [id number] [place] [address] May, [facility] [place] [facility] [address] [id number] [place] [address] May, [facility] [place] [facility] [address] [id number] [place] [address] May, [facility] [place] [facility] [address] [id number] [place] [address] May, [facility] [place] [facility] [address] [id number] [place] [address] May, [facility] [place] [facility] [address] [id number] [place] [address] May, [facility] [place] [facility] [address] [id number] [place] [address] May, [facility] [place] [facility] [address] [id number] [place] [address] Apr, [facility] [place] [facility] [address] [id number] [place] [address] Apr, [facility] [place] [facility] [address] [id number] [place] [address] Apr, [facility] [place] [facility] [address] [id number] [place] [address] Apr, [facility] [place] [facility] [address] [id number] [place] [address] Apr, [facility] [place] [facility] [address] [id number] [place] [address] Apr, [facility] [place] [facility] [address] [id number] [place] [address] Apr, [facility] [place] [facility] [address] [id number] [place] [address] Apr, [facility] [place] [facility] [address] [id number] [place] [address] Mar, [facility] [place] [facility] [address] [id number] [place] [address] Mar, [facility] [place] [facility] [address] [id number] [place] [address] 18 Feb, 2013 [facility] [place] [facility] [address] [id number] [place] [address] 17 Feb, 2013 [facility] [place] [facility] [address] [id number] [place] [address] Feb, [facility] [place] [facility] [address] [id number] [place] [address] Jan, [facility] [place] [facility] [address] [id number] [place] [address] Jan, [facility] [place] [facility] [address] [id number] [place] [address] Jan, [facility] [place] [facility] [address] [id number] [place] [address] Jan, [facility] [place] [facility] [address] [facility] [id number] [place] [address] Jan, [facility] [place] [facility] [address] [id number] [place] [address] Jan, [facility] [place] [facility] [address] [id number] [place] [address] Jan, [facility] [place] [facility] [address] [id number] [place] [address] Dec, [facility] [place] [facility] [address] [id number] [place] [address] Dec, [facility] [place] [facility] [address] [id number] [place] [address] Dec, [facility] [place] [facility] [address] [id number] [place] [address] Dec, [facility] [place] [facility] [address] [id number] [place] [address] Nov, [facility] [place] [facility] [address] [id number] [place] [address] Nov, [facility] [place] [facility] [address] [id number] [place] [address] Nov, [facility] [place] [facility] [address] [id number] [place] [address] October, [facility] [place] [facility] [address] [id number] [place] [address] Sep, [facility] [place] [facility] [address] [id number] [place] [address] Sep, [facility] [place] [facility] [address] [id number] [place] [address] Sep, [facility] [place] [facility] [address] [id number] [place] [address] Sep, [facility] [place] [facility] [address] [id number] [place] [address] Sep, [facility] [place] [facility] [address] [id number] [place] [address] Sep, [facility] [place] [facility] [address] [id number] [place] [address] Sep, [facility] [place] [facility] [address] [id number] [place] [address] Sep, [facility] [place] [facility] [address] [id number] [place] [address] Sep, [facility] [place] [facility] [address] [id number] [place] [address] Aug, [facility] [place] [facility] [address] [id number] [place] [address] Aug, [facility] [address] [id number] [place] [address] Jul, [facility] [place] [facility] [address] [id number] [place] [address] Jul, [facility] [place] [facility] [address] [id number] [place] [address] Jul, [facility] [place] [facility] [address] [id number] [place] [address] Jun, [facility] [place] [facility] [address] [id number] [place] [address] Apr, [facility] [place] [facility] [address] [id number] [place] [address] Apr, [facility] [place] [facility] [address] [id number] [place] [address] Apr, [facility] [place] [facility] [address] [id number] [place] [address] Apr, [facility] [place] [facility] [address] [id number] [place] [address] Apr, [facility] [place] [facility] [address] [id number] [place] [address] Apr, [facility] [place] [facility] [address] [id number] [place] [address] Apr, [facility] [place] [facility] [address] [id number] [place] [address] Apr, [facility] [place] [facility] [address] [id number] [place] [address] Apr, [facility] [place] [facility] [address] [id number] [place] [address] Apr, [facility] [place] [facility] [address] [id number] [place] [address] Apr, [facility] [place] [facility] [address] [id number] [place] [address] Apr, [facility] [place] [facility] [address] [id number] [place] [address] Mar, [facility] [place] [facility] [id number] [place] [address] Mar, [facility] [place] [facility] [address] [id number] [place] [address] Mar, [facility] [place] [facility] [id number] [place] [address] Mar, [facility] [place] [facility] [id number] [place] [address] Mar, [facility] [place] [facility] [id number] [place] [address] Mar, [facility] [place] [facility] [address] [id number] [place] [address] 05 Mar, 2012 [facility] [place] [facility] [address] [id number] [place] [address] 25 Feb, 2012 [facility] [place] [facility] [address] [id number] [place] [address] 24 Sep2011 [facility] [place] [facility] [id number] [place] [address] 10 Feb, 2012 [facility] [place] [facility] [address] [id number] [place] [address] Feb, [facility] [address] [id number] [place] [address] Jan, [facility] [address] [id number] [place] [address] Jan, [facility] [address] [id number] [place] [address] Jan, [facility] [address] [id number] [place] [address] Jan, IMMUNIZATIONS No Known Immunizations SOCIAL HISTORY Never Assessed REASON FOR VISIT PLAN OF CARE VITAL SIGNS MEDICATIONS Unknown Medications RESULTS No Results PROCEDURES No Known procedures INSTRUCTIONS MEDICATIONS ADMINISTERED No Known Medications
--- OUTSIDE RECORDS SUMMARY | 2020-01-17 06:38 | XMS REPORT ---
Author Author Yogesh Kelly Doctor Organization [facility] Address Unknown Phone Unavailable Care Team Providers Care Optimization Consultant Name Role Phone Migration, Doctor Unavailable Unavailable PROBLEMS Type Condition ICD9-CM Code REE50-PY Code Onset Dates Condition S tatus SNOMED Code Problem Encounter for long-term (current) use of other medications V58.69 Active 934947347 Problem Routine general medical examination at [facility] V70.0 Active 722545277 Problem Family history of unspecified malignant neoplasm V16.9 Active 760516847 Problem Nonspecific elevation of lev els of transaminase or lactic acid dehydrogenase (LDH) 790.4 Active 88489236 2 Problem Personal history of other allergy, other than to medicinal agents V15.09 Active 220342269 Problem Essential hypertension, benign 401.1 Active 4414015 Problem Coronary atherosclerosis of unspecified type of vessel, [place] or graft 414.00 Active 043783467 Problem Dizziness and giddiness 780.4 Active 299186073 Problem Chest pain, unspecified 786.50 Active 38315819 Problem Lumbago 724.2 Active 520904507 Problem Cervicalgia 723.1 Active 81696571 Problem Other specified cardiac dysrhythmias 427.89 Active 183871910 Problem Peptic ulcer, unspecified si te, unspecified as acute or chronic, without mention of hemorrhage, perforation, or obstruction 533.90 Active 21746583 Problem Right bundle branch block 426.4 Acti ve 39956269 Problem 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 Active 82101170 Problem Unspecified tinnitus 388.30 Active 24043416 Problem Unspecified hearing loss 389.9 Activ e 79700016 Problem Unspecified otalgia 388.70 Active 69113031 Problem Malignant neoplasm of prostate 185 Active 196511174 Problem Polyuria 788.42 Active 39674714 Problem Unspecified viral hepatitis C without hepatic coma 070.70 Active 49699083 Problem Abdominal or pelvic swelling, mass or lump, unspecified si te 789.30 Active 291114236 Problem Dysuria 788.1 Active 72619454 Problem Unspecified cataract 366.9 Active 191551692 Problem Unspecified episodic mood disorder 296.90 Active 031959887 Problem Other and unspecified hyperlipidemia 272.4 Active 57101873 Problem Unspecified hypothyroidism 244.9 Act katty [id number] ALLERGIES No Information ENCOUNTERS Encounter Location Date Diagnosis [facility] [address] [id number] [address] [place] [id number] 14 Sep, 2014 [facility] [address] [id number] [address] [place] [phone] Sep, [facility] [address] [id number] [address] [place] [phone] Jun, [facility] [address] [id number] [address] [place] [phone] Jun, [facility] [address] [id number] [address] [place] [phone] May, [facility] [address] [id number] [address] [place] [address] May, [facility] [address] [id number] [address] [place] [phone] Feb, [facility] [address] [id number] [address] [place] [phone] Feb, [facility] [address] [id number] [address] [place] [phone] Feb, [facility] [address] [id number] [address] [place] [phone] Jan, [facility] [address] [id number] [address] [place] [address] Jan, [facility] [address] [id number] [address] [place] [phone] Nov, [facility] [address] [id number] [address] [place] [address] Nov, [facility] [address] [id number] [address] [place] [id number] 05 Nov, 2013 [facility] [address] [id number] [facility] [place] [address] 05 Nov, 2013 [facility] [address] [id number] [facility] [place] [address] Aug, [facility] [address] [id number] [facility] [place] [address] Aug, [facility] [address] [id number] [address] [place] [address], [place] [address] Aug, [facility] [address] [id number] [facility] [place] [address] Aug, [facility] [address] [id number] [address] [place] [address], [place] [address] Aug, [facility] [address] [id number] [address] [place] [address], [place] [address] Aug, [facility] [address] [id number] [address] [place] [address], [place] [address] Aug, [facility] [address] [id number] [address] [place] [address], [place] [address] Aug, [facility] [address] [id number] [address] [place] [address], [place] [address] Aug, [facility] [address] [id number] [address] [place] [address], [place] [address] Aug, [facility] [address] [id number] [address] [place] [address], [place] [address] Jul, [facility] [address] [id number] [address] [place] [address], [place] [address] Jul, [facility] [address] [id number] [address] [place] [address], [place] [address] Jul, [facility] [address] [id number] [address] [place] [address], [place] [address] Jul, [facility] [address] [id number] [address] [place] [address], [place] [address] Jul, [facility] [address] [id number] [address] [place] [address], [place] [address] Jul, [facility] [address] [id number] [address] [place] [address], [place] [address] Jul, [facility] [address] [id number] [address] [place] [address], [place] [address] Jul, [facility] [address] [id number] [address] [place] [address], [place] [address] Jun, [facility] [address] [id number] [address] [place] [address], [place] [address] Jun, [facility] [address] [id number] [address] [place] [address], [place] [address] Jun, [facility] [address] [id number] [address] [place] [address], [place] [address] Jun, [facility] [address] [id number] [address] [place] [address], [place] [address] Jun, [facility] [address] [id number] [address] [place] [address], [place] [address] Jun, [facility] [address] [id number] [address] [place] [address], [place] [address] Jun, [facility] [address] [id number] [address] [place] [address], [place] [address] Jun, [facility] [address] [id number] [address] [place] [address], [place] [address] May, [facility] [address] [id number] [address] [place] [address], [place] [address] May, [facility] [address] [id number] [address] [place] [address], [place] [address] May, [facility] [address] [id number] [address] [place] [address], [place] [address] May, [facility] [address] [id number] [address] [place] [address], [place] [address] May, [facility] [address] [id number] [address] [place] [address], [place] [address] May, [facility] [address] [id number] [address] [place] [address], [place] [address] May, [facility] [address] [id number] [address] [place] [address], [place] [address] May, [facility] [address] [id number] [address] [place] [address], [place] [address] Apr, [facility] [address] [id number] [address] [place] [address] Apr, [facility] [address] [id number] [address] [place] [address], [place] [address] Apr, [facility] [address] [id number] [address] [place] [address], [place] [address] Apr, [facility] [address] [id number] [address] [place] [address], [place] [address] Apr, [facility] [address] [id number] [address] [place] [address] Apr, [facility] [address] [id number] [address] [place] [address] Apr, [facility] [address] [id number] [address] [place] [id number] 18 Apr, 2013 [facility] [address] [id number] [address] [place] [address], [place] [address] Mar, [facility] [address] [id number] [address] [place] [address] 14 Mar, 2013 [facility] [address] [id number] [address] [place] [address] 18 Feb, 2013 [facility] [address] [id number] [address] [place] [address], [place] [address] Feb, [facility] [address] [id number] [address] [place] [address], [place] [address] Feb, [facility] [address] [id number] [address] [place] [address], [place] [address] Jan, [facility] [address] [id number] [address] [place] [address], [place] [address] Jan, [facility] [address] [id number] [address] [place] [address], [place] [address] Jan, [facility] [address] [id number] [address] [place] [address], [place] [address] Jan, [facility] [address] [id number] [address] [place] [address], [place] [address] Jan, [facility] [address] [id number] [address] [place] [address], [place] [address] Jan, [facility] [address] [id number] [address] [place] [address], [place] [address] Jan, [facility] [address] [id number] [address] [place] [address], [place] [address] Dec, [facility] [address] [id number] [address] [place] [address], [place] [address] Dec, [facility] [address] [id number] [address] [place] [address], [place] [address] Dec, [facility] [address] [id number] [address] [place] [address], [place] [address] Dec, [facility] [address] [id number] [address] [place] [address], [place] [address] Nov, [facility] [address] [id number] [address] [place] [address], [place] [address] Nov, [facility] [address] [id number] [address] [place] [address], [place] [address] Nov, [facility] [address] [id number] [address] [place] [address], [place] [address] October, [facility] [address] [id number] [address] [place] [address], [place] [address] Sep, [facility] [address] [id number] [address] [place] [address], [place] [address] Sep, [facility] [address] [id number] [address] [place] [address], [place] [address] Sep, [facility] [address] [id number] [address] [place] [address], [place] [address] Sep, [facility] [address] [id number] [address] [place] [address], [place] [address] Sep, [facility] [address] [id number] [address] [place] [address], [place] [address] Sep, [facility] [address] [id number] [address] [place] [address], [place] [address] Sep, [facility] [address] [id number] [address] [place] [address], [place] [address] Sep, [facility] [address] [id number] [address] [place] [address], [place] [address] Sep, [facility] [address] [id number] [address] [place] [address], [place] [address] Aug, [facility] [address] [id number] [address] [place] [address], [place] [address] Aug, [facility] [address] [id number] [address] [place] [address], [place] [address] Jul, [facility] [address] [id number] [address] [place] [address], [place] [address] Jul, [facility] [address] [id number] [address] [place] [address], [place] [address] Jul, [facility] [address] [id number] [address] [place] [address] [place] [address] Jun, [facility] [address] [id number] [address] [place] [address], [place] [address] Apr, [facility] [address] [id number] [address] [place] [address], [place] [address] Apr, [facility] [address] [id number] [address] [place] [address], [place] [address] Apr, [facility] [address] [id number] [address] [place] [address], [place] [address] Apr, [facility] [address] [id number] [address] [place] [address], [place] [address] Apr, [facility] [address] [id number] [address] [place] [address], [place] [address] Apr, [facility] [address] [id number] [address] [place] [address], [place] [address] Apr, [facility] [address] [id number] [address] [place] [address], [place] [address] Apr, [facility] [address] [id number] [address] [place] [address], [place] [address] Apr, [facility] [address] [id number] [address] [place] [address], [place] [address] Apr, [facility] [address] [id number] [address] [place] [address], [place] [address] Apr, [facility] [address] [id number] [address] [place] [address] Apr, [facility] [address] [id number] [address] [place] [address], [place] [address] Mar, [facility] [address] [id number] [address] [place] [address], [place] [address] Mar, [facility] [address] [id number] [address] [place] [address], [place] [address] Mar, [facility] [address] [id number] [address] [place] [address] 15 Mar, 2012 [facility] [address] [id number] [address] [place] [address] 15 Mar, 2012 [facility] [address] [id number] [address] [place] [address] Mar, [facility] [address] [id number] [address] [place] [address] Mar, [facility] [address] [id number] [address] [place] [address] 25 Feb, 2012 [facility] [address] [id number] [address] [place] [address] 24 Feb, 2012 [facility] [address] [id number] [address] [place] [address] Feb, [facility] [address] [id number] [address] [place] [address] Feb, [facility] [address] [id number] [address] [place] [address] Jan, [facility] [address] [id number] [address] [place] [address] Jan, [facility] [address] [id number] [address] [place] [address] Jan, [facility] [address] [id number] [address] [place] [address] Jan, IMMUNIZATIONS No Known Immunizations SOCIAL HISTORY Never Assessed REASON FOR VISIT PLAN OF CARE VITAL SIGNS MEDICATIONS Unknown Medications RESULTS No Results PROCEDURES Procedure Date Ordered Result Body Site ASSAY THYROID STIM HORMONE January 07, 2013 LIPID PANEL January 07, 2013 COMPREHEN METABOLIC PANEL January 07, 2013 VENIPUNCT, ROUTINE* January 07, 2013 INSTRUCTIONS MEDICATIONS ADMINISTERED No Known Medications
--- OUTSIDE RECORDS SUMMARY | 2020-01-17 06:38 | XMS REPORT ---
Author Author Yogesh Kelly Doctor Organization [facility] Address Unknown Phone Unavailable Care Team Providers Care Toolsmith Name Role Phone Migration, Doctor Unavailable Unavailable PROBLEMS Type Condition ICD9-CM Code NSJ70-LC Code Onset Dates Condition S tatus SNOMED Code Problem Encounter for long-term (current) use of other medications V58.69 Active 600577771 Problem Routine general medical examination at [facility] V70.0 Active 730794705 Problem Family history of unspecified malignant neoplasm V16.9 Active 411712252 Problem Nonspecific elevation of lev els of transaminase or lactic acid dehydrogenase (LDH) 790.4 Active 53467355 2 Problem Personal history of other allergy, other than to medicinal agents V15.09 Active 314166196 Problem Essential hypertension, benign 401.1 Active 2103596 Problem Coronary atherosclerosis of unspecified type of vessel, [place] or graft 414.00 Active 399273859 Problem Dizziness and giddiness 780.4 Active 840041500 Problem Chest pain, unspecified 786.50 Active 29205024 Problem Lumbago 724.2 Active 723672211 Problem Cervicalgia 723.1 Active 13217586 Problem Other specified cardiac dysrhythmias 427.89 Active 567033420 Problem Peptic ulcer, unspecified si te, unspecified as acute or chronic, without mention of hemorrhage, perforation, or obstruction 533.90 Active 69219994 Problem Right bundle branch block 426.4 Acti ve 72551272 Problem 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 Active 87584803 Problem Unspecified tinnitus 388.30 Active 54600894 Problem Unspecified hearing loss 389.9 Activ e 18980047 Problem Unspecified otalgia 388.70 Active 89953090 Problem Malignant neoplasm of prostate 185 Active 096529065 Problem Polyuria 788.42 Active 92816747 Problem Unspecified viral hepatitis C without hepatic coma 070.70 Active 79019887 Problem Abdominal or pelvic swelling, mass or lump, unspecified si te 789.30 Active 901916335 Problem Dysuria 788.1 Active 80894109 Problem Unspecified cataract 366.9 Active 078749843 Problem Unspecified episodic mood disorder 296.90 Active 329427363 Problem Other and unspecified hyperlipidemia 272.4 Active 85531000 Problem Unspecified hypothyroidism 244.9 Act katty 92435691 ALLERGIES No Information ENCOUNTERS Encounter Location Date Diagnosis [facility] [address] [id number] [address] [place] [id number] 14 Sep, 2014 [facility] [address] [id number] [address] [place] [phone] Sep, [facility] [address] [id number] [address] [place] [phone] Jun, [facility] [address] [id number] [address] [place] [phone] Jun, [facility] [address] [id number] [address] [place] [phone] May, [facility] [address] [id number] [address] [place] [phone] May, [facility] [address] [id number] [address] [place] [phone] Feb, [facility] [address] [id number] [address] [place] [phone] Feb, [facility] [address] [id number] [address] [place] [phone] Feb, [facility] [address] [id number] [address] [place] [phone] Jan, [facility] [address] [id number] [address] [place] [phone] Jan, [facility] [address] [id number] [address] [place] [phone] Nov, [facility] [address] [id number] [address] [place] [phone] Nov, [facility] [address] [id number] [address] [place] [id number] 05 Nov, 2013 [facility] [address] [id number] [facility] [address] 05 Nov, 2013 [facility] [address] [id number] [facility] [address] Aug, [facility] [address] [id number] [facility] [address] Aug, [facility] [address] [id number] [address] [place] [address], [place] [address] Aug, [facility] [address] [id number] [facility] [address] Aug, [facility] [address] [id number] [address] [place] [address], [place] [address] Aug, [facility] [address] [id number] [address] [place] [address], [place] [address] Aug, [facility] [address] [id number] [address] [place] [address], [place] [address] Aug, [facility] [address] [id number] [address] [place] [address], [place] [address] Aug, [facility] [address] [id number] [address] [place] [address], [place] [address] Aug, [facility] [address] [id number] [address] [place] [address], [place] [address] Aug, [facility] [address] [id number] [address] [place] [address], [place] [address] Jul, [facility] [address] [id number] [address] [place] [address], [place] [address] Jul, [facility] [address] [id number] [address] [place] [address], [place] [address] Jul, [facility] [address] [id number] [address] [place] [address], [place] [address] Jul, [facility] [address] [id number] [address] [place] [address], [place] [address] Jul, [facility] [address] [id number] [address] [place] [address], [place] [address] Jul, [facility] [address] [id number] [address] [place] [address], [place] [address] Jul, [facility] [address] [id number] [address] [place] [address], [place] [address] Jul, [facility] [address] [id number] [address] [place] [address], [place] [address] Jun, [facility] [address] [id number] [address] [place] [address], [place] [address] Jun, [facility] [address] [id number] [address] [place] [address], [place] [address] Jun, [facility] [address] [id number] [address] [place] [address], [place] [address] Jun, [facility] [address] [id number] [address] [place] [address], [place] [address] Jun, [facility] [address] [id number] [address] [place] [address], [place] [address] Jun, [facility] [address] [id number] [address] [place] [address], [place] [address] Jun, [facility] [address] [id number] [address] [place] [address], [place] [address] Jun, [facility] [address] [id number] [address] [place] [address], [place] [address] May, [facility] [address] [id number] [address] [place] [address], [place] [address] May, [facility] [address] [id number] [address] [place] [address], [place] [address] May, [facility] [address] [id number] [address] [place] [address], [place] [address] May, [facility] [address] [id number] [address] [place] [address], [place] [address] May, [facility] [address] [id number] [address] [place] [address], [place] [address] May, [facility] [address] [id number] [address] [place] [address], [place] [address] May, [facility] [address] [id number] [address] [place] [address], [place] [address] May, [facility] [address] [id number] [address] [place] [address], [place] [address] Apr, [facility] [address] [id number] [address] [place] [address] Apr, [facility] [address] [id number] [address] [place] [address], [place] [address] Apr, [facility] [address] [id number] [address] [place] [address], [place] [address] Apr, [facility] [address] [id number] [address] [place] [address], [place] [address] Apr, [facility] [address] [id number] [address] [place] [address] Apr, [facility] [address] [id number] [address] [place] [address] Apr, [facility] [address] [id number] [address] [place] [id number] 18 Apr, 2013 [facility] [address] [id number] [address] [place] [address], [place] [address] Mar, [facility] [address] [id number] [address] [place] [id number] 14 Mar, 2013 [facility] [address] [id number] [address] [place] [id number] 18 Feb, 2013 [facility] [address] [id number] [address] [place] [address], [place] [address] Feb, [facility] [address] [id number] [address] [place] [address], [place] [address] Feb, [facility] [address] [id number] [address] [place] [address], [place] [address] Jan, [facility] [address] [id number] [address] [place] [address], [place] [address] Jan, [facility] [address] [id number] [address] [place] [address], [place] [address] Jan, [facility] [address] [id number] [address] [place] [address], [place] [address] Jan, [facility] [address] [id number] [address] [place] [address], [place] [address] Jan, [facility] [address] [id number] [address] [place] [address], [place] [address] Jan, [facility] [address] [id number] [address] [place] [address], [place] [address] Jan, [facility] [address] [id number] [address] [place] [address], [place] [address] Dec, [facility] [address] [id number] [address] [place] [address], [place] [address] Dec, [facility] [address] [id number] [address] [place] [address], [place] [address] Dec, [facility] [address] [id number] [address] [place] [address], [place] [address] Dec, [facility] [address] [id number] [address] [place] [address], [place] [address] Nov, [facility] [address] [id number] [address] [place] [address], [place] [address] Nov, [facility] [address] [id number] [address] [place] [address], [place] [address] Nov, [facility] [address] [id number] [address] [place] [address], [place] [address] October, [facility] [address] [id number] [address] [place] [address], [place] [address] Sep, [facility] [address] [id number] [address] [place] [address], [place] [address] Sep, [facility] [address] [id number] [address] [place] [address], [place] [address] Sep, [facility] [address] [id number] [address] [place] [address], [place] [address] Sep, [facility] [address] [id number] [address] [place] [address], [place] [address] Sep, [facility] [address] [id number] [address] [place] [address], [place] [address] Sep, [facility] [address] [id number] [address] [place] [address], [place] [address] Sep, [facility] [address] [id number] [address] [place] [address], [place] [address] Sep, [facility] [address] [id number] [address] [place] [address], [place] [address] Sep, [facility] [address] [id number] [address] [place] [address], [place] [address] Aug, [facility] [address] [id number] [address] [place] [address], [place] [address] Aug, [facility] [address] [id number] [address] [place] [address], [place] [address] Jul, [facility] [address] [id number] [address] [place] [address], [place] [address] Jul, [facility] [address] [id number] [address] [place] [address], [place] [address] Jul, [facility] [address] [id number] [address] [place] [address] [place] [address] Jun, [facility] [address] [id number] [address] [place] [address], [place] [address] Apr, [facility] [address] [id number] [address] [place] [address], [place] [address] Apr, [facility] [address] [id number] [address] [place] [address], [place] [address] Apr, [facility] [address] [id number] [address] [place] [address], [place] [address] Apr, [facility] [address] [id number] [address] [place] [address], [place] [address] Apr, [facility] [address] [id number] [address] [place] [address], [place] [address] Apr, [facility] [address] [id number] [address] [place] [address], [place] [address] Apr, [facility] [address] [id number] [address] [place] [address], [place] [address] Apr, [facility] [address] [id number] [address] [place] [address], [place] [address] Apr, [facility] [address] [id number] [address] [place] [address], [place] [address] Apr, [facility] [address] [id number] [address] [place] [address], [place] [address] Apr, [facility] [address] [id number] [address] [place] [address] Apr, [facility] [address] [id number] [address] [place] [address], [place] [address] Mar, [facility] [address] [id number] [address] [place] [address], [place] [address] Mar, [facility] [address] [id number] [address] [place] [address], [place] [address] Mar, [facility] [address] [id number] [address] [place] [address] 15 Mar, 2012 [facility] [address] [id number] [address] [place] [id number] 15 Mar, 2012 [facility] [address] [id number] [address] [place] [address] Mar, [facility] [address] [id number] [address] [place] [address] Mar, [facility] [address] [id number] [address] [place] [address] Feb, [facility] [address] [id number] [address] [place] [id number] 24 Feb, 2012 [facility] [address] [id number] [address] [place] [address] Feb, [facility] [address] [id number] [address] [place] [address] Feb, [facility] [address] [id number] [address] [place] [address] Jan, [facility] [address] [id number] [address] [place] [address] Jan, [facility] [address] [id number] [address] [place] [address] Jan, [facility] [address] [id number] [address] [place] [address] Jan, IMMUNIZATIONS No Known Immunizations SOCIAL HISTORY Never Assessed REASON FOR VISIT PLAN OF CARE VITAL SIGNS MEDICATIONS Unknown Medications RESULTS No Results PROCEDURES Procedure Date Ordered Result Body Site COMPREHEN METABOLIC PANEL Jul 01, 2013 VENMARY, ROUTINE* Jul 01, 2013 INSTRUCTIONS MEDICATIONS ADMINISTERED No Known Medications
--- OUTSIDE RECORDS SUMMARY | 2020-01-17 06:38 | XMS REPORT ---
Author Author Yogesh Kelly Doctor Organization [facility] Address Unknown Phone Unavailable Care Team Providers Care Earth Moving Technician Name Role Phone Migration, Doctor Unavailable Unavailable PROBLEMS Type Condition ICD9-CM Code [id number] Code Onset Dates Condition S tatus SNOMED Code Problem Encounter for long-term (current) use of other medications V58.69 Active 089957931 Problem Routine general medical examination at [facility] V70.0 Active 674748566 Problem Family history of unspecified malignant neoplasm V16.9 Active 178206145 Problem Nonspecific elevation of lev els of transaminase or lactic acid dehydrogenase (LDH) 790.4 Active 26810113 2 Problem Personal history of other allergy, other than to medicinal agents V15.09 Active 064189410 Problem Essential hypertension, benign 401.1 Active 8456206 Problem Coronary atherosclerosis of unspecified type of vessel, big sandy or graft 414.00 Active 031694804 Problem Dizziness and giddiness 780.4 Active 817783036 Problem Chest pain, unspecified 786.50 Active 36232184 Problem Lumbago 724.2 Active 182352126 Problem Cervicalgia 723.1 Active 26914854 Problem Other specified cardiac dysrhythmias 427.89 Active 557407973 Problem Peptic ulcer, unspecified si te, unspecified as acute or chronic, without mention of hemorrhage, perforation, or obstruction 533.90 Active 96746803 Problem Right bundle branch block 426.4 Acti ve 27528435 Problem 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 Active 64259194 Problem Unspecified tinnitus 388.30 Active 52812009 Problem Unspecified hearing loss 389.9 Activ e 15559847 Problem Unspecified otalgia 388.70 Active 25706631 Problem Malignant neoplasm of prostate 185 Active 234903250 Problem Polyuria 788.42 Active 00539011 Problem Unspecified viral hepatitis C without hepatic coma 070.70 Active 91954406 Problem Abdominal or pelvic swelling, mass or lump, unspecified si te 789.30 Active 623748659 Problem Dysuria 788.1 Active 11414950 Problem Unspecified cataract 366.9 Active 323171857 Problem Unspecified episodic mood disorder 296.90 Active 233328383 Problem Other and unspecified hyperlipidemia 272.4 Active 28998777 Problem Unspecified hypothyroidism 244.9 Act katty 58488004 ALLERGIES No Information ENCOUNTERS Encounter Location Date Diagnosis [facility] [address] [id number] [address] [place] [id number] 14 Sep, 2014 [facility] [address] [id number] [address] [place] [address] Sep, [facility] [address] [id number] [address] [place] [phone] Jun, [facility] [address] [id number] [address] [place] [address] Jun, [facility] [address] [id number] [address] [place] [address] May, [facility] [address] [id number] [address] [place] [address] May, [facility] [address] [id number] [address] [place] [id number] Feb, [facility] [address] [id number] [address] [place] [address] Feb, [facility] [address] [id number] [address] [place] [address] Feb, [facility] [address] [id number] [address] [place] [address] Jan, [facility] [address] [id number] [address] [place] [address] Jan, [facility] [address] [id number] [address] [place] [address] Nov, [facility] [address] [id number] [address] [place] [address] Nov, [facility] [address] [id number] [address] [place] [id number] 05 Nov, 2013 [facility] [address] [id number] [facility] [address] 05 Nov, 2013 [facility] [address] [id number] [facility] [place] [address] Aug, [facility] [address] [id number] [facility] [place] [address] Aug, [facility] [address] [id number] [address] [place] [address], [place] [address] Aug, [facility] [address] [id number] [facility] [place] [address] Aug, [facility] [address] [id number] [address] [place] [address], [place] [address] Aug, [facility] [address] [id number] [address] [place] [address], [place] [address] Aug, [facility] [address] [id number] [address] [place] [address], [place] [address] Aug, [facility] [address] [id number] [address] [place] [address], [place] [address] Aug, [facility] [address] [id number] [address] [place] [address], [place] [address] Aug, [facility] [address] [id number] [address] [place] [address], [place] [address] Aug, [facility] [address] [id number] [address] [place] [address], [place] [address] Jul, [facility] [address] [id number] [address] [place] [address], [place] [address] Jul, [facility] [address] [id number] [address] [place] [address], [place] [address] Jul, [facility] [address] [id number] [address] [place] [address], [place] [address] Jul, [facility] [address] [id number] [address] [place] [address], [place] [address] Jul, [facility] [address] [id number] [address] [place] [address], [place] [address] Jul, [facility] [address] [id number] [address] [place] [address], [place] [address] Jul, [facility] [address] [id number] [address] [place] [address], [place] [address] Jul, [facility] [address] [id number] [address] [place] [address], [place] [address] Jun, [facility] [address] [id number] [address] [place] [address], [place] [address] Jun, [facility] [address] [id number] [address] [place] [address], [place] [address] Jun, [facility] [address] [id number] [address] [place] [address], [place] [address] Jun, [facility] [address] [id number] [address] [place] [address], [place] [address] Jun, [facility] [address] [id number] [address] [place] [address], [place] [address] Jun, [facility] [address] [id number] [address] [place] [address], [place] [address] Jun, [facility] [address] [id number] [address] [place] [address], [place] [address] Jun, [facility] [address] [id number] [address] [place] [address], [place] [address] May, [facility] [address] [id number] [address] [place] [address], [place] [address] May, [facility] [address] [id number] [address] [place] [address], [place] [address] May, [facility] [address] [id number] [address] [place] [address], [place] [address] May, [facility] [address] [id number] [address] [place] [address], [place] [address] May, [facility] [address] [id number] [address] [place] [address], [place] [address] May, [facility] [address] [id number] [address] [place] [address], [place] [address] May, [facility] [address] [id number] [address] [place] [address], [place] [address] May, [facility] [address] [id number] [address] [place] [address], [place] [address] Apr, [facility] [address] [id number] [address] [place] [address] Apr, [facility] [address] [id number] [address] [place] [address], [place] [address] Apr, [facility] [address] [id number] [address] [place] [address], [place] [address] Apr, [facility] [address] [id number] [address] [place] [address], [place] [address] Apr, [facility] [address] [id number] [address] [place] [address] Apr, [facility] [address] [id number] [address] [place] [address] Apr, [facility] [address] [id number] [address] [place] [address] 18 Apr, 2013 [facility] [address] [id number] [address] [place] [address], [place] [address] Mar, [facility] [address] [id number] [address] [place] [address] 14 Mar, 2013 [facility] [address] [id number] [address] [place] [address] 18 Feb, 2013 [facility] [address] [id number] [address] [place] [address], [place] [address] Feb, [facility] [address] [id number] [address] [place] [address], [place] [address] Feb, [facility] [address] [id number] [address] [place] [address], [place] [address] Jan, [facility] [address] [id number] [address] [place] [address], [place] [address] Jan, [facility] [address] [id number] [address] [place] [address], [place] [address] Jan, [facility] [address] [id number] [address] [place] [address], [place] [address] Jan, [facility] [address] [id number] [address] [place] [address], [place] [address] Jan, [facility] [address] [id number] [address] [place] [address], [place] [address] Jan, [facility] [address] [id number] [address] [place] [address], [place] [address] Jan, [facility] [address] [id number] [address] [place] [address], [place] [address] Dec, [facility] [address] [id number] [address] [place] [address], [place] [address] Dec, [facility] [address] [id number] [address] [place] [address], [place] [address] Dec, [facility] [address] [id number] [address] [place] [address], [place] [address] Dec, [facility] [address] [id number] [address] [place] [address], [place] [address] Nov, [facility] [address] [id number] [address] [place] [address], [place] [address] Nov, [facility] [address] [id number] [address] [place] [address], [place] [address] Nov, [facility] [address] [id number] [address] [place] [address], [place] [address] October, [facility] [address] [id number] [address] [place] [address], [place] [address] Sep, [facility] [address] [id number] [address] [place] [address], [place] [address] Sep, [facility] [address] [id number] [address] [place] [address], [place] [address] Sep, [facility] [address] [id number] [address] [place] [address], [place] [address] Sep, [facility] [address] [id number] [address] [place] [address], [place] [address] Sep, [facility] [address] [id number] [address] [place] [address], [place] [address] Sep, [facility] [address] [id number] [address] [place] [address], [place] [address] Sep, [facility] [address] [id number] [address] [place] [address], [place] [address] Sep, [facility] [address] [id number] [address] [place] [address], [place] [address] Sep, [facility] [address] [id number] [address] [place] [address], [place] [address] Aug, [facility] [address] [id number] [address] [place] [address], [place] [address] Aug, [facility] [address] [id number] [address] [place] [address], [place] [address] Jul, [facility] [address] [id number] [address] [place] [address], [place] [address] Jul, [facility] [address] [id number] [address] [place] [address], [place] [address] Jul, [facility] [address] [id number] [address] [place] [address] [place] [address] Jun, [facility] [address] [id number] [address] [place] [address], [place] [address] Apr, [facility] [address] [id number] [address] [place] [address], [place] [address] Apr, [facility] [address] [id number] [address] [place] [address], [place] [address] Apr, [facility] [address] [id number] [address] [place] [address], [place] [address] Apr, [facility] [address] [id number] [address] [place] [address], [place] [address] Apr, [facility] [address] [id number] [address] [place] [address], [place] [address] Apr, [facility] [address] [id number] [address] [place] [address], [place] [address] Apr, [facility] [address] [id number] [address] [place] [address], [place] [address] Apr, [facility] [address] [id number] [address] [place] [address], [place] [address] Apr, [facility] [address] [id number] [address] [place] [address], [place] [address] Apr, [facility] [address] [id number] [address] [place] [address], [place] [address] Apr, [facility] [address] [id number] [address] [place] [address] Apr, [facility] [address] [id number] [address] [place] [address], [place] [address] Mar, [facility] [address] [id number] [address] [place] [address], [place] [address] Mar, [facility] [address] [id number] [address] [place] [address], [place] [address] Mar, [facility] [address] [id number] [address] [place] [address] 15 Mar, 2012 [facility] [address] [id number] [address] [place] [address] Mar, [facility] [address] [id number] [address] [place] [address] Mar, [facility] [address] [id number] [address] [place] [address] Mar, [facility] [address] [id number] [address] [place] [address] 25 Feb, 2012 [facility] [address] [id number] [address] [place] [address] 24 Feb, 2012 [facility] [address] [id number] [address] [place] [address] Feb, [facility] [address] [id number] [address] [place] [address] Feb, [facility] [address] [id number] [address] [place] [address] Jan, [facility] [address] [id number] [address] [place] [address] Jan, [facility] [address] [id number] [address] [place] [address] Jan, [facility] [address] [id number] [address] [place] [address] Jan, IMMUNIZATIONS No Known Immunizations SOCIAL HISTORY Never Assessed REASON FOR VISIT PLAN OF CARE VITAL SIGNS MEDICATIONS Unknown Medications RESULTS No Results PROCEDURES No Known procedures INSTRUCTIONS MEDICATIONS ADMINISTERED No Known Medications
--- OUTSIDE RECORDS SUMMARY | 2020-01-17 06:38 | XMS REPORT ---
Author Author Yogesh Kelly Doctor Organization [facility] Address Unknown Phone Unavailable Care Team Providers Care Automotive Lube Technician Name Role Phone Migration, Doctor Unavailable Unavailable PROBLEMS Type Condition ICD9-CM Code PAN23-WE Code Onset Dates Condition S tatus SNOMED Code Problem Encounter for long-term (current) use of other medications V58.69 Active 630750351 Problem Routine general medical examination at [facility] V70.0 Active 141526355 Problem Family history of unspecified malignant neoplasm V16.9 Active 689794841 Problem Nonspecific elevation of lev els of transaminase or lactic acid dehydrogenase (LDH) 790.4 Active 92564024 2 Problem Personal history of other allergy, other than to medicinal agents V15.09 Active 955782315 Problem Essential hypertension, benign 401.1 Active 0303667 Problem Coronary atherosclerosis of unspecified type of vessel, [place] or graft 414.00 Active 048487861 Problem Dizziness and giddiness 780.4 Active 430577086 Problem Chest pain, unspecified 786.50 Active 40644690 Problem Lumbago 724.2 Active 119726880 Problem Cervicalgia 723.1 Active 27443870 Problem Other specified cardiac dysrhythmias 427.89 Active 250882034 Problem Peptic ulcer, unspecified si te, unspecified as acute or chronic, without mention of hemorrhage, perforation, or obstruction 533.90 Active 89937560 Problem Right bundle branch block 426.4 Acti ve 69770207 Problem 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 Active 04653856 Problem Unspecified tinnitus 388.30 Active 73048848 Problem Unspecified hearing loss 389.9 Activ e 31632881 Problem Unspecified otalgia 388.70 Active 15847752 Problem Malignant neoplasm of prostate 185 Active 329742894 Problem Polyuria 788.42 Active 47394281 Problem Unspecified viral hepatitis C without hepatic coma 070.70 Active 24243418 Problem Abdominal or pelvic swelling, mass or lump, unspecified si te 789.30 Active 887126252 Problem Dysuria 788.1 Active 43437238 Problem Unspecified cataract 366.9 Active 279817011 Problem Unspecified episodic mood disorder 296.90 Active 158875536 Problem Other and unspecified hyperlipidemia 272.4 Active 28617835 Problem Unspecified hypothyroidism 244.9 Act katty [id number] ALLERGIES No Information ENCOUNTERS Encounter Location Date Diagnosis [facility] [id number] [place] [address] 14 Sep, 2014 [facility] [id number] [place] [address] Sep, [facility] [id number] [place] [address] Jun, [facility] [address] [address] Jun, [facility] [id number] [place] [address] May, [facility] [id number] [place] [address] May, [facility] [id number] [place] [address] Feb, [facility] [address] [address] Feb, [facility] [id number] [place] [address] Feb, [facility] [id number] [place] [address] Jan, [facility] [id number] [place] [address] Jan, [facility] [id number] [place] [address] Nov, [facility] [id number] [place] [address] Nov, [facility] [id number] [place] [address] Nov, [facility] [id number] [place] [address] 05 Nov, 2013 [facility] [place] [facility] [address] [facility] [id number] [facility] [place] [address] Aug, [facility] [place] [facility] [address] [facility] [id number] [facility] [place] [address] 28 Aug, 2013 [facility] [place] [facility] [address] [id number] [facility] [place] [address] 14 Aug, 2013 [facility] [place] [facility] [address] [id number] [place] [address] 14 Aug, 2013 [facility] [place] [facility] [address] [facility] [id number] [facility] [place] [address] Aug, [facility] [place] [facility] [address] [id number] [place] [address] Aug, [facility] [place] [facility] [address] [id number] [facility] [place] [address] Aug, [facility] [place] [facility] [address] [id number] [facility] [place] [address] Aug, [facility] [place] [facility] [address] [id number] [facility] [place] [address] Aug, [facility] [place] [facility] [address] [id number] [facility] [place] [address] Aug, [facility] [place] [facility] [address] [id number] [place] [address] Jul, [facility] [place] [facility] [address] [id number] [place] [address] Jul, [facility] [place] [facility] [address] [id number] [facility] [place] [address] Jul, [facility] [place] [facility] [address] [id number] [place] [address] Jul, [facility] [place] [facility] [address] [id number] [place] [address] Jul, [facility] [place] [facility] [address] [id number] [place] [address] Jul, [facility] [place] [facility] [address] [id number] [place] [address] Jul, [facility] [place] [facility] [address] [id number] [place] [address] Jul, [facility] [place] [facility] [address] [id number] [place] [address] Jun, [facility] [place] [facility] [address] [id number] [place] [address] Jun, [facility] [place] [facility] [address] [id number] [place] [address] Jun, [facility] [place] [facility] [address] [id number] [place] [address] Jun, [facility] [place] [facility] [address] [id number] [place] [address] Jun, [facility] [place] [facility] [address] [id number] [place] [address] Jun, [facility] [place] [facility] [address] [id number] [place] [address] Jun, [facility] [place] [facility] [address] [id number] [place] [address] Jun, [facility] [place] [facility] [address] [id number] [place] [address] May, [facility] [place] [facility] [address] [id number] [place] [address] May, [facility] [place] [facility] [address] [id number] [place] [address] May, [facility] [place] [facility] [address] [id number] [place] [address] May, [facility] [place] [facility] [address] [id number] [place] [address] May, [facility] [place] [facility] [address] [id number] [place] [address] May, [facility] [place] [facility] [address] [id number] [place] [address] May, [facility] [place] [facility] [address] [id number] [place] [address] May, [facility] [place] [facility] [address] [id number] [place] [address] Apr, [facility] [place] [facility] [address] [id number] [place] [address] Apr, [facility] [place] [facility] [address] [id number] [place] [address] Apr, [facility] [place] [facility] [address] [id number] [place] [address] Apr, [facility] [place] [facility] [address] [id number] [place] [address] Apr, [facility] [place] [facility] [address] [id number] [place] [address] Apr, [facility] [place] [facility] [address] [id number] [place] [address] Apr, [facility] [place] [facility] [address] [id number] [place] [address] Apr, [facility] [place] [facility] [address] [id number] [place] [address] Mar, [facility] [place] [facility] [address] [id number] [place] [address] Mar, [facility] [place] [facility] [address] [id number] [place] [address] 18 Feb, 2013 [facility] [place] [facility] [address] [id number] [place] [address] 17 Feb, 2013 [facility] [place] [facility] [address] [id number] [place] [address] Feb, [facility] [place] [facility] [address] [id number] [place] [address] Jan, [facility] [place] [facility] [address] [id number] [place] [address] Jan, [facility] [place] [facility] [address] [id number] [place] [address] Jan, [facility] [place] [facility] [address] [id number] [place] [address] Jan, [facility] [place] [facility] [address] [facility] [id number] [place] [address] Jan, [facility] [place] [facility] [address] [id number] [place] [address] Jan, [facility] [place] [facility] [address] [id number] [place] [address] Jan, [facility] [place] [facility] [address] [id number] [place] [address] Dec, [facility] [place] [facility] [address] [id number] [place] [address] Dec, [facility] [place] [facility] [address] [id number] [place] [address] Dec, [facility] [place] [facility] [address] [id number] [place] [address] Dec, [facility] [place] [facility] [address] [id number] [place] [address] Nov, [facility] [place] [facility] [address] [id number] [place] [address] Nov, [facility] [place] [facility] [address] [id number] [place] [address] Nov, [facility] [place] [facility] [address] [id number] [place] [address] October, [facility] [place] [facility] [address] [id number] [place] [address] Sep, [facility] [place] [facility] [address] [id number] [place] [address] Sep, [facility] [place] [facility] [address] [id number] [place] [address] Sep, [facility] [place] [facility] [address] [id number] [place] [address] Sep, [facility] [place] [facility] [address] [id number] [place] [address] Sep, [facility] [place] [facility] [address] [id number] [place] [address] Sep, [facility] [place] [facility] [address] [id number] [place] [address] Sep, [facility] [place] [facility] [address] [id number] [place] [address] Sep, [facility] [place] [facility] [address] [id number] [place] [address] Sep, [facility] [place] [facility] [address] [id number] [place] [address] Aug, [facility] [place] [facility] [address] [id number] [place] [address] Aug, [facility] [address] [id number] [place] [address] Jul, [facility] [place] [facility] [address] [id number] [place] [address] Jul, [facility] [place] [facility] [address] [id number] [place] [address] Jul, [facility] [place] [facility] [address] [id number] [place] [address] Jun, [facility] [place] [facility] [address] [id number] [place] [address] Apr, [facility] [place] [facility] [address] [id number] [place] [address] Apr, [facility] [place] [facility] [address] [id number] [place] [address] Apr, [facility] [place] [facility] [address] [id number] [place] [address] Apr, [facility] [place] [facility] [address] [id number] [place] [address] Apr, [facility] [place] [facility] [address] [id number] [place] [address] Apr, [facility] [place] [facility] [address] [id number] [place] [address] Apr, [facility] [place] [facility] [address] [id number] [place] [address] Apr, [facility] [place] [facility] [address] [id number] [place] [address] Apr, [facility] [place] [facility] [address] [id number] [place] [address] Apr, [facility] [place] [facility] [address] [id number] [place] [address] Apr, [facility] [place] [facility] [address] [id number] [place] [address] Apr, [facility] [place] [facility] [address] [id number] [place] [address] Mar, [facility] [place] [facility] [id number] [place] [address] Mar, [facility] [place] [facility] [address] [id number] [place] [address] Mar, [facility] [place] [facility] [id number] [place] [address] Mar, [facility] [place] [facility] [id number] [place] [address] Mar, [facility] [place] [facility] [id number] [place] [address] Mar, [facility] [place] [facility] [address] [id number] [place] [address] 05 Mar, 2012 [facility] [place] [facility] [address] [id number] [place] [address] 25 Feb, 2012 [facility] [place] [facility] [address] [id number] [place] [address] 24 Sep2011 [facility] [place] [facility] [id number] [place] [address] 10 Feb, 2012 [facility] [place] [facility] [address] [id number] [place] [address] Feb, [facility] [address] [id number] [place] [address] Jan, [facility] [address] [id number] [place] [address] Jan, [facility] [address] [id number] [place] [address] Jan, [facility] [address] [id number] [place] [address] Jan, IMMUNIZATIONS No Known Immunizations SOCIAL HISTORY Never Assessed REASON FOR VISIT PLAN OF CARE VITAL SIGNS MEDICATIONS Unknown Medications RESULTS No Results PROCEDURES No Known procedures INSTRUCTIONS MEDICATIONS ADMINISTERED No Known Medications
--- OUTSIDE RECORDS SUMMARY | 2020-01-17 06:38 | XMS REPORT ---
Author Author Yogesh Kelly Doctor Organization [facility] Address Unknown Phone Unavailable Care Team Providers Care Circuit Rider Name Role Phone Migration, Doctor Unavailable Unavailable PROBLEMS Type Condition ICD9-CM Code UUT95-ST Code Onset Dates Condition S tatus SNOMED Code Problem Encounter for long-term (current) use of other medications V58.69 Active 861013614 Problem Routine general medical examination at [facility] V70.0 Active 188441298 Problem Family history of unspecified malignant neoplasm V16.9 Active 365086206 Problem Nonspecific elevation of lev els of transaminase or lactic acid dehydrogenase (LDH) 790.4 Active 06428748 2 Problem Personal history of other allergy, other than to medicinal agents V15.09 Active 651386235 Problem Essential hypertension, benign 401.1 Active 6471442 Problem Coronary atherosclerosis of unspecified type of vessel, tangirnaq or graft 414.00 Active 404520036 Problem Dizziness and giddiness 780.4 Active 325642713 Problem Chest pain, unspecified 786.50 Active 45434740 Problem Lumbago 724.2 Active 228557114 Problem Cervicalgia 723.1 Active 84347676 Problem Other specified cardiac dysrhythmias 427.89 Active 823854141 Problem Peptic ulcer, unspecified si te, unspecified as acute or chronic, without mention of hemorrhage, perforation, or obstruction 533.90 Active 17069113 Problem Right bundle branch block 426.4 Acti ve 60046405 Problem 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 Active 79572441 Problem Unspecified tinnitus 388.30 Active 20782923 Problem Unspecified hearing loss 389.9 Activ e 96594656 Problem Unspecified otalgia 388.70 Active 09231568 Problem Malignant neoplasm of prostate 185 Active 007755468 Problem Polyuria 788.42 Active 67679422 Problem Unspecified viral hepatitis C without hepatic coma 070.70 Active 21008240 Problem Abdominal or pelvic swelling, mass or lump, unspecified si te 789.30 Active 803197954 Problem Dysuria 788.1 Active 42946019 Problem Unspecified cataract 366.9 Active 394219911 Problem Unspecified episodic mood disorder 296.90 Active 674626586 Problem Other and unspecified hyperlipidemia 272.4 Active 73794179 Problem Unspecified hypothyroidism 244.9 Act katty [id number] ALLERGIES No Information ENCOUNTERS Encounter Location Date Diagnosis [facility] [id number] [place] [address] 14 Sep, 2014 [facility] [address] [id number] [place] [address] Sep, [facility] [address] [id number] [place] [address] Jun, [facility] [address] [address] Jun, [facility] [id number] [place] [address] May, [facility] [id number] [place] [address] May, [facility] [address] [id number] [place] [address] Feb, [facility] [address] [address] Feb, [facility] [id number] [place] [address] Feb, [facility] [id number] [place] [address] Jan, [facility] [id number] [place] [address] Jan, [facility] [address] [id number] [place] [address] Nov, [facility] [id number] [place] [address] Nov, [facility] [address] [id number] [place] [address] Nov, [facility] [id number] [place] [address] 05 Nov, 2013 [facility] [place] [facility] [address] [facility] [id number] [facility], [place] [address] Aug, [facility] [place] [facility] [address] [facility] [id number] [facility], [place] [address] 28 Aug, 2013 [facility] [place] [facility] [address] [id number] [facility], [place] [address] 14 Aug, 2013 [facility] [place] [facility] [address] [id number] [place] [address] 14 Aug, 2013 [facility] [place] [facility] [address] [facility] [id number] [facility], [place] [address] Aug, [facility] [place] [facility] [address] [id number] [place] [address] Aug, [facility] [place] [facility] [address] [id number] [facility], [place] [address] Aug, [facility] [place] [facility] [address] [id number] [facility], [place] [address] Aug, [facility] [place] [facility] [address] [id number] [facility], [place] [address] Aug, [facility] [place] [facility] [address] [id number] [facility], [place] [address] Aug, [facility] [place] [facility] [address] [id number] [place] [address] Jul, [facility] [place] [facility] [address] [id number] [place] [address] Jul, [facility] [place] [facility] [address] [id number] [facility], [place] [address] Jul, [facility] [place] [facility] [address] [id number] [place] [address] Jul, [facility] [place] [facility] [address] [id number] [place] [address] Jul, [facility] [place] [facility] [address] [id number] [place] [address] Jul, [facility] [place] [facility] [address] [id number] [place] [address] Jul, [facility] [place] [facility] [address] [id number] [place] [address] Jul, [facility] [place] [facility] [address] [id number] [place] [address] Jun, [facility] [place] [facility] [address] [id number] [place] [address] Jun, [facility] [place] [facility] [address] [id number] [place] [address] Jun, [facility] [place] [facility] [address] [id number] [place] [address] Jun, [facility] [place] [facility] [address] [id number] [place] [address] Jun, [facility] [place] [facility] [address] [id number] [place] [address] Jun, [facility] [place] [facility] [address] [id number] [place] [address] Jun, [facility] [place] [facility] [address] [id number] [place] [address] Jun, [facility] [place] [facility] [address] [id number] [place] [address] May, [facility] [place] [facility] [address] [id number] [place] [address] May, [facility] [place] [facility] [address] [id number] [place] [address] May, [facility] [place] [facility] [address] [id number] [place] [address] May, [facility] [place] [facility] [address] [id number] [place] [address] May, [facility] [place] [facility] [address] [id number] [place] [address] May, [facility] [place] [facility] [address] [id number] [place] [address] May, [facility] [place] [facility] [address] [id number] [place] [address] May, [facility] [place] [facility] [address] [id number] [place] [address] Apr, [facility] [place] [facility] [address] [id number] [place] [address] Apr, [facility] [place] [facility] [address] [id number] [place] [address] Apr, [facility] [place] [facility] [address] [id number] [place] [address] Apr, [facility] [place] [facility] [address] [id number] [place] [address] Apr, [facility] [place] [facility] [address] [id number] [place] [address] Apr, [facility] [place] [facility] [address] [id number] [place] [address] Apr, [facility] [place] [facility] [address] [id number] [place] [address] Apr, [facility] [place] [facility] [address] [id number] [place] [address] Mar, [facility] [place] [facility] [address] [id number] [place] [address] Mar, [facility] [place] [facility] [address] [id number] [place] [address] 18 Feb, 2013 [facility] [place] [facility] [address] [id number] [place] [address] 17 Feb, 2013 [facility] [place] [facility] [address] [id number] [place] [address] Feb, [facility] [place] [facility] [address] [id number] [place] [address] Jan, [facility] [place] [facility] [address] [id number] [place] [address] Jan, [facility] [place] [facility] [address] [id number] [place] [address] Jan, [facility] [place] [facility] [address] [id number] [place] [address] Jan, [facility] [place] [facility] [address] [facility] [id number] [place] [address] Jan, [facility] [place] [facility] [address] [id number] [place] [address] Jan, [facility] [place] [facility] [address] [id number] [place] [address] Jan, [facility] [place] [facility] [address] [id number] [place] [address] Dec, [facility] [place] [facility] [address] [id number] [place] [address] Dec, [facility] [place] [facility] [address] [id number] [place] [address] Dec, [facility] [place] [facility] [address] [id number] [place] [address] Dec, [facility] [place] [facility] [address] [id number] [place] [address] Nov, [facility] [place] [facility] [address] [id number] [place] [address] Nov, [facility] [place] [facility] [address] [id number] [place] [address] Nov, [facility] [place] [facility] [address] [id number] [place] [address] October, [facility] [place] [facility] [address] [id number] [place] [address] Sep, [facility] [place] [facility] [address] [place] [id number] [place] [address] Sep, [facility] [place] [facility] [address] [id number] [place] [address] Sep, [facility] [place] [facility] [address] [id number] [place] [address] Sep, [facility] [place] [facility] [address] [id number] [place] [address] Sep, [facility] [place] [facility] [address] [id number] [place] [address] Sep, [facility] [place] [facility] [address] [id number] [place] [address] Sep, [facility] [place] [facility] [address] [id number] [place] [address] Sep, [facility] [place] [facility] [address] [id number] [place] [address] Sep, [facility] [place] [facility] [address] [id number] [place] [address] Aug, [facility] [place] [facility] [address] [id number] [place] [address] Aug, [facility] [address] [id number] [place] [address] Jul, [facility] [place] [facility] [address] [id number] [place] [address] Jul, [facility] [place] [facility] [address] [id number] [place] [address] Jul, [facility] [place] [facility] [address] [id number] [place] [address] Jun, [facility] [place] [facility] [address] [id number] [place] [address] Apr, [facility] [place] [facility] [address] [id number] [place] [address] Apr, [facility] [place] [facility] [address] [id number] [place] [address] Apr, [facility] [place] [facility] [address] [id number] [place] [address] Apr, [facility] [place] [facility] [address] [id number] [place] [address] Apr, [facility] [place] [facility] [address] [id number] [place] [address] Apr, [facility] [place] [facility] [address] [id number] [place] [address] Apr, [facility] [place] [facility] [address] [id number] [place] [address] Apr, [facility] [place] [facility] [address] [id number] [place] [address] Apr, [facility] [place] [facility] [address] [id number] [place] [address] Apr, [facility] [place] [facility] [address] [id number] [place] [address] Apr, [facility] [place] [facility] [address] [id number] [place] [address] Apr, [facility] [place] [facility] [address] [id number] [place] [address] Mar, [facility] [place] [facility] [id number] [place] [address] Mar, [facility] [place] [facility] [address] [id number] [place] [address] Mar, [facility] [place] [facility] [id number] [place] [address] Mar, [facility] [place] [facility] [id number] [place] [address] Mar, [facility] [place] [facility] [id number] [place] [address] Mar, [facility] [place] [facility] [address] [id number] [place] [address] 05 Mar, 2012 [facility] [place] [facility] [address] [id number] [place] [address] 25 Feb, 2012 [facility] [place] [facility] [address] [id number] [place] [address] 24 Sep2011 [facility] [place] [facility] [id number] [place] [address] 10 Feb, 2012 [facility] [place] [facility] [address] [id number] [place] [address] Feb, [facility] [address] [id number] [place] [address] Jan, [facility] [address] [id number] [place] [address] Jan, [facility] [address] [id number] [place] [address] Jan, [facility] [address] [id number] [place] [address] Jan, IMMUNIZATIONS No Known Immunizations SOCIAL HISTORY Never Assessed REASON FOR VISIT PLAN OF CARE VITAL SIGNS MEDICATIONS Unknown Medications RESULTS No Results PROCEDURES No Known procedures INSTRUCTIONS MEDICATIONS ADMINISTERED No Known Medications
--- OUTSIDE RECORDS SUMMARY | 2020-01-17 06:38 | XMS REPORT ---
Author Author Yogesh Kelly Doctor Organization [facility] Address Unknown Phone Unavailable Care Team Providers Care Gunite Nozzle Operator Name Role Phone Migration, Doctor Unavailable Unavailable PROBLEMS Type Condition ICD9-CM Code [id number] Code Onset Dates Condition S tatus SNOMED Code Problem Encounter for long-term (current) use of other medications V58.69 Active 449394588 Problem Routine general medical examination at [facility] V70.0 Active 742247093 Problem Family history of unspecified malignant neoplasm V16.9 Active 960604385 Problem Nonspecific elevation of lev els of transaminase or lactic acid dehydrogenase (LDH) 790.4 Active 09193675 2 Problem Personal history of other allergy, other than to medicinal agents V15.09 Active 294110230 Problem Essential hypertension, benign 401.1 Active 7046874 Problem Coronary atherosclerosis of unspecified type of vessel, [place] or graft 414.00 Active 223112461 Problem Dizziness and giddiness 780.4 Active 418424565 Problem Chest pain, unspecified 786.50 Active 09135265 Problem Lumbago 724.2 Active 051425555 Problem Cervicalgia 723.1 Active 22470061 Problem Other specified cardiac dysrhythmias 427.89 Active 913128248 Problem Peptic ulcer, unspecified si te, unspecified as acute or chronic, without mention of hemorrhage, perforation, or obstruction 533.90 Active 09722425 Problem Right bundle branch block 426.4 Acti ve 56412643 Problem 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 Active 66631171 Problem Unspecified tinnitus 388.30 Active 68827612 Problem Unspecified hearing loss 389.9 Activ e 02694510 Problem Unspecified otalgia 388.70 Active 11259452 Problem Malignant neoplasm of prostate 185 Active 726142561 Problem Polyuria 788.42 Active 18720590 Problem Unspecified viral hepatitis C without hepatic coma 070.70 Active 00744464 Problem Abdominal or pelvic swelling, mass or lump, unspecified si te 789.30 Active 762424130 Problem Dysuria 788.1 Active 89721610 Problem Unspecified cataract 366.9 Active 836245468 Problem Unspecified episodic mood disorder 296.90 Active 847576129 Problem Other and unspecified hyperlipidemia 272.4 Active 84961739 Problem Unspecified hypothyroidism 244.9 Act katty [id number] ALLERGIES No Information ENCOUNTERS Encounter Location Date Diagnosis [facility] [address] [id number] [address] [place] [address] 14 Sep, 2014 [facility] [address] [id number] [address] [place] [address] Sep, [facility] [address] [id number] [address] [place] [address] Jun, [facility] [address] [id number] [address] [place] [address] Jun, [facility] [address] [id number] [address] [place] [address] May, [facility] [address] [id number] [address] [place] [address] May, [facility] [address] [id number] [address] [place] [address] Feb, [facility] [address] [id number] [address] [place] [address] Feb, [facility] [address] [id number] [address] [place] [address] Feb, [facility] [address] [id number] [address] [place] [address] Jan, [facility] [address] [id number] [address] [place] [address] Jan, [facility] [address] [id number] [address] [place] [address] Nov, [facility] [address] [id number] [address] [place] [address] Nov, [facility] [address] [id number] [address] [place] [address] 05 Nov, 2013 [facility] [address] [id number] [facility] [address] 05 Nov, 2013 [facility] [address] [id number] [facility] [place] [address] Aug, [facility] [address] [id number] [facility] [place] [address] Aug, [facility] [address] [id number] [address] [place] [address], [place] [address] Aug, [facility] [address] [id number] [facility] [place] [address] Aug, [facility] [address] [id number] [address] [place] [address], [place] [address] Aug, [facility] [address] [id number] [address] [place] [address], [place] [address] Aug, [facility] [address] [id number] [address] [place] [address], [place] [address] Aug, [facility] [address] [id number] [address] [place] [address], [place] [address] Aug, [facility] [address] [id number] [address] [place] [address], [place] [address] Aug, [facility] [address] [id number] [address] [place] [address], [place] [address] Aug, [facility] [address] [id number] [address] [place] [address], [place] [address] Jul, [facility] [address] [id number] [address] [place] [address], [place] [address] Jul, [facility] [address] [id number] [address] [place] [address], [place] [address] Jul, [facility] [address] [id number] [address] [place] [address], [place] [address] Jul, [facility] [address] [id number] [address] [place] [address], [place] [address] Jul, [facility] [address] [id number] [address] [place] [address], [place] [address] Jul, [facility] [address] [id number] [address] [place] [address], [place] [address] Jul, [facility] [address] [id number] [address] [place] [address], [place] [address] Jul, [facility] [address] [id number] [address] [place] [address], [place] [address] Jun, [facility] [address] [id number] [address] [place] [address], [place] [address] Jun, [facility] [address] [id number] [address] [place] [address], [place] [address] Jun, [facility] [address] [id number] [address] [place] [address], [place] [address] Jun, [facility] [address] [id number] [address] [place] [address], [place] [address] Jun, [facility] [address] [id number] [address] [place] [address], [place] [address] Jun, [facility] [address] [id number] [address] [place] [address], [place] [address] Jun, [facility] [address] [id number] [address] [place] [address], [place] [address] Jun, [facility] [address] [id number] [address] [place] [address], [place] [address] May, [facility] [address] [id number] [address] [place] [address], [place] [address] May, [facility] [address] [id number] [address] [place] [address], [place] [address] May, [facility] [address] [id number] [address] [place] [address], [place] [address] May, [facility] [address] [id number] [address] [place] [address], [place] [address] May, [facility] [address] [id number] [address] [place] [address], [place] [address] May, [facility] [address] [id number] [address] [place] [address], [place] [address] May, [facility] [address] [id number] [address] [place] [address], [place] [address] May, [facility] [address] [id number] [address] [place] [address], [place] [address] Apr, [facility] [address] [id number] [address] [place] [address] Apr, [facility] [address] [id number] [address] [place] [address], [place] [address] Apr, [facility] [address] [id number] [address] [place] [address], [place] [address] Apr, [facility] [address] [id number] [address] [place] [address], [place] [address] Apr, [facility] [address] [id number] [address] [place] [address] Apr, [facility] [address] [id number] [address] [place] [address] Apr, [facility] [address] [id number] [address] [place] [address] 18 Apr, 2013 [facility] [address] [id number] [address] [place] [address], [place] [address] Mar, [facility] [address] [id number] [address] [place] [address] 14 Mar, 2013 [facility] [address] [id number] [address] [place] [address] 18 Feb, 2013 [facility] [address] [id number] [address] [place] [address], [place] [address] Feb, [facility] [address] [id number] [address] [place] [address], [place] [address] Feb, [facility] [address] [id number] [address] [place] [address], [place] [address] Jan, [facility] [address] [id number] [address] [place] [address], [place] [address] Jan, [facility] [address] [id number] [address] [place] [address], [place] [address] Jan, [facility] [address] [id number] [address] [place] [address], [place] [address] Jan, [facility] [address] [id number] [address] [place] [address], [place] [address] Jan, [facility] [address] [id number] [address] [place] [address], [place] [address] Jan, [facility] [address] [id number] [address] [place] [address], [place] [address] Jan, [facility] [address] [id number] [address] [place] [address], [place] [address] Dec, [facility] [address] [id number] [address] [place] [address], [place] [address] Dec, [facility] [address] [id number] [address] [place] [address], [place] [address] Dec, [facility] [address] [id number] [address] [place] [address], [place] [address] Dec, [facility] [address] [id number] [address] [place] [address], [place] [address] Nov, [facility] [address] [id number] [address] [place] [address], [place] [address] Nov, [facility] [address] [id number] [address] [place] [address], [place] [address] Nov, [facility] [address] [id number] [address] [place] [address], [place] [address] October, [facility] [address] [id number] [address] [place] [address], [place] [address] Sep, [facility] [address] [id number] [address] [place] [address], [place] [address] Sep, [facility] [address] [id number] [address] [place] [address], [place] [address] Sep, [facility] [address] [id number] [address] [place] [address], [place] [address] Sep, [facility] [address] [id number] [address] [place] [address], [place] [address] Sep, [facility] [address] [id number] [address] [place] [address], [place] [address] Sep, [facility] [address] [id number] [address] [place] [address], [place] [address] Sep, [facility] [address] [id number] [address] [place] [address], [place] [address] Sep, [facility] [address] [id number] [address] [place] [address], [place] [address] Sep, [facility] [address] [id number] [address] [place] [address], [place] [address] Aug, [facility] [address] [id number] [address] [place] [address], [place] [address] Aug, [facility] [address] [id number] [address] [place] [address], [place] [address] Jul, [facility] [address] [id number] [address] [place] [address], [place] [address] Jul, [facility] [address] [id number] [address] [place] [address], [place] [address] Jul, [facility] [address] [id number] [address] [place] [address] [place] [address] Jun, [facility] [address] [id number] [address] [place] [address], [place] [address] Apr, [facility] [address] [id number] [address] [place] [address], [place] [address] Apr, [facility] [address] [id number] [address] [place] [address], [place] [address] Apr, [facility] [address] [id number] [address] [place] [address], [place] [address] Apr, [facility] [address] [id number] [address] [place] [address], [place] [address] Apr, [facility] [address] [id number] [address] [place] [address], [place] [address] Apr, [facility] [address] [id number] [address] [place] [address], [place] [address] Apr, [facility] [address] [id number] [address] [place] [address], [place] [address] Apr, [facility] [address] [id number] [address] [place] [address], [place] [address] Apr, [facility] [address] [id number] [address] [place] [address], [place] [address] Apr, [facility] [address] [id number] [address] [place] [address], [place] [address] Apr, [facility] [address] [id number] [address] [place] [address] Apr, [facility] [address] [id number] [address] [place] [address], [place] [address] Mar, [facility] [address] [id number] [address] [place] [address], [place] [address] Mar, [facility] [address] [id number] [address] [place] [address], [place] [address] Mar, [facility] [address] [id number] [address] [place] [address] 15 Mar, 2012 [facility] [address] [id number] [address] [place] [address] Mar, [facility] [address] [id number] [address] [place] [address] Mar, [facility] [address] [id number] [address] [place] [address] Mar, [facility] [address] [id number] [address] [place] [address] 25 Feb, 2012 [facility] [address] [id number] [address] [place] [address] 24 Feb, 2012 [facility] [address] [id number] [address] [place] [address] Feb, [facility] [address] [id number] [address] [place] [address] Feb, [facility] [address] [id number] [address] [place] [address] Jan, [facility] [address] [id number] [address] [place] [address] Jan, [facility] [address] [id number] [address] [place] [address] Jan, [facility] [address] [id number] [address] [place] [address] Jan, IMMUNIZATIONS No Known Immunizations SOCIAL HISTORY Never Assessed REASON FOR VISIT PLAN OF CARE VITAL SIGNS MEDICATIONS Unknown Medications RESULTS No Results PROCEDURES No Known procedures INSTRUCTIONS MEDICATIONS ADMINISTERED No Known Medications
--- OUTSIDE RECORDS SUMMARY | 2020-01-17 06:39 | XMS REPORT ---
Author Author Yogesh Kelly Doctor Organization [facility] Address Unknown Phone Unavailable Care Team Providers Care Building Performance Specialist Name Role Phone Migration, Doctor Unavailable Unavailable PROBLEMS Type Condition ICD9-CM Code [id number] Code Onset Dates Condition S tatus SNOMED Code Problem Encounter for long-term (current) use of other medications V58.69 Active 318706269 Problem Routine general medical examination at [facility] V70.0 Active 863350489 Problem Family history of unspecified malignant neoplasm V16.9 Active 963634620 Problem Nonspecific elevation of lev els of transaminase or lactic acid dehydrogenase (LDH) 790.4 Active 17127553 2 Problem Personal history of other allergy, other than to medicinal agents V15.09 Active 056255429 Problem Essential hypertension, benign 401.1 Active 2515818 Problem Coronary atherosclerosis of unspecified type of vessel, [place] or graft 414.00 Active 874404297 Problem Dizziness and giddiness 780.4 Active 876503878 Problem Chest pain, unspecified 786.50 Active 61007521 Problem Lumbago 724.2 Active 912067179 Problem Cervicalgia 723.1 Active 12614294 Problem Other specified cardiac dysrhythmias 427.89 Active 172518865 Problem Peptic ulcer, unspecified si te, unspecified as acute or chronic, without mention of hemorrhage, perforation, or obstruction 533.90 Active 57237581 Problem Right bundle branch block 426.4 Acti ve 05513091 Problem 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 Active 79379545 Problem Unspecified tinnitus 388.30 Active 84850999 Problem Unspecified hearing loss 389.9 Activ e 17885120 Problem Unspecified otalgia 388.70 Active 20596826 Problem Malignant neoplasm of prostate 185 Active 522182572 Problem Polyuria 788.42 Active 38098484 Problem Unspecified viral hepatitis C without hepatic coma 070.70 Active 47930170 Problem Abdominal or pelvic swelling, mass or lump, unspecified si te 789.30 Active 958890248 Problem Dysuria 788.1 Active 13827238 Problem Unspecified cataract 366.9 Active 479196483 Problem Unspecified episodic mood disorder 296.90 Active 398288251 Problem Other and unspecified hyperlipidemia 272.4 Active 37127139 Problem Unspecified hypothyroidism 244.9 Act katty [id number] ALLERGIES No Information ENCOUNTERS Encounter Location Date Diagnosis [facility] [id number] [place] [address] 14 Sep, 2014 [facility] [id number] [place] [address] Sep, [facility] [id number] [place] [address] Jun, [facility] [address] [address] Jun, [facility] [id number] [place] [address] May, [facility] [id number] [place] [address] May, [facility] [id number] [place] [address] Feb, [facility] [address] [address] Feb, [facility] [id number] [place] [address] Feb, [facility] [id number] [place] [address] Jan, [facility] [id number] [place] [address] Jan, [facility] [id number] [place] [address] Nov, [facility] [id number] [place] [address] Nov, [facility] [id number] [place] [address] Nov, [facility] [id number] [place] [address] 05 Nov, 2013 [facility] [place] [facility] [address] [facility] [id number] [facility] [place] [address] Aug, [facility] [place] [facility] [address] [facility] [id number] [facility] [place] [address] 28 Aug, 2013 [facility] [place] [facility] [address] [id number] [facility] [place] [address] 14 Aug, 2013 [facility] [place] [facility] [address] [id number] [place] [address] 14 Aug, 2013 [facility] [place] [facility] [address] [facility] [id number] [facility] [place] [address] Aug, [facility] [place] [facility] [address] [id number] [place] [address] Aug, [facility] [place] [facility] [address] [id number] [facility] [place] [address] Aug, [facility] [place] [facility] [address] [id number] [facility] [place] [address] Aug, [facility] [place] [facility] [address] [id number] [facility] [place] [address] Aug, [facility] [place] [facility] [address] [id number] [facility] [place] [address] Aug, [facility] [place] [facility] [address] [id number] [place] [address] Jul, [facility] [place] [facility] [address] [id number] [place] [address] Jul, [facility] [place] [facility] [address] [id number] [facility] [place] [address] Jul, [facility] [place] [facility] [address] [id number] [place] [address] Jul, [facility] [place] [facility] [address] [id number] [place] [address] Jul, [facility] [place] [facility] [address] [id number] [place] [address] Jul, [facility] [place] [facility] [address] [id number] [place] [address] Jul, [facility] [place] [facility] [address] [id number] [place] [address] Jul, [facility] [place] [facility] [address] [id number] [place] [address] Jun, [facility] [place] [facility] [address] [id number] [place] [address] Jun, [facility] [place] [facility] [address] [id number] [place] [address] Jun, [facility] [place] [facility] [address] [id number] [place] [address] Jun, [facility] [place] [facility] [address] [id number] [place] [address] Jun, [facility] [place] [facility] [address] [id number] [place] [address] Jun, [facility] [place] [facility] [address] [id number] [place] [address] Jun, [facility] [place] [facility] [address] [id number] [place] [address] Jun, [facility] [place] [facility] [address] [id number] [place] [address] May, [facility] [place] [facility] [address] [id number] [place] [address] May, [facility] [place] [facility] [address] [id number] [place] [address] May, [facility] [place] [facility] [address] [id number] [place] [address] May, [facility] [place] [facility] [address] [id number] [place] [address] May, [facility] [place] [facility] [address] [id number] [place] [address] May, [facility] [place] [facility] [address] [id number] [place] [address] May, [facility] [place] [facility] [address] [id number] [place] [address] May, [facility] [place] [facility] [address] [id number] [place] [address] Apr, [facility] [place] [facility] [address] [id number] [place] [address] Apr, [facility] [place] [facility] [address] [id number] [place] [address] Apr, [facility] [place] [facility] [address] [id number] [place] [address] Apr, [facility] [place] [facility] [address] [id number] [place] [address] Apr, [facility] [place] [facility] [address] [id number] [place] [address] Apr, [facility] [place] [facility] [address] [id number] [place] [address] Apr, [facility] [place] [facility] [address] [id number] [place] [address] Apr, [facility] [place] [facility] [address] [id number] [place] [address] Mar, [facility] [place] [facility] [address] [id number] [place] [address] Mar, [facility] [place] [facility] [address] [id number] [place] [address] 18 Feb, 2013 [facility] [place] [facility] [address] [id number] [place] [address] 17 Feb, 2013 [facility] [place] [facility] [address] [id number] [place] [address] Feb, [facility] [place] [facility] [address] [id number] [place] [address] Jan, [facility] [place] [facility] [address] [id number] [place] [address] Jan, [facility] [place] [facility] [address] [id number] [place] [address] Jan, [facility] [place] [facility] [address] [id number] [place] [address] Jan, [facility] [place] [facility] [address] [facility] [id number] [place] [address] Jan, [facility] [place] [facility] [address] [id number] [place] [address] Jan, [facility] [place] [facility] [address] [id number] [place] [address] Jan, [facility] [place] [facility] [address] [id number] [place] [address] Dec, [facility] [place] [facility] [address] [id number] [place] [address] Dec, [facility] [place] [facility] [address] [id number] [place] [address] Dec, [facility] [place] [facility] [address] [id number] [place] [address] Dec, [facility] [place] [facility] [address] [id number] [place] [address] Nov, [facility] [place] [facility] [address] [id number] [place] [address] Nov, [facility] [place] [facility] [address] [id number] [place] [address] Nov, [facility] [place] [facility] [address] [id number] [place] [address] October, [facility] [place] [facility] [address] [id number] [place] [address] Sep, [facility] [place] [facility] [address] [id number] [place] [address] Sep, [facility] [place] [facility] [address] [id number] [place] [address] Sep, [facility] [place] [facility] [address] [id number] [place] [address] Sep, [facility] [place] [facility] [address] [id number] [place] [address] Sep, [facility] [place] [facility] [address] [id number] [place] [address] Sep, [facility] [place] [facility] [address] [id number] [place] [address] Sep, [facility] [place] [facility] [address] [id number] [place] [address] Sep, [facility] [place] [facility] [address] [id number] [place] [address] Sep, [facility] [place] [facility] [address] [id number] [place] [address] Aug, [facility] [place] [facility] [address] [id number] [place] [address] Aug, [facility] [address] [id number] [place] [address] Jul, [facility] [place] [facility] [address] [id number] [place] [address] Jul, [facility] [place] [facility] [address] [id number] [place] [address] Jul, [facility] [place] [facility] [address] [id number] [place] [address] Jun, [facility] [place] [facility] [address] [id number] [place] [address] Apr, [facility] [place] [facility] [address] [id number] [place] [address] Apr, [facility] [place] [facility] [address] [id number] [place] [address] Apr, [facility] [place] [facility] [address] [id number] [place] [address] Apr, [facility] [place] [facility] [address] [id number] [place] [address] Apr, [facility] [place] [facility] [address] [id number] [place] [address] Apr, [facility] [place] [facility] [address] [id number] [place] [address] Apr, [facility] [place] [facility] [address] [id number] [place] [address] Apr, [facility] [place] [facility] [address] [id number] [place] [address] Apr, [facility] [place] [facility] [address] [id number] [place] [address] Apr, [facility] [place] [facility] [address] [id number] [place] [address] Apr, [facility] [place] [facility] [address] [id number] [place] [address] Apr, [facility] [place] [facility] [address] [id number] [place] [address] Mar, [facility] [place] [facility] [id number] [place] [address] Mar, [facility] [place] [facility] [address] [id number] [place] [address] Mar, [facility] [place] [facility] [id number] [place] [address] Mar, [facility] [place] [facility] [id number] [place] [address] Mar, [facility] [place] [facility] [id number] [place] [address] Mar, [facility] [place] [facility] [address] [id number] [place] [address] 05 Mar, 2012 [facility] [place] [facility] [address] [id number] [place] [address] 25 Feb, 2012 [facility] [place] [facility] [address] [id number] [place] [address] 24 Sep2011 [facility] [place] [facility] [id number] [place] [address] 10 Feb, 2012 [facility] [place] [facility] [address] [id number] [place] [address] Feb, [facility] [address] [id number] [place] [address] Jan, [facility] [address] [id number] [place] [address] Jan, [facility] [address] [id number] [place] [address] Jan, [facility] [address] [id number] [place] [address] Jan, IMMUNIZATIONS No Known Immunizations SOCIAL HISTORY Never Assessed REASON FOR VISIT PLAN OF CARE VITAL SIGNS MEDICATIONS Unknown Medications RESULTS No Results PROCEDURES No Known procedures INSTRUCTIONS MEDICATIONS ADMINISTERED No Known Medications
--- OUTSIDE RECORDS SUMMARY | 2020-01-17 06:39 | XMS REPORT ---
Author Author Yogesh Kelly Doctor Organization [facility] Address Unknown Phone Unavailable Care Team Providers [facility] [place] Worker Name Role Phone Migration, Doctor Unavailable Unavailable PROBLEMS Type Condition ICD9-CM Code [id number] Code Onset Dates Condition S tatus SNOMED Code Problem Encounter for long-term (current) use of other medications V58.69 Active 428732800 Problem Routine general medical examination at [facility] V70.0 Active 822673108 Problem Family history of unspecified malignant neoplasm V16.9 Active 017185800 Problem Nonspecific elevation of lev els of transaminase or lactic acid dehydrogenase (LDH) 790.4 Active 16112429 2 Problem Personal history of other allergy, other than to medicinal agents V15.09 Active 641767041 Problem Essential hypertension, benign 401.1 Active 3399330 Problem Coronary atherosclerosis of unspecified type of vessel, [place] or graft 414.00 Active 132279698 Problem Dizziness and giddiness 780.4 Active 163333328 Problem Chest pain, unspecified 786.50 Active 03905722 Problem Lumbago 724.2 Active 679844984 Problem Cervicalgia 723.1 Active 50320179 Problem Other specified cardiac dysrhythmias 427.89 Active 692514980 Problem Peptic ulcer, unspecified si te, unspecified as acute or chronic, without mention of hemorrhage, perforation, or obstruction 533.90 Active 93194263 Problem Right bundle branch block 426.4 Acti ve 55224311 Problem 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 Active 43006751 Problem Unspecified tinnitus 388.30 Active 66749186 Problem Unspecified hearing loss 389.9 Activ e 85014400 Problem Unspecified otalgia 388.70 Active 67161575 Problem Malignant neoplasm of prostate 185 Active 190813445 Problem Polyuria 788.42 Active 02185046 Problem Unspecified viral hepatitis C without hepatic coma 070.70 Active 43661459 Problem Abdominal or pelvic swelling, mass or lump, unspecified si te 789.30 Active 797441124 Problem Dysuria 788.1 Active 08243057 Problem Unspecified cataract 366.9 Active 012028834 Problem Unspecified episodic mood disorder 296.90 Active 294093039 Problem Other and unspecified hyperlipidemia 272.4 Active 83873678 Problem Unspecified hypothyroidism 244.9 Act katty 01894498 ALLERGIES No Information ENCOUNTERS Encounter Location Date Diagnosis [facility] [id number] [place] [address] 14 Sep, 2014 [facility] [id number] [place] [address] Sep, [facility] [id number] [place] [address] Jun, [facility] [address] [address] Jun, [facility] [id number] [place] [address] May, [facility] [id number] [place] [address] May, [facility] [id number] [place] [address] Feb, [facility] [address] [address] Feb, [facility] [id number] [place] [address] Feb, [facility] [id number] [place] [address] Jan, [facility] [id number] [place] [address] Jan, [facility] [id number] [place] [address] Nov, [facility] [id number] [place] [address] Nov, [facility] [id number] [place] [address] Nov, [facility] [id number] [place] [address] 05 Nov, 2013 [facility] [place] [facility] [address] [facility] [id number] [facility] [place] [address] Aug, [facility] [place] [facility] [address] [facility] [id number] [facility] [place] [address] 28 Aug, 2013 [facility] [place] [facility] [address] [id number] [facility] [place] [address] 14 Aug, 2013 [facility] [place] [facility] [address] [id number] [place] [address] 14 Aug, 2013 [facility] [place] [facility] [address] [facility] [id number] [facility] [place] [address] Aug, [facility] [place] [facility] [address] [id number] [place] [address] Aug, [facility] [place] [facility] [address] [id number] [facility] [place] [address] Aug, [facility] [place] [facility] [address] [id number] [facility] [place] [address] Aug, [facility] [place] [facility] [address] [id number] [facility] [place] [address] Aug, [facility] [place] [facility] [address] [id number] [facility] [place] [address] Aug, [facility] [place] [facility] [address] [id number] [place] [address] Jul, [facility] [place] [facility] [address] [id number] [place] [address] Jul, [facility] [place] [facility] [address] [id number] [facility] [place] [address] Jul, [facility] [place] [facility] [address] [id number] [place] [address] Jul, [facility] [place] [facility] [address] [id number] [place] [address] Jul, [facility] [place] [facility] [address] [id number] [place] [address] Jul, [facility] [place] [facility] [address] [id number] [place] [address] Jul, [facility] [place] [facility] [address] [id number] [place] [address] Jul, [facility] [place] [facility] [address] [id number] [place] [address] Jun, [facility] [place] [facility] [address] [id number] [place] [address] Jun, [facility] [place] [facility] [address] [id number] [place] [address] Jun, [facility] [place] [facility] [address] [id number] [place] [address] Jun, [facility] [place] [facility] [address] [id number] [place] [address] Jun, [facility] [place] [facility] [address] [id number] [place] [address] Jun, [facility] [place] [facility] [address] [id number] [place] [address] Jun, [facility] [place] [facility] [address] [id number] [place] [address] Jun, [facility] [place] [facility] [address] [id number] [place] [address] May, [facility] [place] [facility] [address] [id number] [place] [address] May, [facility] [place] [facility] [address] [id number] [place] [address] May, [facility] [place] [facility] [address] [id number] [place] [address] May, [facility] [place] [facility] [address] [id number] [place] [address] May, [facility] [place] [facility] [address] [id number] [place] [address] May, [facility] [place] [facility] [address] [id number] [place] [address] May, [facility] [place] [facility] [address] [id number] [place] [address] May, [facility] [place] [facility] [address] [id number] [place] [address] Apr, [facility] [place] [facility] [address] [id number] [place] [address] Apr, [facility] [place] [facility] [address] [id number] [place] [address] Apr, [facility] [place] [facility] [address] [id number] [place] [address] Apr, [facility] [place] [facility] [address] [id number] [place] [address] Apr, [facility] [place] [facility] [address] [id number] [place] [address] Apr, [facility] [place] [facility] [address] [id number] [place] [address] Apr, [facility] [place] [facility] [address] [id number] [place] [address] Apr, [facility] [place] [facility] [address] [id number] [place] [address] Mar, [facility] [place] [facility] [address] [id number] [place] [address] Mar, [facility] [place] [facility] [address] [id number] [place] [address] 18 Feb, 2013 [facility] [place] [facility] [address] [id number] [place] [address] 17 Feb, 2013 [facility] [place] [facility] [address] [id number] [place] [address] Feb, [facility] [place] [facility] [address] [id number] [place] [address] Jan, [facility] [place] [facility] [address] [id number] [place] [address] Jan, [facility] [place] [facility] [address] [id number] [place] [address] Jan, [facility] [place] [facility] [address] [id number] [place] [address] Jan, [facility] [place] [facility] [address] [facility] [id number] [place] [address] Jan, [facility] [place] [facility] [address] [id number] [place] [address] Jan, [facility] [place] [facility] [address] [id number] [place] [address] Jan, [facility] [place] [facility] [address] [id number] [place] [address] Dec, [facility] [place] [facility] [address] [id number] [place] [address] Dec, [facility] [place] [facility] [address] [id number] [place] [address] Dec, [facility] [place] [facility] [address] [id number] [place] [address] Dec, [facility] [place] [facility] [address] [id number] [place] [address] Nov, [facility] [place] [facility] [address] [id number] [place] [address] Nov, [facility] [place] [facility] [address] [id number] [place] [address] Nov, [facility] [place] [facility] [address] [id number] [place] [address] October, [facility] [place] [facility] [address] [id number] [place] [address] Sep, [facility] [place] [facility] [address] [id number] [place] [address] Sep, [facility] [place] [facility] [address] [id number] [place] [address] Sep, [facility] [place] [facility] [address] [id number] [place] [address] Sep, [facility] [place] [facility] [address] [id number] [place] [address] Sep, [facility] [place] [facility] [address] [id number] [place] [address] Sep, [facility] [place] [facility] [address] [id number] [place] [address] Sep, [facility] [place] [facility] [address] [id number] [place] [address] Sep, [facility] [place] [facility] [address] [id number] [place] [address] Sep, [facility] [place] [facility] [address] [id number] [place] [address] Aug, [facility] [place] [facility] [address] [id number] [place] [address] Aug, [facility] [address] [id number] [place] [address] Jul, [facility] [place] [facility] [address] [id number] [place] [address] Jul, [facility] [place] [facility] [address] [id number] [place] [address] Jul, [facility] [place] [facility] [address] [id number] [place] [address] Jun, [facility] [place] [facility] [address] [id number] [place] [address] Apr, [facility] [place] [facility] [address] [id number] [place] [address] Apr, [facility] [place] [facility] [address] [id number] [place] [address] Apr, [facility] [place] [facility] [address] [id number] [place] [address] Apr, [facility] [place] [facility] [address] [id number] [place] [address] Apr, [facility] [place] [facility] [address] [id number] [place] [address] Apr, [facility] [place] [facility] [address] [id number] [place] [address] Apr, [facility] [place] [facility] [address] [id number] [place] [address] Apr, [facility] [place] [facility] [address] [id number] [place] [address] Apr, [facility] [place] [facility] [address] [id number] [place] [address] Apr, [facility] [place] [facility] [address] [id number] [place] [address] Apr, [facility] [place] [facility] [address] [id number] [place] [address] Apr, [facility] [place] [facility] [address] [id number] [place] [address] Mar, [facility] [place] [facility] [id number] [place] [address] Mar, [facility] [place] [facility] [address] [id number] [place] [address] Mar, [facility] [place] [facility] [id number] [place] [address] Mar, [facility] [place] [facility] [id number] [place] [address] Mar, [facility] [place] [facility] [id number] [place] [address] Mar, [facility] [place] [facility] [address] [id number] [place] [address] 05 Mar, 2012 [facility] [place] [facility] [address] [id number] [place] [address] 25 Feb, 2012 [facility] [place] [facility] [address] [id number] [place] [address] 24 Sep2011 [facility] [place] [facility] [id number] [place] [address] 10 Feb, 2012 [facility] [place] [facility] [address] [id number] [place] [address] Feb, [facility] [address] [id number] [place] [address] Jan, [facility] [address] [id number] [place] [address] Jan, [facility] [address] [id number] [place] [address] Jan, [facility] [address] [id number] [place] [address] Jan, IMMUNIZATIONS No Known Immunizations SOCIAL HISTORY Never Assessed REASON FOR VISIT PLAN OF CARE VITAL SIGNS MEDICATIONS Unknown Medications RESULTS No Results PROCEDURES No Known procedures INSTRUCTIONS MEDICATIONS ADMINISTERED No Known Medications
--- OUTSIDE RECORDS SUMMARY | 2020-01-17 06:39 | XMS REPORT ---
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 Name Role Phone Migration, Doctor Unavailable Unavailable PROBLEMS Type Condition ICD9-CM Code HXE13-OR Code Onset Dates Condition S tatus SNOMED Code Problem Encounter for long-term (current) use of other medications V58.69 Active 852032654 Problem Routine general medical examination at [facility] V70.0 Active 442126675 Problem Family history of unspecified malignant neoplasm V16.9 Active 412887019 Problem Nonspecific elevation of lev els of transaminase or lactic acid dehydrogenase (LDH) 790.4 Active 48173595 2 Problem Personal history of other allergy, other than to medicinal agents V15.09 Active 408876133 Problem Essential hypertension, benign 401.1 Active 0480640 Problem Coronary atherosclerosis of unspecified type of vessel, [place] or graft 414.00 Active 812532141 Problem Dizziness and giddiness 780.4 Active 786572649 Problem Chest pain, unspecified 786.50 Active 05431290 Problem Lumbago 724.2 Active 238435473 Problem Cervicalgia 723.1 Active 89336573 Problem Other specified cardiac dysrhythmias 427.89 Active 508434862 Problem Peptic ulcer, unspecified si te, unspecified as acute or chronic, without mention of hemorrhage, perforation, or obstruction 533.90 Active 12444364 Problem Right bundle branch block 426.4 Acti ve 79909445 Problem 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 Active 65598779 Problem Unspecified tinnitus 388.30 Active 84256291 Problem Unspecified hearing loss 389.9 Activ e 44268181 Problem Unspecified otalgia 388.70 Active 34471167 Problem Malignant neoplasm of prostate 185 Active 049613052 Problem Polyuria 788.42 Active 14802214 Problem Unspecified viral hepatitis C without hepatic coma 070.70 Active 41870055 Problem Abdominal or pelvic swelling, mass or lump, unspecified si te 789.30 Active 056004179 Problem Dysuria 788.1 Active 74357250 Problem Unspecified cataract 366.9 Active 850507359 Problem Unspecified episodic mood disorder 296.90 Active 393974146 Problem Other and unspecified hyperlipidemia 272.4 Active 34731343 Problem Unspecified hypothyroidism 244.9 Act katty 17869777 ALLERGIES No Information ENCOUNTERS Encounter Location Date Diagnosis [facility] [id number] [place] [address] 14 Sep, 2014 [facility] [id number] [place] [address] Sep, [facility] [id number] [place] [address] Jun, [facility] [address] [address] Jun, [facility] [id number] [place] [address] May, [facility] [id number] [place] [address] May, [facility] [id number] [place] [address] Feb, [facility] [address] [address] Feb, [facility] [id number] [place] [address] Feb, [facility] [id number] [place] [address] Jan, [facility] [id number] [place] [address] Jan, [facility] [id number] [place] [address] Nov, [facility] [id number] [place] [address] Nov, [facility] [id number] [place] [address] Nov, [facility] [id number] [place] [address] 05 Nov, 2013 [facility] [place] [facility] [address] [facility] [id number] [facility] [address] Aug, [facility] [place] [facility] [address] [facility] [id number] [facility] [address] 28 Aug, 2013 [facility] [place] [facility] [address] [id number] [facility] [address] 14 Aug, 2013 [facility] [place] [facility] [address] [id number] [place] [address] 14 Aug, 2013 [facility] [place] [facility] [address] [facility] [id number] [facility] [address] Aug, [facility] [place] [facility] [address] [id number] [place] [address] Aug, [facility] [place] [facility] [address] [id number] [facility] [address] Aug, [facility] [place] [facility] [address] [id number] [facility] [address] Aug, [facility] [place] [facility] [address] [id number] [facility] [address] Aug, [facility] [place] [facility] [address] [id number] [facility] [address] Aug, [facility] [place] [facility] [address] [id number] [place] [address] Jul, [facility] [place] [facility] [address] [id number] [place] [address] Jul, [facility] [place] [facility] [address] [id number] [facility] [address] Jul, [facility] [place] [facility] [address] [id number] [place] [address] Jul, [facility] [place] [facility] [address] [id number] [place] [address] Jul, [facility] [place] [facility] [address] [id number] [place] [address] Jul, [facility] [place] [facility] [address] [id number] [place] [address] Jul, [facility] [place] [facility] [address] [id number] [place] [address] Jul, [facility] [place] [facility] [address] [id number] [place] [address] Jun, [facility] [place] [facility] [address] [id number] [place] [address] Jun, [facility] [place] [facility] [address] [id number] [place] [address] Jun, [facility] [place] [facility] [address] [id number] [place] [address] Jun, [facility] [place] [facility] [address] [id number] [place] [address] Jun, [facility] [place] [facility] [address] [id number] [place] [address] Jun, [facility] [place] [facility] [address] [id number] [place] [address] Jun, [facility] [place] [facility] [address] [id number] [place] [address] Jun, [facility] [place] [facility] [address] [id number] [place] [address] May, [facility] [place] [facility] [address] [id number] [place] [address] May, [facility] [place] [facility] [address] [id number] [place] [address] May, [facility] [place] [facility] [address] [id number] [place] [address] May, [facility] [place] [facility] [address] [id number] [place] [address] May, [facility] [place] [facility] [address] [id number] [place] [address] May, [facility] [place] [facility] [address] [id number] [place] [address] May, [facility] [place] [facility] [address] [id number] [place] [address] May, [facility] [place] [facility] [address] [id number] [place] [address] Apr, [facility] [place] [facility] [address] [id number] [place] [address] Apr, [facility] [place] [facility] [address] [id number] [place] [address] Apr, [facility] [place] [facility] [address] [id number] [place] [address] Apr, [facility] [place] [facility] [address] [id number] [place] [address] Apr, [facility] [place] [facility] [address] [id number] [place] [address] Apr, [facility] [place] [facility] [address] [id number] [place] [address] Apr, [facility] [place] [facility] [address] [id number] [place] [address] Apr, [facility] [place] [facility] [address] [id number] [place] [address] Mar, [facility] [place] [facility] [address] [id number] [place] [address] Mar, [facility] [place] [facility] [address] [id number] [place] [address] 18 Feb, 2013 [facility] [place] [facility] [address] [id number] [place] [address] 17 Feb, 2013 [facility] [place] [facility] [address] [id number] [place] [address] Feb, [facility] [place] [facility] [address] [id number] [place] [address] Jan, [facility] [place] [facility] [address] [id number] [place] [address] Jan, [facility] [place] [facility] [address] [id number] [place] [address] Jan, [facility] [place] [facility] [address] [id number] [place] [address] Jan, [facility] [place] [facility] [address] [facility] [id number] [place] [address] Jan, [facility] [place] [facility] [address] [id number] [place] [address] Jan, [facility] [place] [facility] [address] [id number] [place] [address] Jan, [facility] [place] [facility] [address] [id number] [place] [address] Dec, [facility] [place] [facility] [address] [id number] [place] [address] Dec, [facility] [place] [facility] [address] [id number] [place] [address] Dec, [facility] [place] [facility] [address] [id number] [place] [address] Dec, [facility] [place] [facility] [address] [id number] [place] [address] Nov, [facility] [place] [facility] [address] [id number] [place] [address] Nov, [facility] [place] [facility] [address] [id number] [place] [address] Nov, [facility] [place] [facility] [address] [id number] [place] [address] October, [facility] [place] [facility] [address] [id number] [place] [address] Sep, [facility] [place] [facility] [address] [id number] [place] [address] Sep, [facility] [place] [facility] [address] [id number] [place] [address] Sep, [facility] [place] [facility] [address] [id number] [place] [address] Sep, [facility] [place] [facility] [address] [id number] [place] [address] Sep, [facility] [place] [facility] [address] [id number] [place] [address] Sep, [facility] [place] [facility] [address] [id number] [place] [address] Sep, [facility] [place] [facility] [address] [id number] [place] [address] Sep, [facility] [place] [facility] [address] [id number] [place] [address] Sep, [facility] [place] [facility] [address] [id number] [place] [address] Aug, [facility] [place] [facility] [address] [id number] [place] [address] Aug, [facility] [address] [id number] [place] [address] Jul, [facility] [place] [facility] [address] [id number] [place] [address] Jul, [facility] [place] [facility] [address] [id number] [place] [address] Jul, [facility] [place] [facility] [address] [id number] [place] [address] Jun, [facility] [place] [facility] [address] [id number] [place] [address] Apr, [facility] [place] [facility] [address] [id number] [place] [address] Apr, [facility] [place] [facility] [address] [id number] [place] [address] Apr, [facility] [place] [facility] [address] [id number] [place] [address] Apr, [facility] [place] [facility] [address] [id number] [place] [address] Apr, [facility] [place] [facility] [address] [id number] [place] [address] Apr, [facility] [place] [facility] [address] [id number] [place] [address] Apr, [facility] [place] [facility] [address] [id number] [place] [address] Apr, [facility] [place] [facility] [address] [id number] [place] [address] Apr, [facility] [place] [facility] [address] [id number] [place] [address] Apr, [facility] [place] [facility] [address] [id number] [place] [address] Apr, [facility] [place] [facility] [address] [id number] [place] [address] Apr, [facility] [place] [facility] [address] [id number] [place] [address] Mar, [facility] [place] [facility] [id number] [place] [address] Mar, [facility] [place] [facility] [address] [id number] [place] [address] Mar, [facility] [place] [facility] [id number] [place] [address] Mar, [facility] [place] [facility] [id number] [place] [address] Mar, [facility] [place] [facility] [id number] [place] [address] Mar, [facility] [place] [facility] [address] [id number] [place] [address] 05 Mar, 2012 [facility] [place] [facility] [address] [id number] [place] [address] 25 Feb, 2012 [facility] [place] [facility] [address] [id number] [place] [address] 24 Sep2011 [facility] [place] [facility] [id number] [place] [address] 10 Feb, 2012 [facility] [place] [facility] [address] [id number] [place] [address] Feb, [facility] [address] [id number] [place] [address] Jan, [facility] [address] [id number] [place] [address] Jan, [facility] [address] [id number] [place] [address] Jan, [facility] [address] [id number] [place] [address] Jan, IMMUNIZATIONS No Known Immunizations SOCIAL HISTORY Never Assessed REASON FOR VISIT PLAN OF CARE VITAL SIGNS MEDICATIONS Unknown Medications RESULTS No Results PROCEDURES Procedure Date Ordered Result Body Site ASSAY THYROID STIM HORMONE Aug 01, 2013 LIPID PANEL Aug 01, 2013 COMPREHEN METABOLIC PANEL Aug 01, 2013 VENIPUNCT, ROUTINE* Aug 01, 2013 INSTRUCTIONS MEDICATIONS ADMINISTERED No Known Medications
--- OUTSIDE RECORDS SUMMARY | 2020-01-17 06:39 | XMS REPORT ---
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 Name Role Phone Migration, Doctor Unavailable Unavailable PROBLEMS Type Condition ICD9-CM Code YZZ49-SS Code Onset Dates Condition S tatus SNOMED Code Problem Encounter for long-term (current) use of other medications V58.69 Active 185566474 Problem Routine general medical examination at [facility] V70.0 Active 652143242 Problem Family history of unspecified malignant neoplasm V16.9 Active 040851278 Problem Nonspecific elevation of lev els of transaminase or lactic acid dehydrogenase (LDH) 790.4 Active 22898804 2 Problem Personal history of other allergy, other than to medicinal agents V15.09 Active 330878983 Problem Essential hypertension, benign 401.1 Active 6219354 Problem Coronary atherosclerosis of unspecified type of vessel, [place] or graft 414.00 Active 295186581 Problem Dizziness and giddiness 780.4 Active 208158074 Problem Chest pain, unspecified 786.50 Active 18114156 Problem Lumbago 724.2 Active 704098203 Problem Cervicalgia 723.1 Active 97655717 Problem Other specified cardiac dysrhythmias 427.89 Active 908455414 Problem Peptic ulcer, unspecified si te, unspecified as acute or chronic, without mention of hemorrhage, perforation, or obstruction 533.90 Active 75288303 Problem Right bundle branch block 426.4 Acti ve 58660130 Problem 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 Active 08483297 Problem Unspecified tinnitus 388.30 Active 47051412 Problem Unspecified hearing loss 389.9 Activ e 23663599 Problem Unspecified otalgia 388.70 Active 24170754 Problem Malignant neoplasm of prostate 185 Active 644269037 Problem Polyuria 788.42 Active 13171149 Problem Unspecified viral hepatitis C without hepatic coma 070.70 Active 99771544 Problem Abdominal or pelvic swelling, mass or lump, unspecified si te 789.30 Active 030016680 Problem Dysuria 788.1 Active 76096998 Problem Unspecified cataract 366.9 Active 237094086 Problem Unspecified episodic mood disorder 296.90 Active 360386087 Problem Other and unspecified hyperlipidemia 272.4 Active 30820564 Problem Unspecified hypothyroidism 244.9 Act katty [id number] ALLERGIES No Information ENCOUNTERS Encounter Location Date Diagnosis [facility] [place] [id number] [place] [address] 14 Sep, 2014 [facility] [place] [id number] [place] [address] Sep, [facility] [place] [id number] [place] [address] Jun, [facility] [place] [address] [address] Jun, [facility] [place] [id number] [place] [address] May, [facility] [place] [id number] [place] [address] May, [facility] [place] [id number] [place] [address] Feb, [facility] [place] [address] [address] Feb, [facility] [place] [id number] [place] [address] Feb, [facility] [place] [id number] [place] [address] Jan, [facility] [place] [id number] [place] [address] Jan, [facility] [place] [id number] [place] [address] Nov, [facility] [place] [id number] [place] [address] Nov, [facility] [place] [id number] [place] [address] Nov, [facility] [place] [id number] [place] [address] 05 Nov, 2013 [facility] [place] [facility] [address] [facility] [id number] [facility] [place] [address] Aug, [facility] [place] [facility] [address] [facility] [id number] [facility] [place] [address] 28 Aug, 2013 [facility] [place] [facility] [address] [id number] [facility] [place] [address] 14 Aug, 2013 [facility] [place] [facility] [address] [id number] [place] [address] 14 Aug, 2013 [facility] [place] [facility] [address] [facility] [id number] [facility] [place] [address] Aug, [facility] [place] [facility] [address] [id number] [place] [address] Aug, [facility] [place] [facility] [address] [id number] [facility] [place] [address] Aug, [facility] [place] [facility] [address] [id number] [facility] [place] [address] Aug, [facility] [place] [facility] [address] [id number] [facility] [place] [address] Aug, [facility] [place] [facility] [address] [id number] [facility] [place] [address] Aug, [facility] [place] [facility] [address] [id number] [place] [address] Jul, [facility] [place] [facility] [address] [id number] [place] [address] Jul, [facility] [place] [facility] [address] [id number] [facility] [place] [address] Jul, [facility] [place] [facility] [address] [id number] [place] [address] Jul, [facility] [place] [facility] [address] [id number] [place] [address] Jul, [facility] [place] [facility] [address] [id number] [place] [address] Jul, [facility] [place] [facility] [address] [id number] [place] [address] Jul, [facility] [place] [facility] [address] [id number] [place] [address] Jul, [facility] [place] [facility] [address] [id number] [place] [address] Jun, [facility] [place] [facility] [address] [id number] [place] [address] Jun, [facility] [place] [facility] [address] [id number] [place] [address] Jun, [facility] [place] [facility] [address] [id number] [place] [address] Jun, [facility] [place] [facility] [address] [id number] [place] [address] Jun, [facility] [place] [facility] [address] [id number] [place] [address] Jun, [facility] [place] [facility] [address] [id number] [place] [address] Jun, [facility] [place] [facility] [address] [id number] [place] [address] Jun, [facility] [place] [facility] [address] [id number] [place] [address] May, [facility] [place] [facility] [address] [id number] [place] [address] May, [facility] [place] [facility] [address] [id number] [place] [address] May, [facility] [place] [facility] [address] [id number] [place] [address] May, [facility] [place] [facility] [address] [id number] [place] [address] May, [facility] [place] [facility] [address] [id number] [place] [address] May, [facility] [place] [facility] [address] [id number] [place] [address] May, [facility] [place] [facility] [address] [id number] [place] [address] May, [facility] [place] [facility] [address] [id number] [place] [address] Apr, [facility] [place] [facility] [address] [id number] [place] [address] Apr, [facility] [place] [facility] [address] [id number] [place] [address] Apr, [facility] [place] [facility] [address] [id number] [place] [address] Apr, [facility] [place] [facility] [address] [id number] [place] [address] Apr, [facility] [place] [facility] [address] [id number] [place] [address] Apr, [facility] [place] [facility] [address] [id number] [place] [address] Apr, [facility] [place] [facility] [address] [id number] [place] [address] Apr, [facility] [place] [facility] [address] [id number] [place] [address] Mar, [facility] [place] [facility] [address] [id number] [place] [address] Mar, [facility] [place] [facility] [address] [id number] [place] [address] 18 Feb, 2013 [facility] [place] [facility] [address] [id number] [place] [address] 17 Feb, 2013 [facility] [place] [facility] [address] [id number] [place] [address] Feb, [facility] [place] [facility] [address] [id number] [place] [address] Jan, [facility] [place] [facility] [address] [id number] [place] [address] Jan, [facility] [place] [facility] [address] [id number] [place] [address] Jan, [facility] [place] [facility] [address] [id number] [place] [address] Jan, [facility] [place] [facility] [address] [facility] [id number] [place] [address] Jan, [facility] [place] [facility] [address] [id number] [place] [address] Jan, [facility] [place] [facility] [address] [id number] [place] [address] Jan, [facility] [place] [facility] [address] [id number] [place] [address] Dec, [facility] [place] [facility] [address] [id number] [place] [address] Dec, [facility] [place] [facility] [address] [id number] [place] [address] Dec, [facility] [place] [address] [id number] [place] [address] Dec, [facility] [place] [address] [id number] [place] [address] Nov, [facility] [place] [facility] [address] [id number] [place] [address] Nov, [facility] [place] [facility] [address] [id number] [place] [address] Nov, [facility] [place] [facility] [address] [id number] [place] [address] October, [facility] [place] [facility] [address] [id number] [place] [address] Sep, [facility] [place] [facility] [address] [id number] [place] [address] Sep, [facility] [place] [facility] [address] [id number] [place] [address] Sep, [facility] [place] [facility] [address] [id number] [place] [address] Sep, [facility] [place] [facility] [address] [id number] [place] [address] Sep, [facility] [place] [facility] [address] [id number] [place] [address] Sep, [facility] [place] [facility] [address] [id number] [place] [address] Sep, [facility] [place] [facility] [address] [id number] [place] [address] Sep, [facility] [place] [facility] [address] [id number] [place] [address] Sep, [facility] [place] [facility] [address] [id number] [place] [address] Aug, [facility] [place] [facility] [address] [id number] [place] [address] Aug, [facility] [address] [id number] [place] [address] Jul, [facility] [place] [facility] [address] [id number] [place] [address] Jul, [facility] [place] [facility] [address] [id number] [place] [address] Jul, [facility] [place] [facility] [address] [id number] [place] [address] Jun, [facility] [place] [facility] [address] [id number] [place] [address] Apr, [facility] [place] [facility] [address] [id number] [place] [address] Apr, [facility] [place] [facility] [address] [id number] [place] [address] Apr, [facility] [place] [facility] [address] [id number] [place] [address] Apr, [facility] [place] [facility] [address] [id number] [place] [address] Apr, [facility] [place] [facility] [address] [id number] [place] [address] Apr, [facility] [place] [facility] [address] [id number] [place] [address] Apr, [facility] [place] [facility] [address] [id number] [place] [address] Apr, [facility] [place] [facility] [address] [id number] [place] [address] Apr, [facility] [place] [facility] [address] [id number] [place] [address] Apr, [facility] [place] [facility] [address] [id number] [place] [address] Apr, [facility] [place] [facility] [address] [id number] [place] [address] Apr, [facility] [place] [facility] [address] [id number] [place] [address] Mar, [facility] [place] [facility] [id number] [place] [address] Mar, [facility] [place] [facility] [address] [id number] [place] [address] Mar, [facility] [place] [facility] [id number] [place] [address] Mar, [facility] [place] [facility] [id number] [place] [address] Mar, [facility] [place] [facility] [id number] [place] [address] Mar, [facility] [place] [facility] [address] [id number] [place] [address] 05 Mar, 2012 [facility] [place] [facility] [address] [id number] [place] [address] 25 Feb, 2012 [facility] [place] [facility] [address] [id number] [place] [address] 24 Sep2011 [facility] [place] [facility] [id number] [place] [address] 10 Feb, 2012 [facility] [place] [facility] [address] [id number] [place] [address] Feb, [facility] [place] [address] [id number] [place] [address] Jan, [facility] [place] [address] [id number] [place] [address] Jan, [facility] [place] [address] [id number] [place] [address] Jan, [facility] [place] [address] [id number] [place] [address] Jan, IMMUNIZATIONS No Known Immunizations SOCIAL HISTORY Never Assessed REASON FOR VISIT PLAN OF CARE VITAL SIGNS MEDICATIONS Unknown Medications RESULTS No Results PROCEDURES No Known procedures INSTRUCTIONS MEDICATIONS ADMINISTERED No Known Medications
--- OUTSIDE RECORDS SUMMARY | 2020-01-17 06:39 | XMS REPORT ---
Author Author Yogesh LEDEZMA Organization [facility] Address [address] [place] [address] Care Team Providers Care Copyright Manager Name Role Phone ARIANNA LEDEZMA Unavailable PROBLEMS Type Condition ICD9-CM Code HQA10-WK Code Onset Dates Condition S tatus SNOMED Code Problem Encounter for long-term (current) use of other medications V58.69 Active 273442608 Problem Routine general medical examination at [facility] V70.0 Active 098647594 Problem Family history of unspecified malignant neoplasm V16.9 Active 567642983 Problem Nonspecific elevation of lev els of transaminase or lactic acid dehydrogenase (LDH) 790.4 Active 05257565 2 Problem Personal history of other allergy, other than to medicinal agents V15.09 Active 840700711 Problem Essential hypertension, benign 401.1 Active 1766079 Problem Coronary atherosclerosis of unspecified type of vessel, [place] or graft 414.00 Active 768708742 Problem Dizziness and giddiness 780.4 Active 519308742 Problem Chest pain, unspecified 786.50 Active 06733696 Problem Lumbago 724.2 Active 407530722 Problem Cervicalgia 723.1 Active 59071591 Problem Other specified cardiac dysrhythmias 427.89 Active 184108970 Problem Peptic ulcer, unspecified si te, unspecified as acute or chronic, without mention of hemorrhage, perforation, or obstruction 533.90 Active 51260297 Problem Right bundle branch block 426.4 Acti ve 61883524 Problem 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 Active 88128265 Problem Unspecified tinnitus 388.30 Active 88141149 Problem Unspecified hearing loss 389.9 Activ e 78180567 Problem Unspecified otalgia 388.70 Active 79202269 Problem Malignant neoplasm of prostate 185 Active 882481578 Problem Polyuria 788.42 Active 27629776 Problem Unspecified viral hepatitis C without hepatic coma 070.70 Active 67578116 Problem Abdominal or pelvic swelling, mass or lump, unspecified si te 789.30 Active 282958970 Problem Dysuria 788.1 Active 01121133 Problem Unspecified cataract 366.9 Active 768388589 Problem Unspecified episodic mood disorder 296.90 Active 587563848 Problem Other and unspecified hyperlipidemia 272.4 Active 16352214 Problem Unspecified hypothyroidism 244.9 Act katty 25181994 ALLERGIES No Information ENCOUNTERS Encounter Location Date Diagnosis [facility] [address] [address] 14 Sep, 2014 [facility] [address] [address] Sep, [facility] [address] [address] Jun, [facility] [address] [address] Jun, [facility] [address] [address] May, [facility] [address] [address] May, [facility] [address] [address] Feb, [facility] [address] [address] Feb, [facility] [address] [address] Feb, [facility] [address] [address] Jan, [facility] [address] [address] Jan, [facility] [address] [address] Nov, [facility] [address] [address] Nov, [facility] [address] [address] Nov, [facility] [place] [facility] [address] [facility] [id number] [facility] [place] [address] Nov, [facility] [place] [facility] [address] [facility] [id number] [facility] [place] [address] Aug, [facility] [place] [facility] [address] [id number] [facility] [place] [address] Aug, [facility] [place] [facility] [address] [id number] [facility] [place] [address] Aug, [facility] [place] [facility] [address] [facility] [id number] [facility] [place] [address] Aug, [facility] [place] [facility] [address] [id number] [place] [address] Aug, [facility] [place] [facility] [address] [id number] [place] [address] Aug, [facility] [place] [facility] [address] [id number] [facility] [place] [address] Aug, [facility] [place] [facility] [address] [id number] [place] [address] Aug, [facility] [place] [facility] [address] [id number] [place] [address] Aug, [facility] [place] [facility] [address] [id number] [place] [address] Aug, [facility] [place] [facility] [address] [id number] [place] [address] Jul, [facility] [place] [facility] [address] [facility] [id number] [facility] [place] [address] Jul, [facility] [place] [facility] [address] [id number] [place] [address] Jul, [facility] [place] [facility] [address] [id number] [place] [address] Jul, [facility] [place] [facility] [address] [id number] [place] [address] Jul, [facility] [place] [facility] [address] [id number] [place] [address] Jul, [facility] [place] [facility] [address] [id number] [place] [address] Jul, [facility] [place] [facility] [address] [id number] [place] [address] Jul, [facility] [place] [facility] [address] [id number] [place] [address] Jun, [facility] [place] [facility] [address] [id number] [place] [address] Jun, [facility] [place] [facility] [address] [id number] [place] [address] Jun, [facility] [place] [facility] [address] [id number] [place] [address] Jun, [facility] [place] [facility] [address] [id number] [place] [address] Jun, [facility] [place] [facility] [address] [id number] [place] [address] Jun, [facility] [place] [facility] [address] [id number] [place] [address] Jun, [facility] [place] [facility] [address] [id number] [place] [address] Jun, [facility] [place] [facility] [address] [id number] [place] [address] May, [facility] [place] [facility] [address] [id number] [place] [address] May, [facility] [place] [facility] [address] [id number] [place] [address] May, [facility] [place] [facility] [address] [id number] [place] [address] May, [facility] [place] [facility] [address] [id number] [place] [address] May, [facility] [place] [facility] [address] [id number] [place] [address] May, [facility] [place] [facility] [address] [id number] [place] [address] May, [facility] [place] [facility] [address] [id number] [place] [address] May, [facility] [place] [facility] [address] [id number] [place] [address] Apr, [facility] [place] [facility] [address] [id number] [place] [address] Apr, [facility] [place] [facility] [address] [id number] [place] [address] Apr, [facility] [place] [facility] [address] [id number] [place] [address] Apr, [facility] [place] [facility] [address] [id number] [place] [address] Apr, [facility] [place] [facility] [address] [id number] [place] [address] Apr, [facility] [place] [facility] [address] [id number] [place] [address] Apr, [facility] [place] [facility] [address] [id number] [place] [address] Apr, [facility] [place] [facility] [address] [id number] [place] [address] Mar, [facility] [place] [facility] [address] [id number] [place] [address] 14 Mar, 2013 [facility] [place] [facility] [address] [id number] [place] [address] 18 Feb, 2013 [facility] [place] [facility] [address] [id number] [place] [address] 17 Feb, 2013 [facility] [place] [facility] [address] [id number] [place] [address] 04 Feb, 2013 [facility] [place] [facility] [address] [id number] [place] [address] Jan, [facility] [place] [facility] [address] [id number] [place] [address] Jan, [facility] [place] [facility] [address] [id number] [place] [address] Jan, [facility] [place] [facility] [address] [id number] [place] [address] Jan, [facility] [place] [facility] [address] [id number] [place] [address] Jan, [facility] [place] [facility] [address] [id number] [place] [address] Jan, [facility] [place] [facility] [address] [id number] [place] [address] Jan, [facility] [place] [facility] [address] [id number] [place] [address] Dec, [facility] [place] [facility] [address] [id number] [place] [address] Dec, [facility] [place] [facility] [address] [id number] [place] [address] Dec, [facility] [place] [facility] [address] [id number] [place] [address] Dec, [facility] [place] [facility] [address] [id number] [place] [address] Nov, [facility] [place] [facility] [address] [id number] [place] [address] Nov, [facility] [place] [facility] [address] [id number] [place] [address] Nov, [facility] [place] [facility] [address] [id number] [place] [address] October, [facility] [place] [facility] [address] [id number] [place] [address] Sep, [facility] [place] [facility] [address] [id number] [place] [address] Sep, [facility] [place] [facility] [address] [id number] [place] [address] Sep, [facility] [place] [facility] [address] [id number] [place] [address] Sep, [facility] [address] [id number] [place] [address] Sep, [facility] [place] [facility] [address] [id number] [place] [address] Sep, [facility] [address] [id number] [place] [address] Sep, [facility] [place] [facility] [address] [id number] [place] [address] Sep, [facility] [place] [facility] [address] [id number] [place] [address] Sep, [facility] [place] [facility] [address] [id number] [place] [address] Aug, [facility] [address] [id number] [place] [address] Aug, [facility] [place] [facility] [address] [id number] [place] [address] Jul, [facility] [place] [facility] [address] [id number] [place] [address] Jul, [facility] [place] [facility] [address] [id number] [place] [address] Jul, [facility] [place] [facility] [address] [id number] [place] [address] Jun, [facility] [place] [facility] [address] [id number] [place] [address] Apr, [facility] [place] [facility] [address] [id number] [place] [address] Apr, [facility] [place] [facility] [address] [id number] [place] [address] Apr, [facility] [place] [facility] [address] [id number] [place] [address] Apr, [facility] [place] [facility] [address] [id number] [place] [address] Apr, [facility] [place] [facility] [address] [id number] [place] [address] Apr, [facility] [place] [facility] [address] [id number] [place] [address] Apr, [facility] [place] [facility] [address] [id number] [place] [address] Apr, [facility] [place] [facility] [address] [id number] [place] [address] Apr, [facility] [place] [facility] [address] [id number] [place] [address] Apr, [facility] [place] [facility] [address] [id number] [place] [address] Apr, [facility] [place] [facility] [address] [id number] [place] [address] Apr, [facility] [place] [facility] [address] [id number] [place] [address] Mar, [facility] [place] [facility] [address] [id number] [place] [address] Mar, [facility] [place] [facility] [id number] [place] [address] Mar, [facility] [place] [facility] [id number] [place] [address] Mar, [facility] [place] [facility] [id number] [place] [address] Mar, [facility] [place] [facility] [address] [id number] [place] [address] Mar, [facility] [place] [facility] [address] [id number] [place] [address] 05 Mar, 2012 [facility] [place] [facility] [address] [id number] [place] [address] 25 Feb, 2012 [facility] [place] [facility] [address] [id number] [place] [address] 24 Feb, 2012 [facility] [place] [facility] [address] [id number] [place] [address] Feb, [facility] [address] [id number] [place] [address] Feb, [facility] [address] [id number] [place] [address] Jan, [facility] [address] [id number] [place] [address] Jan, [facility] [address] [id number] [place] [address] Jan, [facility] [address] [id number] [place] [address] Jan, IMMUNIZATIONS No Known Immunizations SOCIAL HISTORY Never Assessed REASON FOR VISIT PLAN OF CARE VITAL SIGNS MEDICATIONS Unknown Medications RESULTS No Results PROCEDURES No Known procedures INSTRUCTIONS MEDICATIONS ADMINISTERED No Known Medications
--- OUTSIDE RECORDS SUMMARY | 2020-01-17 06:39 | XMS REPORT ---
Author Author Yogesh Kelly Doctor Organization [facility] Address Unknown Phone Unavailable Care Team Providers Care Lawn Sprinkler Installer Name Role Phone Migration, Doctor Unavailable Unavailable PROBLEMS Type Condition ICD9-CM Code [id number] Code Onset Dates Condition S tatus SNOMED Code Problem Encounter for long-term (current) use of other medications V58.69 Active 070399430 Problem [facility]ine [facility] at [facility] V70.0 Active 190012067 Problem Family history of unspecified malignant neoplasm V16.9 Active 686263142 Problem Nonspecific elevation of lev els of transaminase or lactic acid dehydrogenase (LDH) 790.4 Active 13735092 2 Problem Personal history of other allergy, other than to medicinal agents V15.09 Active 930817702 Problem Essential hypertension, benign 401.1 Active 7003248 Problem Coronary atherosclerosis of unspecified type of vessel, [place] or graft 414.00 Active 043474688 Problem Dizziness and giddiness 780.4 Active 292550376 Problem Chest pain, unspecified 786.50 Active 77688771 Problem Lumbago 724.2 Active 365137502 Problem Cervicalgia 723.1 Active 08282933 Problem Other specified cardiac dysrhythmias 427.89 Active 157979807 Problem Peptic ulcer, unspecified si te, unspecified as acute or chronic, without mention of hemorrhage, perforation, or obstruction 533.90 Active 64071727 Problem Right bundle branch block 426.4 Acti ve 69600852 Problem 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 Active 51235540 Problem Unspecified tinnitus 388.30 Active 81114468 Problem Unspecified hearing loss 389.9 Activ e 31046140 Problem Unspecified otalgia 388.70 Active 89032509 Problem Malignant neoplasm of prostate 185 Active 624844229 Problem Polyuria 788.42 Active 17158627 Problem Unspecified viral hepatitis C without hepatic coma 070.70 Active 49622965 Problem Abdominal or pelvic swelling, mass or lump, unspecified si te 789.30 Active 684277259 Problem Dysuria 788.1 Active 70377664 Problem Unspecified cataract 366.9 Active 005868502 Problem Unspecified episodic mood disorder 296.90 Active 632041118 Problem Other and unspecified hyperlipidemia 272.4 Active 14974796 Problem Unspecified hypothyroidism 244.9 Act katty 73226534 ALLERGIES No Information ENCOUNTERS Encounter Location Date Diagnosis [facility] [id number] [place] [address] 14 Sep, 2014 [facility] [id number] [place] [address] Sep, [facility] [id number] [place] [address] Jun, [facility] [address] [address] Jun, [facility] [id number] [place] [address] May, [facility] [id number] [place] [address] May, [facility] [id number] [place] [address] Feb, [facility] [address] [address] Feb, [facility] [id number] [place] [address] Feb, [facility] [id number] [place] [address] Jan, [facility] [id number] [place] [address] Jan, [facility] [id number] [place] [address] Nov, [facility] [id number] [place] [address] Nov, [facility] [id number] [place] [address] Nov, [facility] [id number] [place] [address] 05 Nov, 2013 [facility] [place] [facility] [address] [facility] [place] [place] [id number] [facility] [place] [address] Aug, [facility] [place] [facility] [address] [facility] [id number] [facility] [place] [address] 28 Aug, 2013 [facility] [place] [facility] [address] [id number] [facility] [place] [address] 14 Aug, 2013 [facility] [place] [facility] [address] [id number] [place] [address] 14 Aug, 2013 [facility] [place] [facility] [address] [facility] [place] [id number] [facility] [place] [address] Aug, [facility] [place] [facility] [address] [id number] [place] [address] Aug, [facility] [place] [facility] [address] [id number] [facility] [place] [address] Aug, [facility] [place] [facility] [address] [id number] [facility] [place] [address] Aug, [facility] [place] [facility] [address] [id number] [facility] [place] [address] Aug, [facility] [place] [facility] [address] [id number] [facility] [place] [address] Aug, [facility] [place] [facility] [address] [id number] [place] [address] Jul, [facility] [place] [facility] [address] [id number] [place] [address] Jul, [facility] [place] [facility] [address] [id number] [facility] [place] [address] Jul, [facility] [place] [facility] [address] [id number] [place] [address] Jul, [facility] [place] [facility] [address] [id number] [place] [address] Jul, [facility] [place] [facility] [address] [id number] [place] [address] Jul, [facility] [place] [facility] [address] [id number] [place] [address] Jul, [facility] [place] [facility] [address] [id number] [place] [address] Jul, [facility] [place] [facility] [address] [id number] [place] [address] Jun, [facility] [place] [facility] [address] [id number] [place] [address] Jun, [facility] [place] [facility] [address] [id number] [place] [address] Jun, [facility] [place] [facility] [address] [id number] [place] [address] Jun, [facility] [place] [facility] [address] [id number] [place] [address] Jun, [facility] [place] [facility] [address] [id number] [place] [address] Jun, [facility] [place] [facility] [address] [id number] [place] [address] Jun, [facility] [place] [facility] [address] [id number] [place] [address] Jun, [facility] [place] [facility] [address] [id number] [place] [address] May, [facility] [place] [facility] [address] [id number] [place] [address] May, [facility] [place] [facility] [address] [id number] [place] [address] May, [facility] [place] [facility] [address] [id number] [place] [address] May, [facility] [place] [facility] [address] [id number] [place] [address] May, [facility] [place] [facility] [address] [id number] [place] [address] May, [facility] [place] [facility] [address] [id number] [place] [address] May, [facility] [place] [facility] [address] [id number] [place] [address] May, [facility] [place] [facility] [address] [id number] [place] [address] Apr, [facility] [place] [facility] [address] [id number] [place] [address] Apr, [facility] [place] [facility] [address] [id number] [place] [address] Apr, [facility] [place] [facility] [address] [id number] [place] [address] Apr, [facility] [place] [facility] [address] [id number] [place] [address] Apr, [facility] [place] [facility] [address] [id number] [place] [address] Apr, [facility] [place] [facility] [address] [id number] [place] [address] Apr, [facility] [place] [facility] [address] [id number] [place] [address] Apr, [facility] [place] [facility] [address] [id number] [place] [address] Mar, [facility] [place] [facility] [address] [id number] [place] [address] Mar, [facility] [place] [facility] [address] [id number] [place] [address] 18 Feb, 2013 [facility] [place] [facility] [address] [id number] [place] [address] 17 Feb, 2013 [facility] [place] [facility] [address] [id number] [place] [address] Feb, [facility] [place] [facility] [address] [id number] [place] [address] Jan, [facility] [place] [facility] [address] [id number] [place] [address] Jan, [facility] [place] [facility] [address] [id number] [place] [address] Jan, [facility] [place] [facility] [address] [id number] [place] [address] Jan, [facility] [place] [facility] [address] [facility] [place] [id number] [place] [address] Jan, [facility] [place] [facility] [address] [id number] [place] [address] Jan, [facility] [place] [facility] [address] [id number] [place] [address] Jan, [facility] [place] [facility] [address] [id number] [place] [address] Dec, [facility] [place] [facility] [address] [id number] [place] [address] Dec, [facility] [place] [facility] [address] [id number] [place] [address] Dec, [facility] [place] [facility] [address] [id number] [place] [address] Dec, [facility] [place] [facility] [address] [id number] [place] [address] Nov, [facility] [place] [facility] [address] [id number] [place] [address] Nov, [facility] [place] [facility] [address] [id number] [place] [address] Nov, [facility] [place] [facility] [address] [id number] [place] [address] October, [facility] [place] [facility] [address] [id number] [place] [address] Sep, [facility] [place] [facility] [address] [id number] [place] [address] Sep, [facility] [place] [facility] [address] [id number] [place] [address] Sep, [facility] [place] [facility] [address] [id number] [place] [address] Sep, [facility] [place] [facility] [address] [id number] [place] [address] Sep, [facility] [facility] [address] [id number] [place] [address] Sep, [facility] [place] [facility] [address] [id number] [place] [address] Sep, [facility] [place] [facility] [address] [id number] [place] [address] Sep, [facility] [place] [facility] [address] [id number] [place] [address] Sep, [facility] [place] [facility] [address] [id number] [place] [address] Aug, [facility] [place] [facility] [address] [id number] [place] [address] Aug, [facility] [address] [id number] [place] [address] Jul, [facility] [place] [facility] [address] [id number] [place] [address] Jul, [facility] [place] [facility] [address] [id number] [place] [address] Jul, [facility] [place] [facility] [address] [id number] [place] [address] Jun, [facility] [place] [facility] [address] [id number] [place] [address] Apr, [facility] [place] [facility] [address] [id number] [place] [address] Apr, [facility] [place] [facility] [address] [id number] [place] [address] Apr, [facility] [place] [facility] [address] [id number] [place] [address] Apr, [facility] [place] [facility] [address] [id number] [place] [address] Apr, [facility] [place] [facility] [address] [id number] [place] [address] Apr, [facility] [place] [facility] [address] [id number] [place] [address] Apr, [facility] [place] [facility] [address] [id number] [place] [address] Apr, [facility] [place] [facility] [address] [id number] [place] [address] Apr, [facility] [place] [facility] [address] [id number] [place] [address] Apr, [facility] [place] [facility] [address] [id number] [place] [address] Apr, [facility] [place] [facility] [address] [id number] [place] [address] Apr, [facility] [place] [facility] [address] [id number] [place] [address] Mar, [facility] [place] [facility] [id number] [place] [address] Mar, [facility] [place] [facility] [address] [id number] [place] [address] Mar, [facility] [place] [facility] [id number] [place] [address] Mar, [facility] [place] [facility] [id number] [place] [address] Mar, [facility] [place] [facility] [id number] [place] [address] Mar, [facility] [place] [facility] [address] [id number] [place] [address] 05 Mar, 2012 [facility] [place] [facility] [address] [id number] [place] [address] 25 Feb, 2012 [facility] [place] [address] [id number] [place] [address] 24 Sep2011 [facility] [place] [facility] [id number] [place] [address] 10 Feb, 2012 [facility] [place] [facility] [address] [id number] [place] [address] Feb, [facility] [address] [id number] [place] [address] Jan, [facility] [address] [id number] [place] [address] Jan, [facility] [address] [id number] [place] [address] Jan, [facility] [address] [id number] [place] [address] Jan, IMMUNIZATIONS No Known Immunizations SOCIAL HISTORY Never Assessed REASON FOR VISIT PLAN OF CARE VITAL SIGNS MEDICATIONS Unknown Medications RESULTS No Results PROCEDURES No Known procedures INSTRUCTIONS MEDICATIONS ADMINISTERED No Known Medications
--- OUTSIDE RECORDS SUMMARY | 2020-01-17 06:40 | XMS REPORT ---
Author Author Yogesh Kelly Doctor Organization [facility] Address Unknown Phone Unavailable Care Team Providers Care Bilingual Spanish Inbound Sales Name Role Phone Migration, Doctor Unavailable Unavailable PROBLEMS Type Condition ICD9-CM Code WAW41-DM Code Onset Dates Condition S tatus SNOMED Code Problem Encounter for long-term (current) use of other medications V58.69 Active 831364404 Problem Routine general medical examination at [facility] V70.0 Active 849321143 Problem Family history of unspecified malignant neoplasm V16.9 Active 722288204 Problem Nonspecific elevation of lev els of transaminase or lactic acid dehydrogenase (LDH) 790.4 Active 66923063 2 Problem Personal history of other allergy, other than to medicinal agents V15.09 Active 248562785 Problem Essential hypertension, benign 401.1 Active 2410604 Problem Coronary atherosclerosis of unspecified type of vessel, [place] or graft 414.00 Active 803049896 Problem Dizziness and giddiness 780.4 Active 753701085 Problem Chest pain, unspecified 786.50 Active 11725980 Problem Lumbago 724.2 Active 113863369 Problem Cervicalgia 723.1 Active 37284628 Problem Other specified cardiac dysrhythmias 427.89 Active 858326464 Problem Peptic ulcer, unspecified si te, unspecified as acute or chronic, without mention of hemorrhage, perforation, or obstruction 533.90 Active 47399549 Problem Right bundle branch block 426.4 Acti ve 35309125 Problem 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 Active 43970735 Problem Unspecified tinnitus 388.30 Active 44159151 Problem Unspecified hearing loss 389.9 Activ e 97657932 Problem Unspecified otalgia 388.70 Active 21093317 Problem Malignant neoplasm of prostate 185 Active 011087756 Problem Polyuria 788.42 Active 95605154 Problem Unspecified viral hepatitis C without hepatic coma 070.70 Active 75835623 Problem Abdominal or pelvic swelling, mass or lump, unspecified si te 789.30 Active 473875864 Problem Dysuria 788.1 Active 93883413 Problem Unspecified cataract 366.9 Active 518516451 Problem Unspecified episodic mood disorder 296.90 Active 755618835 Problem Other and unspecified hyperlipidemia 272.4 Active 90885962 Problem Unspecified hypothyroidism 244.9 Act katty [id number] ALLERGIES No Information ENCOUNTERS Encounter Location Date Diagnosis [facility] [id number] [place] [address] 14 Sep, 2014 [facility] [id number] [place] [address] Sep, [facility] [id number] [place] [address] Jun, [facility] [address] [address] Jun, [facility] [id number] [place] [address] May, [facility] [id number] [place] [address] May, [facility] [id number] [place] [address] Feb, [facility] [address] [address] Feb, [facility] [id number] [place] [address] Feb, [facility] [id number] [place] [address] Jan, [facility] [id number] [place] [address] Jan, [facility] [id number] [place] [address] Nov, [facility] [id number] [place] [address] Nov, [facility] [id number] [place] [address] Nov, [facility] [id number] [place] [address] 05 Nov, 2013 [facility] [place] [facility] [address] [facility] [id number] [place] [address] Aug, [facility] [place] [facility] [address] [facility] [id number] [place] [address] 28 Aug, 2013 [facility] [place] [facility] [address] [id number] [place] [address] 14 Aug, 2013 [facility] [place] [facility] [address] [id number] [place] [address] 14 Aug, 2013 [facility] [place] [facility] [address] [facility] [id number] [place] [address] Aug, [facility] [place] [facility] [address] [id number] [place] [address] Aug, [facility] [place] [facility] [address] [id number] [place] [address] Aug, [facility] [place] [facility] [address] [id number] [place] [address] Aug, [facility] [place] [facility] [address] [id number] [place] [address] Aug, [facility] [place] [facility] [address] [id number] [place] [address] Aug, [facility] [place] [facility] [address] [id number] [place] [address] Jul, [facility] [place] [facility] [address] [id number] [place] [address] Jul, [facility] [place] [facility] [address] [id number] [place] [address] Jul, [facility] [place] [facility] [address] [id number] [place] [address] Jul, [facility] [place] [facility] [address] [id number] [place] [address] Jul, [facility] [place] [facility] [address] [id number] [place] [address] Jul, [facility] [place] [facility] [address] [id number] [place] [address] Jul, [facility] [place] [facility] [address] [id number] [place] [address] Jul, [facility] [place] [facility] [address] [id number] [place] [address] Jun, [facility] [place] [facility] [address] [id number] [place] [address] Jun, [facility] [place] [facility] [address] [id number] [place] [address] Jun, [facility] [place] [facility] [address] [id number] [place] [address] Jun, [facility] [place] [facility] [address] [id number] [place] [address] Jun, [facility] [place] [facility] [address] [id number] [place] [address] Jun, [facility] [place] [facility] [address] [id number] [place] [address] Jun, [facility] [place] [facility] [address] [id number] [place] [address] Jun, [facility] [place] [facility] [address] [id number] [place] [address] May, [facility] [place] [facility] [address] [id number] [place] [address] May, [facility] [place] [facility] [address] [id number] [place] [address] May, [facility] [place] [facility] [address] [id number] [place] [address] May, [facility] [place] [facility] [address] [id number] [place] [address] May, [facility] [place] [facility] [address] [id number] [place] [address] May, [facility] [place] [facility] [address] [id number] [place] [address] May, [facility] [place] [facility] [address] [id number] [place] [address] May, [facility] [place] [facility] [address] [id number] [place] [address] Apr, [facility] [place] [facility] [address] [id number] [place] [address] Apr, [facility] [place] [facility] [address] [id number] [place] [address] Apr, [facility] [place] [facility] [address] [id number] [place] [address] Apr, [facility] [place] [facility] [address] [id number] [place] [address] Apr, [facility] [place] [facility] [address] [id number] [place] [address] Apr, [facility] [place] [facility] [address] [id number] [place] [address] Apr, [facility] [place] [facility] [address] [id number] [place] [address] Apr, [facility] [place] [facility] [address] [id number] [place] [address] Mar, [facility] [place] [facility] [address] [id number] [place] [address] Mar, [facility] [place] [facility] [address] [id number] [place] [address] 18 Feb, 2013 [facility] [place] [facility] [address] [id number] [place] [address] 17 Feb, 2013 [facility] [place] [facility] [address] [id number] [place] [address] Feb, [facility] [place] [facility] [address] [id number] [place] [address] Jan, [facility] [place] [facility] [address] [id number] [place] [address] Jan, [facility] [place] [facility] [address] [id number] [place] [address] Jan, [facility] [place] [facility] [address] [id number] [place] [address] Jan, [facility] [place] [facility] [address] [facility] [id number] [place] [address] Jan, [facility] [place] [facility] [address] [id number] [place] [address] Jan, [facility] [place] [facility] [address] [id number] [place] [address] Jan, [facility] [place] [facility] [address] [id number] [place] [address] Dec, [facility] [place] [facility] [address] [id number] [place] [address] Dec, [facility] [place] [facility] [address] [id number] [place] [address] Dec, [facility] [place] [facility] [address] [id number] [place] [address] Dec, [facility] [place] [facility] [address] [id number] [place] [address] Nov, [facility] [place] [facility] [address] [id number] [place] [address] Nov, [facility] [place] [facility] [address] [id number] [place] [address] Nov, [facility] [place] [facility] [address] [id number] [place] [address] October, [facility] [place] [facility] [address] [id number] [place] [address] Sep, [facility] [place] [facility] [address] [id number] [place] [address] Sep, [facility] [place] [facility] [address] [id number] [place] [address] Sep, [facility] [place] [facility] [address] [id number] [place] [address] Sep, [facility] [place] [facility] [address] [id number] [place] [address] Sep, [facility] [place] [facility] [address] [id number] [place] [address] Sep, [facility] [place] [facility] [address] [id number] [place] [address] Sep, [facility] [place] [facility] [address] [id number] [place] [address] Sep, [facility] [place] [facility] [address] [id number] [place] [address] Sep, [facility] [place] [facility] [address] [id number] [place] [address] Aug, [facility] [place] [facility] [address] [id number] [place] [address] Aug, [facility] [address] [id number] [place] [address] Jul, [facility] [place] [facility] [address] [id number] [place] [address] Jul, [facility] [place] [facility] [address] [id number] [place] [address] Jul, [facility] [place] [facility] [address] [id number] [place] [address] Jun, [facility] [place] [facility] [address] [id number] [place] [address] Apr, [facility] [place] [facility] [address] [id number] [place] [address] Apr, [facility] [place] [facility] [address] [id number] [place] [address] Apr, [facility] [place] [facility] [address] [id number] [place] [address] Apr, [facility] [place] [facility] [address] [id number] [place] [address] Apr, [facility] [place] [facility] [address] [id number] [place] [address] Apr, [facility] [place] [facility] [address] [id number] [place] [address] Apr, [facility] [place] [facility] [address] [id number] [place] [address] Apr, [facility] [place] [facility] [address] [id number] [place] [address] Apr, [facility] [place] [facility] [address] [id number] [place] [address] Apr, [facility] [place] [facility] [address] [id number] [place] [address] Apr, [facility] [place] [facility] [address] [id number] [place] [address] Apr, [facility] [place] [facility] [address] [id number] [place] [address] Mar, [facility] [place] [facility] [id number] [place] [address] Mar, [facility] [place] [facility] [address] [id number] [place] [address] Mar, [facility] [place] [facility] [id number] [place] [address] Mar, [facility] [place] [facility] [id number] [place] [address] Mar, [facility] [place] [facility] [id number] [place] [address] Mar, [facility] [place] [facility] [address] [id number] [place] [address] 05 Mar, 2012 [facility] [place] [facility] [address] [id number] [place] [address] 25 Feb, 2012 [facility] [place] [facility] [address] [id number] [place] [address] 24 Sep2011 [facility] [place] [facility] [id number] [place] [address] 10 Feb, 2012 [facility] [place] [facility] [address] [id number] [place] [address] Feb, [facility] [address] [id number] [place] [address] Jan, [facility] [address] [id number] [place] [address] Jan, [facility] [address] [id number] [place] [address] Jan, [facility] [address] [id number] [place] [address] Jan, IMMUNIZATIONS No Known Immunizations SOCIAL HISTORY Never Assessed REASON FOR VISIT PLAN OF CARE VITAL SIGNS Height 72 in 2013-08-19 Weight 271.01 lbs 2013-08-19 Temperature 98.3 degrees Fahrenheit 2013-08-19 Heart Rate 80 bpm 2013-08-19 Respiratory Rate 24 2013-08-19 Blood pressure systolic 128 mmHg 2013-08-19 Blood pressure diastolic 78 mmHg 2013-08-19 MEDICATIONS Unknown Medications RESULTS No Results PROCEDURES No Known procedures INSTRUCTIONS MEDICATIONS ADMINISTERED No Known Medications
--- OUTSIDE RECORDS SUMMARY | 2020-01-17 06:40 | XMS REPORT ---
Author Author Yogesh Kelly Doctor Organization [facility] Address Unknown Phone Unavailable Care Team Providers Care Safety Professional Name Role Phone Migration, Doctor Unavailable Unavailable PROBLEMS Type Condition ICD9-CM Code [id number] Code Onset Dates Condition S tatus SNOMED Code Problem Encounter for long-term (current) use of other medications V58.69 Active 972299724 Problem Routine general medical examination at [facility] V70.0 Active 839665557 Problem Family history of unspecified malignant neoplasm V16.9 Active 371875358 Problem Nonspecific elevation of lev els of transaminase or lactic acid dehydrogenase (LDH) 790.4 Active 05792547 2 Problem Personal history of other allergy, other than to medicinal agents V15.09 Active 840426551 Problem Essential hypertension, benign 401.1 Active 9842158 Problem Coronary atherosclerosis of unspecified type of vessel, [place] or graft 414.00 Active 074390375 Problem Dizziness and giddiness 780.4 Active 873661845 Problem Chest pain, unspecified 786.50 Active 96014117 Problem Lumbago 724.2 Active 291161444 Problem Cervicalgia 723.1 Active 45729066 Problem Other specified cardiac dysrhythmias 427.89 Active 891238926 Problem Peptic ulcer, unspecified si te, unspecified as acute or chronic, without mention of hemorrhage, perforation, or obstruction 533.90 Active 29509731 Problem Right bundle branch block 426.4 Acti ve 08078551 Problem 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 Active 96038374 Problem Unspecified tinnitus 388.30 Active 96072727 Problem Unspecified hearing loss 389.9 Activ e 76230768 Problem Unspecified otalgia 388.70 Active 41285528 Problem Malignant neoplasm of prostate 185 Active 141260637 Problem Polyuria 788.42 Active 06883878 Problem Unspecified viral hepatitis C without hepatic coma 070.70 Active 09097502 Problem Abdominal or pelvic swelling, mass or lump, unspecified si te 789.30 Active 425159703 Problem Dysuria 788.1 Active 89566267 Problem Unspecified cataract 366.9 Active 951680008 Problem Unspecified episodic mood disorder 296.90 Active 847659090 Problem Other and unspecified hyperlipidemia 272.4 Active 91948281 Problem Unspecified hypothyroidism 244.9 Act katty 25252854 ALLERGIES No Information ENCOUNTERS Encounter Location Date Diagnosis [facility] [id number] [place] [address] 14 Sep, 2014 [facility] [id number] [place] [address] Sep, [facility] [id number] [place] [address] Jun, [facility] [address] [address] Jun, [facility] [id number] [place] [address] May, [facility] [id number] [place] [address] May, [facility] [id number] [place] [address] Feb, [facility] [address] [address] Feb, [facility] [id number] [place] [address] Feb, [facility] [id number] [place] [address] Jan, [facility] [id number] [place] [address] Jan, [facility] [id number] [place] [address] Nov, [facility] [id number] [place] [address] Nov, [facility] [id number] [place] [address] Nov, [facility] [id number] [place] [address] 05 Nov, 2013 [facility] [place] [facility] [address] [facility] [id number] [facility] [place] [address] Aug, [facility] [place] [facility] [address] [facility] [id number] [facility] [place] [address] 28 Aug, 2013 [facility] [place] [facility] [address] [id number] [facility] [place] [address] 14 Aug, 2013 [facility] [place] [facility] [address] [id number] [place] [address] 14 Aug, 2013 [facility] [place] [facility] [address] [facility] [id number] [facility] [place] [address] Aug, [facility] [place] [facility] [address] [id number] [place] [address] Aug, [facility] [place] [facility] [address] [id number] [facility] [place] [address] Aug, [facility] [place] [facility] [address] [id number] [facility] [place] [address] Aug, [facility] [place] [facility] [address] [id number] [facility] [place] [address] Aug, [facility] [place] [facility] [address] [id number] [facility] [place] [address] Aug, [facility] [place] [facility] [address] [id number] [place] [address] Jul, [facility] [place] [facility] [address] [id number] [place] [address] Jul, [facility] [place] [facility] [address] [id number] [facility] [place] [address] Jul, [facility] [place] [facility] [address] [id number] [place] [address] Jul, [facility] [place] [facility] [address] [id number] [place] [address] Jul, [facility] [place] [facility] [address] [id number] [place] [address] Jul, [facility] [place] [facility] [address] [id number] [place] [address] Jul, [facility] [place] [facility] [address] [id number] [place] [address] Jul, [facility] [place] [facility] [address] [id number] [place] [address] Jun, [facility] [place] [facility] [address] [id number] [place] [address] Jun, [facility] [place] [facility] [address] [id number] [place] [address] Jun, [facility] [place] [facility] [address] [id number] [place] [address] Jun, [facility] [place] [facility] [address] [id number] [place] [address] Jun, [facility] [place] [facility] [address] [id number] [place] [address] Jun, [facility] [place] [facility] [address] [id number] [place] [address] Jun, [facility] [place] [facility] [address] [id number] [place] [address] Jun, [facility] [place] [facility] [address] [id number] [place] [address] May, [facility] [place] [facility] [address] [id number] [place] [address] May, [facility] [place] [facility] [address] [id number] [place] [address] May, [facility] [place] [facility] [address] [id number] [place] [address] May, [facility] [place] [facility] [address] [id number] [place] [address] May, [facility] [place] [facility] [address] [id number] [place] [address] May, [facility] [place] [facility] [address] [id number] [place] [address] May, [facility] [place] [facility] [address] [id number] [place] [address] May, [facility] [place] [facility] [address] [id number] [place] [address] Apr, [facility] [place] [facility] [address] [id number] [place] [address] Apr, [facility] [place] [facility] [address] [id number] [place] [address] Apr, [facility] [place] [facility] [address] [id number] [place] [address] Apr, [facility] [place] [facility] [address] [id number] [place] [address] Apr, [facility] [place] [facility] [address] [id number] [place] [address] Apr, [facility] [place] [facility] [address] [id number] [place] [address] Apr, [facility] [place] [facility] [address] [id number] [place] [address] Apr, [facility] [place] [facility] [address] [id number] [place] [address] Mar, [facility] [place] [facility] [address] [id number] [place] [address] Mar, [facility] [place] [facility] [address] [id number] [place] [address] 18 Feb, 2013 [facility] [place] [facility] [address] [id number] [place] [address] 17 Feb, 2013 [facility] [place] [facility] [address] [id number] [place] [address] Feb, [facility] [place] [facility] [address] [id number] [place] [address] Jan, [facility] [place] [facility] [address] [id number] [place] [address] Jan, [facility] [place] [facility] [address] [id number] [place] [address] Jan, [facility] [place] [facility] [address] [id number] [place] [address] Jan, [facility] [place] [facility] [address] [facility] [id number] [place] [address] Jan, [facility] [place] [facility] [address] [id number] [place] [address] Jan, [facility] [place] [facility] [address] [id number] [place] [address] Jan, [facility] [place] [facility] [address] [id number] [place] [address] Dec, [facility] [place] [facility] [address] [id number] [place] [address] Dec, [facility] [place] [facility] [address] [id number] [place] [address] Dec, [facility] [place] [facility] [address] [id number] [place] [address] Dec, [facility] [place] [facility] [address] [id number] [place] [address] Nov, [facility] [place] [facility] [address] [id number] [place] [address] Nov, [facility] [place] [facility] [address] [id number] [place] [address] Nov, [facility] [place] [facility] [address] [id number] [place] [address] October, [facility] [place] [facility] [address] [id number] [place] [address] Sep, [facility] [place] [facility] [address] [id number] [place] [address] Sep, [facility] [place] [facility] [address] [id number] [place] [address] Sep, [facility] [place] [facility] [address] [id number] [place] [address] Sep, [facility] [place] [facility] [address] [id number] [place] [address] Sep, [facility] [place] [facility] [address] [id number] [place] [address] Sep, [facility] [place] [facility] [address] [id number] [place] [address] Sep, [facility] [place] [facility] [address] [id number] [place] [address] Sep, [facility] [place] [facility] [address] [id number] [place] [address] Sep, [facility] [place] [facility] [address] [id number] [place] [address] Aug, [facility] [place] [facility] [address] [id number] [place] [address] Aug, [facility] [address] [id number] [place] [address] Jul, [facility] [place] [facility] [address] [id number] [place] [address] Jul, [facility] [place] [facility] [address] [id number] [place] [address] Jul, [facility] [place] [facility] [address] [id number] [place] [address] Jun, [facility] [place] [facility] [address] [id number] [place] [address] Apr, [facility] [place] [facility] [address] [id number] [place] [address] Apr, [facility] [place] [facility] [address] [id number] [place] [address] Apr, [facility] [place] [facility] [address] [id number] [place] [address] Apr, [facility] [place] [facility] [address] [id number] [place] [address] Apr, [facility] [place] [facility] [address] [id number] [place] [address] Apr, [facility] [place] [facility] [address] [id number] [place] [address] Apr, [facility] [place] [facility] [address] [id number] [place] [address] Apr, [facility] [place] [facility] [address] [id number] [place] [address] Apr, [facility] [place] [facility] [address] [id number] [place] [address] Apr, [facility] [place] [facility] [address] [id number] [place] [address] Apr, [facility] [place] [facility] [address] [id number] [place] [address] Apr, [facility] [place] [facility] [address] [id number] [place] [address] Mar, [facility] [place] [facility] [id number] [place] [address] Mar, [facility] [place] [facility] [address] [id number] [place] [address] Mar, [facility] [place] [facility] [id number] [place] [address] Mar, [facility] [place] [facility] [id number] [place] [address] Mar, [facility] [place] [facility] [id number] [place] [address] Mar, [facility] [place] [facility] [address] [id number] [place] [address] 05 Mar, 2012 [facility] [place] [facility] [address] [id number] [place] [address] 25 Feb, 2012 [facility] [place] [facility] [address] [id number] [place] [address] 24 Sep2011 [facility] [place] [facility] [id number] [place] [address] 10 Feb, 2012 [facility] [place] [facility] [address] [id number] [place] [address] Feb, [facility] [address] [id number] [place] [address] Jan, [facility] [address] [id number] [place] [address] Jan, [facility] [address] [id number] [place] [address] Jan, [facility] [address] [id number] [place] [address] Jan, IMMUNIZATIONS No Known Immunizations SOCIAL HISTORY Never Assessed REASON FOR VISIT PLAN OF CARE VITAL SIGNS MEDICATIONS Unknown Medications RESULTS No Results PROCEDURES No Known procedures INSTRUCTIONS MEDICATIONS ADMINISTERED No Known Medications
--- OUTSIDE RECORDS SUMMARY | 2020-01-17 06:40 | XMS REPORT ---
Author Author Yogesh Kelly Doctor Organization [facility] Address Unknown Phone Unavailable Care Team Providers Care Laboratory Asst Name Role Phone Migration, Doctor Unavailable Unavailable PROBLEMS Type Condition ICD9-CM Code ZRD14-TY Code Onset Dates Condition S tatus SNOMED Code Problem Encounter for long-term (current) use of other medications V58.69 Active 164732797 Problem Routine general medical examination at [email or web address]] V70.0 Active 636147831 Problem Family history of unspecified malignant neoplasm V16.9 Active 953542997 Problem Nonspecific elevation of lev els of transaminase or lactic acid dehydrogenase (LDH) 790.4 Active 26263761 2 Problem Personal history of other allergy, other than to medicinal agents V15.09 Active 355444845 Problem Essential hypertension, benign 401.1 Active 5061901 Problem Coronary atherosclerosis of unspecified type of vessel, [place] or graft 414.00 Active 408129774 Problem Dizziness and giddiness 780.4 Active 123781357 Problem Chest pain, unspecified 786.50 Active 89321112 Problem Lumbago 724.2 Active 797127158 Problem Cervicalgia 723.1 Active 19197040 Problem Other specified cardiac dysrhythmias 427.89 Active 422722394 Problem Peptic ulcer, unspecified si te, unspecified as acute or chronic, without mention of hemorrhage, perforation, or obstruction 533.90 Active 81518038 Problem Right bundle branch block 426.4 Acti ve 40691923 Problem 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 Active 41107588 Problem Unspecified tinnitus 388.30 Active 68357017 Problem Unspecified hearing loss 389.9 Activ e 59863296 Problem Unspecified otalgia 388.70 Active 93026317 Problem Malignant neoplasm of prostate 185 Active 595678257 Problem Polyuria 788.42 Active 89698487 Problem Unspecified viral hepatitis C without hepatic coma 070.70 Active 91920597 Problem Abdominal or pelvic swelling, mass or lump, unspecified si te 789.30 Active 140954214 Problem Dysuria 788.1 Active 46292831 Problem Unspecified cataract 366.9 Active 403317973 Problem Unspecified episodic mood disorder 296.90 Active 999724509 Problem Other and unspecified hyperlipidemia 272.4 Active 71610198 Problem Unspecified hypothyroidism 244.9 Act katty 87651637 ALLERGIES No Information ENCOUNTERS Encounter Location Date Diagnosis [facility] [address] [id number] [address] [place] [id number] 14 Sep, 2014 [facility] [address] [id number] [address] [place] [phone] Sep, [facility] [address] [id number] [address] [place] [phone] Jun, [facility] [address] [id number] [address] [place] [id number] Jun, [facility] [address] [id number] [address] [place] [phone] May, [facility] [address] [id number] [address] [place] [phone] May, [facility] [address] [id number] [address] [place] [phone] Feb, [facility] [address] [id number] [address] [place] [address] Feb, [facility] [address] [id number] [address] [place] [phone] Feb, [facility] [address] [id number] [address] [place] [phone] Jan, [facility] [address] [id number] [address] [place] [phone] Jan, [facility] [address] [id number] [address] [place] [phone] Nov, [facility] [address] [id number] [address] [place] [phone] Nov, [facility] [address] [id number] [address] [place] [id number] 05 Nov, 2013 [facility] [address] [id number] [facility] [place] [address] 05 Nov, 2013 [facility] [address] [id number] [facility] [place] [address] Aug, [facility] [address] [id number] [facility] [place] [address] Aug, [facility] [address] [id number] [address] [place] [address], [place] [address] Aug, [facility] [address] [id number] [facility] [place] [address] Aug, [facility] [address] [id number] [address] [place] [address], [place] [address] Aug, [facility] [address] [id number] [address] [place] [address], [place] [address] Aug, [facility] [address] [id number] [address] [place] [address], [place] [address] Aug, [facility] [address] [id number] [address] [place] [address], [place] [address] Aug, [facility] [address] [id number] [address] [place] [address], [place] [address] Aug, [facility] [address] [id number] [address] [place] [address], [place] [address] Aug, [facility] [address] [id number] [address] [place] [address], [place] [address] Jul, [facility] [address] [id number] [address] [place] [address], [place] [address] Jul, [facility] [address] [id number] [address] [place] [address], [place] [address] Jul, [facility] [address] [id number] [address] [place] [address], [place] [address] Jul, [facility] [address] [id number] [address] [place] [address], [place] [address] Jul, [facility] [address] [id number] [address] [place] [address], [place] [address] Jul, [facility] [address] [id number] [address] [place] [address], [place] [address] Jul, [facility] [address] [id number] [address] [place] [address], [place] [address] Jul, [facility] [address] [id number] [address] [place] [address], [place] [address] Jun, [facility] [address] [id number] [address] [place] [address], [place] [address] Jun, [facility] [address] [id number] [address] [place] [address], [place] [address] Jun, [facility] [address] [id number] [address] [place] [address], [place] [address] Jun, [facility] [address] [id number] [address] [place] [address], [place] [address] Jun, [facility] [address] [id number] [address] [place] [address], [place] [address] Jun, [facility] [address] [id number] [address] [place] [address], [place] [address] Jun, [facility] [address] [id number] [address] [place] [address], [place] [address] Jun, [facility] [address] [id number] [address] [place] [address], [place] [address] May, [facility] [address] [id number] [address] [place] [address], [place] [address] May, [facility] [address] [id number] [address] [place] [address], [place] [address] May, [facility] [address] [id number] [address] [place] [address], [place] [address] May, [facility] [address] [id number] [address] [place] [address], [place] [address] May, [facility] [address] [id number] [address] [place] [address], [place] [address] May, [facility] [address] [id number] [address] [place] [address], [place] [address] May, [facility] [address] [id number] [address] [place] [address], [place] [address] May, [facility] [address] [id number] [address] [place] [address], [place] [address] Apr, [facility] [address] [id number] [address] [place] [address] Apr, [facility] [address] [id number] [address] [place] [address], [place] [address] Apr, [facility] [address] [id number] [address] [place] [address], [place] [address] Apr, [facility] [address] [id number] [address] [place] [address], [place] [address] Apr, [facility] [address] [id number] [address] [place] [address] Apr, [facility] [address] [id number] [address] [place] [phone] Apr, [facility] [address] [id number] [address] [place] [id number] 18 Apr, 2013 [facility] [address] [id number] [address] [place] [address], [place] [address] Mar, [facility] [address] [id number] [address] [place] [id number] 14 Mar, 2013 [facility] [address] [id number] [address] [place] [id number] 18 Feb, 2013 [facility] [address] [id number] [address] [place] [address], [place] [address] Feb, [facility] [address] [id number] [address] [place] [address], [place] [address] Feb, [facility] [address] [id number] [address] [place] [address], [place] [address] Jan, [facility] [address] [id number] [address] [place] [address], [place] [address] Jan, [facility] [address] [id number] [address] [place] [address], [place] [address] Jan, [facility] [address] [id number] [address] [place] [address], [place] [address] Jan, [facility] [address] [id number] [address] [place] [address], [place] [address] Jan, [facility] [address] [id number] [address] [place] [address], [place] [address] Jan, [facility] [address] [id number] [address] [place] [address], [place] [address] Jan, [facility] [address] [id number] [address] [place] [address], [place] [address] Dec, [facility] [address] [id number] [address] [place] [address], [place] [address] Dec, [facility] [address] [id number] [address] [place] [address], [place] [address] Dec, [facility] [address] [id number] [address] [place] [address], [place] [address] Dec, [facility] [address] [id number] [address] [place] [address], [place] [address] Nov, [facility] [address] [id number] [address] [place] [address], [place] [address] Nov, [facility] [address] [id number] [address] [place] [address], [place] [address] Nov, [facility] [address] [id number] [address] [place] [address], [place] [address] October, [facility] [address] [id number] [address] [place] [address], [place] [address] Sep, [facility] [address] [id number] [address] [place] [address], [place] [address] Sep, [facility] [address] [id number] [address] [place] [address], [place] [address] Sep, [facility] [address] [id number] [address] [place] [address], [place] [address] Sep, [facility] [address] [id number] [address] [place] [address], [place] [address] Sep, [facility] [address] [id number] [address] [place] [address], [place] [address] Sep, [facility] [address] [id number] [address] [place] [address], [place] [address] Sep, [facility] [address] [id number] [address] [place] [address], [place] [address] Sep, [facility] [address] [id number] [address] [place] [address], [place] [address] Sep, [facility] [address] [id number] [address] [place] [address], [place] [address] Aug, [facility] [address] [id number] [address] [place] [address], [place] [address] Aug, [facility] [address] [id number] [address] [place] [address], [place] [address] Jul, [facility] [address] [id number] [address] [place] [address], [place] [address] Jul, [facility] [address] [id number] [address] [place] [address], [place] [address] Jul, [facility] [address] [id number] [address] [place] [address] [place] [address] Jun, [facility] [address] [id number] [address] [place] [address], [place] [address] Apr, [facility] [address] [id number] [address] [place] [address], [place] [address] Apr, [facility] [address] [id number] [address] [place] [address], [place] [address] Apr, [facility] [address] [id number] [address] [place] [address], [place] [address] Apr, [facility] [address] [id number] [address] [place] [address], [place] [address] Apr, [facility] [address] [id number] [address] [place] [address], [place] [address] Apr, [facility] [address] [id number] [address] [place] [address], [place] [address] Apr, [facility] [address] [id number] [address] [place] [address], [place] [address] Apr, [facility] [address] [id number] [address] [place] [address], [place] [address] Apr, [facility] [address] [id number] [address] [place] [address], [place] [address] Apr, [facility] [address] [id number] [address] [place] [address], [place] [address] Apr, [facility] [address] [id number] [address] [place] [address] Apr, [facility] [address] [id number] [address] [place] [address], [place] [address] Mar, [facility] [address] [id number] [address] [place] [address], [place] [address] Mar, [facility] [address] [id number] [address] [place] [address], [place] [address] Mar, [facility] [address] [id number] [address] [place] [id number] 15 Mar, 2012 [facility] [address] [id number] [address] [place] [address] Mar, [facility] [address] [id number] [address] [place] [address] Mar, [facility] [address] [id number] [address] [place] [address] Mar, [facility] [address] [id number] [address] [place] [id number] 25 Feb, 2012 [facility] [address] [id number] [address] [place] [id number] 24 Feb, 2012 [facility] [address] [id number] [address] [place] [address] Feb, [facility] [address] [id number] [address] [place] [address] Feb, [facility] [address] [id number] [address] [place] [address] Jan, [facility] [address] [id number] [address] [place] [id number] Jan, [facility] [address] [id number] [address] [place] [id number] Jan, [facility] [address] [id number] [address] [place] [address] Jan, IMMUNIZATIONS No Known Immunizations SOCIAL HISTORY Never Assessed REASON FOR VISIT PLAN OF CARE VITAL SIGNS MEDICATIONS Unknown Medications RESULTS No Results PROCEDURES No Known procedures INSTRUCTIONS MEDICATIONS ADMINISTERED No Known Medications
--- OUTSIDE RECORDS SUMMARY | 2020-01-17 06:40 | XMS REPORT ---
Author Author Yogesh Kelly Doctor Organization [facility] Address Unknown Phone Unavailable Care Team Providers Care Franchise Sales Director Name Role Phone Migration, Doctor Unavailable Unavailable PROBLEMS Type Condition ICD9-CM Code [id number] Code Onset Dates Condition S tatus SNOMED Code Problem Encounter for long-term (current) use of other medications V58.69 Active 675895649 Problem Routine general medical examination at [facility] V70.0 Active 478807255 Problem Family history of unspecified malignant neoplasm V16.9 Active 786527939 Problem Nonspecific elevation of lev els of transaminase or lactic acid dehydrogenase (LDH) 790.4 Active 00558002 2 Problem Personal history of other allergy, other than to medicinal agents V15.09 Active 905275308 Problem Essential hypertension, benign 401.1 Active 6484190 Problem Coronary atherosclerosis of unspecified type of vessel, [place] or graft 414.00 Active 670828670 Problem Dizziness and giddiness 780.4 Active 358456006 Problem Chest pain, unspecified 786.50 Active 32636940 Problem Lumbago 724.2 Active 962694596 Problem Cervicalgia 723.1 Active 60803105 Problem Other specified cardiac dysrhythmias 427.89 Active 153374779 Problem Peptic ulcer, unspecified si te, unspecified as acute or chronic, without mention of hemorrhage, perforation, or obstruction 533.90 Active 66618961 Problem Right bundle branch block 426.4 Acti ve 81165756 Problem 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 Active 04738490 Problem Unspecified tinnitus 388.30 Active 95326725 Problem Unspecified hearing loss 389.9 Activ e 61221409 Problem Unspecified otalgia 388.70 Active 15251492 Problem Malignant neoplasm of prostate 185 Active 241636445 Problem Polyuria 788.42 Active 81532705 Problem Unspecified viral hepatitis C without hepatic coma 070.70 Active 74508959 Problem Abdominal or pelvic swelling, mass or lump, unspecified si te 789.30 Active 416491356 Problem Dysuria 788.1 Active 13382999 Problem Unspecified cataract 366.9 Active 840962026 Problem Unspecified episodic mood disorder 296.90 Active 790175206 Problem Other and unspecified hyperlipidemia 272.4 Active 75239399 Problem Unspecified hypothyroidism 244.9 Act katty 74955952 ALLERGIES No Information ENCOUNTERS Encounter Location Date Diagnosis [facility] [id number] [place] [address] 14 Sep, 2014 [facility] [id number] [place] [address] Sep, [facility] [id number] [place] [address] Jun, [facility] [address] [address] Jun, [facility] [id number] [place] [address] May, [facility] [id number] [place] [address] May, [facility] [id number] [place] [address] Feb, [facility] [address] [address] Feb, [facility] [id number] [place] [address] Feb, [facility] [id number] [place] [address] Jan, [facility] [id number] [place] [address] Jan, [facility] [id number] [place] [address] Nov, [facility] [id number] [place] [address] Nov, [facility] [id number] [place] [address] Nov, [facility] [id number] [place] [address] 05 Nov, 2013 [facility] [place] [facility] [address] [facility] [id number] [place] [address] Aug, [facility] [place] [facility] [address] [facility] [id number] [place] [address] 28 Aug, 2013 [facility] [place] [facility] [address] [id number] [place] [address] 14 Aug, 2013 [facility] [place] [facility] [address] [id number] [place] [address] 14 Aug, 2013 [facility] [place] [facility] [address] [facility] [id number] [place] [address] Aug, [facility] [place] [facility] [address] [id number] [place] [address] Aug, [facility] [place] [facility] [address] [id number] [place] [address] Aug, [facility] [place] [facility] [address] [id number] [place] [address] Aug, [facility] [place] [facility] [address] [id number] [place] [address] Aug, [facility] [place] [facility] [address] [id number] [place] [address] Aug, [facility] [place] [facility] [address] [id number] [place] [address] Jul, [facility] [place] [facility] [address] [id number] [place] [address] Jul, [facility] [place] [facility] [address] [id number] [place] [address] Jul, [facility] [place] [facility] [address] [id number] [place] [address] Jul, [facility] [place] [facility] [address] [id number] [place] [address] Jul, [facility] [place] [facility] [address] [id number] [place] [address] Jul, [facility] [place] [facility] [address] [id number] [place] [address] Jul, [facility] [place] [facility] [address] [id number] [place] [address] Jul, [facility] [place] [facility] [address] [id number] [place] [address] Jun, [facility] [place] [facility] [address] [id number] [place] [address] Jun, [facility] [place] [facility] [address] [id number] [place] [address] Jun, [facility] [place] [facility] [address] [id number] [place] [address] Jun, [facility] [place] [facility] [address] [id number] [place] [address] Jun, [facility] [place] [facility] [address] [id number] [place] [address] Jun, [facility] [place] [facility] [address] [id number] [place] [address] Jun, [facility] [place] [facility] [address] [id number] [place] [address] Jun, [facility] [place] [facility] [address] [id number] [place] [address] May, [facility] [place] [facility] [address] [id number] [place] [address] May, [facility] [place] [facility] [address] [id number] [place] [address] May, [facility] [place] [facility] [address] [id number] [place] [address] May, [facility] [place] [facility] [address] [id number] [place] [address] May, [facility] [place] [facility] [address] [id number] [place] [address] May, [facility] [place] [facility] [address] [id number] [place] [address] May, [facility] [place] [facility] [address] [id number] [place] [address] May, [facility] [place] [facility] [address] [id number] [place] [address] Apr, [facility] [place] [facility] [address] [id number] [place] [address] Apr, [facility] [place] [facility] [address] [id number] [place] [address] Apr, [facility] [place] [facility] [address] [id number] [place] [address] Apr, [facility] [place] [facility] [address] [id number] [place] [address] Apr, [facility] [place] [facility] [address] [id number] [place] [address] Apr, [facility] [place] [facility] [address] [id number] [place] [address] Apr, [facility] [place] [facility] [address] [id number] [place] [address] Apr, [facility] [place] [facility] [address] [id number] [place] [address] Mar, [facility] [place] [facility] [address] [id number] [place] [address] Mar, [facility] [place] [facility] [address] [id number] [place] [address] 18 Feb, 2013 [facility] [place] [facility] [address] [id number] [place] [address] 17 Feb, 2013 [facility] [place] [facility] [address] [id number] [place] [address] Feb, [facility] [place] [facility] [address] [id number] [place] [address] Jan, [facility] [place] [facility] [address] [id number] [place] [address] Jan, [facility] [place] [facility] [address] [id number] [place] [address] Jan, [facility] [place] [facility] [address] [id number] [place] [address] Jan, [facility] [place] [facility] [address] [facility] [id number] [place] [address] Jan, [facility] [place] [facility] [address] [id number] [place] [address] Jan, [facility] [place] [facility] [address] [id number] [place] [address] Jan, [facility] [place] [facility] [address] [id number] [place] [address] Dec, [facility] [place] [facility] [address] [id number] [place] [address] Dec, [facility] [place] [facility] [address] [id number] [place] [address] Dec, [facility] [place] [facility] [address] [id number] [place] [address] Dec, [facility] [place] [facility] [address] [id number] [place] [address] Nov, [facility] [place] [facility] [address] [id number] [place] [address] Nov, [facility] [place] [facility] [address] [id number] [place] [address] Nov, [facility] [place] [facility] [address] [id number] [place] [address] October, [facility] [place] [facility] [address] [id number] [place] [address] Sep, [facility] [place] [facility] [address] [id number] [place] [address] Sep, [facility] [place] [facility] [address] [id number] [place] [address] Sep, [facility] [place] [facility] [address] [id number] [place] [address] Sep, [facility] [place] [facility] [address] [id number] [place] [address] Sep, [facility] [place] [facility] [address] [id number] [place] [address] Sep, [facility] [place] [facility] [address] [id number] [place] [address] Sep, [facility] [place] [facility] [address] [id number] [place] [address] Sep, [facility] [place] [facility] [address] [id number] [place] [address] Sep, [facility] [place] [facility] [address] [id number] [place] [address] Aug, [facility] [place] [facility] [address] [id number] [place] [address] Aug, [facility] [address] [id number] [place] [address] Jul, [facility] [place] [facility] [address] [id number] [place] [address] Jul, [facility] [place] [facility] [address] [id number] [place] [address] Jul, [facility] [place] [facility] [address] [id number] [place] [address] Jun, [facility] [place] [facility] [address] [id number] [place] [address] Apr, [facility] [place] [facility] [address] [id number] [place] [address] Apr, [facility] [place] [facility] [address] [id number] [place] [address] Apr, [facility] [place] [facility] [address] [id number] [place] [address] Apr, [facility] [place] [facility] [address] [id number] [place] [address] Apr, [facility] [place] [facility] [address] [id number] [place] [address] Apr, [facility] [place] [facility] [address] [id number] [place] [address] Apr, [facility] [place] [facility] [address] [id number] [place] [address] Apr, [facility] [place] [facility] [address] [id number] [place] [address] Apr, [facility] [place] [facility] [address] [id number] [place] [address] Apr, [facility] [place] [facility] [address] [id number] [place] [address] Apr, [facility] [place] [facility] [address] [id number] [place] [address] Apr, [facility] [place] [facility] [address] [id number] [place] [address] Mar, [facility] [place] [facility] [id number] [place] [address] Mar, [facility] [place] [facility] [address] [id number] [place] [address] Mar, [facility] [place] [facility] [id number] [place] [address] Mar, [facility] [place] [facility] [id number] [place] [address] Mar, [facility] [place] [facility] [id number] [place] [address] Mar, [facility] [place] [facility] [address] [id number] [place] [address] 05 Mar, 2012 [facility] [place] [facility] [address] [id number] [place] [address] 25 Feb, 2012 [facility] [place] [facility] [address] [id number] [place] [address] 24 Sep2011 [facility] [place] [facility] [id number] [place] [address] 10 Feb, 2012 [facility] [place] [facility] [address] [id number] [place] [address] Feb, [facility] [address] [id number] [place] [address] Jan, [facility] [address] [id number] [place] [address] Jan, [facility] [address] [id number] [place] [address] Jan, [facility] [address] [id number] [place] [address] Jan, IMMUNIZATIONS No Known Immunizations SOCIAL HISTORY Never Assessed REASON FOR VISIT PLAN OF CARE VITAL SIGNS MEDICATIONS Unknown Medications RESULTS No Results PROCEDURES No Known procedures INSTRUCTIONS MEDICATIONS ADMINISTERED No Known Medications
--- OUTSIDE RECORDS SUMMARY | 2020-01-17 06:40 | XMS REPORT ---
Author Author Yogesh Kelly Doctor Organization [facility] Address Unknown Phone Unavailable Care Team Providers Care Cookie Mixer Helper Name Role Phone Migration, Doctor Unavailable Unavailable PROBLEMS Type Condition ICD9-CM Code BUF16-YB Code Onset Dates Condition S tatus SNOMED Code Problem Encounter for long-term (current) use of other medications V58.69 Active 591966227 Problem Routine general medical examination at [facility] V70.0 Active 942690218 Problem Family history of unspecified malignant neoplasm V16.9 Active 131944736 Problem Nonspecific elevation of lev els of transaminase or lactic acid dehydrogenase (LDH) 790.4 Active 46084495 2 Problem Personal history of other allergy, other than to medicinal agents V15.09 Active 772090891 Problem Essential hypertension, benign 401.1 Active 0403782 Problem Coronary atherosclerosis of unspecified type of vessel, [place] or graft 414.00 Active 751712139 Problem Dizziness and giddiness 780.4 Active 940153595 Problem Chest pain, unspecified 786.50 Active 11404796 Problem Lumbago 724.2 Active 678519479 Problem Cervicalgia 723.1 Active 40836425 Problem Other specified cardiac dysrhythmias 427.89 Active 596495053 Problem Peptic ulcer, unspecified si te, unspecified as acute or chronic, without mention of hemorrhage, perforation, or obstruction 533.90 Active 82220167 Problem Right bundle branch block 426.4 Acti ve 39733711 Problem 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 Active 80504567 Problem Unspecified tinnitus 388.30 Active 68868312 Problem Unspecified hearing loss 389.9 Activ e 72768194 Problem Unspecified otalgia 388.70 Active 46405083 Problem Malignant neoplasm of prostate 185 Active 934272831 Problem Polyuria 788.42 Active 50925078 Problem Unspecified viral hepatitis C without hepatic coma 070.70 Active 16016567 Problem Abdominal or pelvic swelling, mass or lump, unspecified si te 789.30 Active 561087878 Problem Dysuria 788.1 Active 04354307 Problem Unspecified cataract 366.9 Active 397043072 Problem Unspecified episodic mood disorder 296.90 Active 228593407 Problem Other and unspecified hyperlipidemia 272.4 Active 39725025 Problem Unspecified hypothyroidism 244.9 Act katty 20391709 ALLERGIES No Information ENCOUNTERS Encounter Location Date Diagnosis [facility] [id number] [place] [address] 14 Sep, 2014 [facility] [id number] [place] [address] Sep, [facility] [id number] [place] [address] Jun, [facility] [address] [address] Jun, [facility] [id number] [place] [address] May, [facility] [id number] [place] [address] May, [facility] [id number] [place] [address] Feb, [facility] [address] [address] Feb, [facility] [id number] [place] [address] Feb, [facility] [id number] [place] [address] Jan, [facility] [id number] [place] [address] Jan, [facility] [id number] [place] [address] Nov, [facility] [id number] [place] [address] Nov, [facility] [id number] [place] [address] Nov, [facility] [id number] [place] [address] 05 Nov, 2013 [facility] [place] [facility] [address] [facility] [id number] [facility] [place] [address] Aug, [facility] [place] [facility] [address] [facility] [id number] [facility] [place] [address] 28 Aug, 2013 [facility] [place] [facility] [address] [id number] [facility] [place] [address] 14 Aug, 2013 [facility] [place] [facility] [address] [id number] [place] [address] 14 Aug, 2013 [facility] [place] [facility] [address] [facility] [id number] [facility] [place] [address] Aug, [facility] [place] [facility] [address] [id number] [place] [address] Aug, [facility] [place] [facility] [address] [id number] [facility] [place] [address] Aug, [facility] [place] [facility] [address] [id number] [facility] [place] [address] Aug, [facility] [place] [facility] [address] [id number] [facility] [place] [address] Aug, [facility] [place] [facility] [address] [id number] [facility] [place] [address] Aug, [facility] [place] [facility] [address] [id number] [place] [address] Jul, [facility] [place] [facility] [address] [id number] [place] [address] Jul, [facility] [place] [facility] [address] [id number] [facility] [place] [address] Jul, [facility] [place] [facility] [address] [id number] [place] [address] Jul, [facility] [place] [facility] [address] [id number] [place] [address] Jul, [facility] [place] [facility] [address] [id number] [place] [address] Jul, [facility] [place] [facility] [address] [id number] [place] [address] Jul, [facility] [place] [facility] [address] [id number] [place] [address] Jul, [facility] [place] [facility] [address] [id number] [place] [address] Jun, [facility] [place] [facility] [address] [id number] [place] [address] Jun, [facility] [place] [facility] [address] [id number] [place] [address] Jun, [facility] [place] [facility] [address] [id number] [place] [address] Jun, [facility] [place] [facility] [address] [id number] [place] [address] Jun, [facility] [place] [facility] [address] [id number] [place] [address] Jun, [facility] [place] [facility] [address] [id number] [place] [address] Jun, [facility] [place] [facility] [address] [id number] [place] [address] Jun, [facility] [place] [facility] [address] [id number] [place] [address] May, [facility] [place] [facility] [address] [id number] [place] [address] May, [facility] [place] [facility] [address] [id number] [place] [address] May, [facility] [place] [facility] [address] [id number] [place] [address] May, [facility] [place] [facility] [address] [id number] [place] [address] May, [facility] [place] [facility] [address] [id number] [place] [address] May, [facility] [place] [facility] [address] [id number] [place] [address] May, [facility] [place] [facility] [address] [id number] [place] [address] May, [facility] [place] [facility] [address] [id number] [place] [address] Apr, [facility] [place] [facility] [address] [id number] [place] [address] Apr, [facility] [place] [facility] [address] [id number] [place] [address] Apr, [facility] [place] [facility] [address] [id number] [place] [address] Apr, [facility] [place] [facility] [address] [id number] [place] [address] Apr, [facility] [place] [facility] [address] [id number] [place] [address] Apr, [facility] [place] [facility] [address] [id number] [place] [address] Apr, [facility] [place] [facility] [address] [id number] [place] [address] Apr, [facility] [place] [facility] [address] [id number] [place] [address] Mar, [facility] [place] [facility] [address] [id number] [place] [address] Mar, [facility] [place] [facility] [address] [id number] [place] [address] 18 Feb, 2013 [facility] [place] [facility] [address] [id number] [place] [address] 17 Feb, 2013 [facility] [place] [facility] [address] [id number] [place] [address] Feb, [facility] [place] [facility] [address] [id number] [place] [address] Jan, [facility] [place] [facility] [address] [id number] [place] [address] Jan, [facility] [place] [facility] [address] [id number] [place] [address] Jan, [facility] [place] [facility] [address] [id number] [place] [address] Jan, [facility] [place] [facility] [address] [facility] [id number] [place] [address] Jan, [facility] [place] [facility] [address] [id number] [place] [address] Jan, [facility] [place] [facility] [address] [id number] [place] [address] Jan, [facility] [place] [facility] [address] [id number] [place] [address] Dec, [facility] [place] [facility] [address] [id number] [place] [address] Dec, [facility] [place] [facility] [address] [id number] [place] [address] Dec, [facility] [place] [facility] [address] [id number] [place] [address] Dec, [facility] [place] [facility] [address] [id number] [place] [address] Nov, [facility] [place] [facility] [address] [id number] [place] [address] Nov, [facility] [place] [facility] [address] [id number] [place] [address] Nov, [facility] [place] [facility] [address] [id number] [place] [address] October, [facility] [place] [facility] [address] [id number] [place] [address] Sep, [facility] [place] [facility] [address] [id number] [place] [address] Sep, [facility] [place] [facility] [address] [id number] [place] [address] Sep, [facility] [place] [facility] [address] [id number] [place] [address] Sep, [facility] [place] [facility] [address] [id number] [place] [address] Sep, [facility] [place] [facility] [address] [id number] [place] [address] Sep, [facility] [place] [facility] [address] [id number] [place] [address] Sep, [facility] [place] [facility] [address] [id number] [place] [address] Sep, [facility] [place] [facility] [address] [id number] [place] [address] Sep, [facility] [place] [facility] [address] [id number] [place] [address] Aug, [facility] [place] [facility] [address] [id number] [place] [address] Aug[facility] [address] [id number] [place] [address] Jul, [facility] [place] [facility] [address] [id number] [place] [address] Jul, [facility] [place] [facility] [address] [id number] [place] [address] Jul, [facility] [place] [facility] [address] [id number] [place] [address] Jun, [facility] [place] [facility] [address] [id number] [place] [address] Apr, [facility] [place] [facility] [address] [id number] [place] [address] Apr, [facility] [place] [facility] [address] [id number] [place] [address] Apr, [facility] [place] [facility] [address] [id number] [place] [address] Apr, [facility] [place] [facility] [address] [id number] [place] [address] Apr, [facility] [place] [facility] [address] [id number] [place] [address] Apr, [facility] [place] [facility] [address] [id number] [place] [address] Apr, [facility] [place] [facility] [address] [id number] [place] [address] Apr, [facility] [place] [facility] [address] [id number] [place] [address] Apr, [facility] [place] [facility] [address] [id number] [place] [address] Apr, [facility] [place] [facility] [address] [id number] [place] [address] Apr, [facility] [place] [facility] [address] [id number] [place] [address] Apr, [facility] [place] [facility] [address] [id number] [place] [address] Mar, [facility] [place] [facility] [id number] [place] [address] Mar, [facility] [place] [facility] [address] [id number] [place] [address] Mar, [facility] [place] [facility] [id number] [place] [address] Mar, [facility] [place] [facility] [id number] [place] [address] Mar, [facility] [place] [facility] [id number] [place] [address] Mar, [facility] [place] [facility] [address] [id number] [place] [address] 05 Mar, 2012 [facility] [place] [facility] [address] [id number] [place] [address] 25 Feb, 2012 [facility] [place] [facility] [address] [id number] [place] [address] 24 Sep2011 [facility] [place] [facility] [id number] [place] [address] 10 Feb, 2012 [facility] [place] [facility] [address] [id number] [place] [address] Feb, [facility] [address] [id number] [place] [address] Jan, [facility] [address] [id number] [place] [address] Jan, [facility] [address] [id number] [place] [address] Jan, [facility] [address] [id number] [place] [address] Jan, IMMUNIZATIONS No Known Immunizations SOCIAL HISTORY Never Assessed REASON FOR VISIT PLAN OF CARE VITAL SIGNS MEDICATIONS Unknown Medications RESULTS No Results PROCEDURES No Known procedures INSTRUCTIONS MEDICATIONS ADMINISTERED No Known Medications
--- OUTSIDE RECORDS SUMMARY | 2020-01-17 06:40 | XMS REPORT ---
Author Author Yogesh Kelly Doctor Organization [facility] Address Unknown Phone Unavailable Care Team Providers Care Delivery Crew Member Name Role Phone Migration, Doctor Unavailable Unavailable PROBLEMS Type Condition ICD9-CM Code [id number] Code Onset Dates Condition S tatus SNOMED Code Problem Encounter for long-term (current) use of other medications V58.69 Active 668129446 Problem Routine general medical examination at rust V70.0 Active 629423720 Problem Family history of unspecified malignant neoplasm V16.9 Active 692801753 Problem Nonspecific elevation of lev els of transaminase or lactic acid dehydrogenase (LDH) 790.4 Active 39886308 2 Problem Personal history of other allergy, other than to medicinal agents V15.09 Active 653946601 Problem Essential hypertension, benign 401.1 Active 7336184 Problem Coronary atherosclerosis of unspecified type of vessel, afognak or graft 414.00 Active 834096383 Problem Dizziness and giddiness 780.4 Active 449071121 Problem Chest pain, unspecified 786.50 Active 75821689 Problem Lumbago 724.2 Active 817499734 Problem Cervicalgia 723.1 Active 43100119 Problem Other specified cardiac dysrhythmias 427.89 Active 428610619 Problem Peptic ulcer, unspecified si te, unspecified as acute or chronic, without mention of hemorrhage, perforation, or obstruction 533.90 Active 35779253 Problem Right bundle branch block 426.4 Acti ve 48941748 Problem 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 Active 24414916 Problem Unspecified tinnitus 388.30 Active 40561592 Problem Unspecified hearing loss 389.9 Activ e 25824387 Problem Unspecified otalgia 388.70 Active 31996239 Problem Malignant neoplasm of prostate 185 Active 066570910 Problem Polyuria 788.42 Active 41492614 Problem Unspecified viral hepatitis C without hepatic coma 070.70 Active 29555967 Problem Abdominal or pelvic swelling, mass or lump, unspecified si te 789.30 Active 438981055 Problem Dysuria 788.1 Active 88273189 Problem Unspecified cataract 366.9 Active 978187346 Problem Unspecified episodic mood disorder 296.90 Active 666198551 Problem Other and unspecified hyperlipidemia 272.4 Active 66077524 Problem Unspecified hypothyroidism 244.9 Act katty [id number] ALLERGIES No Information ENCOUNTERS Encounter Location Date Diagnosis [facility] [id number] [place] [address] 14 Sep, 2014 [facility] [id number] [place] [address] Sep, [facility] [id number] [place] [address] Jun, [facility] [address] [address] Jun, [facility] [id number] [place] [address] May, [facility] [id number] [place] [address] May, [facility] [id number] [place] [address] Feb, [facility] [address] [address] Feb, [facility] [id number] [place] [address] Feb, [facility] [id number] [place] [address] Jan, [facility] [id number] [place] [address] Jan, [facility] [id number] [place] [address] Nov, [facility] [id number] [place] [address] Nov, [facility] [id number] [place] [address] Nov, [facility] [id number] [place] [address] 05 Nov, 2013 [facility] [place] [facility] [address] [facility] [id number] [place] [address] Aug, [facility] [place] [facility] [address] [facility] [facility] [id number] [place] [address] 28 Aug, 2013 [facility] [place] [facility] [address] [id number] [place] [address] 14 Aug, 2013 [facility] [place] [facility] [address] [id number] [place] [address] 14 Aug, 2013 [facility] [place] [facility] [address] [facility] [id number] [place] [address] Aug, [facility] [place] [facility] [address] [id number] [place] [address] Aug, [facility] [place] [facility] [address] [id number] [place] [address] Aug, [facility] [place] [facility] [address] [id number] [place] [address] Aug, [facility] [place] [facility] [address] [id number] [place] [address] Aug, [facility] [place] [facility] [address] [id number] [place] [address] Aug, [facility] [place] [facility] [address] [id number] [place] [address] Jul, [facility] [place] [facility] [address] [id number] [place] [address] Jul, [facility] [place] [facility] [address] [id number] [place] [address] Jul, [facility] [place] [facility] [address] [id number] [place] [address] Jul, [facility] [place] [facility] [address] [id number] [place] [address] Jul, [facility] [place] [facility] [address] [id number] [place] [address] Jul, [facility] [place] [facility] [address] [id number] [place] [address] Jul, [facility] [place] [facility] [address] [id number] [place] [address] Jul, [facility] [place] [facility] [address] [id number] [place] [address] Jun, [facility] [place] [facility] [address] [id number] [place] [address] Jun, [facility] [place] [facility] [address] [id number] [place] [address] Jun, [facility] [place] [facility] [address] [id number] [place] [address] Jun, [facility] [place] [facility] [address] [id number] [place] [address] Jun, [facility] [place] [facility] [address] [id number] [place] [address] Jun, [facility] [place] [facility] [address] [id number] [place] [address] Jun, [facility] [place] [facility] [address] [id number] [place] [address] Jun, [facility] [place] [facility] [address] [id number] [place] [address] May, [facility] [place] [facility] [address] [id number] [place] [address] May, [facility] [place] [facility] [address] [id number] [place] [address] May, [facility] [place] [facility] [address] [id number] [place] [address] May, [facility] [place] [facility] [address] [id number] [place] [address] May, [facility] [place] [facility] [address] [id number] [place] [address] May, [facility] [place] [facility] [address] [id number] [place] [address] May, [facility] [place] [facility] [address] [id number] [place] [address] May, [facility] [place] [facility] [address] [id number] [place] [address] Apr, [facility] [place] [facility] [address] [id number] [place] [address] Apr, [facility] [place] [facility] [address] [id number] [place] [address] Apr, [facility] [place] [facility] [address] [id number] [place] [address] Apr, [facility] [place] [facility] [address] [id number] [place] [address] Apr, [facility] [place] [facility] [address] [id number] [place] [address] Apr, [facility] [place] [facility] [address] [id number] [place] [address] Apr, [facility] [place] [facility] [address] [id number] [place] [address] Apr, [facility] [place] [facility] [address] [id number] [place] [address] Mar, [facility] [place] [facility] [address] [id number] [place] [address] Mar, [facility] [place] [facility] [address] [id number] [place] [address] 18 Feb, 2013 [facility] [place] [facility] [address] [id number] [place] [address] 17 Feb, 2013 [facility] [place] [facility] [address] [id number] [place] [address] Feb, [facility] [place] [facility] [address] [id number] [place] [address] Jan, [facility] [place] [facility] [address] [id number] [place] [address] Jan, [facility] [place] [facility] [address] [id number] [place] [address] Jan, [facility] [place] [facility] [address] [id number] [place] [address] Jan, [facility] [place] [facility] [address] [facility] [id number] [place] [address] Jan, [facility] [place] [facility] [address] [id number] [place] [address] Jan, [facility] [place] [facility] [address] [id number] [place] [address] Jan, [facility] [place] [facility] [address] [id number] [place] [address] Dec, [facility] [place] [facility] [address] [id number] [place] [address] Dec, [facility] [place] [facility] [address] [id number] [place] [address] Dec, [facility] [place] [facility] [address] [id number] [place] [address] Dec, [facility] [place] [facility] [address] [id number] [place] [address] Nov, [facility] [place] [facility] [address] [id number] [place] [address] Nov, [facility] [place] [facility] [address] [id number] [place] [address] Nov, [facility] [place] [facility] [address] [id number] [place] [address] October, [facility] [place] [facility] [address] [id number] [place] [address] Sep, [facility] [place] [facility] [address] [id number] [place] [address] Sep, [facility] [place] [facility] [address] [id number] [place] [address] Sep, [facility] [place] [facility] [address] [id number] [place] [address] Sep, [facility] [place] [facility] [address] [id number] [place] [address] Sep, [facility] [place] [facility] [address] [id number] [place] [address] Sep, [facility] [place] [facility] [address] [id number] [place] [address] Sep, [facility] [place] [facility] [address] [id number] [place] [address] Sep, [facility] [place] [facility] [address] [id number] [place] [address] Sep, [facility] [place] [facility] [address] [id number] [place] [address] Aug, [facility] [place] [facility] [address] [id number] [place] [address] Aug, [facility] [address] [id number] [place] [address] Jul, [facility] [place] [facility] [address] [id number] [place] [address] Jul, [facility] [place] [facility] [address] [id number] [place] [address] Jul, [facility] [place] [facility] [address] [id number] [place] [address] Jun, [facility] [place] [facility] [address] [id number] [place] [address] Apr, [facility] [place] [facility] [address] [id number] [place] [address] Apr, [facility] [place] [facility] [address] [id number] [place] [address] Apr, [facility] [place] [facility] [address] [id number] [place] [address] Apr, [facility] [place] [facility] [address] [id number] [place] [address] Apr, [facility] [place] [facility] [address] [id number] [place] [address] Apr, [facility] [place] [facility] [address] [id number] [place] [address] Apr, [facility] [place] [facility] [address] [id number] [place] [address] Apr, [facility] [place] [facility] [address] [id number] [place] [address] Apr, [facility] [place] [facility] [address] [id number] [place] [address] Apr, [facility] [place] [facility] [address] [id number] [place] [address] Apr, [facility] [place] [facility] [address] [id number] [place] [address] Apr, [facility] [place] [facility] [address] [id number] [place] [address] Mar, [facility] [place] [facility] [id number] [place] [address] Mar, [facility] [place] [facility] [address] [id number] [place] [address] Mar, [facility] [place] [facility] [id number] [place] [address] Mar, [facility] [place] [facility] [id number] [place] [address] Mar, [facility] [place] [facility] [id number] [place] [address] Mar, [facility] [place] [facility] [address] [id number] [place] [address] 05 Mar, 2012 [facility] [place] [facility] [address] [id number] [place] [address] 25 Feb, 2012 [facility] [place] [facility] [address] [id number] [place] [address] 24 Sep2011 [facility] [place] [facility] [id number] [place] [address] 10 Feb, 2012 [facility] [address] [id number] [place] [address] Feb, [facility] [address] [id number] [place] [address] Jan, [facility] [address] [id number] [place] [address] Jan, [facility] [address] [id number] [place] [address] Jan, [facility] [address] [id number] [place] [address] Jan, IMMUNIZATIONS No Known Immunizations SOCIAL HISTORY Never Assessed REASON FOR VISIT PLAN OF CARE VITAL SIGNS MEDICATIONS Unknown Medications RESULTS No Results PROCEDURES No Known procedures INSTRUCTIONS MEDICATIONS ADMINISTERED No Known Medications
--- OUTSIDE RECORDS SUMMARY | 2020-01-17 06:40 | XMS REPORT ---
Author Author Yogesh Kelly Doctor Organization [facility] Address Unknown Phone Unavailable Care Team Providers Care Double Cut Off Saw Operator Name Role Phone Migration, Doctor Unavailable Unavailable PROBLEMS Type Condition ICD9-CM Code [id number] Code Onset Dates Condition S tatus SNOMED Code Problem Encounter for long-term (current) use of other medications V58.69 Active 077518082 Problem Routine general medical examination at [facility] V70.0 Active 100059961 Problem Family history of unspecified malignant neoplasm V16.9 Active 627115873 Problem Nonspecific elevation of lev els of transaminase or lactic acid dehydrogenase (LDH) 790.4 Active 13131462 2 Problem Personal history of other allergy, other than to medicinal agents V15.09 Active 237331788 Problem Essential hypertension, benign 401.1 Active 6769831 Problem Coronary atherosclerosis of unspecified type of vessel, belkofski or graft 414.00 Active 389343389 Problem Dizziness and giddiness 780.4 Active 800481861 Problem Chest pain, unspecified 786.50 Active 15085151 Problem Lumbago 724.2 Active 834221332 Problem Cervicalgia 723.1 Active 23995304 Problem Other specified cardiac dysrhythmias 427.89 Active 333483456 Problem Peptic ulcer, unspecified si te, unspecified as acute or chronic, without mention of hemorrhage, perforation, or obstruction 533.90 Active 09868774 Problem Right bundle branch block 426.4 Acti ve 14404845 Problem 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 Active 77282297 Problem Unspecified tinnitus 388.30 Active 32659991 Problem Unspecified hearing loss 389.9 Activ e 63290043 Problem Unspecified otalgia 388.70 Active 99662235 Problem Malignant neoplasm of prostate 185 Active 896355593 Problem Polyuria 788.42 Active 05068202 Problem Unspecified viral hepatitis C without hepatic coma 070.70 Active 68409703 Problem Abdominal or pelvic swelling, mass or lump, unspecified si te 789.30 Active 839513640 Problem Dysuria 788.1 Active 57611059 Problem Unspecified cataract 366.9 Active 545741862 Problem Unspecified episodic mood disorder 296.90 Active 870714705 Problem Other and unspecified hyperlipidemia 272.4 Active 55839342 Problem Unspecified hypothyroidism 244.9 Act katty [id number] ALLERGIES No Information ENCOUNTERS Encounter Location Date Diagnosis [facility] [id number] [place] [address] 14 Sep, 2014 [facility] [id number] [place] [address] Sep, [facility] [id number] [place] [address] Jun, [facility] [address] [address] Jun, [facility] [id number] [place] [address] May, [facility] [id number] [place] [address] May, [facility] [id number] [place] [address] Feb, [facility] [address] [address] Feb, [facility] [id number] [place] [address] Feb, [facility] [id number] [place] [address] Jan, [facility] [id number] [place] [address] Jan, [facility] [id number] [place] [address] Nov, [facility] [id number] [place] [address] Nov, [facility] [id number] [place] [address] Nov, [facility] [id number] [place] [address] 05 Nov, 2013 [facility] [place] [facility] [address] [facility] [id number] [facility] [place] [address] Aug, [facility] [place] [facility] [address] [facility] [id number] [facility] [place] [address] 28 Aug, 2013 [facility] [place] [facility] [address] [id number] [facility] [place] [address] 14 Aug, 2013 [facility] [place] [facility] [address] [id number] [place] [address] 14 Aug, 2013 [facility] [place] [facility] [address] [facility] [id number] [facility] [place] [address] Aug, [facility] [place] [facility] [address] [id number] [place] [address] Aug, [facility] [place] [facility] [address] [id number] [facility] [place] [address] Aug, [facility] [place] [facility] [address] [id number] [facility] [place] [address] Aug, [facility] [place] [facility] [address] [id number] [facility] [place] [place] [address] Aug, [facility] [place] [facility] [address] [id number] [facility] [place] [address] Aug, [facility] [place] [facility] [address] [id number] [place] [address] Jul, [facility] [place] [facility] [address] [id number] [place] [address] Jul, [facility] [place] [facility] [address] [id number] [facility] [place] [address] Jul, [facility] [place] [facility] [address] [id number] [place] [address] Jul, [facility] [place] [facility] [address] [id number] [place] [address] Jul, [facility] [place] [facility] [address] [id number] [place] [address] Jul, [facility] [place] [facility] [address] [id number] [place] [address] Jul, [facility] [place] [facility] [address] [id number] [place] [address] Jul, [facility] [place] [facility] [address] [id number] [place] [address] Jun, [facility] [place] [facility] [address] [id number] [place] [address] Jun, [facility] [place] [facility] [address] [id number] [place] [address] Jun, [facility] [place] [facility] [address] [id number] [place] [address] Jun, [facility] [place] [facility] [address] [id number] [place] [address] Jun, [facility] [place] [facility] [address] [id number] [place] [address] Jun, [facility] [place] [facility] [address] [id number] [place] [address] Jun, [facility] [place] [facility] [address] [id number] [place] [address] Jun, [facility] [place] [facility] [address] [id number] [place] [address] May, [facility] [place] [facility] [address] [id number] [place] [address] May, [facility] [place] [facility] [address] [id number] [place] [address] May, [facility] [place] [facility] [address] [id number] [place] [address] May, [facility] [place] [facility] [address] [id number] [place] [address] May, [facility] [place] [facility] [address] [id number] [place] [address] May, [facility] [place] [facility] [address] [id number] [place] [address] May, [facility] [place] [facility] [address] [id number] [place] [address] May, [facility] [place] [facility] [address] [id number] [place] [address] Apr, [facility] [place] [facility] [address] [id number] [place] [address] Apr, [facility] [place] [facility] [address] [id number] [place] [address] Apr, [facility] [place] [facility] [address] [id number] [place] [address] Apr, [facility] [place] [facility] [address] [id number] [place] [address] Apr, [facility] [place] [facility] [address] [id number] [place] [address] Apr, [facility] [place] [facility] [address] [id number] [place] [address] Apr, [facility] [place] [facility] [address] [id number] [place] [address] Apr, [facility] [place] [facility] [address] [id number] [place] [address] Mar, [facility] [place] [facility] [address] [id number] [place] [address] Mar, [facility] [place] [facility] [address] [id number] [place] [address] 18 Feb, 2013 [facility] [place] [facility] [address] [id number] [place] [address] 17 Feb, 2013 [facility] [place] [facility] [address] [id number] [place] [address] Feb, [facility] [place] [facility] [address] [id number] [place] [address] Jan, [facility] [place] [facility] [address] [id number] [place] [address] Jan, [facility] [place] [facility] [address] [id number] [place] [address] Jan, [facility] [place] [facility] [address] [id number] [place] [address] Jan, [facility] [place] [facility] [address] [facility] [id number] [place] [address] Jan, [facility] [place] [facility] [address] [id number] [place] [address] Jan, [facility] [place] [facility] [address] [id number] [place] [address] Jan, [facility] [place] [facility] [address] [id number] [place] [address] Dec, [facility] [place] [facility] [address] [id number] [place] [address] Dec, [facility] [place] [facility] [address] [id number] [place] [address] Dec, [facility] [place] [facility] [address] [id number] [place] [address] Dec, [facility] [place] [facility] [address] [id number] [place] [address] Nov, [facility] [place] [facility] [address] [id number] [place] [address] Nov, [facility] [place] [facility] [address] [id number] [place] [address] Nov, [facility] [place] [facility] [address] [id number] [place] [address] October, [facility] [place] [facility] [address] [id number] [place] [address] Sep, [facility] [place] [facility] [address] [id number] [place] [address] Sep, [facility] [place] [facility] [address] [id number] [place] [address] Sep, [facility] [address] [id number] [place] [address] Sep, [facility] [place] [facility] [address] [id number] [place] [address] Sep, [facility] [place] [facility] [address] [id number] [place] [address] Sep, [facility] [place] [facility] [address] [id number] [place] [address] Sep, [facility] [place] [facility] [address] [id number] [place] [address] Sep, [facility] [place] [facility] [address] [id number] [place] [address] Sep, [facility] [place] [facility] [address] [id number] [place] [address] Aug, [facility] [place] [facility] [address] [id number] [place] [address] Aug, [facility] [address] [id number] [place] [address] Jul, [facility] [place] [facility] [address] [id number] [place] [address] Jul, [facility] [place] [facility] [address] [id number] [place] [address] Jul, [facility] [place] [facility] [address] [id number] [place] [address] Jun, [facility] [place] [facility] [address] [id number] [place] [address] Apr, [facility] [place] [facility] [address] [id number] [place] [address] Apr, [facility] [place] [facility] [address] [id number] [place] [address] Apr, [facility] [place] [facility] [address] [id number] [place] [address] Apr, [facility] [place] [facility] [address] [id number] [place] [address] Apr, [facility] [place] [facility] [address] [id number] [place] [address] Apr, [facility] [place] [facility] [address] [id number] [place] [address] Apr, [facility] [place] [facility] [address] [id number] [place] [address] Apr, [facility] [place] [facility] [address] [id number] [place] [address] Apr, [facility] [place] [facility] [address] [id number] [place] [address] Apr, [facility] [place] [facility] [address] [id number] [place] [address] Apr, [facility] [place] [facility] [address] [id number] [place] [address] Apr, [facility] [place] [facility] [address] [id number] [place] [address] Mar, [facility] [place] [facility] [id number] [place] [address] Mar, [facility] [place] [facility] [address] [id number] [place] [address] Mar, [facility] [place] [facility] [id number] [place] [address] Mar, [facility] [place] [facility] [id number] [place] [address] Mar, [facility] [id number] [place] [address] Mar, [facility] [place] [facility] [address] [id number] [place] [address] 05 Mar, 2012 [facility] [place] [facility] [address] [id number] [place] [address] 25 Feb, 2012 [facility] [place] [facility] [address] [id number] [place] [address] 24 Sep2011 [facility] [place] [facility] [id number] [place] [address] 10 Feb, 2012 [facility] [place] [facility] [address] [id number] [place] [address] Feb, [facility] [address] [id number] [place] [address] Jan, [facility] [address] [id number] [place] [address] Jan, [facility] [address] [id number] [place] [address] Jan, [facility] [address] [id number] [place] [address] Jan, IMMUNIZATIONS No Known Immunizations SOCIAL HISTORY Never Assessed REASON FOR VISIT PLAN OF CARE VITAL SIGNS MEDICATIONS Unknown Medications RESULTS No Results PROCEDURES No Known procedures INSTRUCTIONS MEDICATIONS ADMINISTERED No Known Medications
--- OUTSIDE RECORDS SUMMARY | 2020-01-17 06:41 | XMS REPORT ---
Author Author Yogesh Kelly Doctor Organization [facility] Address Unknown Phone Unavailable Care Team Providers Care Elder Counselor Name Role Phone Migration, Doctor Unavailable Unavailable PROBLEMS Type Condition ICD9-CM Code WVH67-VR Code Onset Dates Condition S tatus SNOMED Code Problem Encounter for long-term (current) use of other medications V58.69 Active 365414719 Problem Routine general medical examination at [facility] V70.0 Active 721581709 Problem Family history of unspecified malignant neoplasm V16.9 Active 985842000 Problem Nonspecific elevation of lev els of transaminase or lactic acid dehydrogenase (LDH) 790.4 Active 42553080 2 Problem Personal history of other allergy, other than to medicinal agents V15.09 Active 723003246 Problem Essential hypertension, benign 401.1 Active 7550427 Problem Coronary atherosclerosis of unspecified type of vessel, [place] or graft 414.00 Active 178278828 Problem Dizziness and giddiness 780.4 Active 997319529 Problem Chest pain, unspecified 786.50 Active 95375617 Problem Lumbago 724.2 Active 352551203 Problem Cervicalgia 723.1 Active 60078652 Problem Other specified cardiac dysrhythmias 427.89 Active 848772994 Problem Peptic ulcer, unspecified si te, unspecified as acute or chronic, without mention of hemorrhage, perforation, or obstruction 533.90 Active 42436362 Problem Right bundle branch block 426.4 Acti ve 69188737 Problem 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 Active 92460460 Problem Unspecified tinnitus 388.30 Active 09056737 Problem Unspecified hearing loss 389.9 Activ e 89643423 Problem Unspecified otalgia 388.70 Active 99089465 Problem Malignant neoplasm of prostate 185 Active 095268406 Problem Polyuria 788.42 Active 34865298 Problem Unspecified viral hepatitis C without hepatic coma 070.70 Active 39356294 Problem Abdominal or pelvic swelling, mass or lump, unspecified si te 789.30 Active 530179314 Problem Dysuria 788.1 Active 67462044 Problem Unspecified cataract 366.9 Active 292349151 Problem Unspecified episodic mood disorder 296.90 Active 187076316 Problem Other and unspecified hyperlipidemia 272.4 Active 11683480 Problem Unspecified hypothyroidism 244.9 Act katty [id number] ALLERGIES No Information ENCOUNTERS Encounter Location Date Diagnosis [facility] [address] [id number] [address] [place] [address] 14 Sep, 2014 [facility] [address] [id number] [address] [place] [address] Sep, [facility] [address] [id number] [address] [place] [address] Jun, [facility] [address] [id number] [address] [place] [address] Jun, [facility] [address] [id number] [address] [place] [address] May, [facility] [address] [id number] [address] [place] [address] May, [facility] [address] [id number] [address] [place] [address] Feb, [facility] [address] [id number] [address] [place] [address] Feb, [facility] [address] [id number] [address] [place] [address] Feb, [facility] [address] [id number] [address] [place] [address] Jan, [facility] [address] [id number] [address] [place] [address] Jan, [facility] [address] [id number] [address] [place] [address] Nov, [facility] [address] [id number] [address] [place] [address] Nov, [facility] [address] [id number] [address] [place] [address] 05 Nov, 2013 [facility] [address] [id number] [facility] [place] [address] 05 Nov, 2013 [facility] [address] [id number] [facility] [place] [address] Aug, [facility] [address] [id number] [facility] [place] [address] Aug, [facility] [address] [id number] [address] [place] [address], [place] [address] Aug, [facility] [address] [id number] [facility] [place] [address] Aug, [facility] [address] [id number] [address] [place] [address], [place] [address] Aug, [facility] [address] [id number] [address] [place] [address], [place] [address] Aug, [facility] [address] [id number] [address] [place] [address], [place] [address] Aug, [facility] [address] [id number] [address] [place] [address], [place] [address] Aug, [facility] [address] [id number] [address] [place] [address], [place] [address] Aug, [facility] [address] [id number] [address] [place] [address], [place] [address] Aug, [facility] [address] [id number] [address] [place] [address], [place] [address] Jul, [facility] [address] [id number] [address] [place] [address], [place] [address] Jul, [facility] [address] [id number] [address] [place] [address], [place] [address] Jul, [facility] [address] [id number] [address] [place] [address], [place] [address] Jul, [facility] [address] [id number] [address] [place] [address], [place] [address] Jul, [facility] [address] [id number] [address] [place] [address], [place] [address] Jul, [facility] [address] [id number] [address] [place] [address], [place] [address] Jul, [facility] [address] [id number] [address] [place] [address], [place] [address] Jul, [facility] [address] [id number] [address] [place] [address], [place] [address] Jun, [facility] [address] [id number] [address] [place] [address], [place] [address] Jun, [facility] [address] [id number] [address] [place] [address], [place] [address] Jun, [facility] [address] [id number] [address] [place] [address], [place] [address] Jun, [facility] [address] [id number] [address] [place] [address], [place] [address] Jun, [facility] [address] [id number] [address] [place] [address], [place] [address] Jun, [facility] [address] [id number] [address] [place] [address], [place] [address] Jun, [facility] [address] [id number] [address] [place] [address], [place] [address] Jun, [facility] [address] [id number] [address] [place] [address], [place] [address] May, [facility] [address] [id number] [address] [place] [address], [place] [address] May, [facility] [address] [id number] [address] [place] [address], [place] [address] May, [facility] [address] [id number] [address] [place] [address], [place] [address] May, [facility] [address] [id number] [address] [place] [address], [place] [address] May, [facility] [address] [id number] [address] [place] [address], [place] [address] May, [facility] [address] [id number] [address] [place] [address], [place] [address] May, [facility] [address] [id number] [address] [place] [address], [place] [address] May, [facility] [address] [id number] [address] [place] [address], [place] [address] Apr, [facility] [address] [id number] [address] [place] [address] Apr, [facility] [address] [id number] [address] [place] [address], [place] [address] Apr, [facility] [address] [id number] [address] [place] [address], [place] [address] Apr, [facility] [address] [id number] [address] [place] [address], [place] [address] Apr, [facility] [address] [id number] [address] [place] [address] Apr, [facility] [address] [id number] [address] [place] [address] Apr, [facility] [address] [id number] [address] [place] [address] 18 Apr, 2013 [facility] [address] [id number] [address] [place] [address], [place] [address] Mar, [facility] [address] [id number] [address] [place] [address] 14 Mar, 2013 [facility] [address] [id number] [address] [place] [address] 18 Feb, 2013 [facility] [address] [id number] [address] [place] [address], [place] [address] Feb, [facility] [address] [id number] [address] [place] [address], [place] [address] Feb, [facility] [address] [id number] [address] [place] [address], [place] [address] Jan, [facility] [address] [id number] [address] [place] [address], [place] [address] Jan, [facility] [address] [id number] [address] [place] [address], [place] [address] Jan, [facility] [address] [id number] [address] [place] [address], [place] [address] Jan, [facility] [address] [id number] [address] [place] [address], [place] [address] Jan, [facility] [address] [id number] [address] [place] [address], [place] [address] Jan, [facility] [address] [id number] [address] [place] [address], [place] [address] Jan, [facility] [address] [id number] [address] [place] [address], [place] [address] Dec, [facility] [address] [id number] [address] [place] [address], [place] [address] Dec, [facility] [address] [id number] [address] [place] [address], [place] [address] Dec, [facility] [address] [id number] [address] [place] [address], [place] [address] Dec, [facility] [address] [id number] [address] [place] [address], [place] [address] Nov, [facility] [address] [id number] [address] [place] [address], [place] [address] Nov, [facility] [address] [id number] [address] [place] [address], [place] [address] Nov, [facility] [address] [id number] [address] [place] [address], [place] [address] October, [facility] [address] [id number] [address] [place] [address], [place] [address] Sep, [facility] [address] [id number] [address] [place] [address], [place] [address] Sep, [facility] [address] [id number] [address] [place] [address], [place] [address] Sep, [facility] [address] [id number] [address] [place] [address], [place] [address] Sep, [facility] [address] [id number] [address] [place] [address], [place] [address] Sep, [facility] [address] [id number] [address] [place] [address], [place] [address] Sep, [facility] [address] [id number] [address] [place] [address], [place] [address] Sep, [facility] [address] [id number] [address] [place] [address], [place] [address] Sep, [facility] [address] [id number] [address] [place] [address], [place] [address] Sep, [facility] [address] [id number] [address] [place] [address], [place] [address] Aug, [facility] [address] [id number] [address] [place] [address], [place] [address] Aug, [facility] [address] [id number] [address] [place] [address], [place] [address] Jul, [facility] [address] [id number] [address] [place] [address], [place] [address] Jul, [facility] [address] [id number] [address] [place] [address], [place] [address] Jul, [facility] [address] [id number] [address] [place] [address] [place] [address] Jun, [facility] [address] [id number] [address] [place] [address], [place] [address] Apr, [facility] [address] [id number] [address] [place] [address], [place] [address] Apr, [facility] [address] [id number] [address] [place] [address], [place] [address] Apr, [facility] [address] [id number] [address] [place] [address], [place] [address] Apr, [facility] [address] [id number] [address] [place] [address], [place] [address] Apr, [facility] [address] [id number] [address] [place] [address], [place] [address] Apr, [facility] [address] [id number] [address] [place] [address], [place] [address] Apr, [facility] [address] [id number] [address] [place] [address], [place] [address] Apr, [facility] [address] [id number] [address] [place] [address], [place] [address] Apr, [facility] [address] [id number] [address] [place] [address], [place] [address] Apr, [facility] [address] [id number] [address] [place] [address], [place] [address] Apr, [facility] [address] [id number] [address] [place] [address] Apr, [facility] [address] [id number] [address] [place] [address], [place] [address] Mar, [facility] [address] [id number] [address] [place] [address], [place] [address] Mar, [facility] [address] [id number] [address] [place] [address], [place] [address] Mar, [facility] [address] [id number] [address] [place] [address] 15 Mar, 2012 [facility] [address] [id number] [address] [place] [address] Mar, [facility] [address] [id number] [address] [place] [address] Mar, [facility] [address] [id number] [address] [place] [address] Mar, [facility] [address] [id number] [address] [place] [address] 25 Feb, 2012 [facility] [address] [id number] [address] [place] [address] 24 Feb, 2012 [facility] [address] [id number] [address] [place] [address] Feb, [facility] [address] [id number] [address] [place] [address] Feb, [facility] [address] [id number] [address] [place] [address] Jan, [facility] [address] [id number] [address] [place] [address] Jan, [facility] [address] [id number] [address] [place] [address] Jan, [facility] [address] [id number] [address] [place] [address] Jan, IMMUNIZATIONS No Known Immunizations SOCIAL HISTORY Never Assessed REASON FOR VISIT EMR-[facility] PLAN OF CARE VITAL SIGNS MEDICATIONS Unknown Medications RESULTS No Results PROCEDURES No Known procedures INSTRUCTIONS MEDICATIONS ADMINISTERED No Known Medications
--- OUTSIDE RECORDS SUMMARY | 2020-01-17 06:41 | XMS REPORT ---
Author Author Yogesh Kelly Doctor Organization [facility] Address Unknown Phone Unavailable Care Team Providers Care Degreaser Operator Name Role Phone Migration, Doctor Unavailable Unavailable PROBLEMS Type Condition ICD9-CM Code XLX46-DQ Code Onset Dates Condition S tatus SNOMED Code Problem Encounter for long-term (current) use of other medications V58.69 Active 986708932 Problem [facility] V70.0 Active 459177450 Problem Family history of unspecified malignant neoplasm V16.9 Active 404508264 Problem Nonspecific elevation of lev els of transaminase or lactic acid dehydrogenase (LDH) 790.4 Active 44090560 2 Problem Personal history of other allergy, other than to medicinal agents V15.09 Active 569064051 Problem Essential hypertension, benign 401.1 Active 0715645 Problem Coronary atherosclerosis of unspecified type of vessel, gambell or graft 414.00 Active 588348610 Problem Dizziness and giddiness 780.4 Active 446399560 Problem Chest pain, unspecified 786.50 Active 22150773 Problem Lumbago 724.2 Active 409137887 Problem Cervicalgia 723.1 Active 27133701 Problem Other specified cardiac dysrhythmias 427.89 Active 283764742 Problem Peptic ulcer, unspecified si te, unspecified as acute or chronic, without mention of hemorrhage, perforation, or obstruction 533.90 Active 16373457 Problem Right bundle branch block 426.4 Acti ve 70409845 Problem 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 Active 90965811 Problem Unspecified tinnitus 388.30 Active 71981416 Problem Unspecified hearing loss 389.9 Activ e 82414418 Problem Unspecified otalgia 388.70 Active 32058056 Problem Malignant neoplasm of prostate 185 Active 900243728 Problem Polyuria 788.42 Active 37248538 Problem Unspecified viral hepatitis C without hepatic coma 070.70 Active 20169766 Problem Abdominal or pelvic swelling, mass or lump, unspecified si te 789.30 Active 672649095 Problem Dysuria 788.1 Active 28092241 Problem Unspecified cataract 366.9 Active 151891775 Problem Unspecified episodic mood disorder 296.90 Active 823149913 Problem Other and unspecified hyperlipidemia 272.4 Active 33895538 Problem Unspecified hypothyroidism 244.9 Act katty [id number] ALLERGIES No Information ENCOUNTERS Encounter Location Date Diagnosis [facility] [address] [id number] [address] [place] [id number] 14 Sep, 2014 [facility] [address] [id number] [address] [place] [address] Sep, [facility] [address] [id number] [address] [place] [address] Jun, [facility] [address] [id number] [address] [place] [phone] Jun, [facility] [address] [id number] [address] [place] [phone] May, [facility] [address] [id number] [address] [place] [address] May, [facility] [address] [id number] [address] [place] [phone] Feb, [facility] [address] [id number] [address] [place] [phone] Feb, [facility] [address] [id number] [address] [place] [phone] Feb, [facility] [address] [id number] [address] [place] [phone] Jan, [facility] [address] [id number] [address] [place] [phone] Jan, [facility] [address] [id number] [address] [place] [address] Nov, [facility] [address] [id number] [address] [place] [phone] Nov, [facility] [address] [id number] [address] [place] [id number] 05 Nov, 2013 [facility] [address] [id number] [facility] [place] [address] 05 Nov, 2013 [facility] [address] [id number] [facility] [place] [address] Aug, [facility] [address] [id number] [facility] [place] [address] Aug, [facility] [address] [id number] [address] [place] [address], [place] [address] Aug, [facility] [address] [id number] [facility] [place] [address] Aug, [facility] [address] [id number] [address] [place] [address], [place] [address] Aug, [facility] [address] [id number] [address] [place] [address], [place] [address] Aug, [facility] [address] [id number] [address] [place] [address], [place] [address] Aug, [facility] [address] [id number] [address] [place] [address], [place] [address] Aug, [facility] [address] [id number] [address] [place] [address], [place] [address] Aug, [facility] [address] [id number] [address] [place] [address], [place] [address] Aug, [facility] [address] [id number] [address] [place] [address], [place] [address] Jul, [facility] [address] [id number] [address] [place] [address], [place] [address] Jul, [facility] [address] [id number] [address] [place] [address], [place] [address] Jul, [facility] [address] [id number] [address] [place] [address], [place] [address] Jul, [facility] [address] [id number] [address] [place] [address], [place] [address] Jul, [facility] [address] [id number] [address] [place] [address], [place] [address] Jul, [facility] [address] [id number] [address] [place] [address], [place] [address] Jul, [facility] [address] [id number] [address] [place] [address], [place] [address] Jul, [facility] [address] [id number] [address] [place] [address], [place] [address] Jun, [facility] [address] [id number] [address] [place] [address], [place] [address] Jun, [facility] [address] [id number] [address] [place] [address], [place] [address] Jun, [facility] [address] [id number] [address] [place] [address], [place] [address] Jun, [facility] [address] [id number] [address] [place] [address], [place] [address] Jun, [facility] [address] [id number] [address] [place] [address], [place] [address] Jun, [facility] [address] [id number] [address] [place] [address], [place] [address] Jun, [facility] [address] [id number] [address] [place] [address], [place] [address] Jun, [facility] [address] [id number] [address] [place] [address], [place] [address] May, [facility] [address] [id number] [address] [place] [address], [place] [address] May, [facility] [address] [id number] [address] [place] [address], [place] [address] May, [facility] [address] [id number] [address] [place] [address], [place] [address] May, [facility] [address] [id number] [address] [place] [address], [place] [address] May, [facility] [address] [id number] [address] [place] [address], [place] [address] May, [facility] [address] [id number] [address] [place] [address], [place] [address] May, [facility] [address] [id number] [address] [place] [address], [place] [address] May, [facility] [address] [id number] [address] [place] [address], [place] [address] Apr, [facility] [address] [id number] [address] [place] [address] Apr, [facility] [address] [id number] [address] [place] [address], [place] [address] Apr, [facility] [address] [id number] [address] [place] [address], [place] [address] Apr, [facility] [address] [id number] [address] [place] [address], [place] [address] Apr, [facility] [address] [id number] [address] [place] [address] Apr, [facility] [address] [id number] [address] [place] [address] Apr, [facility] [address] [id number] [address] [place] [address] 18 Apr, 2013 [facility] [address] [id number] [address] [place] [address], [place] [address] Mar, [facility] [address] [id number] [address] [place] [address] 14 Mar, 2013 [facility] [address] [id number] [address] [place] [phone] 18 Feb, 2013 [facility] [address] [id number] [address] [place] [address], [place] [address] Feb, [facility] [address] [id number] [address] [place] [address], [place] [address] Feb, [facility] [address] [id number] [address] [place] [address], [place] [address] Jan, [facility] [address] [id number] [address] [place] [address], [place] [address] Jan, [facility] [address] [id number] [address] [place] [address], [place] [address] Jan, [facility] [address] [id number] [address] [place] [address], [place] [address] Jan, [facility] [address] [id number] [address] [place] [address], [place] [address] Jan, [facility] [address] [id number] [address] [place] [address], [place] [address] Jan, [facility] [address] [id number] [address] [place] [address], [place] [address] Jan, [facility] [address] [id number] [address] [place] [address], [place] [address] Dec, [facility] [address] [id number] [address] [place] [address], [place] [address] Dec, [facility] [address] [id number] [address] [place] [address], [place] [address] Dec, [facility] [address] [id number] [address] [place] [address], [place] [address] Dec, [facility] [address] [id number] [address] [place] [address], [place] [address] Nov, [facility] [address] [id number] [address] [place] [address], [place] [address] Nov, [facility] [address] [id number] [address] [place] [address], [place] [address] Nov, [facility] [address] [id number] [address] [place] [address], [place] [address] October, [facility] [address] [id number] [address] [place] [address], [place] [address] Sep, [facility] [address] [id number] [address] [place] [address], [place] [address] Sep, [facility] [address] [id number] [address] [place] [address], [place] [address] Sep, [facility] [address] [id number] [address] [place] [address], [place] [address] Sep, [facility] [address] [id number] [address] [place] [address], [place] [address] Sep, [facility] [address] [id number] [address] [place] [address], [place] [address] Sep, [facility] [address] [id number] [address] [place] [address], [place] [address] Sep, [facility] [address] [id number] [address] [place] [address], [place] [address] Sep, [facility] [address] [id number] [address] [place] [address], [place] [address] Sep, [facility] [address] [id number] [address] [place] [address], [place] [address] Aug, [facility] [address] [id number] [address] [place] [address], [place] [address] Aug, [facility] [address] [id number] [address] [place] [address], [place] [address] Jul, [facility] [address] [id number] [address] [place] [address], [place] [address] Jul, [facility] [address] [id number] [address] [place] [address], [place] [address] Jul, [facility] [address] [id number] [address] [place] [address] [place] [address] Jun, [facility] [address] [id number] [address] [place] [address], [place] [address] Apr, [facility] [address] [id number] [address] [place] [address], [place] [address] Apr, [facility] [address] [id number] [address] [place] [address], [place] [address] Apr, [facility] [address] [id number] [address] [place] [address], [place] [address] Apr, [facility] [address] [id number] [address] [place] [address], [place] [address] Apr, [facility] [address] [id number] [address] [place] [address], [place] [address] Apr, [facility] [address] [id number] [address] [place] [address], [place] [address] Apr, [facility] [address] [id number] [address] [place] [address], [place] [address] Apr, [facility] [address] [id number] [address] [place] [address], [place] [address] Apr, [facility] [address] [id number] [address] [place] [address], [place] [address] Apr, [facility] [address] [id number] [address] [place] [address], [place] [address] Apr, [facility] [address] [id number] [address] [place] [address] Apr, [facility] [address] [id number] [address] [place] [address], [place] [address] Mar, [facility] [address] [id number] [address] [place] [address], [place] [address] Mar, [facility] [address] [id number] [address] [place] [address], [place] [address] Mar, [facility] [address] [id number] [address] [place] [id number] 15 Mar, 2012 [facility] [address] [id number] [address] [place] [address] Mar, [facility] [address] [id number] [address] [place] [address] Mar, [facility] [address] [id number] [address] [place] [address] Mar, [facility] [address] [id number] [address] [place] [id number] 25 Feb, 2012 [facility] [address] [id number] [address] [place] [id number] 24 Feb, 2012 [facility] [address] [id number] [address] [place] [address] Feb, [facility] [address] [id number] [address] [place] [address] Feb, [facility] [address] [id number] [address] [place] [address] Jan, [facility] [address] [id number] [address] [place] [address] Jan, [facility] [address] [id number] [address] [place] [address] Jan, [facility] [address] [id number] [address] [place] [address] Jan, IMMUNIZATIONS No Known Immunizations SOCIAL HISTORY Never Assessed REASON FOR VISIT EMR-[facility] [place] PLAN OF CARE VITAL SIGNS MEDICATIONS Unknown Medications RESULTS No Results PROCEDURES No Known procedures INSTRUCTIONS MEDICATIONS ADMINISTERED No Known Medications
--- OUTSIDE RECORDS SUMMARY | 2020-01-17 06:41 | XMS REPORT ---
Author Author Yogesh Kelly Doctor Organization [facility] Address Unknown Phone Unavailable Care Team Providers Care Senior Gis Analyst Name Role Phone Migration, Doctor Unavailable Unavailable PROBLEMS Type Condition ICD9-CM Code TFY44-CO Code Onset Dates Condition S tatus SNOMED Code Problem Encounter for long-term (current) use of other medications V58.69 Active 717619889 Problem Routine general medical examination at [facility] V70.0 Active 340887724 Problem Family history of unspecified malignant neoplasm V16.9 Active 057932882 Problem Nonspecific elevation of lev els of transaminase or lactic acid dehydrogenase (LDH) 790.4 Active 22063738 2 Problem Personal history of other allergy, other than to medicinal agents V15.09 Active 780333702 Problem Essential hypertension, benign 401.1 Active 1546144 Problem Coronary atherosclerosis of unspecified type of vessel, dry creek or graft 414.00 Active 754724149 Problem Dizziness and giddiness 780.4 Active 454388080 Problem Chest pain, unspecified 786.50 Active 32375438 Problem Lumbago 724.2 Active 121364375 Problem Cervicalgia 723.1 Active 10410240 Problem Other specified cardiac dysrhythmias 427.89 Active 058579022 Problem Peptic ulcer, unspecified si te, unspecified as acute or chronic, without mention of hemorrhage, perforation, or obstruction 533.90 Active 80053359 Problem Right bundle branch block 426.4 Acti ve 64951308 Problem 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 Active 05556376 Problem Unspecified tinnitus 388.30 Active 56029461 Problem Unspecified hearing loss 389.9 Activ e 57195431 Problem Unspecified otalgia 388.70 Active 99073589 Problem Malignant neoplasm of prostate 185 Active 113970529 Problem Polyuria 788.42 Active 95541110 Problem Unspecified viral hepatitis C without hepatic coma 070.70 Active 73527222 Problem Abdominal or pelvic swelling, mass or lump, unspecified si te 789.30 Active 331475405 Problem Dysuria 788.1 Active 33207858 Problem Unspecified cataract 366.9 Active 772510005 Problem Unspecified episodic mood disorder 296.90 Active 266050713 Problem Other and unspecified hyperlipidemia 272.4 Active 08878588 Problem Unspecified hypothyroidism 244.9 Act katty [id number] ALLERGIES No Information ENCOUNTERS Encounter Location Date Diagnosis [facility] [address] [id number] [address] [place] [id number] 14 Sep, 2014 [facility] [address] [id number] [address] [place] [address] Sep, [facility] [address] [id number] [address] [place] [address] Jun, [facility] [address] [id number] [address] [place] [address] Jun, [facility] [address] [id number] [address] [place] [address] May, [facility] [address] [id number] [address] [place] [address] May, [facility] [address] [id number] [address] [place] [address] Feb, [facility] [address] [id number] [address] [place] [address] Feb, [facility] [address] [id number] [address] [place] [address] Feb, [facility] [address] [id number] [address] [place] [address] Jan, [facility] [address] [id number] [address] [place] [address] Jan, [facility] [address] [id number] [address] [place] [address] Nov, [facility] [address] [id number] [address] [place] [address] Nov, [facility] [address] [id number] [address] [place] [id number] 05 Nov, 2013 [facility] [address] [id number] [facility] [place] [address] 05 Nov, 2013 [facility] [address] [id number] [facility] [place] [address] Aug, [facility] [address] [id number] [facility] [place] [address] Aug, [facility] [address] [id number] [address] [place] [address], [place] [address] Aug, [facility] [address] [id number] [facility] [place] [address] Aug, [facility] [address] [id number] [address] [place] [address], [place] [address] Aug, [facility] [address] [id number] [address] [place] [address], [place] [address] Aug, [facility] [address] [id number] [address] [place] [address], [place] [address] Aug, [facility] [address] [id number] [address] [place] [address], [place] [address] Aug, [facility] [address] [id number] [address] [place] [address], [place] [address] Aug, [facility] [address] [id number] [address] [place] [address], [place] [address] Aug, [facility] [address] [id number] [address] [place] [address], [place] [address] Jul, [facility] [address] [id number] [address] [place] [address], [place] [address] Jul, [facility] [address] [id number] [address] [place] [address], [place] [address] Jul, [facility] [address] [id number] [address] [place] [address], [place] [address] Jul, [facility] [address] [id number] [address] [place] [address], [place] [address] Jul, [facility] [address] [id number] [address] [place] [address], [place] [address] Jul, [facility] [address] [id number] [address] [place] [address], [place] [address] Jul, [facility] [address] [id number] [address] [place] [address], [place] [address] Jul, [facility] [address] [id number] [address] [place] [address], [place] [address] Jun, [facility] [address] [id number] [address] [place] [address], [place] [address] Jun, [facility] [address] [id number] [address] [place] [address], [place] [address] Jun, [facility] [address] [id number] [address] [place] [address], [place] [address] Jun, [facility] [address] [id number] [address] [place] [address], [place] [address] Jun, [facility] [address] [id number] [address] [place] [address], [place] [address] Jun, [facility] [address] [id number] [address] [place] [address], [place] [address] Jun, [facility] [address] [id number] [address] [place] [address], [place] [address] Jun, [facility] [address] [id number] [address] [place] [address], [place] [address] May, [facility] [address] [id number] [address] [place] [address], [place] [address] May, [facility] [address] [id number] [address] [place] [address], [place] [address] May, [facility] [address] [id number] [address] [place] [address], [place] [address] May, [facility] [address] [id number] [address] [place] [address], [place] [address] May, [facility] [address] [id number] [address] [place] [address], [place] [address] May, [facility] [address] [id number] [address] [place] [address], [place] [address] May, [facility] [address] [id number] [address] [place] [address], [place] [address] May, [facility] [address] [id number] [address] [place] [address], [place] [address] Apr, [facility] [address] [id number] [address] [place] [address] Apr, [facility] [address] [id number] [address] [place] [address], [place] [address] Apr, [facility] [address] [id number] [address] [place] [address], [place] [address] Apr, [facility] [address] [id number] [address] [place] [address], [place] [address] Apr, [facility] [address] [id number] [address] [place] [address] Apr, [facility] [address] [id number] [address] [place] [address] Apr, [facility] [address] [id number] [address] [place] [address] 18 Apr, 2013 [facility] [address] [id number] [address] [place] [address], [place] [address] Mar, [facility] [address] [id number] [address] [place] [address] 14 Mar, 2013 [facility] [address] [id number] [address] [place] [address] 18 Feb, 2013 [facility] [address] [id number] [address] [place] [address], [place] [address] Feb, [facility] [address] [id number] [address] [place] [address], [place] [address] Feb, [facility] [address] [id number] [address] [place] [address], [place] [address] Jan, [facility] [address] [id number] [address] [place] [address], [place] [address] Jan, [facility] [address] [id number] [address] [place] [address], [place] [address] Jan, [facility] [address] [id number] [address] [place] [address], [place] [address] Jan, [facility] [address] [id number] [address] [place] [address], [place] [address] Jan, [facility] [address] [id number] [address] [place] [address], [place] [address] Jan, [facility] [address] [id number] [address] [place] [address], [place] [address] Jan, [facility] [address] [id number] [address] [place] [address], [place] [address] Dec, [facility] [address] [id number] [address] [place] [address], [place] [address] Dec, [facility] [address] [id number] [address] [place] [address], [place] [address] Dec, [facility] [address] [id number] [address] [place] [address], [place] [address] Dec, [facility] [address] [id number] [address] [place] [address], [place] [address] Nov, [facility] [address] [id number] [address] [place] [address], [place] [address] Nov, [facility] [address] [id number] [address] [place] [address], [place] [address] Nov, [facility] [address] [id number] [address] [place] [address], [place] [address] October, [facility] [address] [id number] [address] [place] [address], [place] [address] Sep, [facility] [address] [id number] [address] [place] [address], [place] [address] Sep, [facility] [address] [id number] [address] [place] [address], [place] [address] Sep, [facility] [address] [id number] [address] [place] [address], [place] [address] Sep, [facility] [address] [id number] [address] [place] [address], [place] [address] Sep, [facility] [address] [id number] [address] [place] [address], [place] [address] Sep, [facility] [address] [id number] [address] [place] [address], [place] [address] Sep, [facility] [address] [id number] [address] [place] [address], [place] [address] Sep, [facility] [address] [id number] [address] [place] [address], [place] [address] Sep, [facility] [address] [id number] [address] [place] [address], [place] [address] Aug, [facility] [address] [id number] [address] [place] [address], [place] [address] Aug, [facility] [address] [id number] [address] [place] [address], [place] [address] Jul, [facility] [address] [id number] [address] [place] [address], [place] [address] Jul, [facility] [address] [id number] [address] [place] [address], [place] [address] Jul, [facility] [address] [id number] [address] [place] [address] [place] [address] Jun, [facility] [address] [id number] [address] [place] [address], [place] [address] Apr, [facility] [address] [id number] [address] [place] [address], [place] [address] Apr, [facility] [address] [id number] [address] [place] [address], [place] [address] Apr, [facility] [address] [id number] [address] [place] [address], [place] [address] Apr, [facility] [address] [id number] [address] [place] [address], [place] [address] Apr, [facility] [address] [id number] [address] [place] [address], [place] [address] Apr, [facility] [address] [id number] [address] [place] [address], [place] [address] Apr, [facility] [address] [id number] [address] [place] [address], [place] [address] Apr, [facility] [address] [id number] [address] [place] [address], [place] [address] Apr, [facility] [address] [id number] [address] [place] [address], [place] [address] Apr, [facility] [address] [id number] [address] [place] [address], [place] [address] Apr, [facility] [address] [id number] [address] [place] [address] Apr, [facility] [address] [id number] [address] [place] [address], [place] [address] Mar, [facility] [address] [id number] [address] [place] [address], [place] [address] Mar, [facility] [address] [id number] [address] [place] [address], [place] [address] Mar, [facility] [address] [id number] [address] [place] [address] 15 Mar, 2012 [facility] [address] [id number] [address] [place] [address] Mar, [facility] [address] [id number] [address] [place] [address] Mar, [facility] [address] [id number] [address] [place] [address] Mar, [facility] [address] [id number] [address] [place] [address] 25 Feb, 2012 [facility] [address] [id number] [address] [place] [address] 24 Feb, 2012 [facility] [address] [id number] [address] [place] [address] Feb, [facility] [address] [id number] [address] [place] [address] Feb, [facility] [address] [id number] [address] [place] [address] Jan, [facility] [address] [id number] [address] [place] [address] Jan, [facility] [address] [id number] [address] [place] [address] Jan, [facility] [address] [id number] [address] [place] [address] Jan, IMMUNIZATIONS No Known Immunizations SOCIAL HISTORY Never Assessed REASON FOR VISIT PLAN OF CARE VITAL SIGNS MEDICATIONS Unknown Medications RESULTS No Results PROCEDURES No Known procedures INSTRUCTIONS MEDICATIONS ADMINISTERED No Known Medications
--- OUTSIDE RECORDS SUMMARY | 2020-01-17 06:41 | XMS REPORT ---
Author Author Yogesh Kelly Doctor Organization [facility] Address Unknown Phone Unavailable Care Team Providers Care Landscape Architecture Professor Name Role Phone Migration, Doctor Unavailable Unavailable PROBLEMS Type Condition ICD9-CM Code GAI68-TB Code Onset Dates Condition S tatus SNOMED Code Problem Encounter for long-term (current) use of other medications V58.69 Active 610260133 Problem Routine general medical examination at [facility] V70.0 Active 278974392 Problem Family history of unspecified malignant neoplasm V16.9 Active 183414846 Problem Nonspecific elevation of lev els of transaminase or lactic acid dehydrogenase (LDH) 790.4 Active 89938480 2 Problem Personal history of other allergy, other than to medicinal agents V15.09 Active 259932580 Problem Essential hypertension, benign 401.1 Active 7996175 Problem Coronary atherosclerosis of unspecified type of vessel, [place] or graft 414.00 Active 803279163 Problem Dizziness and giddiness 780.4 Active 823101300 Problem Chest pain, unspecified 786.50 Active 23171944 Problem Lumbago 724.2 Active 897241471 Problem Cervicalgia 723.1 Active 75894327 Problem Other specified cardiac dysrhythmias 427.89 Active 244869759 Problem Peptic ulcer, unspecified si te, unspecified as acute or chronic, without mention of hemorrhage, perforation, or obstruction 533.90 Active 98570044 Problem Right bundle branch block 426.4 Acti ve 45135850 Problem 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 Active 51891596 Problem Unspecified tinnitus 388.30 Active 89013411 Problem Unspecified hearing loss 389.9 Activ e 95986461 Problem Unspecified otalgia 388.70 Active 86438249 Problem Malignant neoplasm of prostate 185 Active 667944189 Problem Polyuria 788.42 Active 28029002 Problem Unspecified viral hepatitis C without hepatic coma 070.70 Active 63170404 Problem Abdominal or pelvic swelling, mass or lump, unspecified si te 789.30 Active 261176210 Problem Dysuria 788.1 Active 34558832 Problem Unspecified cataract 366.9 Active 791789556 Problem Unspecified episodic mood disorder 296.90 Active 520689836 Problem Other and unspecified hyperlipidemia 272.4 Active 93015325 Problem Unspecified hypothyroidism 244.9 Act katty 05181931 ALLERGIES Substance Reaction Event Type Date Status Norvasc Oral Tablet 10 Mg 10 Mg Tablet dc'd by Dr. Vance Non Dr latif Allergy Sep, Active ENCOUNTERS Encounter Location Date Diagnosis [facility] [place] [address] [id number] [address] [place] [address] Sep, [facility] [place] [address] [id number] [address] [place] [address] Sep, [facility] [place] [address] [id number] [address] [place] [phone] Jun, [facility] [place] [address] [id number] [address] [place] [address] Jun, [facility] [place] [address] [id number] [address] [place] [address] May, [facility] [place] [address] [id number] [address] [place] [phone] May, [facility] [place] [address] [id number] [address] [place] [phone] Feb, [facility] [place] [address] [id number] [address] [place] [address] Feb, [facility] [place] [address] [id number] [address] [place] [address] Feb, [facility] [place] [address] [id number] [address] [place] [phone] Jan, [facility] [place] [address] [id number] [address] [place] [address] Jan, [facility] [place] [address] [id number] [address] [place] [address] Nov, [facility] [place] [address] [id number] [address] [place] [phone] Nov, [facility] [address] [id number] [facility] [place] [place] [address] Nov, [facility] [address] [id number] [address] [place] [address], [place] [address] Nov, [facility] [address] [id number] [facility] [place] [place] [address] Aug, [facility] [address] [id number] [address] [place] [address], [place] [address] 28 Aug, 2013 [facility] [address] [id number] [facility] [place] [place] [address] 14 Aug, 2013 [facility] [address] [id number] [address] [place] [address], [place] [address] 14 Aug, 2013 [facility] [address] [id number] [address] [place] [address], [place] [address] Aug, [facility] [address] [id number] [address] [place] [address], [place] [address] Aug, [facility] [address] [id number] [address] [place] [address], [place] [address] Aug, [facility] [address] [id number] [address] [place] [address], [place] [address] Aug, [facility] [address] [id number] [address] [place] [address], [place] [address] Aug, [facility] [address] [id number] [address] [place] [address], [place] [address] Aug, [facility] [address] [id number] [address] [place] [address], [place] [address] Jul, [facility] [address] [id number] [address] [place] [address], [place] [address] Jul, [facility] [address] [id number] [address] [place] [address], [place] [address] Jul, [facility] [address] [id number] [address] [place] [address], [place] [address] Jul, [facility] [address] [id number] [address] [place] [address], [place] [address] Jul, [facility] [address] [id number] [address] [place] [address], [place] [address] Jul, [facility] [address] [id number] [address] [place] [address], [place] [address] Jul, [facility] [address] [id number] [address] [place] [address], [place] [address] Jul, [facility] [address] [id number] [address] [place] [address], [place] [address] Jun, [facility] [address] [id number] [address] [place] [address], [place] [address] Jun, [facility] [address] [id number] [address] [place] [address], [place] [address] Jun, [facility] [address] [id number] [address] [place] [address], [place] [address] Jun, [facility] [address] [id number] [address] [place] [address], [place] [address] Jun, [facility] [address] [id number] [address] [place] [address], [place] [address] Jun, [facility] [address] [id number] [address] [place] [address], [place] [address] Jun, [facility] [address] [id number] [address] [place] [address], [place] [address] Jun, [facility] [address] [id number] [address] [place] [address], [place] [address] May, [facility] [address] [id number] [address] [place] [address], [place] [address] May, [facility] [address] [id number] [address] [place] [address], [place] [address] May, [facility] [address] [id number] [address] [place] [address], [place] [address] May, [facility] [address] [id number] [address] [place] [address], [place] [address] May, [facility] [address] [id number] [address] [place] [address], [place] [address] May, [facility] [address] [id number] [address] [place] [address], [place] [address] May, [facility] [address] [id number] [address] [place] [address], [place] [address] May, [facility] [address] [id number] [address] [place] [address] Apr, [facility] [address] [id number] [address] [place] [address], [place] [address] Apr, [facility] [address] [id number] [address] [place] [address] Apr, [facility] [address] [id number] [address] [place] [address], [place] [address] Apr, [facility] [address] [id number] [address] [place] [address] Apr, [facility] [address] [id number] [address] [place] [address] Apr, [facility] [address] [id number] [address] [place] [address] Apr, [facility] [address] [id number] [address] [place] [address], [place] [address] 18 Apr, 2013 [facility] [address] [id number] [address] [place] [address] 14 Mar, 2013 [facility] [address] [id number] [address] [place] [phone] 14 Mar, 2013 [facility] [address] [id number] [address] [place] [address], [place] [address] 18 Feb, 2013 [facility] [address] [id number] [address] [place] [address], [place] [address] 17 Feb, 2013 [facility] [address] [id number] [address] [place] [address], [place] [address] 04 Feb, 2013 [facility] [address] [id number] [address] [place] [address], [place] [address] Jan, [facility] [address] [id number] [address] [place] [address], [place] [address] Jan, [facility] [address] [id number] [address] [place] [address], [place] [address] Jan, [facility] [address] [id number] [address] [place] [address], [place] [address] Jan, [facility] [address] [id number] [address] [place] [address], [place] [address] Jan, [facility] [address] [id number] [address] [place] [address], [place] [address] Jan, [facility] [address] [id number] [address] [place] [address], [place] [address] Jan, [facility] [address] [id number] [address] [place] [address], [place] [address] Dec, [facility] [address] [id number] [address] [place] [address], [place] [address] Dec, [facility] [address] [id number] [address] [place] [address], [place] [address] Dec, [facility] [address] [id number] [address] [place] [address], [place] [address] Dec, [facility] [address] [id number] [address] [place] [address], [place] [address] Nov, [facility] [address] [id number] [address] [place] [address], [place] [address] Nov, [facility] [address] [id number] [address] [place] [address], [place] [address] Nov, [facility] [address] [id number] [address] [place] [address], [place] [address] October, [facility] [address] [id number] [address] [place] [address], [place] [address] Sep, [facility] [address] [id number] [address] [place] [address], [place] [address] Sep, [facility] [address] [id number] [address] [place] [address], [place] [address] Sep, [facility] [address] [id number] [address] [place] [address], [place] [address] Sep, [facility] [address] [id number] [address] [place] [address], [place] [address] Sep, [facility] [address] [id number] [address] [place] [address], [place] [address] Sep, [facility] [address] [id number] [address] [place] [address], [place] [address] Sep, [facility] [address] [id number] [address] [place] [address], [place] [address] Sep, [facility] [address] [id number] [address] [place] [address], [place] [address] Sep, [facility] [address] [id number] [address] [place] [address], [place] [address] Aug, [facility] [address] [id number] [address] [place] [address], [place] [address] Aug, [facility] [address] [id number] [address] [place] [address], [place] [address] Jul, [facility] [address] [id number] [address] [place] [address], [place] [address] Jul, [facility] [address] [id number] [address] [place] [address] Jul, [facility] [address] [id number] [address] [place] [address], [place] [address] Jun, [facility] [address] [id number] [address] [place] [address], [place] [address] Apr, [facility] [address] [id number] [address] [place] [address], [place] [address] Apr, [facility] [address] [id number] [address] [place] [address], [place] [address] Apr, [facility] [address] [id number] [address] [place] [address], [place] [address] Apr, [facility] [address] [id number] [address] [place] [address], [place] [address] Apr, [facility] [address] [id number] [address] [place] [address] Apr, [facility] [address] [id number] [address] [place] [address], [place] [address] Apr, [facility] [address] [id number] [address] [place] [address], [place] [address] Apr, [facility] [address] [id number] [address] [place] [address], [place] [address] Apr, [facility] [address] [id number] [address] [place] [address], [place] [address] Apr, [facility] [address] [id number] [address] [place] [address] Apr, [facility] [address] [id number] [address] [place] [address] Apr, [facility] [address] [id number] [address] [place] [address], [place] [address] Mar, [facility] [address] [id number] [address] [place] [address], [place] [address] Mar, [facility] [address] [id number] [address] [place] [address] Mar, [facility] [place] [address] [id number] [address] [place] [address] Mar, [facility] [place] [address] [id number] [address] [place] [address] Mar, [facility] [place] [address] [id number] [address] [place] [address] Mar, [facility] [place] [address] [id number] [address] [place] [address] Mar, [facility] [place] [address] [id number] [address] [place] [address] Feb, [facility] [place] [address] [id number] [address] [place] [address] Feb, [facility] [place] [address] [id number] [address] [place] [address] Feb, [facility] [place] [address] [id number] [address] [place] [address] Feb, [facility] [place] [address] [id number] [address] [place] [address] Jan, [facility] [place] [address] [id number] [address] [place] [address] Jan, [facility] [address] [id number] [address] [place] [address] Jan, [facility] [address] [id number] [address] [place] [address] Jan, IMMUNIZATIONS No Known Immunizations SOCIAL HISTORY Never Assessed REASON FOR VISIT EMR-[facility] PLAN OF CARE VITAL SIGNS MEDICATIONS Medication Instructions Dosage Frequency Start Date End Date Duration S mattius Viibryd 40 mg take 1 tablet (40 mg) by oral route once daily with food Nov, Active Casodex 50 mg take 1 tablet (50 mg) by oral route once daily Aug, Active Atenolol 25 mg take 1 tablet by Oral route 1 time per day Nov, Active Plavix 75 mg take 1 tablet (75 mg) by oral route once daily Nov, Active Augmentin 875-125 mg 1 tablet by Oral route 2 times pe r day for 10 day(s) Jul, Active PredniSONE 20 mg 1 tablet by Oral route 1 time per day for 5 day(s) Jul, Active atorvastatin 80 mg take 1 tablet by Ora l route at bedtime 1 time per day Avoid grapefruit juice Nov, Activ e Flonase 50 mcg/actuation 1 sprays by Nico al route 2 times per day in each nostril Sep, Active MethylPREDNISolone 4 mg by Oral route day for 6 days as directed per dose pack Aug, Active Cardizem 120 mg take 1 tablet by Oral route 1 time per day Nov, Active Aspirin 81 mg take 1 tablet by Oral route 1 time per day Nov, Active Azithromycin 250 mg 2 Tablet by Oral rou te on day 1 then take 1 daily for 4 days Aug, Active Symbicort 80-4.5 mcg/actuation 2 puffs b y Inhalation route 2 times per day for 30 day(s) Aug, Active Effexor XR 150 mg 1 capsule by Oral route 1 time per d ay take with dinner Nov, Active RESULTS No Results PROCEDURES No Known procedures INSTRUCTIONS MEDICATIONS ADMINISTERED No Known Medications
--- OUTSIDE RECORDS SUMMARY | 2020-01-17 06:41 | XMS REPORT ---
Author Author Yogesh Kelly Doctor Organization [facility] Address Unknown Phone Unavailable Care Team Providers Care Customs Director Name Role Phone Migration, Doctor Unavailable Unavailable PROBLEMS Type Condition ICD9-CM Code [id number] Code Onset Dates Condition S tatus SNOMED Code Problem Encounter for long-term (current) use of other medications V58.69 Active 789129808 Problem Routine general medical examination at [facility] V70.0 Active 096685120 Problem Family history of unspecified malignant neoplasm V16.9 Active 097050278 Problem Nonspecific elevation of lev els of transaminase or lactic acid dehydrogenase (LDH) 790.4 Active 02725194 2 Problem Personal history of other allergy, other than to medicinal agents V15.09 Active 955593887 Problem Essential hypertension, benign 401.1 Active 9160271 Problem Coronary atherosclerosis of unspecified type of vessel, [place] or graft 414.00 Active 088449742 Problem Dizziness and giddiness 780.4 Active 907874101 Problem Chest pain, unspecified 786.50 Active 80616979 Problem Lumbago 724.2 Active 450470366 Problem Cervicalgia 723.1 Active 85585883 Problem Other specified cardiac dysrhythmias 427.89 Active 236569541 Problem Peptic ulcer, unspecified si te, unspecified as acute or chronic, without mention of hemorrhage, perforation, or obstruction 533.90 Active 68880012 Problem Right bundle branch block 426.4 Acti ve 96343833 Problem 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 Active 19438565 Problem Unspecified tinnitus 388.30 Active 05625077 Problem Unspecified hearing loss 389.9 Activ e 10014917 Problem Unspecified otalgia 388.70 Active 09722241 Problem Malignant neoplasm of prostate 185 Active 032749619 Problem Polyuria 788.42 Active 84584689 Problem Unspecified viral hepatitis C without hepatic coma 070.70 Active 11753300 Problem Abdominal or pelvic swelling, mass or lump, unspecified si te 789.30 Active 453702991 Problem Dysuria 788.1 Active 73038502 Problem Unspecified cataract 366.9 Active 193833610 Problem Unspecified episodic mood disorder 296.90 Active 140177822 Problem Other and unspecified hyperlipidemia 272.4 Active 98632593 Problem Unspecified hypothyroidism 244.9 Act katty [id number] ALLERGIES No Information ENCOUNTERS Encounter Location Date Diagnosis [facility] [address] [id number] [address] [place] [id number] 14 Sep, 2014 [facility] [address] [id number] [address] [place] [address] Sep, [facility] [address] [id number] [address] [place] [address] Jun, [facility] [address] [id number] [address] [place] [id number] Jun, [facility] [address] [id number] [address] [place] [address] May, [facility] [address] [id number] [address] [place] [address] May, [facility] [address] [id number] [address] [place] [phone] Feb, [facility] [address] [id number] [address] [place] [address] Feb, [facility] [address] [id number] [address] [place] [address] Feb, [facility] [address] [id number] [address] [place] [address] Jan, [facility] [address] [id number] [address] [place] [address] Jan, [facility] [address] [id number] [address] [place] [address] Nov, [facility] [address] [id number] [address] [place] [address] Nov, [facility] [address] [id number] [address] [place] [id number] 05 Nov, 2013 [facility] [address] [id number] [facility] [place] [address] 05 Nov, 2013 [facility] [address] [id number] [facility] [place] [address] Aug, [facility] [address] [id number] [facility] [place] [address] Aug, [facility] [address] [id number] [address] [place] [address], [place] [address] Aug, [facility] [address] [id number] [facility] [place] [address] Aug, [facility] [address] [id number] [address] [place] [address], [place] [address] Aug, [facility] [address] [id number] [address] [place] [address], [place] [address] Aug, [facility] [address] [id number] [address] [place] [address], [place] [address] Aug, [facility] [address] [id number] [address] [place] [address], [place] [address] Aug, [facility] [address] [id number] [address] [place] [address], [place] [address] Aug, [facility] [address] [id number] [address] [place] [address], [place] [address] Aug, [facility] [address] [id number] [address] [place] [address], [place] [address] Jul, [facility] [address] [id number] [address] [place] [address], [place] [address] Jul, [facility] [address] [id number] [address] [place] [address], [place] [address] Jul, [facility] [address] [id number] [address] [place] [address], [place] [address] Jul, [facility] [address] [id number] [address] [place] [address], [place] [address] Jul, [facility] [address] [id number] [address] [place] [address], [place] [address] Jul, [facility] [address] [id number] [address] [place] [address], [place] [address] Jul, [facility] [address] [id number] [address] [place] [address], [place] [address] Jul, [facility] [address] [id number] [address] [place] [address], [place] [address] Jun, [facility] [address] [id number] [address] [place] [address], [place] [address] Jun, [facility] [address] [id number] [address] [place] [address], [place] [address] Jun, [facility] [address] [id number] [address] [place] [address], [place] [address] Jun, [facility] [address] [id number] [address] [place] [address], [place] [address] Jun, [facility] [address] [id number] [address] [place] [address], [place] [address] Jun, [facility] [address] [id number] [address] [place] [address], [place] [address] Jun, [facility] [address] [id number] [address] [place] [address], [place] [address] Jun, [facility] [address] [id number] [address] [place] [address], [place] [address] May, [facility] [address] [id number] [address] [place] [address], [place] [address] May, [facility] [address] [id number] [address] [place] [address], [place] [address] May, [facility] [address] [id number] [address] [place] [address], [place] [address] May, [facility] [address] [id number] [address] [place] [address], [place] [address] May, [facility] [address] [id number] [address] [place] [address], [place] [address] May, [facility] [address] [id number] [address] [place] [address], [place] [address] May, [facility] [address] [id number] [address] [place] [address], [place] [address] May, [facility] [address] [id number] [address] [place] [address], [place] [address] Apr, [facility] [address] [id number] [address] [place] [address] Apr, [facility] [address] [id number] [address] [place] [address], [place] [address] Apr, [facility] [address] [id number] [address] [place] [address], [place] [address] Apr, [facility] [address] [id number] [address] [place] [address], [place] [address] Apr, [facility] [address] [id number] [address] [place] [address] Apr, [facility] [address] [id number] [address] [place] [address] Apr, [facility] [address] [id number] [address] [place] [id number] 18 Apr, 2013 [facility] [address] [id number] [address] [place] [address], [place] [address] Mar, [facility] [address] [id number] [address] [place] [id number] 14 Mar, 2013 [facility] [address] [id number] [address] [place] [id number] 18 Feb, 2013 [facility] [address] [id number] [address] [place] [address], [place] [address] Feb, [facility] [address] [id number] [address] [place] [address], [place] [address] Feb, [facility] [address] [id number] [address] [place] [address], [place] [address] Jan, [facility] [address] [id number] [address] [place] [address], [place] [address] Jan, [facility] [address] [id number] [address] [place] [address], [place] [address] Jan, [facility] [address] [id number] [address] [place] [address], [place] [address] Jan, [facility] [address] [id number] [address] [place] [address], [place] [address] Jan, [facility] [address] [id number] [address] [place] [address], [place] [address] Jan, [facility] [address] [id number] [address] [place] [address], [place] [address] Jan, [facility] [address] [id number] [address] [place] [address], [place] [address] Dec, [facility] [address] [id number] [address] [place] [address], [place] [address] Dec, [facility] [address] [id number] [address] [place] [address], [place] [address] Dec, [facility] [address] [id number] [address] [place] [address], [place] [address] Dec, [facility] [address] [id number] [address] [place] [address], [place] [address] Nov, [facility] [address] [id number] [address] [place] [address], [place] [address] Nov, [facility] [address] [id number] [address] [place] [address], [place] [address] Nov, [facility] [address] [id number] [address] [place] [address], [place] [address] October, [facility] [address] [id number] [address] [place] [address], [place] [address] Sep, [facility] [address] [id number] [address] [place] [address], [place] [address] Sep, [facility] [address] [id number] [address] [place] [address], [place] [address] Sep, [facility] [address] [id number] [address] [place] [address], [place] [address] Sep, [facility] [address] [id number] [address] [place] [address], [place] [address] Sep, [facility] [address] [id number] [address] [place] [address], [place] [address] Sep, [facility] [address] [id number] [address] [place] [address], [place] [address] Sep, [facility] [address] [id number] [address] [place] [address], [place] [address] Sep, [facility] [address] [id number] [address] [place] [address], [place] [address] Sep, [facility] [address] [id number] [address] [place] [address], [place] [address] Aug, [facility] [address] [id number] [address] [place] [address], [place] [address] Aug, [facility] [address] [id number] [address] [place] [address], [place] [address] Jul, [facility] [address] [id number] [address] [place] [address], [place] [address] Jul, [facility] [address] [id number] [address] [place] [address], [place] [address] Jul, [facility] [address] [id number] [address] [place] [address] [place] [address] Jun, [facility] [address] [id number] [address] [place] [address], [place] [address] Apr, [facility] [address] [id number] [address] [place] [address], [place] [address] Apr, [facility] [address] [id number] [address] [place] [address], [place] [address] Apr, [facility] [address] [id number] [address] [place] [address], [place] [address] Apr, [facility] [address] [id number] [address] [place] [address], [place] [address] Apr, [facility] [address] [id number] [address] [place] [address], [place] [address] Apr, [facility] [address] [id number] [address] [place] [address], [place] [address] Apr, [facility] [address] [id number] [address] [place] [address], [place] [address] Apr, [facility] [address] [id number] [address] [place] [address], [place] [address] Apr, [facility] [address] [id number] [address] [place] [address], [place] [address] Apr, [facility] [address] [id number] [address] [place] [address], [place] [address] Apr, [facility] [address] [id number] [address] [place] [address] Apr, [facility] [address] [id number] [address] [place] [address], [place] [address] Mar, [facility] [address] [id number] [address] [place] [address], [place] [address] Mar, [facility] [address] [id number] [address] [place] [address], [place] [address] Mar, [facility] [address] [id number] [address] [place] [address] 15 Mar, 2012 [facility] [address] [id number] [address] [place] [address] Mar, [facility] [address] [id number] [address] [place] [address] Mar, [facility] [address] [id number] [address] [place] [address] Mar, [facility] [address] [id number] [address] [place] [address] 25 Feb, 2012 [facility] [address] [id number] [address] [place] [id number] 24 Feb, 2012 [facility] [address] [id number] [address] [place] [address] Feb, [facility] [address] [id number] [address] [place] [address] Feb, [facility] [address] [id number] [address] [place] [address] Jan, [facility] [address] [id number] [address] [place] [address] Jan, [facility] [address] [id number] [address] [place] [address] Jan, [facility] [address] [id number] [address] [place] [address] Jan, IMMUNIZATIONS No Known Immunizations SOCIAL HISTORY Never Assessed REASON FOR VISIT EMR[place] [place] OF CARE VITAL SIGNS MEDICATIONS Unknown Medications RESULTS No Results PROCEDURES No Known procedures INSTRUCTIONS MEDICATIONS ADMINISTERED No Known Medications
--- OUTSIDE RECORDS SUMMARY | 2020-01-17 06:41 | XMS REPORT ---
Author Author Yogesh Kelly Doctor Organization [facility] Address Unknown Phone Unavailable Care Team Providers Care Merchandise Complaint Adjuster Name Role Phone Migration, Doctor Unavailable Unavailable PROBLEMS Type Condition ICD9-CM Code QLC12-RG Code Onset Dates Condition S tatus SNOMED Code Problem Encounter for long-term (current) use of other medications V58.69 Active 902227845 Problem Routine general medical examination at [facility] V70.0 Active 165911005 Problem Family history of unspecified malignant neoplasm V16.9 Active 047915477 Problem Nonspecific elevation of lev els of transaminase or lactic acid dehydrogenase (LDH) 790.4 Active 68210762 2 Problem Personal history of other allergy, other than to medicinal agents V15.09 Active 908459360 Problem Essential hypertension, benign 401.1 Active 8337780 Problem Coronary atherosclerosis of unspecified type of vessel, redding or graft 414.00 Active 302101919 Problem Dizziness and giddiness 780.4 Active 913138554 Problem Chest pain, unspecified 786.50 Active 27037995 Problem Lumbago 724.2 Active 103784968 Problem Cervicalgia 723.1 Active 52223963 Problem Other specified cardiac dysrhythmias 427.89 Active 019770214 Problem Peptic ulcer, unspecified si te, unspecified as acute or chronic, without mention of hemorrhage, perforation, or obstruction 533.90 Active 57688648 Problem Right bundle branch block 426.4 Acti ve 25995586 Problem 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 Active 49250446 Problem Unspecified tinnitus 388.30 Active 25345951 Problem Unspecified hearing loss 389.9 Activ e 40707938 Problem Unspecified otalgia 388.70 Active 74202991 Problem Malignant neoplasm of prostate 185 Active 329195867 Problem Polyuria 788.42 Active 85003609 Problem Unspecified viral hepatitis C without hepatic coma 070.70 Active 72192435 Problem Abdominal or pelvic swelling, mass or lump, unspecified si te 789.30 Active 600935770 Problem Dysuria 788.1 Active 81990950 Problem Unspecified cataract 366.9 Active 392230052 Problem Unspecified episodic mood disorder 296.90 Active 006189630 Problem Other and unspecified hyperlipidemia 272.4 Active 95545322 Problem Unspecified hypothyroidism 244.9 Act katty 10083440 ALLERGIES No Information ENCOUNTERS Encounter Location Date Diagnosis [facility] [address] [id number] [address] [place] [address] 14 Sep, 2014 [facility] [address] [id number] [address] [place] [address] Sep, [facility] [address] [id number] [address] [place] [address] Jun, [facility] [address] [id number] [address] [place] [address] Jun, [facility] [address] [id number] [address] [place] [address] May, [facility] [address] [id number] [address] [place] [address] May, [facility] [address] [id number] [address] [place] [address] Feb, [facility] [address] [id number] [address] [place] [address] Feb, [facility] [address] [id number] [address] [place] [address] Feb, [facility] [address] [id number] [address] [place] [address] Jan, [facility] [address] [id number] [address] [place] [address] Jan, [facility] [address] [id number] [address] [place] [address] Nov, [facility] [address] [id number] [address] [place] [address] Nov, [facility] [address] [id number] [address] [place] [address] 05 Nov, 2013 [facility] [address] [id number] [facility] [place] [address] 05 Nov, 2013 [facility] [address] [id number] [facility] [place] [address] Aug, [facility] [address] [id number] [facility] [place] [address] Aug, [facility] [address] [id number] [address] [place] [address], [place] [address] Aug, [facility] [address] [id number] [facility] [place] [address] Aug, [facility] [address] [id number] [address] [place] [address], [place] [address] Aug, [facility] [address] [id number] [address] [place] [address], [place] [address] Aug, [facility] [address] [id number] [address] [place] [address], [place] [address] Aug, [facility] [address] [id number] [address] [place] [address], [place] [address] Aug, [facility] [address] [id number] [address] [place] [address], [place] [address] Aug, [facility] [address] [id number] [address] [place] [address], [place] [address] Aug, [facility] [address] [id number] [address] [place] [address], [place] [address] Jul, [facility] [address] [id number] [address] [place] [address], [place] [address] Jul, [facility] [address] [id number] [address] [place] [address], [place] [address] Jul, [facility] [address] [id number] [address] [place] [address], [place] [address] Jul, [facility] [address] [id number] [address] [place] [address], [place] [address] Jul, [facility] [address] [id number] [address] [place] [address], [place] [address] Jul, [facility] [address] [id number] [address] [place] [address], [place] [address] Jul, [facility] [address] [id number] [address] [place] [address], [place] [address] Jul, [facility] [address] [id number] [address] [place] [address], [place] [address] Jun, [facility] [address] [id number] [address] [place] [address], [place] [address] Jun, [facility] [address] [id number] [address] [place] [address], [place] [address] Jun, [facility] [address] [id number] [address] [place] [address], [place] [address] Jun, [facility] [address] [id number] [address] [place] [address], [place] [address] Jun, [facility] [address] [id number] [address] [place] [address], [place] [address] Jun, [facility] [address] [id number] [address] [place] [address], [place] [address] Jun, [facility] [address] [id number] [address] [place] [address], [place] [address] Jun, [facility] [address] [id number] [address] [place] [address], [place] [address] May, [facility] [address] [id number] [address] [place] [address], [place] [address] May, [facility] [address] [id number] [address] [place] [address], [place] [address] May, [facility] [address] [id number] [address] [place] [address], [place] [address] May, [facility] [address] [id number] [address] [place] [address], [place] [address] May, [facility] [address] [id number] [address] [place] [address], [place] [address] May, [facility] [address] [id number] [address] [place] [address], [place] [address] May, [facility] [address] [id number] [address] [place] [address], [place] [address] May, [facility] [address] [id number] [address] [place] [address], [place] [address] Apr, [facility] [address] [id number] [address] [place] [address] Apr, [facility] [address] [id number] [address] [place] [address], [place] [address] Apr, [facility] [address] [id number] [address] [place] [address], [place] [address] Apr, [facility] [address] [id number] [address] [place] [address], [place] [address] Apr, [facility] [address] [id number] [address] [place] [address] Apr, [facility] [address] [id number] [address] [place] [address] Apr, [facility] [address] [id number] [address] [place] [address] 18 Apr, 2013 [facility] [address] [id number] [address] [place] [address], [place] [address] Mar, [facility] [address] [id number] [address] [place] [address] 14 Mar, 2013 [facility] [address] [id number] [address] [place] [address] 18 Feb, 2013 [facility] [address] [id number] [address] [place] [address], [place] [address] Feb, [facility] [address] [id number] [address] [place] [address], [place] [address] Feb, [facility] [address] [id number] [address] [place] [address], [place] [address] Jan, [facility] [address] [id number] [address] [place] [address], [place] [address] Jan, [facility] [address] [id number] [address] [place] [address], [place] [address] Jan, [facility] [address] [id number] [address] [place] [address], [place] [address] Jan, [facility] [address] [id number] [address] [place] [address], [place] [address] Jan, [facility] [address] [id number] [address] [place] [address], [place] [address] Jan, [facility] [address] [id number] [address] [place] [address], [place] [address] Jan, [facility] [address] [id number] [address] [place] [address], [place] [address] Dec, [facility] [address] [id number] [address] [place] [address], [place] [address] Dec, [facility] [address] [id number] [address] [place] [address], [place] [address] Dec, [facility] [address] [id number] [address] [place] [address], [place] [address] Dec, [facility] [address] [id number] [address] [place] [address], [place] [address] Nov, [facility] [address] [id number] [address] [place] [address], [place] [address] Nov, [facility] [address] [id number] [address] [place] [address], [place] [address] Nov, [facility] [address] [id number] [address] [place] [address], [place] [address] October, [facility] [address] [id number] [address] [place] [address], [place] [address] Sep, [facility] [address] [id number] [address] [place] [address], [place] [address] Sep, [facility] [address] [id number] [address] [place] [address], [place] [address] Sep, [facility] [address] [id number] [address] [place] [address], [place] [address] Sep, [facility] [address] [id number] [address] [place] [address], [place] [address] Sep, [facility] [address] [id number] [address] [place] [address], [place] [address] Sep, [facility] [address] [id number] [address] [place] [address], [place] [address] Sep, [facility] [address] [id number] [address] [place] [address], [place] [address] Sep, [facility] [address] [id number] [address] [place] [address], [place] [address] Sep, [facility] [address] [id number] [address] [place] [address], [place] [address] Aug, [facility] [address] [id number] [address] [place] [address], [place] [address] Aug, [facility] [address] [id number] [address] [place] [address], [place] [address] Jul, [facility] [address] [id number] [address] [place] [address], [place] [address] Jul, [facility] [address] [id number] [address] [place] [address], [place] [address] Jul, [facility] [address] [id number] [address] [place] [address] [place] [address] Jun, [facility] [address] [id number] [address] [place] [address], [place] [address] Apr, [facility] [address] [id number] [address] [place] [address], [place] [address] Apr, [facility] [address] [id number] [address] [place] [address], [place] [address] Apr, [facility] [address] [id number] [address] [place] [address], [place] [address] Apr, [facility] [address] [id number] [address] [place] [address], [place] [address] Apr, [facility] [address] [id number] [address] [place] [address], [place] [address] Apr, [facility] [address] [id number] [address] [place] [address], [place] [address] Apr, [facility] [address] [id number] [address] [place] [address], [place] [address] Apr, [facility] [address] [id number] [address] [place] [address], [place] [address] Apr, [facility] [address] [id number] [address] [place] [address], [place] [address] Apr, [facility] [address] [id number] [address] [place] [address], [place] [address] Apr, [facility] [address] [id number] [address] [place] [address] Apr, [facility] [address] [id number] [address] [place] [address], [place] [address] Mar, [facility] [address] [id number] [address] [place] [address], [place] [address] Mar, [facility] [address] [id number] [address] [place] [address], [place] [address] Mar, [facility] [address] [id number] [address] [place] [address] 15 Mar, 2012 [facility] [address] [id number] [address] [place] [address] Mar, [facility] [address] [id number] [address] [place] [address] Mar, [facility] [address] [id number] [address] [place] [address] Mar, [facility] [address] [id number] [address] [place] [address] 25 Feb, 2012 [facility] [address] [id number] [address] [place] [address] 24 Feb, 2012 [facility] [address] [id number] [address] [place] [address] Feb, [facility] [address] [id number] [address] [place] [address] Feb, [facility] [address] [id number] [address] [place] [address] Jan, [facility] [address] [id number] [address] [place] [address] Jan, [facility] [address] [id number] [address] [place] [address] Jan, [facility] [address] [id number] [address] [place] [address] Jan, IMMUNIZATIONS No Known Immunizations SOCIAL HISTORY Never Assessed REASON FOR VISIT PLAN OF CARE VITAL SIGNS MEDICATIONS Unknown Medications RESULTS No Results PROCEDURES No Known procedures INSTRUCTIONS MEDICATIONS ADMINISTERED No Known Medications
--- OUTSIDE RECORDS SUMMARY | 2020-01-17 06:42 | XMS REPORT ---
Author Author Yogesh Kelly Doctor Organization 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 Name Role Phone Migration, Doctor Unavailable Unavailable PROBLEMS Type Condition ICD9-CM Code LLF73-XG Code Onset Dates Condition S tatus SNOMED Code Problem Encounter for long-term (current) use of other medications V58.69 Active 556392738 Problem Routine general medical examination at [facility] V70.0 Active 809122225 Problem Family history of unspecified malignant neoplasm V16.9 Active 441789953 Problem Nonspecific elevation of lev els of transaminase or lactic acid dehydrogenase (LDH) 790.4 Active 45750888 2 Problem Personal history of other allergy, other than to medicinal agents V15.09 Active 419591300 Problem Essential hypertension, benign 401.1 Active 0436579 Problem Coronary atherosclerosis of unspecified type of vessel, inupiat or graft 414.00 Active 701521119 Problem Dizziness and giddiness 780.4 Active 175650484 Problem Chest pain, unspecified 786.50 Active 42702177 Problem Lumbago 724.2 Active 473851641 Problem Cervicalgia 723.1 Active 21414081 Problem Other specified cardiac dysrhythmias 427.89 Active 958517591 Problem Peptic ulcer, unspecified si te, unspecified as acute or chronic, without mention of hemorrhage, perforation, or obstruction 533.90 Active 57517681 Problem Right bundle branch block 426.4 Acti ve 45310563 Problem 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 Active 76229008 Problem Unspecified tinnitus 388.30 Active 99349964 Problem Unspecified hearing loss 389.9 Activ e 03957696 Problem Unspecified otalgia 388.70 Active 26672354 Problem Malignant neoplasm of prostate 185 Active 779548032 Problem Polyuria 788.42 Active 25251450 Problem Unspecified viral hepatitis C without hepatic coma 070.70 Active 73688462 Problem Abdominal or pelvic swelling, mass or lump, unspecified si te 789.30 Active 002801921 Problem Dysuria 788.1 Active 67511006 Problem Unspecified cataract 366.9 Active 643778566 Problem Unspecified episodic mood disorder 296.90 Active 531251115 Problem Other and unspecified hyperlipidemia 272.4 Active 81762376 Problem Unspecified hypothyroidism 244.9 Act katty 88373731 ALLERGIES No Information ENCOUNTERS Encounter Location Date Diagnosis [facility] [address] [id number] [address] [place] [id number] 14 Sep, 2014 [facility] [address] [id number] [address] [place] [address] Sep, [facility] [address] [id number] [address] [place] [address] Jun, [facility] [address] [id number] [address] [place] [address] Jun, [facility] [address] [id number] [address] [place] [address] May, [facility] [address] [id number] [address] [place] [address] May, [facility] [address] [id number] [address] [place] [address] Feb, [facility] [address] [id number] [address] [place] [address] Feb, [facility] [address] [id number] [address] [place] [address] Feb, [facility] [address] [id number] [address] [place] [address] Jan, [facility] [address] [id number] [address] [place] [phone] Jan, [facility] [address] [id number] [address] [place] [address] Nov, [facility] [address] [id number] [address] [place] [address] Nov, [facility] [address] [id number] [address] [place] [id number] 05 Nov, 2013 [facility] [address] [id number] [facility] [place] [address] 05 Nov, 2013 [facility] [address] [id number] [facility] [place] [address] Aug, [facility] [address] [id number] [facility] [place] [address] Aug, [facility] [address] [id number] [address] [place] [address], [place] [address] Aug, [facility] [address] [id number] [facility] [place] [address] Aug, [facility] [address] [id number] [address] [place] [address], [place] [address] Aug, [facility] [address] [id number] [address] [place] [address], [place] [address] Aug, [facility] [address] [id number] [address] [place] [address], [place] [address] Aug, [facility] [address] [id number] [address] [place] [address], [place] [address] Aug, [facility] [address] [id number] [address] [place] [address], [place] [address] Aug, [facility] [address] [id number] [address] [place] [address], [place] [address] Aug, [facility] [address] [id number] [address] [place] [address], [place] [address] Jul, [facility] [address] [id number] [address] [place] [address], [place] [address] Jul, [facility] [address] [id number] [address] [place] [address], [place] [address] Jul, [facility] [address] [id number] [address] [place] [address], [place] [address] Jul, [facility] [address] [id number] [address] [place] [address], [place] [address] Jul, [facility] [address] [id number] [address] [place] [address], [place] [address] Jul, [facility] [address] [id number] [address] [place] [address], [place] [address] Jul, [facility] [address] [id number] [address] [place] [address], [place] [address] Jul, [facility] [address] [id number] [address] [place] [address], [place] [address] Jun, [facility] [address] [id number] [address] [place] [address], [place] [address] Jun, [facility] [address] [id number] [address] [place] [address], [place] [address] Jun, [facility] [address] [id number] [address] [place] [address], [place] [address] Jun, [facility] [address] [id number] [address] [place] [address], [place] [address] Jun, [facility] [address] [id number] [address] [place] [address], [place] [address] Jun, [facility] [address] [id number] [address] [place] [address], [place] [address] Jun, [facility] [address] [id number] [address] [place] [address], [place] [address] Jun, [facility] [address] [id number] [address] [place] [address], [place] [address] May, [facility] [address] [id number] [address] [place] [address], [place] [address] May, [facility] [address] [id number] [address] [place] [address], [place] [address] May, [facility] [address] [id number] [address] [place] [address], [place] [address] May, [facility] [address] [id number] [address] [place] [address], [place] [address] May, [facility] [address] [id number] [address] [place] [address], [place] [address] May, [facility] [address] [id number] [address] [place] [address], [place] [address] May, [facility] [address] [id number] [address] [place] [address], [place] [address] May, [facility] [address] [id number] [address] [place] [address], [place] [address] Apr, [facility] [address] [id number] [address] [place] [address] Apr, [facility] [address] [id number] [address] [place] [address], [place] [address] Apr, [facility] [address] [id number] [address] [place] [address], [place] [address] Apr, [facility] [address] [id number] [address] [place] [address], [place] [address] Apr, [facility] [address] [id number] [address] [place] [address] Apr, [facility] [address] [id number] [address] [place] [address] Apr, [facility] [address] [id number] [address] [place] [address] 18 Apr, 2013 [facility] [address] [id number] [address] [place] [address], [place] [address] Mar, [facility] [address] [id number] [address] [place] [address] 14 Mar, 2013 [facility] [address] [id number] [address] [place] [id number] 18 Feb, 2013 [facility] [address] [id number] [address] [place] [address], [place] [address] Feb, [facility] [address] [id number] [address] [place] [address], [place] [address] Feb, [facility] [address] [id number] [address] [place] [address], [place] [address] Jan, [facility] [address] [id number] [address] [place] [address], [place] [address] Jan, [facility] [address] [id number] [address] [place] [address], [place] [address] Jan, [facility] [address] [id number] [address] [place] [address], [place] [address] Jan, [facility] [address] [id number] [address] [place] [address], [place] [address] Jan, [facility] [address] [id number] [address] [place] [address], [place] [address] Jan, [facility] [address] [id number] [address] [place] [address], [place] [address] Jan, [facility] [address] [id number] [address] [place] [address], [place] [address] Dec, [facility] [address] [id number] [address] [place] [address], [place] [address] Dec, [facility] [address] [id number] [address] [place] [address], [place] [address] Dec, [facility] [address] [id number] [address] [place] [address], [place] [address] Dec, [facility] [address] [id number] [address] [place] [address], [place] [address] Nov, [facility] [address] [id number] [address] [place] [address], [place] [address] Nov, [facility] [address] [id number] [address] [place] [address], [place] [address] Nov, [facility] [address] [id number] [address] [place] [address], [place] [address] October, [facility] [address] [id number] [address] [place] [address], [place] [address] Sep, [facility] [address] [id number] [address] [place] [address], [place] [address] Sep, [facility] [address] [id number] [address] [place] [address], [place] [address] Sep, [facility] [address] [id number] [address] [place] [address], [place] [address] Sep, [facility] [address] [id number] [address] [place] [address], [place] [address] Sep, [facility] [address] [id number] [address] [place] [address], [place] [address] Sep, [facility] [address] [id number] [address] [place] [address], [place] [address] Sep, [facility] [address] [id number] [address] [place] [address], [place] [address] Sep, [facility] [address] [id number] [address] [place] [address], [place] [address] Sep, [facility] [address] [id number] [address] [place] [address], [place] [address] Aug, [facility] [address] [id number] [address] [place] [address], [place] [address] Aug, [facility] [address] [id number] [address] [place] [address], [place] [address] Jul, [facility] [address] [id number] [address] [place] [address], [place] [address] Jul, [facility] [address] [id number] [address] [place] [address], [place] [address] Jul, [facility] [address] [id number] [address] [place] [address] [place] [address] Jun, [facility] [address] [id number] [address] [place] [address], [place] [address] Apr, [facility] [address] [id number] [address] [place] [address], [place] [address] Apr, [facility] [address] [id number] [address] [place] [address], [place] [address] Apr, [facility] [address] [id number] [address] [place] [address], [place] [address] Apr, [facility] [address] [id number] [address] [place] [address], [place] [address] Apr, [facility] [address] [id number] [address] [place] [address], [place] [address] Apr, [facility] [address] [id number] [address] [place] [address], [place] [address] Apr, [facility] [address] [id number] [address] [place] [address], [place] [address] Apr, [facility] [address] [id number] [address] [place] [address], [place] [address] Apr, [facility] [address] [id number] [address] [place] [address], [place] [address] Apr, [facility] [address] [id number] [address] [place] [address], [place] [address] Apr, [facility] [address] [id number] [address] [place] [address] Apr, [facility] [address] [id number] [address] [place] [address], [place] [address] Mar, [facility] [address] [id number] [address] [place] [address], [place] [address] Mar, [facility] [address] [id number] [address] [place] [address], [place] [address] Mar, [facility] [address] [id number] [address] [place] [address] 15 Mar, 2012 [facility] [address] [id number] [address] [place] [address] Mar, [facility] [address] [id number] [address] [place] [address] Mar, [facility] [address] [id number] [address] [place] [address] Mar, [facility] [address] [id number] [address] [place] [address] 25 Feb, 2012 [facility] [address] [id number] [address] [place] [address] 24 Feb, 2012 [facility] [address] [id number] [address] [place] [address] Feb, [facility] [address] [id number] [address] [place] [address] Feb, [facility] [address] [id number] [address] [place] [address] Jan, [facility] [address] [id number] [address] [place] [address] Jan, [facility] [address] [id number] [address] [place] [address] Jan, [facility] [address] [id number] [address] [place] [address] Jan, IMMUNIZATIONS No Known Immunizations SOCIAL HISTORY Never Assessed REASON FOR VISIT EMR-[facility] PLAN OF CARE VITAL SIGNS MEDICATIONS Unknown Medications RESULTS No Results PROCEDURES No Known procedures INSTRUCTIONS MEDICATIONS ADMINISTERED No Known Medications
--- OUTSIDE RECORDS SUMMARY | 2020-01-17 06:42 | XMS REPORT ---
Author Author Yogesh Kelly Doctor Organization 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 Name Role Phone Migration, Doctor Unavailable Unavailable PROBLEMS Type Condition ICD9-CM Code XNR74-GW Code Onset Dates Condition S tatus SNOMED Code Problem Encounter for long-term (current) use of other medications V58.69 Active 752799647 Problem Routine general medical examination at [facility] V70.0 Active 071733720 Problem Family history of unspecified malignant neoplasm V16.9 Active 422084329 Problem Nonspecific elevation of lev els of transaminase or lactic acid dehydrogenase (LDH) 790.4 Active 73787174 2 Problem Personal history of other allergy, other than to medicinal agents V15.09 Active 762284545 Problem Essential hypertension, benign 401.1 Active 0452379 Problem Coronary atherosclerosis of unspecified type of vessel, [place] or graft 414.00 Active 317742712 Problem Dizziness and giddiness 780.4 Active 340605941 Problem Chest pain, unspecified 786.50 Active 08732200 Problem Lumbago 724.2 Active 767858049 Problem Cervicalgia 723.1 Active 46808058 Problem Other specified cardiac dysrhythmias 427.89 Active 231301888 Problem Peptic ulcer, unspecified si te, unspecified as acute or chronic, without mention of hemorrhage, perforation, or obstruction 533.90 Active 07866048 Problem Right bundle branch block 426.4 Acti ve 40460086 Problem 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 Active 71816825 Problem Unspecified tinnitus 388.30 Active 37648964 Problem Unspecified hearing loss 389.9 Activ e 02712389 Problem Unspecified otalgia 388.70 Active 46735581 Problem Malignant neoplasm of prostate 185 Active 237040044 Problem Polyuria 788.42 Active 77702098 Problem Unspecified viral hepatitis C without hepatic coma 070.70 Active 31580004 Problem Abdominal or pelvic swelling, mass or lump, unspecified si te 789.30 Active 258900758 Problem Dysuria 788.1 Active 70971124 Problem Unspecified cataract 366.9 Active 149437302 Problem Unspecified episodic mood disorder 296.90 Active 727321307 Problem Other and unspecified hyperlipidemia 272.4 Active 98730746 Problem Unspecified hypothyroidism 244.9 Act katty [id number] ALLERGIES No Information ENCOUNTERS Encounter Location Date Diagnosis [facility] [address] [id number] [address] [place] [address] 14 Sep, 2014 [facility] [address] [id number] [address] [place] [address] Sep, [facility] [address] [id number] [address] [place] [address] Jun, [facility] [address] [id number] [address] [place] [address] Jun, [facility] [address] [id number] [address] [place] [address] May, [facility] [address] [id number] [address] [place] [address] May, [facility] [address] [id number] [address] [place] [address] Feb, [facility] [address] [id number] [address] [place] [address] Feb, [facility] [address] [id number] [address] [place] [address] Feb, [facility] [address] [id number] [address] [place] [address] Jan, [facility] [address] [id number] [address] [place] [address] Jan, [facility] [address] [id number] [address] [place] [address] Nov, [facility] [address] [id number] [address] [place] [address] Nov, [facility] [address] [id number] [address] [place] [address] 05 Nov, 2013 [facility] [address] [id number] [facility] [place] [address] 05 Nov, 2013 [facility] [address] [id number] [facility] [place] [address] Aug, [facility] [address] [id number] [facility] [place] [address] Aug, [facility] [address] [id number] [address] [place] [address], [place] [address] Aug, [facility] [address] [id number] [facility] [place] [address] Aug, [facility] [address] [id number] [address] [place] [address], [place] [address] Aug, [facility] [address] [id number] [address] [place] [address], [place] [address] Aug, [facility] [address] [id number] [address] [place] [address], [place] [address] Aug, [facility] [address] [id number] [address] [place] [address], [place] [address] Aug, [facility] [address] [id number] [address] [place] [address], [place] [address] Aug, [facility] [address] [id number] [address] [place] [address], [place] [address] Aug, [facility] [address] [id number] [address] [place] [address], [place] [address] Jul, [facility] [address] [id number] [address] [place] [address], [place] [address] Jul, [facility] [address] [id number] [address] [place] [address], [place] [address] Jul, [facility] [address] [id number] [address] [place] [address], [place] [address] Jul, [facility] [address] [id number] [address] [place] [address], [place] [address] Jul, [facility] [address] [id number] [address] [place] [address], [place] [address] Jul, [facility] [address] [id number] [address] [place] [address], [place] [address] Jul, [facility] [address] [id number] [address] [place] [address], [place] [address] Jul, [facility] [address] [id number] [address] [place] [address], [place] [address] Jun, [facility] [address] [id number] [address] [place] [address], [place] [address] Jun, [facility] [address] [id number] [address] [place] [address], [place] [address] Jun, [facility] [address] [id number] [address] [place] [address], [place] [address] Jun, [facility] [address] [id number] [address] [place] [address], [place] [address] Jun, [facility] [address] [id number] [address] [place] [address], [place] [address] Jun, [facility] [address] [id number] [address] [place] [address], [place] [address] Jun, [facility] [address] [id number] [address] [place] [address], [place] [address] Jun, [facility] [address] [id number] [address] [place] [address], [place] [address] May, [facility] [address] [id number] [address] [place] [address], [place] [address] May, [facility] [address] [id number] [address] [place] [address], [place] [address] May, [facility] [address] [id number] [address] [place] [address], [place] [address] May, [facility] [address] [id number] [address] [place] [address], [place] [address] May, [facility] [address] [id number] [address] [place] [address], [place] [address] May, [facility] [address] [id number] [address] [place] [address], [place] [address] May, [facility] [address] [id number] [address] [place] [address], [place] [address] May, [facility] [address] [id number] [address] [place] [address], [place] [address] Apr, [facility] [address] [id number] [address] [place] [address] Apr, [facility] [address] [id number] [address] [place] [address], [place] [address] Apr, [facility] [address] [id number] [address] [place] [address], [place] [address] Apr, [facility] [address] [id number] [address] [place] [address], [place] [address] Apr, [facility] [address] [id number] [address] [place] [address] Apr, [facility] [address] [id number] [address] [place] [address] Apr, [facility] [address] [id number] [address] [place] [address] 18 Apr, 2013 [facility] [address] [id number] [address] [place] [address], [place] [address] Mar, [facility] [address] [id number] [address] [place] [address] 14 Mar, 2013 [facility] [address] [id number] [address] [place] [address] 18 Feb, 2013 [facility] [address] [id number] [address] [place] [address], [place] [address] Feb, [facility] [address] [id number] [address] [place] [address], [place] [address] Feb, [facility] [address] [id number] [address] [place] [address], [place] [address] Jan, [facility] [address] [id number] [address] [place] [address], [place] [address] Jan, [facility] [address] [id number] [address] [place] [address], [place] [address] Jan, [facility] [address] [id number] [address] [place] [address], [place] [address] Jan, [facility] [address] [id number] [address] [place] [address], [place] [address] Jan, [facility] [address] [id number] [address] [place] [address], [place] [address] Jan, [facility] [address] [id number] [address] [place] [address], [place] [address] Jan, [facility] [address] [id number] [address] [place] [address], [place] [address] Dec, [facility] [address] [id number] [address] [place] [address], [place] [address] Dec, [facility] [address] [id number] [address] [place] [address], [place] [address] Dec, [facility] [address] [id number] [address] [place] [address], [place] [address] Dec, [facility] [address] [id number] [address] [place] [address], [place] [address] Nov, [facility] [address] [id number] [address] [place] [address], [place] [address] Nov, [facility] [address] [id number] [address] [place] [address], [place] [address] Nov, [facility] [address] [id number] [address] [place] [address], [place] [address] October, [facility] [address] [id number] [address] [place] [address], [place] [address] Sep, [facility] [address] [id number] [address] [place] [address], [place] [address] Sep, [facility] [address] [id number] [address] [place] [address], [place] [address] Sep, [facility] [address] [id number] [address] [place] [address], [place] [address] Sep, [facility] [address] [id number] [address] [place] [address], [place] [address] Sep, [facility] [address] [id number] [address] [place] [address], [place] [address] Sep, [facility] [address] [id number] [address] [place] [address], [place] [address] Sep, [facility] [address] [id number] [address] [place] [address], [place] [address] Sep, [facility] [address] [id number] [address] [place] [address], [place] [address] Sep, [facility] [address] [id number] [address] [place] [address], [place] [address] Aug, [facility] [address] [id number] [address] [place] [address], [place] [address] Aug, [facility] [address] [id number] [address] [place] [address], [place] [address] Jul, [facility] [address] [id number] [address] [place] [address], [place] [address] Jul, [facility] [address] [id number] [address] [place] [address], [place] [address] Jul, [facility] [address] [id number] [address] [place] [address] [place] [address] Jun, [facility] [address] [id number] [address] [place] [address], [place] [address] Apr, [facility] [address] [id number] [address] [place] [address], [place] [address] Apr, [facility] [address] [id number] [address] [place] [address], [place] [address] Apr, [facility] [address] [id number] [address] [place] [address], [place] [address] Apr, [facility] [address] [id number] [address] [place] [address], [place] [address] Apr, [facility] [address] [id number] [address] [place] [address], [place] [address] Apr, [facility] [address] [id number] [address] [place] [address], [place] [address] Apr, [facility] [address] [id number] [address] [place] [address], [place] [address] Apr, [facility] [address] [id number] [address] [place] [address], [place] [address] Apr, [facility] [address] [id number] [address] [place] [address], [place] [address] Apr, [facility] [address] [id number] [address] [place] [address], [place] [address] Apr, [facility] [address] [id number] [address] [place] [address] Apr, [facility] [address] [id number] [address] [place] [address], [place] [address] Mar, [facility] [address] [id number] [address] [place] [address], [place] [address] Mar, [facility] [address] [id number] [address] [place] [address], [place] [address] Mar, [facility] [address] [id number] [address] [place] [address] 15 Mar, 2012 [facility] [address] [id number] [address] [place] [address] Mar, [facility] [address] [id number] [address] [place] [address] Mar, [facility] [address] [id number] [address] [place] [address] Mar, [facility] [address] [id number] [address] [place] [address] 25 Feb, 2012 [facility] [address] [id number] [address] [place] [address] 24 Feb, 2012 [facility] [address] [id number] [address] [place] [address] Feb, [facility] [address] [id number] [address] [place] [address] Feb, [facility] [address] [id number] [address] [place] [address] Jan, [facility] [address] [id number] [address] [place] [address] Jan, [facility] [address] [id number] [address] [place] [address] Jan, [facility] [address] [id number] [address] [place] [address] Jan, IMMUNIZATIONS No Known Immunizations SOCIAL HISTORY Never Assessed REASON FOR VISIT EMR-[facility] PLAN OF CARE VITAL SIGNS MEDICATIONS Unknown Medications RESULTS No Results PROCEDURES No Known procedures INSTRUCTIONS MEDICATIONS ADMINISTERED No Known Medications
--- OUTSIDE RECORDS SUMMARY | 2020-01-17 06:42 | XMS REPORT ---
Author Author Yogesh Kelly Doctor Organization [facility] Address Unknown Phone Unavailable Care Team Providers Care Court Registry Officer Name Role Phone Migration, Doctor Unavailable Unavailable PROBLEMS Type Condition ICD9-CM Code ZIQ99-LA Code Onset Dates Condition S tatus SNOMED Code Problem Encounter for long-term (current) use of other medications V58.69 Active 997282466 Problem Routine general medical examination at [facility] V70.0 Active 085851988 Problem Family history of unspecified malignant neoplasm V16.9 Active 786431540 Problem Nonspecific elevation of lev els of transaminase or lactic acid dehydrogenase (LDH) 790.4 Active 63072701 2 Problem Personal history of other allergy, other than to medicinal agents V15.09 Active 160333676 Problem Essential hypertension, benign 401.1 Active 7740810 Problem Coronary atherosclerosis of unspecified type of vessel, resighini or graft 414.00 Active 608783774 Problem Dizziness and giddiness 780.4 Active 601102289 Problem Chest pain, unspecified 786.50 Active 19307013 Problem Lumbago 724.2 Active 471210342 Problem Cervicalgia 723.1 Active 50302314 Problem Other specified cardiac dysrhythmias 427.89 Active 571141387 Problem Peptic ulcer, unspecified si te, unspecified as acute or chronic, without mention of hemorrhage, perforation, or obstruction 533.90 Active 00795092 Problem Right bundle branch block 426.4 Acti ve 08102571 Problem 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 Active 15575311 Problem Unspecified tinnitus 388.30 Active 13892760 Problem Unspecified hearing loss 389.9 Activ e 36501436 Problem Unspecified otalgia 388.70 Active 18978378 Problem Malignant neoplasm of prostate 185 Active 479021588 Problem Polyuria 788.42 Active 35884004 Problem Unspecified viral hepatitis C without hepatic coma 070.70 Active 47749076 Problem Abdominal or pelvic swelling, mass or lump, unspecified si te 789.30 Active 663980743 Problem Dysuria 788.1 Active 72721426 Problem Unspecified cataract 366.9 Active 288175959 Problem Unspecified episodic mood disorder 296.90 Active 811869849 Problem Other and unspecified hyperlipidemia 272.4 Active 74387306 Problem Unspecified hypothyroidism 244.9 Act katty 62402250 ALLERGIES No Information ENCOUNTERS Encounter Location Date Diagnosis [facility] [address] [id number] [address] [place] [phone] 14 Sep, 2014 [facility] [address] [id number] [address] [place] [phone] Sep, [facility] [address] [id number] [address] [place] [phone] Jun, [facility] [address] [id number] [address] [place] [phone] Jun, [facility] [address] [id number] [address] [place] [phone] May, [facility] [address] [id number] [address] [place] [phone] May, [facility] [address] [id number] [address] [place] [phone] Feb, [facility] [address] [id number] [address] [place] [phone] Feb, [facility] [address] [id number] [address] [place] [phone] Feb, [facility] [address] [id number] [address] [place] [phone] Jan, [facility] [address] [id number] [address] [place] [phone] Jan, [facility] [address] [id number] [address] [place] [phone] Nov, [facility] [address] [id number] [address] [place] [phone] Nov, [facility] [address] [id number] [address] [place] [phone] 05 Nov, 2013 [facility] [address] [id number] [facility] [place] [address] 05 Nov, 2013 [facility] [address] [id number] [facility] [place] [address] Aug, [facility] [address] [id number] [facility] [place] [address] Aug, [facility] [address] [id number] [address] [place] [address], [place] [address] Aug, [facility] [address] [id number] [facility] [place] [address] Aug, [facility] [address] [id number] [address] [place] [address], [place] [address] Aug, [facility] [address] [id number] [address] [place] [address], [place] [address] Aug, [facility] [address] [id number] [address] [place] [address], [place] [address] Aug, [facility] [address] [id number] [address] [place] [address], [place] [address] Aug, [facility] [address] [id number] [address] [place] [address], [place] [address] Aug, [facility] [address] [id number] [address] [place] [address], [place] [address] Aug, [facility] [address] [id number] [address] [place] [address], [place] [address] Jul, [facility] [address] [id number] [address] [place] [address], [place] [address] Jul, [facility] [address] [id number] [address] [place] [address], [place] [address] Jul, [facility] [address] [id number] [address] [place] [address], [place] [address] Jul, [facility] [address] [id number] [address] [place] [address], [place] [address] Jul, [facility] [address] [id number] [address] [place] [address], [place] [address] Jul, [facility] [address] [id number] [address] [place] [address], [place] [address] Jul, [facility] [address] [id number] [address] [place] [address], [place] [address] Jul, [facility] [address] [id number] [address] [place] [address], [place] [address] Jun, [facility] [address] [id number] [address] [place] [address], [place] [address] Jun, [facility] [address] [id number] [address] [place] [address], [place] [address] Jun, [facility] [address] [id number] [address] [place] [address], [place] [address] Jun, [facility] [address] [id number] [address] [place] [address], [place] [address] Jun, [facility] [address] [id number] [address] [place] [address], [place] [address] Jun, [facility] [address] [id number] [address] [place] [address], [place] [address] Jun, [facility] [address] [id number] [address] [place] [address], [place] [address] Jun, [facility] [address] [id number] [address] [place] [address], [place] [address] May, [facility] [address] [id number] [address] [place] [address], [place] [address] May, [facility] [address] [id number] [address] [place] [address], [place] [address] May, [facility] [address] [id number] [address] [place] [address], [place] [address] May, [facility] [address] [id number] [address] [place] [address], [place] [address] May, [facility] [address] [id number] [address] [place] [address], [place] [address] May, [facility] [address] [id number] [address] [place] [address], [place] [address] May, [facility] [address] [id number] [address] [place] [address], [place] [address] May, [facility] [address] [id number] [address] [place] [address], [place] [address] Apr, [facility] [address] [id number] [address] [place] [phone] Apr, [facility] [address] [id number] [address] [place] [address], [place] [address] Apr, [facility] [address] [id number] [address] [place] [address], [place] [address] Apr, [facility] [address] [id number] [address] [place] [address], [place] [address] Apr, [facility] [address] [id number] [address] [place] [phone] Apr, [facility] [address] [id number] [address] [place] [phone] Apr, [facility] [address] [id number] [address] [place] [phone] 18 Apr, 2013 [facility] [address] [id number] [address] [place] [address], [place] [address] Mar, [facility] [address] [id number] [address] [place] [phone] 14 Mar, 2013 [facility] [address] [id number] [address] [place] [phone] 18 Feb, 2013 [facility] [address] [id number] [address] [place] [address], [place] [address] Feb, [facility] [address] [id number] [address] [place] [address], [place] [address] Feb, [facility] [address] [id number] [address] [place] [address], [place] [address] Jan, [facility] [address] [id number] [address] [place] [address], [place] [address] Jan, [facility] [address] [id number] [address] [place] [address], [place] [address] Jan, [facility] [address] [id number] [address] [place] [address], [place] [address] Jan, [facility] [address] [id number] [address] [place] [address], [place] [address] Jan, [facility] [address] [id number] [address] [place] [address], [place] [address] Jan, [facility] [address] [id number] [address] [place] [address], [place] [address] Jan, [facility] [address] [id number] [address] [place] [address], [place] [address] Dec, [facility] [address] [id number] [address] [place] [address], [place] [address] Dec, [facility] [address] [id number] [address] [place] [address], [place] [address] Dec, [facility] [address] [id number] [address] [place] [address], [place] [address] Dec, [facility] [address] [id number] [address] [place] [address], [place] [address] Nov, [facility] [address] [id number] [address] [place] [address], [place] [address] Nov, [facility] [address] [id number] [address] [place] [address], [place] [address] Nov, [facility] [address] [id number] [address] [place] [address], [place] [address] October, [facility] [address] [id number] [address] [place] [address], [place] [address] Sep, [facility] [address] [id number] [address] [place] [address], [place] [address] Sep, [facility] [address] [id number] [address] [place] [address], [place] [address] Sep, [facility] [address] [id number] [address] [place] [address], [place] [address] Sep, [facility] [address] [id number] [address] [place] [address], [place] [address] Sep, [facility] [address] [id number] [address] [place] [address], [place] [address] Sep, [facility] [address] [id number] [address] [place] [address], [place] [address] Sep, [facility] [address] [id number] [address] [place] [address], [place] [address] Sep, [facility] [address] [id number] [address] [place] [address], [place] [address] Sep, [facility] [address] [id number] [address] [place] [address], [place] [address] Aug, [facility] [address] [id number] [address] [place] [address], [place] [address] Aug, [facility] [address] [id number] [address] [place] [address], [place] [address] Jul, [facility] [address] [id number] [address] [place] [address], [place] [address] Jul, [facility] [address] [id number] [address] [place] [address], [place] [address] Jul, [facility] [address] [id number] [address] [place] [address] [place] [address] Jun, [facility] [address] [id number] [address] [place] [address], [place] [address] Apr, [facility] [address] [id number] [address] [place] [address], [place] [address] Apr, [facility] [address] [id number] [address] [place] [address], [place] [address] Apr, [facility] [address] [id number] [address] [place] [address], [place] [address] Apr, [facility] [address] [id number] [address] [place] [address], [place] [address] Apr, [facility] [address] [id number] [address] [place] [address], [place] [address] Apr, [facility] [address] [id number] [address] [place] [address], [place] [address] Apr, [facility] [address] [id number] [address] [place] [address], [place] [address] Apr, [facility] [address] [id number] [address] [place] [address], [place] [address] Apr, [facility] [address] [id number] [address] [place] [address], [place] [address] Apr, [facility] [address] [id number] [address] [place] [address], [place] [address] Apr, [facility] [address] [id number] [address] [place] [address] Apr, [facility] [address] [id number] [address] [place] [address], [place] [address] Mar, [facility] [address] [id number] [address] [place] [address], [place] [address] Mar, [facility] [address] [id number] [address] [place] [address], [place] [address] Mar, [facility] [address] [id number] [address] [place] [phone] 15 Mar, 2012 [facility] [address] [id number] [address] [place] [address] Mar, [facility] [address] [id number] [address] [place] [address] Mar, [facility] [address] [id number] [address] [place] [address] Mar, [facility] [address] [id number] [address] [place] [id number] [address], [address] [facility] [address] [id number] [address] [place] [address] [address], [address] [facility] [address] [id number] [address] [place] [address] Feb, [facility] [address] [id number] [address] [place] [address] Feb, [facility] [address] [id number] [address] [place] [address] Jan, [facility] [address] [id number] [address] [place] [address] Jan, [facility] [address] [id number] [address] [place] [phone] Jan, [facility] [address] [id number] [address] [place] [address] Jan, IMMUNIZATIONS No Known Immunizations SOCIAL HISTORY Never Assessed REASON FOR VISIT EMR-[facility] [place]AN OF CARE VITAL SIGNS MEDICATIONS Unknown Medications RESULTS No Results PROCEDURES No Known procedures INSTRUCTIONS MEDICATIONS ADMINISTERED No Known Medications
--- OUTSIDE RECORDS SUMMARY | 2020-01-17 06:42 | XMS REPORT ---
Author Author Yogesh Kelly Doctor Organization [facility] Address Unknown Phone Unavailable Care Team Providers Care Fiberglass Dowel Drawing Operator Name Role Phone Migration, Doctor Unavailable Unavailable PROBLEMS Type Condition ICD9-CM Code QGA27-KP Code Onset Dates Condition S tatus SNOMED Code Problem Encounter for long-term (current) use of other medications V58.69 Active 330926927 Problem Routine general medical examination at [facility] V70.0 Active 447676553 Problem Family history of unspecified malignant neoplasm V16.9 Active 671304103 Problem Nonspecific elevation of lev els of transaminase or lactic acid dehydrogenase (LDH) 790.4 Active 34877664 2 Problem Personal history of other allergy, other than to medicinal agents V15.09 Active 569397913 Problem Essential hypertension, benign 401.1 Active 4379444 Problem Coronary atherosclerosis of unspecified type of vessel, kaw or graft 414.00 Active 399806222 Problem Dizziness and giddiness 780.4 Active 864885736 Problem Chest pain, unspecified 786.50 Active 87415231 Problem Lumbago 724.2 Active 393311378 Problem Cervicalgia 723.1 Active 79700073 Problem Other specified cardiac dysrhythmias 427.89 Active 066669824 Problem Peptic ulcer, unspecified si te, unspecified as acute or chronic, without mention of hemorrhage, perforation, or obstruction 533.90 Active 79670289 Problem Right bundle branch block 426.4 Acti ve 43835025 Problem 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 Active 35247599 Problem Unspecified tinnitus 388.30 Active 66664487 Problem Unspecified hearing loss 389.9 Activ e 31043546 Problem Unspecified otalgia 388.70 Active 23412994 Problem Malignant neoplasm of prostate 185 Active 891351162 Problem Polyuria 788.42 Active 79879581 Problem Unspecified viral hepatitis C without hepatic coma 070.70 Active 77336950 Problem Abdominal or pelvic swelling, mass or lump, unspecified si te 789.30 Active 584842974 Problem Dysuria 788.1 Active 00144226 Problem Unspecified cataract 366.9 Active 889704760 Problem Unspecified episodic mood disorder 296.90 Active 293793417 Problem Other and unspecified hyperlipidemia 272.4 Active 68414404 Problem Unspecified hypothyroidism 244.9 Act katty [id number] ALLERGIES No Information ENCOUNTERS Encounter Location Date Diagnosis [facility] [address] [id number] [address] [place] [id number] 14 Sep, 2014 [facility] [address] [id number] [address] [place] [address] Sep, [facility] [address] [id number] [address] [place] [address] Jun, [facility] [address] [id number] [address] [place] [address] Jun, [facility] [address] [id number] [address] [place] [address] May, [facility] [address] [id number] [address] [place] [address] May, [facility] [address] [id number] [address] [place] [address] Feb, [facility] [address] [id number] [address] [place] [address] Feb, [facility] [address] [id number] [address] [place] [address] Feb, [facility] [address] [id number] [address] [place] [address] Jan, [facility] [address] [id number] [address] [place] [address] Jan, [facility] [address] [id number] [address] [place] [address] Nov, [facility] [address] [id number] [address] [place] [address] Nov, [facility] [address] [id number] [address] [place] [id number] 05 Nov, 2013 [facility] [address] [id number] [facility] [place] [place] [address] 05 Nov, 2013 [facility] [address] [id number] [facility] [place] [place] [address] Aug, [facility] [address] [id number] [facility] [place] [place] [address] Aug, [facility] [address] [id number] [address] [place] [address], [place] [address] Aug, [facility] [address] [id number] [facility] [place] [place] [address] Aug, [facility] [address] [id number] [address] [place] [address], [place] [address] Aug, [facility] [address] [id number] [address] [place] [address], [place] [address] Aug, [facility] [address] [id number] [address] [place] [address], [place] [address] Aug, [facility] [address] [id number] [address] [place] [address], [place] [address] Aug, [facility] [address] [id number] [address] [place] [address], [place] [address] Aug, [facility] [address] [id number] [address] [place] [address], [place] [address] Aug, [facility] [address] [id number] [address] [place] [address], [place] [address] Jul, [facility] [address] [id number] [address] [place] [address], [place] [address] Jul, [facility] [address] [id number] [address] [place] [address], [place] [address] Jul, [facility] [address] [id number] [address] [place] [address], [place] [address] Jul, [facility] [address] [id number] [address] [place] [address], [place] [address] Jul, [facility] [address] [id number] [address] [place] [address], [place] [address] Jul, [facility] [address] [id number] [address] [place] [address], [place] [address] Jul, [facility] [address] [id number] [address] [place] [address], [place] [address] Jul, [facility] [address] [id number] [address] [place] [address], [place] [address] Jun, [facility] [address] [id number] [address] [place] [address], [place] [address] Jun, [facility] [address] [id number] [address] [place] [address], [place] [address] Jun, [facility] [address] [id number] [address] [place] [address], [place] [address] Jun, [facility] [address] [id number] [address] [place] [address], [place] [address] Jun, [facility] [address] [id number] [address] [place] [address], [place] [address] Jun, [facility] [address] [id number] [address] [place] [address], [place] [address] Jun, [facility] [address] [id number] [address] [place] [address], [place] [address] Jun, [facility] [address] [id number] [address] [place] [address], [place] [address] May, [facility] [address] [id number] [address] [place] [address], [place] [address] May, [facility] [address] [id number] [address] [place] [address], [place] [address] May, [facility] [address] [id number] [address] [place] [address], [place] [address] May, [facility] [address] [id number] [address] [place] [address], [place] [address] May, [facility] [address] [id number] [address] [place] [address], [place] [address] May, [facility] [address] [id number] [address] [place] [address], [place] [address] May, [facility] [address] [id number] [address] [place] [address], [place] [address] May, [facility] [address] [id number] [address] [place] [address], [place] [address] Apr, [facility] [address] [id number] [address] [place] [address] Apr, [facility] [address] [id number] [address] [place] [address], [place] [address] Apr, [facility] [address] [id number] [address] [place] [address], [place] [address] Apr, [facility] [address] [id number] [address] [place] [address], [place] [address] Apr, [facility] [address] [id number] [address] [place] [address] Apr, [facility] [address] [id number] [address] [place] [address] Apr, [facility] [address] [id number] [address] [place] [address] 18 Apr, 2013 [facility] [address] [id number] [address] [place] [address], [place] [address] Mar, [facility] [address] [id number] [address] [place] [address] 14 Mar, 2013 [facility] [address] [id number] [address] [place] [address] 18 Feb, 2013 [facility] [address] [id number] [address] [place] [address], [place] [address] Feb, [facility] [address] [id number] [address] [place] [address], [place] [address] Feb, [facility] [address] [id number] [address] [place] [address], [place] [address] Jan, [facility] [address] [id number] [address] [place] [address], [place] [address] Jan, [facility] [address] [id number] [address] [place] [address], [place] [address] Jan, [facility] [address] [id number] [address] [place] [address], [place] [address] Jan, [facility] [address] [id number] [address] [place] [address], [place] [address] Jan, [facility] [address] [id number] [address] [place] [address], [place] [address] Jan, [facility] [address] [id number] [address] [place] [address], [place] [address] Jan, [facility] [address] [id number] [address] [place] [address], [place] [address] Dec, [facility] [address] [id number] [address] [place] [address], [place] [address] Dec, [facility] [address] [id number] [address] [place] [address], [place] [address] Dec, [facility] [address] [id number] [address] [place] [address], [place] [address] Dec, [facility] [address] [id number] [address] [place] [address], [place] [address] Nov, [facility] [address] [id number] [address] [place] [address], [place] [address] Nov, [facility] [address] [id number] [address] [place] [address], [place] [address] Nov, [facility] [address] [id number] [address] [place] [address], [place] [address] October, [facility] [address] [id number] [address] [place] [address], [place] [address] Sep, [facility] [address] [id number] [address] [place] [address], [place] [address] Sep, [facility] [address] [id number] [address] [place] [address], [place] [address] Sep, [facility] [address] [id number] [address] [place] [address], [place] [address] Sep, [facility] [address] [id number] [address] [place] [address], [place] [address] Sep, [facility] [address] [id number] [address] [place] [address], [place] [address] Sep, [facility] [address] [id number] [address] [place] [address], [place] [address] Sep, [facility] [address] [id number] [address] [place] [address], [place] [address] Sep, [facility] [address] [id number] [address] [place] [address], [place] [address] Sep, [facility] [address] [id number] [address] [place] [address], [place] [address] Aug, [facility] [address] [id number] [address] [place] [address], [place] [address] Aug, [facility] [address] [id number] [address] [place] [address], [place] [address] Jul, [facility] [address] [id number] [address] [place] [address], [place] [address] Jul, [facility] [address] [id number] [address] [place] [address], [place] [address] Jul, [facility] [address] [id number] [address] [place] [address] [place] [address] Jun, [facility] [address] [id number] [address] [place] [address], [place] [address] Apr, [facility] [address] [id number] [address] [place] [address], [place] [address] Apr, [facility] [address] [id number] [address] [place] [address], [place] [address] Apr, [facility] [address] [id number] [address] [place] [address], [place] [address] Apr, [facility] [address] [id number] [address] [place] [address], [place] [address] Apr, [facility] [address] [id number] [address] [place] [address], [place] [address] Apr, [facility] [address] [id number] [address] [place] [address], [place] [address] Apr, [facility] [address] [id number] [address] [place] [address], [place] [address] Apr, [facility] [address] [id number] [address] [place] [address], [place] [address] Apr, [facility] [address] [id number] [address] [place] [address], [place] [address] Apr, [facility] [address] [id number] [address] [place] [address], [place] [address] Apr, [facility] [address] [id number] [address] [place] [address] Apr, [facility] [address] [id number] [address] [place] [address], [place] [address] Mar, [facility] [address] [id number] [address] [place] [address], [place] [address] Mar, [facility] [address] [id number] [address] [place] [address], [place] [address] Mar, [facility] [address] [id number] [address] [place] [address] 15 Mar, 2012 [facility] [address] [id number] [address] [place] [address] Mar, [facility] [address] [id number] [address] [place] [address] Mar, [facility] [address] [id number] [address] [place] [address] Mar, [facility] [address] [id number] [address] [place] [address] 25 Feb, 2012 [facility] [address] [id number] [address] [place] [address] 24 Feb, 2012 [facility] [address] [id number] [address] [place] [address] Feb, [facility] [address] [id number] [address] [place] [address] Feb, [facility] [address] [id number] [address] [place] [address] Jan, [facility] [address] [id number] [address] [place] [address] Jan, [facility] [address] [id number] [address] [place] [address] Jan, [facility] [address] [id number] [address] [place] [address] Jan, IMMUNIZATIONS No Known Immunizations SOCIAL HISTORY Never Assessed REASON FOR VISIT EMR-[facility] PLAN OF CARE VITAL SIGNS MEDICATIONS Unknown Medications RESULTS No Results PROCEDURES No Known procedures INSTRUCTIONS MEDICATIONS ADMINISTERED No Known Medications
--- OUTSIDE RECORDS SUMMARY | 2020-01-17 06:42 | XMS REPORT ---
Author Author Yogesh Kelly Doctor Organization [facility] Address Unknown Phone Unavailable Care Team Providers Care Car Repairer Name Role Phone Migration, Doctor Unavailable Unavailable PROBLEMS Type Condition ICD9-CM Code RSR74-WD Code Onset Dates Condition S tatus SNOMED Code Problem Encounter for long-term (current) use of other medications V58.69 Active 244353000 Problem Routine general medical examination at [facility] V70.0 Active 772493466 Problem Family history of unspecified malignant neoplasm V16.9 Active 873646295 Problem Nonspecific elevation of lev els of transaminase or lactic acid dehydrogenase (LDH) 790.4 Active 63287564 2 Problem Personal history of other allergy, other than to medicinal agents V15.09 Active 133950552 Problem Essential hypertension, benign 401.1 Active 7330454 Problem Coronary atherosclerosis of unspecified type of vessel, [place] or graft 414.00 Active 514857134 Problem Dizziness and giddiness 780.4 Active 335413223 Problem Chest pain, unspecified 786.50 Active 91437395 Problem Lumbago 724.2 Active 549677195 Problem Cervicalgia 723.1 Active 65334394 Problem Other specified cardiac dysrhythmias 427.89 Active 229461050 Problem Peptic ulcer, unspecified si te, unspecified as acute or chronic, without mention of hemorrhage, perforation, or obstruction 533.90 Active 17030008 Problem Right bundle branch block 426.4 Acti ve 99248827 Problem 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 Active 29975650 Problem Unspecified tinnitus 388.30 Active 12426446 Problem Unspecified hearing loss 389.9 Activ e 26787051 Problem Unspecified otalgia 388.70 Active 23349841 Problem Malignant neoplasm of prostate 185 Active 291812769 Problem Polyuria 788.42 Active 31799426 Problem Unspecified viral hepatitis C without hepatic coma 070.70 Active 10424745 Problem Abdominal or pelvic swelling, mass or lump, unspecified si te 789.30 Active 027234946 Problem Dysuria 788.1 Active 59149236 Problem Unspecified cataract 366.9 Active 983951464 Problem Unspecified episodic mood disorder 296.90 Active 226421893 Problem Other and unspecified hyperlipidemia 272.4 Active 21173683 Problem Unspecified hypothyroidism 244.9 Act katty 72673585 ALLERGIES No Information ENCOUNTERS Encounter Location Date Diagnosis [facility] [address] [id number] [address] [place] [address] 14 Sep, 2014 [facility] [address] [id number] [address] [place] [address] Sep, [facility] [address] [id number] [address] [place] [address] Jun, [facility] [address] [id number] [address] [place] [address] Jun, [facility] [address] [id number] [address] [place] [address] May, [facility] [address] [id number] [address] [place] [address] May, [facility] [address] [id number] [address] [place] [address] Feb, [facility] [address] [id number] [address] [place] [address] Feb, [facility] [address] [id number] [address] [place] [address] Feb, [facility] [address] [id number] [address] [place] [address] Jan, [facility] [address] [id number] [address] [place] [address] Jan, [facility] [address] [id number] [address] [place] [address] Nov, [facility] [address] [id number] [address] [place] [address] Nov, [facility] [address] [id number] [address] [place] [address] 05 Nov, 2013 [facility] [address] [id number] [facility] [address] 05 Nov, 2013 [facility] [address] [id number] [facility] [address] Aug, [facility] [address] [id number] [facility] [address] Aug, [facility] [address] [id number] [address] [place] [address], [place] [address] Aug, [facility] [address] [id number] [facility] [address] Aug, [facility] [address] [id number] [address] [place] [address], [place] [address] Aug, [facility] [address] [id number] [address] [place] [address], [place] [address] Aug, [facility] [address] [id number] [address] [place] [address], [place] [address] Aug, [facility] [address] [id number] [address] [place] [address], [place] [address] Aug, [facility] [address] [id number] [address] [place] [address], [place] [address] Aug, [facility] [address] [id number] [address] [place] [address], [place] [address] Aug, [facility] [address] [id number] [address] [place] [address], [place] [address] Jul, [facility] [address] [id number] [address] [place] [address], [place] [address] Jul, [facility] [address] [id number] [address] [place] [address], [place] [address] Jul, [facility] [address] [id number] [address] [place] [address], [place] [address] Jul, [facility] [address] [id number] [address] [place] [address], [place] [address] Jul, [facility] [address] [id number] [address] [place] [address], [place] [address] Jul, [facility] [address] [id number] [address] [place] [address], [place] [address] Jul, [facility] [address] [id number] [address] [place] [address], [place] [address] Jul, [facility] [address] [id number] [address] [place] [address], [place] [address] Jun, [facility] [address] [id number] [address] [place] [address], [place] [address] Jun, [facility] [address] [id number] [address] [place] [address], [place] [address] Jun, [facility] [address] [id number] [address] [place] [address], [place] [address] Jun, [facility] [address] [id number] [address] [place] [address], [place] [address] Jun, [facility] [address] [id number] [address] [place] [address], [place] [address] Jun, [facility] [address] [id number] [address] [place] [address], [place] [address] Jun, [facility] [address] [id number] [address] [place] [address], [place] [address] Jun, [facility] [address] [id number] [address] [place] [address], [place] [address] May, [facility] [address] [id number] [address] [place] [address], [place] [address] May, [facility] [address] [id number] [address] [place] [address], [place] [address] May, [facility] [address] [id number] [address] [place] [address], [place] [address] May, [facility] [address] [id number] [address] [place] [address], [place] [address] May, [facility] [address] [id number] [address] [place] [address], [place] [address] May, [facility] [address] [id number] [address] [place] [address], [place] [address] May, [facility] [address] [id number] [address] [place] [address], [place] [address] May, [facility] [address] [id number] [address] [place] [address], [place] [address] Apr, [facility] [address] [id number] [address] [place] [address] Apr, [facility] [address] [id number] [address] [place] [address], [place] [address] Apr, [facility] [address] [id number] [address] [place] [address], [place] [address] Apr, [facility] [address] [id number] [address] [place] [address], [place] [address] Apr, [facility] [address] [id number] [address] [place] [address] Apr, [facility] [address] [id number] [address] [place] [address] Apr, [facility] [address] [id number] [address] [place] [address] 18 Apr, 2013 [facility] [address] [id number] [address] [place] [address], [place] [address] Mar, [facility] [address] [id number] [address] [place] [address] 14 Mar, 2013 [facility] [address] [id number] [address] [place] [address] 18 Feb, 2013 [facility] [address] [id number] [address] [place] [address], [place] [address] Feb, [facility] [address] [id number] [address] [place] [address], [place] [address] Feb, [facility] [address] [id number] [address] [place] [address], [place] [address] Jan, [facility] [address] [id number] [address] [place] [address], [place] [address] Jan, [facility] [address] [id number] [address] [place] [address], [place] [address] Jan, [facility] [address] [id number] [address] [place] [address], [place] [address] Jan, [facility] [address] [id number] [address] [place] [address], [place] [address] Jan, [facility] [address] [id number] [address] [place] [address], [place] [address] Jan, [facility] [address] [id number] [address] [place] [address], [place] [address] Jan, [facility] [address] [id number] [address] [place] [address], [place] [address] Dec, [facility] [address] [id number] [address] [place] [address], [place] [address] Dec, [facility] [address] [id number] [address] [place] [address], [place] [address] Dec, [facility] [address] [id number] [address] [place] [address], [place] [address] Dec, [facility] [address] [id number] [address] [place] [address], [place] [address] Nov, [facility] [address] [id number] [address] [place] [address], [place] [address] Nov, [facility] [address] [id number] [address] [place] [address], [place] [address] Nov, [facility] [address] [id number] [address] [place] [address], [place] [address] October, [facility] [address] [id number] [address] [place] [address], [place] [address] Sep, [facility] [address] [id number] [address] [place] [address], [place] [address] Sep, [facility] [address] [id number] [address] [place] [address], [place] [address] Sep, [facility] [address] [id number] [address] [place] [address], [place] [address] Sep, [facility] [address] [id number] [address] [place] [address], [place] [address] Sep, [facility] [address] [id number] [address] [place] [address], [place] [address] Sep, [facility] [address] [id number] [address] [place] [address], [place] [address] Sep, [facility] [address] [id number] [address] [place] [address], [place] [address] Sep, [facility] [address] [id number] [address] [place] [address], [place] [address] Sep, [facility] [address] [id number] [address] [place] [address], [place] [address] Aug, [facility] [address] [id number] [address] [place] [address], [place] [address] Aug, [facility] [address] [id number] [address] [place] [address], [place] [address] Jul, [facility] [address] [id number] [address] [place] [address], [place] [address] Jul, [facility] [address] [id number] [address] [place] [address], [place] [address] Jul, [facility] [address] [id number] [address] [place] [address] [place] [address] Jun, [facility] [address] [id number] [address] [place] [address], [place] [address] Apr, [facility] [address] [id number] [address] [place] [address], [place] [address] Apr, [facility] [address] [id number] [address] [place] [address], [place] [address] Apr, [facility] [address] [id number] [address] [place] [address], [place] [address] Apr, [facility] [address] [id number] [address] [place] [address], [place] [address] Apr, [facility] [address] [id number] [address] [place] [address], [place] [address] Apr, [facility] [address] [id number] [address] [place] [address], [place] [address] Apr, [facility] [address] [id number] [address] [place] [address], [place] [address] Apr, [facility] [address] [id number] [address] [place] [address], [place] [address] Apr, [facility] [address] [id number] [address] [place] [address], [place] [address] Apr, [facility] [address] [id number] [address] [place] [address], [place] [address] Apr, [facility] [address] [id number] [address] [place] [address] Apr, [facility] [address] [id number] [address] [place] [address], [place] [address] Mar, [facility] [address] [id number] [address] [place] [address], [place] [address] Mar, [facility] [address] [id number] [address] [place] [address], [place] [address] Mar, [facility] [address] [id number] [address] [place] [address] 15 Mar, 2012 [facility] [address] [id number] [address] [place] [address] Mar, [facility] [address] [id number] [address] [place] [address] Mar, [facility] [address] [id number] [address] [place] [address] Mar, [facility] [address] [id number] [address] [place] [address] 25 Feb, 2012 [facility] [address] [id number] [address] [place] [address] 24 Feb, 2012 [facility] [address] [id number] [address] [place] [address] Feb, [facility] [address] [id number] [address] [place] [address] Feb, [facility] [address] [id number] [address] [place] [address] Jan, [facility] [address] [id number] [address] [place] [address] Jan, [facility] [address] [id number] [address] [place] [address] Jan, [facility] [address] [id number] [address] [place] [address] Jan, IMMUNIZATIONS No Known Immunizations SOCIAL HISTORY Never Assessed REASON FOR VISIT EMR-[facility] [place] PLAN OF CARE VITAL SIGNS MEDICATIONS Unknown Medications RESULTS No Results PROCEDURES No Known procedures INSTRUCTIONS MEDICATIONS ADMINISTERED No Known Medications
--- OUTSIDE RECORDS SUMMARY | 2020-01-17 06:42 | XMS REPORT ---
Author Author Yogesh Kelly Doctor Organization [facility] Address Unknown Phone Unavailable Care Team Providers Care Patient Care Coordinator Name Role Phone Migration, Doctor Unavailable Unavailable PROBLEMS Type Condition ICD9-CM Code [id number] Code Onset Dates Condition S tatus SNOMED Code Problem Encounter for long-term (current) use of other medications V58.69 Active 071501734 Problem Routine general medical examination at [facility] V70.0 Active 128800302 Problem Family history of unspecified malignant neoplasm V16.9 Active 796244108 Problem Nonspecific elevation of lev els of transaminase or lactic acid dehydrogenase (LDH) 790.4 Active 11094402 2 Problem Personal history of other allergy, other than to medicinal agents V15.09 Active 320797514 Problem Essential hypertension, benign 401.1 Active 7602206 Problem Coronary atherosclerosis of unspecified type of vessel, [place]a'[place] or graft 414.00 Active 746789418 Problem Dizziness and giddiness 780.4 Active 881884189 Problem Chest pain, unspecified 786.50 Active 26090834 Problem Lumbago 724.2 Active 003435180 Problem Cervicalgia 723.1 Active 98732339 Problem Other specified cardiac dysrhythmias 427.89 Active 474729258 Problem Peptic ulcer, unspecified si te, unspecified as acute or chronic, without mention of hemorrhage, perforation, or obstruction 533.90 Active 52157572 Problem Right bundle branch block 426.4 Acti ve 04958170 Problem 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 Active 38859172 Problem Unspecified tinnitus 388.30 Active 57210319 Problem Unspecified hearing loss 389.9 Activ e 53488948 Problem Unspecified otalgia 388.70 Active 84637657 Problem Malignant neoplasm of prostate 185 Active 419636645 Problem Polyuria 788.42 Active 29728360 Problem Unspecified viral hepatitis C without hepatic coma 070.70 Active 05552163 Problem Abdominal or pelvic swelling, mass or lump, unspecified si te 789.30 Active 161910713 Problem Dysuria 788.1 Active 21301840 Problem Unspecified cataract 366.9 Active 952680829 Problem Unspecified episodic mood disorder 296.90 Active 924498118 Problem Other and unspecified hyperlipidemia 272.4 Active 12054648 Problem Unspecified hypothyroidism 244.9 Act katty [id number] ALLERGIES No Information ENCOUNTERS Encounter Location Date Diagnosis [facility] [address] [id number] [address] [place] [id number] 14 Sep, 2014 [facility] [address] [id number] [address] [place] [phone] Sep, [facility] [address] [id number] [address] [place] [id number] Jun, [facility] [address] [id number] [address] [place] [address] Jun, [facility] [address] [id number] [address] [place] [address] May, [facility] [address] [id number] [address] [place] [address] May, [facility] [address] [id number] [address] [place] [address] Feb, [facility] [address] [id number] [address] [place] [id number] Feb, [facility] [address] [id number] [address] [place] [address] Feb, [facility] [address] [id number] [address] [place] [address] Jan, [facility] [address] [id number] [address] [place] [id number] Jan, [facility] [address] [id number] [address] [place] [phone] Nov, [facility] [address] [id number] [address] [place] [address] Nov, [facility] [address] [id number] [address] [place] [id number] 05 Nov, 2013 [facility] [address] [id number] [facility] [place] [address] 05 Nov, 2013 [facility] [address] [id number] [facility] [place] [address] Aug, [facility] [address] [id number] [facility] [place] [address] Aug, [facility] [address] [id number] [address] [place] [address], [place] [address] Aug, [facility] [address] [id number] [facility] [place] [address] Aug, [facility] [address] [id number] [address] [place] [address], [place] [address] Aug, [facility] [address] [id number] [address] [place] [address], [place] [address] Aug, [facility] [address] [id number] [address] [place] [address], [place] [address] Aug, [facility] [address] [id number] [address] [place] [address], [place] [address] Aug, [facility] [address] [id number] [address] [place] [address], [place] [address] Aug, [facility] [address] [id number] [address] [place] [address], [place] [address] Aug, [facility] [address] [id number] [address] [place] [address], [place] [address] Jul, [facility] [address] [id number] [address] [place] [address], [place] [address] Jul, [facility] [address] [id number] [address] [place] [address], [place] [address] Jul, [facility] [address] [id number] [address] [place] [address], [place] [address] Jul, [facility] [address] [id number] [address] [place] [address], [place] [address] Jul, [facility] [address] [id number] [address] [place] [address], [place] [address] Jul, [facility] [address] [id number] [address] [place] [address], [place] [address] Jul, [facility] [address] [id number] [address] [place] [address], [place] [address] Jul, [facility] [address] [id number] [address] [place] [address], [place] [address] Jun, [facility] [address] [id number] [address] [place] [address], [place] [address] Jun, [facility] [address] [id number] [address] [place] [address], [place] [address] Jun, [facility] [address] [id number] [address] [place] [address], [place] [address] Jun, [facility] [address] [id number] [address] [place] [address], [place] [address] Jun, [facility] [address] [id number] [address] [place] [address], [place] [address] Jun, [facility] [address] [id number] [address] [place] [address], [place] [address] Jun, [facility] [address] [id number] [address] [place] [address], [place] [address] Jun, [facility] [address] [id number] [address] [place] [address], [place] [address] May, [facility] [address] [id number] [address] [place] [address], [place] [address] May, [facility] [address] [id number] [address] [place] [address], [place] [address] May, [facility] [address] [id number] [address] [place] [address], [place] [address] May, [facility] [address] [id number] [address] [place] [address], [place] [address] May, [facility] [address] [id number] [address] [place] [address], [place] [address] May, [facility] [address] [id number] [address] [place] [address], [place] [address] May, [facility] [address] [id number] [address] [place] [address], [place] [address] May, [facility] [address] [id number] [address] [place] [address], [place] [address] Apr, [facility] [address] [id number] [address] [place] [address] Apr, [facility] [address] [id number] [address] [place] [address], [place] [address] Apr, [facility] [address] [id number] [address] [place] [address], [place] [address] Apr, [facility] [address] [id number] [address] [place] [address], [place] [address] Apr, [facility] [address] [id number] [address] [place] [address] Apr, [facility] [address] [id number] [address] [place] [address] Apr, [facility] [address] [id number] [address] [place] [address] 18 Apr, 2013 [facility] [address] [id number] [address] [place] [address], [place] [address] Mar, [facility] [address] [id number] [address] [place] [id number] 14 Mar, 2013 [facility] [address] [id number] [address] [place] [id number] 18 Feb, 2013 [facility] [address] [id number] [address] [place] [address], [place] [address] Feb, [facility] [address] [id number] [address] [place] [address], [place] [address] Feb, [facility] [address] [id number] [address] [place] [address], [place] [address] Jan, [facility] [address] [id number] [address] [place] [address], [place] [address] Jan, [facility] [address] [id number] [address] [place] [address], [place] [address] Jan, [facility] [address] [id number] [address] [place] [address], [place] [address] Jan, [facility] [address] [id number] [address] [place] [address], [place] [address] Jan, [facility] [address] [id number] [address] [place] [address], [place] [address] Jan, [facility] [address] [id number] [address] [place] [address], [place] [address] Jan, [facility] [address] [id number] [address] [place] [address], [place] [address] Dec, [facility] [address] [id number] [address] [place] [address], [place] [address] Dec, [facility] [address] [id number] [address] [place] [address], [place] [address] Dec, [facility] [address] [id number] [address] [place] [address], [place] [address] Dec, [facility] [address] [id number] [address] [place] [address], [place] [address] Nov, [facility] [address] [id number] [address] [place] [address], [place] [address] Nov, [facility] [address] [id number] [address] [place] [address], [place] [address] Nov, [facility] [address] [id number] [address] [place] [address], [place] [address] October, [facility] [address] [id number] [address] [place] [address], [place] [address] Sep, [facility] [address] [id number] [address] [place] [address], [place] [address] Sep, [facility] [address] [id number] [address] [place] [address], [place] [address] Sep, [facility] [address] [id number] [address] [place] [address], [place] [address] Sep, [facility] [address] [id number] [address] [place] [address], [place] [address] Sep, [facility] [address] [id number] [address] [place] [address], [place] [address] Sep, [facility] [address] [id number] [address] [place] [address], [place] [address] Sep, [facility] [address] [id number] [address] [place] [address], [place] [address] Sep, [facility] [address] [id number] [address] [place] [address], [place] [address] Sep, [facility] [address] [id number] [address] [place] [address], [place] [address] Aug, [facility] [address] [id number] [address] [place] [address], [place] [address] Aug, [facility] [address] [id number] [address] [place] [address], [place] [address] Jul, [facility] [address] [id number] [address] [place] [address], [place] [address] Jul, [facility] [address] [id number] [address] [place] [address], [place] [address] Jul, [facility] [address] [id number] [address] [place] [address] [place] [address] Jun, [facility] [address] [id number] [address] [place] [address], [place] [address] Apr, [facility] [address] [id number] [address] [place] [address], [place] [address] Apr, [facility] [address] [id number] [address] [place] [address], [place] [address] Apr, [facility] [address] [id number] [address] [place] [address], [place] [address] Apr, [facility] [address] [id number] [address] [place] [address], [place] [address] Apr, [facility] [address] [id number] [address] [place] [address], [place] [address] Apr, [facility] [address] [id number] [address] [place] [address], [place] [address] Apr, [facility] [address] [id number] [address] [place] [address], [place] [address] Apr, [facility] [address] [id number] [address] [place] [address], [place] [address] Apr, [facility] [address] [id number] [address] [place] [address], [place] [address] Apr, [facility] [address] [id number] [address] [place] [address], [place] [address] Apr, [facility] [address] [id number] [address] [place] [address] Apr, [facility] [address] [id number] [address] [place] [address], [place] [address] Mar, [facility] [address] [id number] [address] [place] [address], [place] [address] Mar, [facility] [address] [id number] [address] [place] [address], [place] [address] Mar, [facility] [address] [id number] [address] [place] [address] 15 Mar, 2012 [facility] [address] [id number] [address] [place] [address] Mar, [facility] [address] [id number] [address] [place] [id number] Mar, [facility] [address] [id number] [address] [place] [address] Mar, [facility] [address] [id number] [address] [place] [id number] 25 Feb, 2012 [facility] [address] [id number] [address] [place] [address] 24 Feb, 2012 [facility] [address] [id number] [address] [place] [address] Feb, [facility] [address] [id number] [address] [place] [id number] Feb, [facility] [address] [id number] [address] [place] [id number] Jan, [facility] [address] [id number] [address] [place] [address] Jan, [facility] [address] [id number] [address] [place] [address] Jan, [facility] [address] [id number] [address] [place] [id number] Jan, IMMUNIZATIONS No Known Immunizations SOCIAL HISTORY Never Assessed REASON FOR VISIT EMR-[facility] [place] PLAN OF CARE VITAL SIGNS MEDICATIONS Unknown Medications RESULTS No Results PROCEDURES No Known procedures INSTRUCTIONS MEDICATIONS ADMINISTERED No Known Medications
--- OUTSIDE RECORDS SUMMARY | 2020-01-17 06:42 | XMS REPORT ---
Author Author Yogesh Kelly Doctor Organization [facility] Address Unknown Phone Unavailable Care Team Providers Care Adjunct Professor Of English Name Role Phone Migration, Doctor Unavailable Unavailable PROBLEMS Type Condition ICD9-CM Code [id number] Code Onset Dates Condition S tatus SNOMED Code Problem Encounter for long-term (current) use of other medications V58.69 Active 131021472 Problem Routine general medical examination at [facility] V70.0 Active 960155435 Problem Family history of unspecified malignant neoplasm V16.9 Active 444842858 Problem Nonspecific elevation of lev els of transaminase or lactic acid dehydrogenase (LDH) 790.4 Active 77383169 2 Problem Personal history of other allergy, other than to medicinal agents V15.09 Active 933265190 Problem Essential hypertension, benign 401.1 Active 7878689 Problem Coronary atherosclerosis of unspecified type of vessel, dry creek or graft 414.00 Active 224755364 Problem Dizziness and giddiness 780.4 Active 834818418 Problem Chest pain, unspecified 786.50 Active 65353967 Problem Lumbago 724.2 Active 302791151 Problem Cervicalgia 723.1 Active 51681267 Problem Other specified cardiac dysrhythmias 427.89 Active 542050215 Problem Peptic ulcer, unspecified si te, unspecified as acute or chronic, without mention of hemorrhage, perforation, or obstruction 533.90 Active 02066689 Problem Right bundle branch block 426.4 Acti ve 68326630 Problem 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 Active 40282773 Problem Unspecified tinnitus 388.30 Active 34371931 Problem Unspecified hearing loss 389.9 Activ e 14147544 Problem Unspecified otalgia 388.70 Active 94803819 Problem Malignant neoplasm of prostate 185 Active 523225663 Problem Polyuria 788.42 Active 85802910 Problem Unspecified viral hepatitis C without hepatic coma 070.70 Active 09328149 Problem Abdominal or pelvic swelling, mass or lump, unspecified si te 789.30 Active 779875061 Problem Dysuria 788.1 Active 13578386 Problem Unspecified cataract 366.9 Active 058598167 Problem Unspecified episodic mood disorder 296.90 Active 124934733 Problem Other and unspecified hyperlipidemia 272.4 Active 01196612 Problem Unspecified hypothyroidism 244.9 Act katty [id number] ALLERGIES No Information ENCOUNTERS Encounter Location Date Diagnosis [facility] [address] [id number] [address] [place] [id number] 14 Sep, 2014 [facility] [address] [id number] [address] [place] [id number] Sep, [facility] [address] [id number] [address] [place] [phone] Jun, [facility] [address] [id number] [address] [place] [phone] Jun, [facility] [address] [id number] [address] [place] [id number] May, [facility] [address] [id number] [address] [place] [id number] May, [facility] [address] [id number] [address] [place] [phone] Feb, [facility] [address] [id number] [address] [place] [phone] Feb, [facility] [address] [id number] [address] [place] [phone] Feb, [facility] [address] [id number] [address] [place] [phone] Jan, [facility] [address] [id number] [address] [place] [id number] Jan, [facility] [address] [id number] [address] [place] [phone] Nov, [facility] [address] [id number] [address] [place] [phone] Nov, [facility] [address] [id number] [address] [place] [id number] 05 Nov, 2013 [facility] [address] [id number] [facility] [place] [address] 05 Nov, 2013 [facility] [address] [id number] [facility] [place] [address] Aug, [facility] [address] [id number] [facility] [place] [address] Aug, [facility] [address] [id number] [address] [place] [address], [place] [address] Aug, [facility] [address] [id number] [facility] [place] [address] Aug, [facility] [address] [id number] [address] [place] [address], [place] [address] Aug, [facility] [address] [id number] [address] [place] [address], [place] [address] Aug, [facility] [address] [id number] [address] [place] [address], [place] [address] Aug, [facility] [address] [id number] [address] [place] [address], [place] [address] Aug, [facility] [address] [id number] [address] [place] [address], [place] [address] Aug, [facility] [address] [id number] [address] [place] [address], [place] [address] Aug, [facility] [address] [id number] [address] [place] [address], [place] [address] Jul, [facility] [address] [id number] [address] [place] [address], [place] [address] Jul, [facility] [address] [id number] [address] [place] [address], [place] [address] Jul, [facility] [address] [id number] [address] [place] [address], [place] [address] Jul, [facility] [address] [id number] [address] [place] [address], [place] [address] Jul, [facility] [address] [id number] [address] [place] [address], [place] [address] Jul, [facility] [address] [id number] [address] [place] [address], [place] [address] Jul, [facility] [address] [id number] [address] [place] [address], [place] [address] Jul, [facility] [address] [id number] [address] [place] [address], [place] [address] Jun, [facility] [address] [id number] [address] [place] [address], [place] [address] Jun, [facility] [address] [id number] [address] [place] [address], [place] [address] Jun, [facility] [address] [id number] [address] [place] [address], [place] [address] Jun, [facility] [address] [id number] [address] [place] [address], [place] [address] Jun, [facility] [address] [id number] [address] [place] [address], [place] [address] Jun, [facility] [address] [id number] [address] [place] [address], [place] [address] Jun, [facility] [address] [id number] [address] [place] [address], [place] [address] Jun, [facility] [address] [id number] [address] [place] [address], [place] [address] May, [facility] [address] [id number] [address] [place] [address], [place] [address] May, [facility] [address] [id number] [address] [place] [address], [place] [address] May, [facility] [address] [id number] [address] [place] [address], [place] [address] May, [facility] [address] [id number] [address] [place] [address], [place] [address] May, [facility] [address] [id number] [address] [place] [address], [place] [address] May, [facility] [address] [id number] [address] [place] [address], [place] [address] May, [facility] [address] [id number] [address] [place] [address], [place] [address] May, [facility] [address] [id number] [address] [place] [address], [place] [address] Apr, [facility] [address] [id number] [address] [place] [phone] Apr, [facility] [address] [id number] [address] [place] [address], [place] [address] Apr, [facility] [address] [id number] [address] [place] [address], [place] [address] Apr, [facility] [address] [id number] [address] [place] [address], [place] [address] Apr, [facility] [address] [id number] [address] [place] [id number] Apr, [facility] [address] [id number] [address] [place] [id number] Apr, [facility] [address] [id number] [address] [place] [id number] 18 Apr, 2013 [facility] [address] [id number] [address] [place] [address], [place] [address] Mar, [facility] [address] [id number] [address] [place] [id number] 14 Mar, 2013 [facility] [address] [id number] [address] [place] [id number] 18 Feb, 2013 [facility] [address] [id number] [address] [place] [address], [place] [address] Feb, [facility] [address] [id number] [address] [place] [address], [place] [address] Feb, [facility] [address] [id number] [address] [place] [address], [place] [address] Jan, [facility] [address] [id number] [address] [place] [address], [place] [address] Jan, [facility] [address] [id number] [address] [place] [address], [place] [address] Jan, [facility] [address] [id number] [address] [place] [address], [place] [address] Jan, [facility] [address] [id number] [address] [place] [address], [place] [address] Jan, [facility] [address] [id number] [address] [place] [address], [place] [address] Jan, [facility] [address] [id number] [address] [place] [address], [place] [address] Jan, [facility] [address] [id number] [address] [place] [address], [place] [address] Dec, [facility] [address] [id number] [address] [place] [address], [place] [address] Dec, [facility] [address] [id number] [address] [place] [address], [place] [address] Dec, [facility] [address] [id number] [address] [place] [address], [place] [address] Dec, [facility] [address] [id number] [address] [place] [address], [place] [address] Nov, [facility] [address] [id number] [address] [place] [address], [place] [address] Nov, [facility] [address] [id number] [address] [place] [address], [place] [address] Nov, [facility] [address] [id number] [address] [place] [address], [place] [address] October, [facility] [address] [id number] [address] [place] [address], [place] [address] Sep, [facility] [address] [id number] [address] [place] [address], [place] [address] Sep, [facility] [address] [id number] [address] [place] [address], [place] [address] Sep, [facility] [address] [id number] [address] [place] [address], [place] [address] Sep, [facility] [address] [id number] [address] [place] [address], [place] [address] Sep, [facility] [address] [id number] [address] [place] [address], [place] [address] Sep, [facility] [address] [id number] [address] [place] [address], [place] [address] Sep, [facility] [address] [id number] [address] [place] [address], [place] [address] Sep, [facility] [address] [id number] [address] [place] [address], [place] [address] Sep, [facility] [address] [id number] [address] [place] [address], [place] [address] Aug, [facility] [address] [id number] [address] [place] [address], [place] [address] Aug, [facility] [address] [id number] [address] [place] [address], [place] [address] Jul, [facility] [address] [id number] [address] [place] [address], [place] [address] Jul, [facility] [address] [id number] [address] [place] [address], [place] [address] Jul, [facility] [address] [id number] [address] [place] [address] [place] [address] Jun, [facility] [address] [id number] [address] [place] [address], [place] [address] Apr, [facility] [address] [id number] [address] [place] [address], [place] [address] Apr, [facility] [address] [id number] [address] [place] [address], [place] [address] Apr, [facility] [address] [id number] [address] [place] [address], [place] [address] Apr, [facility] [address] [id number] [address] [place] [address], [place] [address] Apr, [facility] [address] [id number] [address] [place] [address], [place] [address] Apr, [facility] [address] [id number] [address] [place] [address], [place] [address] Apr, [facility] [address] [id number] [address] [place] [address], [place] [address] Apr, [facility] [address] [id number] [address] [place] [address], [place] [address] Apr, [facility] [address] [id number] [address] [place] [address], [place] [address] Apr, [facility] [address] [id number] [address] [place] [address], [place] [address] Apr, [facility] [address] [id number] [address] [place] [id number] Apr, [facility] [address] [id number] [address] [place] [address], [place] [address] Mar, [facility] [address] [id number] [address] [place] [address], [place] [address] Mar, [facility] [address] [id number] [address] [place] [address], [place] [address] Mar, [facility] [address] [id number] [address] [place] [id number] 15 Mar, 2012 [facility] [address] [id number] [address] [place] [phone] Mar, [facility] [address] [id number] [address] [place] [id number] Mar, [facility] [address] [id number] [address] [place] [id number] Mar, [facility] [address] [id number] [address] [place] [id number] 25 Feb, 2012 [facility] [address] [id number] [address] [place] [id number] 24 Feb, 2012 [facility] [address] [id number] [address] [place] [phone] Feb, [facility] [address] [id number] [address] [place] [id number] Feb, [facility] [address] [id number] [address] [place] [id number] Jan, [facility] [address] [id number] [address] [place] [id number] Jan, [facility] [address] [id number] [address] [place] [id number] Jan, [facility] [address] [id number] [address] [place] [id number] Jan, IMMUNIZATIONS No Known Immunizations SOCIAL HISTORY Never Assessed REASON FOR VISIT EMR-[place] PLAN OF CARE VITAL SIGNS MEDICATIONS Unknown Medications RESULTS No Results PROCEDURES No Known procedures INSTRUCTIONS MEDICATIONS ADMINISTERED No Known Medications
--- OUTSIDE RECORDS SUMMARY | 2020-01-17 06:43 | XMS REPORT | Continuity of Care Document ---
Author Organization Unknown Address Unknown Phone Unavailable Allergies Active Description Code Type Severity Reaction Onset Reported/Identified Relationship to Patient Clinical Status Yes NO KNOWN DRUG ALLERGIES UNKNOWN NO KNOWN DRUG ALLERG Yes NO KNOWN DRUG ALLERGIES UNKNOWN UNKNOWN Yes Norvasc oral tablet 10 mg 10 mg tablet Drug Allergy N/A N/A 11/14/2013 Yes No Known Drug Allergies [id number] Drug Allergy Unknown N/A 12/30/2019 Medications There is no data. 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, CEREBRAL INFARCTION 07/07/2010 Ot V17.3 FAM HX-ISCHEM HEART DIS 02/09/2012 244.9 HYPO THYROIDISM 02/09/2012 272.4 DYSL IPIDEMIA 02/09/2012 366.9 UNSP ECIFIED CATARACT 02/09/2012 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 02/09/2012 401.1 HYPE RTENSION, BENIGN ESSENTIAL 02/09/2012 426.4 RIGH T BUNDLE BRANCH BLOCK 02/09/2012 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 02/09/2012 427.89 OTH ER SPECIFIED CARDIAC DYSRHYTHMIAS 02/09/2012 533.90 PEP TIC ULCER OF UNSPECIFIED SITE UNSPECIFIED ACUTE OR CHRONIC WITHOUT HEMORRHAGE OR PERFORATION WITHOUT OBSTRUCTION 02/09/2012 786.50 UNS PECIFIED CHEST PAIN 02/09/2012 V70.0 ROUT INE GENERAL MEDICAL EXAMINATION AT A HEALTH CARE FACILITY 02/09/2012 RAMSEY MONIQUE DO 244.9 HYPOTHYROIDISM 02/09/2012 RAMSEY MONIQUE DO 272.4 DYSLIPIDEMIA 02/09/2012 RAMSEY MONIQUE DO 366.9 UNSPECIFIED CATARACT 02/09/2012 RAMSEY MONIQUE DO 388.70 OTALGIA UNSPECIFIED 02/09/2012 RAMSEY MONIQUE DO 401.1 HYPERTENSION, BENIGN ESSENTIAL 02/09/2012 RAMSEY MONIQUE DO 426.4 RIGHT BUNDLE BRANCH BLOCK 02/09/2012 RAMSEY MONIQUE DO 426.52 RIGHT BUNDLE BRANCH BLOCK AND LEFT ANTERIOR FASCICULAR BLOCK 02/09/2012 RAMSEY MONIQUE DO 427.89 OTHER SPECIFIED CARDIAC DYSRHYTHMIAS 02/09/2012 RAMSEY MONIQUE DO 533.90 PEPTIC ULCER OF UNSPECIFIED SITE UNSPECIFIED ACUTE OR CHRONIC WITHOUT HEMORRHAGE OR PERFORATION WITHOUT OBSTRUCTION 02/09/2012 RAMSEY MONIQUE DO 786.50 UNSPECIFIED CHEST PAIN 02/09/2012 RAMSEY MONIQUE DO V70.0 ROUTINE GENERAL MEDICAL EXAMINATION AT A HEALTH CARE FACILITY 02/09/2012 244.9 HYPO THYROIDISM 02/09/2012 272.4 DYSL IPIDEMIA 02/09/2012 366.9 UNSP ECIFIED CATARACT 02/09/2012 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 02/09/2012 401.1 HYPE RTENSION, BENIGN ESSENTIAL 02/09/2012 426.4 RIGH T BUNDLE BRANCH BLOCK 02/09/2012 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 02/09/2012 427.89 OT ER SPECIFIED CARDIAC DYSRHYTHMIAS 02/09/2012 533.90 PEP TIC ULCER OF UNSPECIFIED SITE UNSPECIFIED ACUTE OR CHRONIC WITHOUT HEMORRHAGE OR PERFORATION WITHOUT OBSTRUCTION 02/09/2012 786.50 UNS PECIFIED CHEST PAIN 02/09/2012 V70.0 ROUT INE GENERAL MEDICAL EXAMINATION AT A HEALTH CARE FACILITY 02/09/2012 244.9 HYPO THYROIDISM 02/09/2012 272.4 DYSL IPIDEMIA 02/09/2012 366.9 UNSP ECIFIED CATARACT 02/09/2012 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 02/09/2012 401.1 HYPE RTENSION, BENIGN ESSENTIAL 02/09/2012 426.4 RIGH T BUNDLE BRANCH BLOCK 02/09/2012 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 02/09/2012 427.89 OTH ER SPECIFIED CARDIAC DYSRHYTHMIAS 02/09/2012 533.90 PEP TIC ULCER OF UNSPECIFIED SITE UNSPECIFIED ACUTE OR CHRONIC WITHOUT HEMORRHAGE OR PERFORATION WITHOUT OBSTRUCTION 02/09/2012 786.50 UNS PECIFIED CHEST PAIN 02/09/2012 V70.0 ROUT INE GENERAL MEDICAL EXAMINATION AT A HEALTH CARE FACILITY 02/09/2012 244.9 HYPO THYROIDISM 02/09/2012 272.4 DYSL IPIDEMIA 02/09/2012 366.9 UNSP ECIFIED CATARACT 02/09/2012 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 02/09/2012 401.1 HYPE RTENSION, BENIGN ESSENTIAL 02/09/2012 426.4 RIGH T BUNDLE BRANCH BLOCK 02/09/2012 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 02/09/2012 427.89 OTH ER SPECIFIED CARDIAC DYSRHYTHMIAS 02/09/2012 533.90 PEP TIC ULCER OF UNSPECIFIED SITE UNSPECIFIED ACUTE OR CHRONIC WITHOUT HEMORRHAGE OR PERFORATION WITHOUT OBSTRUCTION 02/09/2012 786.50 UNS PECIFIED CHEST PAIN 02/09/2012 V70.0 ROUT INE GENERAL MEDICAL EXAMINATION AT A HEALTH CARE FACILITY 02/09/2012 244.9 HYPO THYROIDISM 02/09/2012 272.4 DYSL IPIDEMIA 02/09/2012 366.9 UNSP ECIFIED CATARACT 02/09/2012 388.70 CLAUDIA LGIA UNSPECIFIED 02/09/2012 401.1 HYPE RTENSION, BENIGN ESSENTIAL 02/09/2012 426.4 RIGH T BUNDLE BRANCH BLOCK 02/09/2012 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 02/09/2012 427.89 OTH ER SPECIFIED CARDIAC DYSRHYTHMIAS 02/09/2012 533.90 PEP TIC ULCER OF UNSPECIFIED SITE UNSPECIFIED ACUTE OR CHRONIC WITHOUT HEMORRHAGE OR PERFORATION WITHOUT OBSTRUCTION 02/09/2012 786.50 UNS PECIFIED CHEST PAIN 02/09/2012 V70.0 ROUT INE GENERAL MEDICAL EXAMINATION AT A HEALTH CARE FACILITY 02/09/2012 RAMSEY MONIQUE DO 244.9 HYPOTHYROIDISM 02/09/2012 MONIQUE DO, RAMSEY K 272.4 DYSLIPIDEMIA 02/09/2012 MONIQUE DO, RAMSEY K 366.9 UNSPECIFIED CATARACT 02/09/2012 MONIQUE DO, RAMSEY K 388.70 OTALGIA UNSPECIFIED 02/09/2012 MONIQUE DO, RAMSEY K 401.1 HYPERTENSION, BENIGN ESSENTIAL 02/09/2012 MONIQUE DO, RAMSEY K 426.4 RIGHT BUNDLE BRANCH BLOCK 02/09/2012 MONIQUE DO, RAMSEY K 426.52 RIGHT BUNDLE BRANCH BLOCK AND LEFT ANTERIOR FASCICULAR BLOCK 02/09/2012 MONIQUE DO, RAMSEY K 427.89 OTHER SPECIFIED CARDIAC DYSRHYTHMIAS 02/09/2012 MONIQUE DO, RAMSEY K 533.90 PEPTIC ULCER OF UNSPECIFIED SITE UNSPECIFIED ACUTE OR CHRONIC WITHOUT HEMORRHAGE OR PERFORATION WITHOUT OBSTRUCTION 02/09/2012 MONIQUE DO, RAMSEY K 786.50 UNSPECIFIED CHEST PAIN 02/09/2012 MONIQUE DO, RAMSEY K V70.0 ROUTINE GENERAL MEDICAL EXAMINATION AT A HEALTH CARE FACILITY 02/09/2012 MONIQUE DO, RAMSEY K 244.9 HYPOTHYROIDISM 02/09/2012 MONIQUE DO, RAMSEY K 272.4 DYSLIPIDEMIA 02/09/2012 MONIUQE DO, RAMSEY K 366.9 UNSPECIFIED CATARACT 02/09/2012 MONIQUE DO, RAMSEY K 388.70 OTALGIA UNSPECIFIED 02/09/2012 MONIQUE DO, RAMSEY K 401.1 HYPERTENSION, BENIGN ESSENTIAL 02/09/2012 MONIQUE DO, RAMSEY K 426.4 RIGHT BUNDLE BRANCH BLOCK 02/09/2012 MONIQUE DO, RAMSEY K 426.52 RIGHT BUNDLE BRANCH BLOCK AND LEFT ANTERIOR FASCICULAR BLOCK 02/09/2012 MONIQUE DO, RAMSEY K 427.89 OTHER SPECIFIED CARDIAC DYSRHYTHMIAS 02/09/2012 MONIQUE DO, RAMSEY K 533.90 PEPTIC ULCER OF UNSPECIFIED SITE UNSPECIFIED ACUTE OR CHRONIC WITHOUT HEMORRHAGE OR PERFORATION WITHOUT OBSTRUCTION 02/09/2012 MONIQUE DO, RAMSEY K 786.50 UNSPECIFIED CHEST PAIN 02/09/2012 MONIQUE DO, RAMSEY K V70.0 ROUTINE GENERAL MEDICAL EXAMINATION AT A HEALTH CARE FACILITY 02/09/2012 MONIQUE DO, RAMSEY K 244.9 HYPOTHYROIDISM 02/09/2012 MONIQUE DO, RAMSEY K 272.4 DYSLIPIDEMIA 02/09/2012 MONIQUE DO, RAMSEY K 366.9 UNSPECIFIED CATARACT 02/09/2012 MONIQUE DO, RAMSEY K 388.70 OTALGIA UNSPECIFIED 02/09/2012 MONIQUE DO, RAMSEY K 401.1 HYPERTENSION, BENIGN ESSENTIAL 02/09/2012 MONIQUE DO, RAMSEY K 426.4 RIGHT BUNDLE BRANCH BLOCK 02/09/2012 MONIQUE DO, RAMSEY K 426.52 RIGHT BUNDLE BRANCH BLOCK AND LEFT ANTERIOR FASCICULAR BLOCK 02/09/2012 MONIQUE DO, RAMSEY K 427.89 OTHER SPECIFIED CARDIAC DYSRHYTHMIAS 02/09/2012 MONIQUE DO, RAMSEY K 533.90 PEPTIC ULCER OF UNSPECIFIED SITE UNSPECIFIED ACUTE OR CHRONIC WITHOUT HEMORRHAGE OR PERFORATION WITHOUT OBSTRUCTION 02/09/2012 MONIQUE DO, RAMSEY K 786.50 UNSPECIFIED CHEST PAIN 02/09/2012 MONIQUE DO, RAMSEY K V70.0 ROUTINE GENERAL MEDICAL EXAMINATION AT A HEALTH CARE FACILITY 02/09/2012 MONIQUE DO, RAMSEY K 244.9 HYPOTHYROIDISM 02/09/2012 MONIQUE DO, RAMSEY K 272.4 DYSLIPIDEMIA 02/09/2012 MONIQUE DO, RAMSEY K 366.9 UNSPECIFIED CATARACT 02/09/2012 MONIQUE DO, RAMSEY K 388.70 OTALGIA UNSPECIFIED 02/09/2012 MONIQUE DO, RAMSEY K 401.1 HYPERTENSION, BENIGN ESSENTIAL 02/09/2012 MONIQUE DO, RAMSEY K 426.4 RIGHT BUNDLE BRANCH BLOCK 02/09/2012 MONIQUE DO, RAMSEY K 426.52 RIGHT BUNDLE BRANCH BLOCK AND LEFT ANTERIOR FASCICULAR BLOCK 02/09/2012 MONIQUE DO, RAMSEY K 427.89 OTHER SPECIFIED CARDIAC DYSRHYTHMIAS 02/09/2012 MONIQUE DO, RAMSEY K 533.90 PEPTIC ULCER OF UNSPECIFIED SITE UNSPECIFIED ACUTE OR CHRONIC WITHOUT HEMORRHAGE OR PERFORATION WITHOUT OBSTRUCTION 02/09/2012 MONIQUE DO, RAMSEY K 786.50 UNSPECIFIED CHEST PAIN 02/09/2012 MONIQUE DO, RAMSEY K V70.0 ROUTINE GENERAL MEDICAL EXAMINATION AT A HEALTH CARE FACILITY 02/09/2012 MONIQUE DO, RAMSEY K 244.9 HYPOTHYROIDISM 02/09/2012 MONIQUE DO, RAMSEY K 272.4 DYSLIPIDEMIA 02/09/2012 MONIQUE DO, RAMSEY K 366.9 UNSPECIFIED CATARACT 02/09/2012 MONIQUE DO, RAMSEY K 388.70 OTALGIA UNSPECIFIED 02/09/2012 MONIQUE DO, RAMSEY K 401.1 HYPERTENSION, BENIGN ESSENTIAL 02/09/2012 MONIQUE DO, RAMSEY K 426.4 RIGHT BUNDLE BRANCH BLOCK 02/09/2012 MONIQUE DO, RAMSEY K 426.52 RIGHT BUNDLE BRANCH BLOCK AND LEFT ANTERIOR FASCICULAR BLOCK 02/09/2012 ENEIDA SMITH RAMSEY K 427.89 OTHER SPECIFIED CARDIAC DYSRHYTHMIAS 02/09/2012 ENEIDA SMITH RAMSEY K 533.90 PEPTIC ULCER OF UNSPECIFIED SITE UNSPECIFIED ACUTE OR CHRONIC WITHOUT HEMORRHAGE OR PERFORATION WITHOUT OBSTRUCTION 02/09/2012 ENEIDA SMITH RAMSEY K 786.50 UNSPECIFIED CHEST PAIN 02/09/2012 ENEIDA SMITH RAMSEY K V70.0 ROUTINE GENERAL MEDICAL EXAMINATION AT A HEALTH CARE FACILITY 02/09/2012 RAMSEY MONIQUE DO K 244.9 HYPOTHYROIDISM 02/09/2012 ENEIDA SMITH RAMSEY K 272.4 DYSLIPIDEMIA 02/09/2012 ENEIDA SMITH RAMSEY K 366.9 UNSPECIFIED CATARACT 02/09/2012 ENEIDA SMITH RAMSEY K 388.70 OTALGIA UNSPECIFIED 02/09/2012 DARLYN MONIQUE DOA K 401.1 HYPERTENSION, BENIGN ESSENTIAL 02/09/2012 ENEIDA SMITH RAMSEY K 426.4 RIGHT BUNDLE BRANCH BLOCK 02/09/2012 DARLYN MONIQUE DOA K 426.52 RIGHT BUNDLE BRANCH BLOCK AND LEFT ANTERIOR FASCICULAR BLOCK 02/09/2012 DARLYN MONIQUE DOA K 427.89 OTHER SPECIFIED CARDIAC DYSRHYTHMIAS 02/09/2012 ENEIDA SMITH RAMSEY K 533.90 PEPTIC ULCER OF UNSPECIFIED SITE UNSPECIFIED ACUTE OR CHRONIC WITHOUT HEMORRHAGE OR PERFORATION WITHOUT OBSTRUCTION 02/09/2012 DARLYN MONIQUE DOA K 786.50 UNSPECIFIED CHEST PAIN 02/09/2012 ENEIDA SMITH RAMSEY K V70.0 ROUTINE GENERAL MEDICAL EXAMINATION AT A HEALTH CARE FACILITY 03/16/2012 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 03/16/2012 V58.69 JUNE G-TERM (CURRENT) USE OF OTHER MEDICATIONS 03/16/2012 RAMSEY MONIQUE DO K 296.90 UNSPECIFIED EPISODIC MOOD DISORDER 03/16/2012 DARLYN MONIQUE DOA K V58.69 LONG-TERM (CURRENT) USE OF OTHER MEDICATIONS 03/16/2012 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 03/16/2012 V58.69 JUNE G-TERM (CURRENT) USE OF OTHER MEDICATIONS 03/16/2012 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 03/16/2012 V58.69 JUNE G-TERM (CURRENT) USE OF OTHER MEDICATIONS 03/16/2012 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 03/16/2012 V58.69 JUNE G-TERM (CURRENT) USE OF OTHER MEDICATIONS 03/16/2012 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 03/16/2012 V58.69 JUNE G-TERM (CURRENT) USE OF OTHER MEDICATIONS 03/16/2012 MONIQUE DO RAMSEY K 296.90 UNSPECIFIED EPISODIC MOOD DISORDER 03/16/2012 MONIQUE DO RAMSEY K V58.69 LONG-TERM (CURRENT) USE OF OTHER MEDICATIONS 03/16/2012 MONIQUE DO RAMSEY K 296.90 UNSPECIFIED EPISODIC MOOD DISORDER 03/16/2012 MONIQUE DO RAMSEY K V58.69 LONG-TERM (CURRENT) USE OF OTHER MEDICATIONS 03/16/2012 MONIQUE DO RAMSEY K 296.90 UNSPECIFIED EPISODIC MOOD DISORDER 03/16/2012 MONIQUE DO ARMSEY K V58.69 LONG-TERM (CURRENT) USE OF OTHER MEDICATIONS 03/16/2012 MONIQUE DO RAMSEY K 296.90 UNSPECIFIED EPISODIC MOOD DISORDER 03/16/2012 MONIQUE DO RAMSEY K V58.69 LONG-TERM (CURRENT) USE OF OTHER MEDICATIONS 03/16/2012 MONIQUE DO RAMSEY K 296.90 UNSPECIFIED EPISODIC MOOD DISORDER 03/16/2012 MONIQUE DO RAMSEY K V58.69 LONG-TERM (CURRENT) USE OF OTHER MEDICATIONS 03/16/2012 ENEIDA SMITH RAMSEY K 296.90 UNSPECIFIED EPISODIC MOOD DISORDER 03/16/2012 MONIQUE DO RAMSEY K V58.69 LONG-TERM (CURRENT) USE OF OTHER MEDICATIONS 04/10/2012 Ot 244.9 HYPO THYROIDISM NOS 04/10/2012 Ot 401.9 HYPE RTENSION NOS 04/10/2012 Ot 414.01 COR ONARY ATHEROSCLEROSIS OF [place] CORON 04/10/[address] PAIN NEC 04/10/2012 Ot 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, CEREBRAL INFARCTION 04/10/2012 Ot V12.71 PER ERIC HISTORY OF PEPTIC ULCER DISEASE 04/10/2012 Ot V13.01 PER ERIC HISTORY OF URINARY CALCULI 04/10/2012 Ot V45.82 PER CUTANEOUS TRANSLUM CORON ANGIOPLASTY 04/10/2012 Ot V58.66 JUNE G-TERM (CURRENT) USE OF ASPIRIN 04/10/2012 Ot V58.69 OTH MED,LT,CURRENT USE 04/11/2012 414.00 CAD 04/11/2012 RAMSEY MONIQUE DO 414.00 CAD 04/11/2012 414.00 CAD 04/11/2012 414.00 CAD 04/11/2012 414.00 CAD 04/11/2012 414.00 CAD 04/11/2012 MONIQUE DO, RAMSEY K 414.00 CAD 04/11/2012 MONIQUE DO, RAMSEY K 414.00 CAD 04/11/2012 MONIQUE DO, RAMSEY K 414.00 CAD 04/11/2012 MONIQUE DO, RAMSEY K 414.00 CAD 04/11/2012 MONIQUE DO, RAMSEY K 414.00 CAD 04/11/2012 MONIQUE DO, RAMSEY K 414.00 CAD 04/17/2012 723.1 CERV ICALGIA 04/17/2012 724.2 LUMBAGO 04/17/2012 MONIQUE DO, RAMSEY K 723.1 CERVICALGIA 04/17/2012 MONIQUE DO, RAMSEY K 724.2 LUMBAGO 04/17/2012 723.1 CERV ICALGIA 04/17/2012 724.2 LUMBAGO 04/17/2012 723.1 CERV ICALGIA 04/17/2012 724.2 LUMBAGO 04/17/2012 723.1 CERV ICALGIA 04/17/2012 724.2 LUMBAGO 04/17/2012 723.1 CERV ICALGIA 04/17/2012 724.2 LUMBAGO 04/17/2012 MONIQUE DO, RAMSEY K 723.1 CERVICALGIA 04/17/2012 MONIQUE DO, RAMSEY K 724.2 LUMBAGO 04/17/2012 MONIQUE DO, RAMSEY K 723.1 CERVICALGIA 04/17/2012 MONIQUE DO, RAMSEY K 724.2 LUMBAGO 04/17/2012 MONIQUE DO, RAMSEY K 723.1 CERVICALGIA 04/17/2012 MONIQUE DO, RAMSEY K 724.2 LUMBAGO 04/17/2012 MONIQUE DO, RAMSEY K 723.1 CERVICALGIA 04/17/2012 MONIQUE DO, RAMSEY K 724.2 LUMBAGO 04/17/2012 MONIQUE DO, RAMSEY K 723.1 CERVICALGIA 04/17/2012 MONIQUE DO, RAMSEY K 724.2 LUMBAGO 04/17/2012 MONIQUE DO, RAMSEY K 723.1 CERVICALGIA 04/17/2012 MONIQUE DO, RAMSEY K 724.2 LUMBAGO 2012 MONIQUE DO, RAMSEY K 789.30 ABDOMINAL OR PELVIC SWELLING MASS OR LUMP UNSPECIFIED SITE 2012 RAMSEY MONIQUE DO V15.09 PERSONAL HISTORY OF OTHER ALLERGY OTHER THAN TO MEDICINAL AGENTS 2012 789.30 ABD OMINAL OR PELVIC SWELLING MASS OR LUMP UNSPECIFIED SITE 2012 V15.09 PER ERIC HISTORY OF OTHER ALLERGY OTHER THAN TO MEDICINAL AGENTS 2012 789.30 ABD OMINAL OR PELVIC SWELLING MASS OR LUMP UNSPECIFIED SITE 2012 V15.09 PER ERIC HISTORY OF OTHER ALLERGY OTHER THAN TO MEDICINAL AGENTS 2012 789.30 ABD OMINAL OR PELVIC SWELLING MASS OR LUMP UNSPECIFIED SITE 2012 V15.09 PER ERIC HISTORY OF OTHER ALLERGY OTHER THAN TO MEDICINAL AGENTS 2012 789.30 ABD OMINAL OR PELVIC SWELLING MASS OR LUMP UNSPECIFIED SITE 2012 V15.09 PER ERIC HISTORY OF OTHER ALLERGY OTHER THAN TO MEDICINAL AGENTS 2012 RAMSEY MONIQUE DO 789.30 ABDOMINAL OR PELVIC SWELLING MASS OR LUMP UNSPECIFIED SITE 2012 RAMSEY MONIQUE DO V15.09 PERSONAL HISTORY OF OTHER ALLERGY OTHER THAN TO MEDICINAL AGENTS 2012 RAMSEY MONIQEU DO 789.30 ABDOMINAL OR PELVIC SWELLING MASS OR LUMP UNSPECIFIED SITE 2012 RAMSEY MONIQUE DO V15.09 PERSONAL HISTORY OF OTHER ALLERGY OTHER THAN TO MEDICINAL AGENTS 2012 RAMSEY MONIQUE DO 789.30 ABDOMINAL OR PELVIC SWELLING MASS OR LUMP UNSPECIFIED SITE 2012 RAMSEY MONIQUE DO V15.09 PERSONAL HISTORY OF OTHER ALLERGY OTHER THAN TO MEDICINAL AGENTS 2012 RAMSEY MONIQUE DO 789.30 ABDOMINAL OR PELVIC SWELLING MASS OR LUMP UNSPECIFIED SITE 2012 RAMSEY MONIQUE DO V15.09 PERSONAL HISTORY OF OTHER ALLERGY OTHER THAN TO MEDICINAL AGENTS 2012 RAMSEY MONIQUE DO 789.30 ABDOMINAL OR PELVIC SWELLING MASS OR LUMP UNSPECIFIED SITE 2012 RAMSEY MONIQUE DO V15.09 PERSONAL HISTORY OF OTHER ALLERGY OTHER THAN TO MEDICINAL AGENTS 01/09/2013 790.4 ABNO RMAL LFT (ELEVATED) 01/09/2013 790.4 ABNO RMAL LFT (ELEVATED) 01/09/2013 MONIQUE DO, RAMSEY K 790.4 ABNORMAL LFT (ELEVATED) 01/09/2013 MONIQUE DO, RAMSEY K 790.4 ABNORMAL LFT (ELEVATED) 01/09/2013 MONIQUE DO, RAMSEY K 790.4 ABNORMAL LFT (ELEVATED) 01/09/2013 MONIQUE DO, RAMSEY K 790.4 ABNORMAL LFT (ELEVATED) 01/09/2013 MONIQUE DO, RAMSEY K 790.4 ABNORMAL LFT (ELEVATED) 02/06/2013 070.70 HEP ATITIS C, UNSPEC 02/06/2013 070.70 HEP ATITIS C, UNSPEC 02/06/2013 MONIQUE DO, RAMSEY K 070.70 HEPATITIS C, UNSPEC 02/06/2013 MONIQUE DO, RAMSEY K 070.70 HEPATITIS C, UNSPEC 02/06/2013 MONIQUE DO, RAMSEY K 070.70 HEPATITIS C, UNSPEC 02/06/2013 MONIQUE DO, RAMSEY K 070.70 HEPATITIS C, UNSPEC 02/06/2013 MONIQUE DO, RAMSEY K 070.70 HEPATITIS C, UNSPEC 05/03/2013 MONIQUE DO, RAMSEY K 780.4 DIZZINESS AND VERTIGO 05/03/2013 MONIQUE DO, RAMSEY K 788.1 DYSURIA 05/03/2013 MONIQUE DO, RAMSEY K 788.42 POLYURIA 05/03/2013 MONIQUE DO, RAMSEY K V16.9 FAMILY HISTORY OF UNSPECIFIED MALIGNANT NEOPLASM 05/03/2013 MONIQUE DO, RAMSEY K 780.4 DIZZINESS AND VERTIGO 05/03/2013 MONIQUE DO, RAMSEY K 788.1 DYSURIA 05/03/2013 MONIQUE DO, RAMSEY K 788.42 POLYURIA 05/03/2013 MONIQUE DO, RAMSEY K V16.9 FAMILY HISTORY OF UNSPECIFIED MALIGNANT NEOPLASM 05/03/2013 MONIQUE DO, RAMSEY K 780.4 DIZZINESS AND VERTIGO 05/03/2013 MONIQUE DO, RAMSEY K 788.1 DYSURIA 05/03/2013 MONIQUE DO, RAMSEY K 788.42 POLYURIA 05/03/2013 MONIQUE DO, RAMSEY K V16.9 FAMILY HISTORY OF UNSPECIFIED MALIGNANT NEOPLASM 05/03/2013 MONIQUE DO, RAMSEY K 780.4 DIZZINESS AND VERTIGO 05/03/2013 MONQIUE DO, RAMSEY K 788.1 DYSURIA 05/03/2013 MONIQUE DO, RAMSEY K 788.42 POLYURIA 05/03/2013 RAMSEY MONIQUE DO V16.9 FAMILY HISTORY OF UNSPECIFIED MALIGNANT NEOPLASM 08/19/2013 RAMSEY MONIQUE DO K 185 MALIGNANT NEOPLASM OF PROSTATE 08/19/2013 RAMSEY MONIQUE DO 388.30 TINNITUS UNSPECIFIED 08/19/2013 RAMSEY MONIQUE DO 389.9 UNSPECIFIED HEARING LOSS 08/19/2013 RAMSEY MONIQUE DO 780.4 DIZZINESS AND VERTIGO 10/10/2013 NURIS MACE, BONITA Lujan Ot 185 MALIGN NEOPL PROSTATE 11/11/2013 CANDIDA MACE FACC, ALI FACP CCDS Ot 244.9 HYPOTHYROIDISM NOS 11/11/2013 CANDIDA MACE FACC, ALI FACP CCDS Ot 272.4 HYPERLIPIDEMIA NEC/NOS 11/11/2013 CANDIDA MACE FACC, ALI FACP CCDS Ot 276.9 ELECTROLYT/FLUID DIS NEC 11/11/2013 CANDIDA MACE FACC, ALI FACP CCDS Ot 278.00 OBESITY, NOS 11/11/2013 CANDIDA MACE FACC, ALI FACP CCDS Ot 300.00 ANXIETY STATE NOS 11/11/2013 CANDIDA MACE FACC, ALI FACP CCDS Ot 311 DEPRESSIVE DISORDER NEC 11/11/2013 CANDIDA MACE FACC, ALI FACP CCDS Ot 403.90 HYPTNSV CHR KID DIS, UNSPEC, W CHR KD ST 11/11/2013 CANDIDA MACE FACC, ALI FACP CCDS Ot 410.71 AC MYOCARDIAL INFARCT,SUBENDO INFARCT,IN 11/11/2013 ACNDIDA MACE FACC, ALI FACP CCDS Ot 414.01 CORONARY ATHEROSCLEROSIS OF [place] CORON 11/11/2013 CANDIDA MACE FACC, ALI FACP CCDS Ot 426.3 LEFT BB BLOCK NEC 11/11/2013 CANDIDA MACE FACC, ALI FACP CCDS Ot 426.4 RT BUNDLE BRANCH BLOCK 11/11/2013 CANDIDA MACE FACC, ALI FACP CCDS Ot 427.2 PAROX TACHYCARDIA NOS 11/11/2013 CANDIDA MACE FACC, ALI FACP CCDS Ot 585.2 CHRONIC KIDNEY DISEASE, STAGE II (MILD) 11/11/2013 CANDIDA MACE FACC, ALI FACP CCDS Ot V85.32 BODY MASS INDEX 32.0-32.9, ADULT 01/23/2014 NURIS MACE, BONITA Lujan Ot 185 MALIGN NEOPL PROSTATE 01/23/2014 BONITA LAWLER MD Ot V58.0 ENCOUNTER FOR RADIOTHERAPY 04/28/2014 NURIS MACE, BONITA E Ot 185 05/01/2014 NURIS MACE, BONITA E Ot 185 05/06/2014 NURIS MACE, BONITA E Ot 185 05/13/2014 BONITA LAWLER MD Ot 185 MALIGN NEOPL PROSTATE 05/13/2014 BONITA LAWLER MD Ot V58.0 ENCOUNTER FOR RADIOTHERAPY 08/13/2015 LUPILLO JC, JULEE Mcintyre Ot 388.30 08/13/2015 LUPILLO JC, JULEE M Ot 780 .4 08/13/2015 JULEE BUNN M Ot 784 .0 08/13/2015 YASMANI BAZZI MD Ot 185 08/13/2015 YASMANI BAZZI MD Ot 562.1 0 08/13/2015 RUDIMA LUPIS L HASHER MACHINE OPERATOR Ot 401.9 08/13/2015 BAIMA LUPIS L HASHER MACHINE OPERATOR Ot 414.00 08/13/2015 JON LUPIS L HASHER MACHINE OPERATOR Ot 424.1 08/13/2015 BAIMA, LUPIS L HASHER MACHINE OPERATOR Ot 426.4 08/13/2015 BAIMA, LUPIS L HASHER MACHINE OPERATOR Ot 427.89 08/13/2015 BONITA LAWLER MD Ot 185 08/18/2015 LUPILLO JC, JULEE Mcintyre Ot 388.30 08/18/2015 JULEE BUNN M Ot 780 .4 08/18/2015 JULEE BUNN M Ot 784 .0 08/18/2015 YASMANI BAZZI MD Ot 185 08/18/2015 YASMANI BAZZI MD Ot 562.1 0 08/18/2015 BAIMA LUPIS L HASHER MACHINE OPERATOR Ot 401.9 08/18/2015 BAIMA, LUPIS L HASHER MACHINE OPERATOR Ot 414.00 08/18/2015 BAIMA, LUPIS L HASHER MACHINE OPERATOR Ot 424.1 08/18/2015 BAIMA, LUPIS L HASHER MACHINE OPERATOR Ot 426.4 08/18/2015 JON LUPIS L HASHER MACHINE OPERATOR Ot 427.89 08/18/2015 BONITA LAWLER MD Ot 185 08/28/2015 RACHANA WILSON DO Ot R10.13 08/28/2015 RACHANA WILSON DO Ot R13.10 08/30/2015 RACHANA WILSON DO Ot R10.13 08/30/2015 KATIE SMITH KOLTONLUIS Ot R13.10 09/09/2015 LUPIS WEBB HASHER MACHINE OPERATOR Ot E78.5 09/09/2015 BAILUPIS SINGH HASHER MACHINE OPERATOR Ot I25.10 09/09/2015 LUPIS WEBB HASHER MACHINE OPERATOR Ot I44.4 09/09/2015 LUPIS WEBB HASHER MACHINE OPERATOR Ot I45.10 09/09/2015 LUPIS WEBB HASHER MACHINE OPERATOR Ot I77.9 09/09/2015 KATIE DO KOLTONLUIS Ot R10.13 09/09/2015 KATIE DO KOLTONLUIS Ot R13.10 10/12/2015 Ot 244.9 HYPO THYROIDISM NOS 10/12/2015 Ot 272.4 HYPE RLIPIDEMIA NEC/NOS 10/12/2015 Ot 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 10/12/2015 Ot 401.1 SUDARSHAN GN HYPERTENSION 10/12/2015 Ot 426.52 RT BBB/LFT ANT FASC BLK 10/12/[address] PAIN NOS 10/12/2015 Ot V58.69 OTH MED,LT,CURRENT USE 10/12/2015 Ot 414.00 COR ON ATHEROSCLER NOS TYPE VESSEL, NATIV 10/12/2015 Ot 562.10 DIV ERTICULOSIS COLON (W/O MENT OF HEMORR 10/12/2015 Ot 789.30 ABD OMINAL/PELVIC SWELLING,MASS/LUMP UNSP 10/12/2015 JULEE BUNN Ot 401 .1 BENIGN HYPERTENSION 10/12/2015 JULEE BUNN Ot 477 .9 ALLERGIC RHINITIS NOS 10/12/2015 JULEE BUNN Ot V15.09 ALLERGY, OTH THAN TO MEDICINAL AGENTS NE 10/12/2015 JULEE BUNN Ot V58.69 OTH MED,LT,CURRENT USE 10/12/2015 JULEE BUNN Ot 790 .6 ABN BLOOD CHEMISTRY NEC 10/12/2015 KATIE DO LUIZMARU Ot R10.13 EPIGASTRIC PAIN 10/12/2015 KATIE RACHANA SMITH Ot R13.10 DYSPHAGIA, UNSPECIFIED 10/12/2015 RUDILUPIS SINGH HASHER MACHINE OPERATOR Ot E78.5 HYPERLIPIDEMIA, UNSPECIFIED 10/12/2015 RUDIMA LUPIS L HASHER MACHINE OPERATOR Ot I25.10 ATHSCL HEART DISEASE OF [place] CORONARY 10/12/2015 JON LUPIS L HASHER MACHINE OPERATOR Ot I44.4 LEFT ANTERIOR FASCICULAR BLOCK 10/12/2015 BAIMA LUPIS L HASHER MACHINE OPERATOR Ot I45.10 UNSPECIFIED RIGHT BUNDLE-BRANCH BLOCK 10/12/2015 BAIFRANCISCO LUPIS L HASHER MACHINE OPERATOR Ot I77.9 DISORDER OF ARTERIES AND ARTERIOLES, UNS 10/18/2016 JULEE BUNN Ot 388.30 TINNITUS NOS 10/18/2016 JULEE BUNN Ot 780 .4 DIZZINESS AND GIDDINESS 10/18/2016 JULEE BUNN Ot 784 .0 HEADACHE 10/18/2016 JLUIS MACE, YASMANI Srinivasan Ot 185 MALIGN NEOPL PROSTATE 10/18/2016 JLUIS MACE, YASMANI Srinivasan Ot 562.1 0 DIVERTICULOSIS COLON (W/O MENT OF HEMORR 10/18/2016 JAYJAY WEBBHER L HASHER MACHINE OPERATOR Ot 401.9 HYPERTENSION NOS 10/18/2016 JON LUPIS L HASHER MACHINE OPERATOR Ot 414.00 CORON ATHEROSCLER NOS TYPE VESSEL, NATIV 10/18/2016 JON LUPIS L HASHER MACHINE OPERATOR Ot 424.1 AORTIC VALVE DISORDER 10/18/2016 JON LUPIS L HASHER MACHINE OPERATOR Ot 426.4 RT BUNDLE BRANCH BLOCK 10/18/2016 JON LUPIS L HASHER MACHINE OPERATOR Ot 427.89 CARDIAC DYSRHYTHMIAS NEC 10/18/2016 NURIS MACE, BONITA Lujan Ot 185 MALIGN NEOPL PROSTATE 10/18/2016 JON LUPIS L HASHER MACHINE OPERATOR Ot E78.5 HYPERLIPIDEMIA, UNSPECIFIED 10/18/2016 RUDIMA LUPIS L HASHER MACHINE OPERATOR Ot I25.10 ATHSCL HEART DISEASE OF [place] CORONARY 10/18/2016 JON LUPIS L HASHER MACHINE OPERATOR Ot I44.4 LEFT ANTERIOR FASCICULAR BLOCK 10/18/2016 JON LUPIS L HASHER MACHINE OPERATOR Ot I45.10 UNSPECIFIED RIGHT BUNDLE-BRANCH BLOCK 10/18/2016 JON LUPIS L HASHER MACHINE OPERATOR Ot I77.9 DISORDER OF ARTERIES AND ARTERIOLES, UNS 10/18/2016 RACHANA WILSON DO Ot R10.13 EPIGASTRIC PAIN 10/18/2016 RACHANA WILSON DO Ot R13.10 DYSPHAGIA, UNSPECIFIED 10/18/2016 RUDILUPIS SINGH HASHER MACHINE OPERATOR Ot E78.5 HYPERLIPIDEMIA, UNSPECIFIED 10/18/2016 RUDILUPIS SINGH L HASHER MACHINE OPERATOR Ot I25.10 ATHSCL HEART DISEASE OF [place] CORONARY 10/18/2016 RUDILUPIS SINGH HASHER MACHINE OPERATOR Ot I44.4 LEFT ANTERIOR FASCICULAR BLOCK 10/18/2016 BAILUPIS SINGH L HASHER MACHINE OPERATOR Ot I45.10 UNSPECIFIED RIGHT BUNDLE-BRANCH BLOCK 10/18/2016 JONLUPIS L HASHER MACHINE OPERATOR Ot I77.9 DISORDER OF ARTERIES AND ARTERIOLES, UNS 10/18/2016 RACHANA WILSON DO Ot R10.13 EPIGASTRIC PAIN 10/18/2016 RACHANA WILSON DO Ot R13.10 DYSPHAGIA, UNSPECIFIED 09/08/2017 W 401.0 DIANDRA GNANT ESSENTIAL HYPERTENSION 09/08/2017 W 477.8 CHIQUIS RGIC 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 09/08/2017 W I10 ESSENT IAL (PRIMARY) HYPERTENSION 09/08/2017 W J30.2 OTHE R SEASONAL ALLERGIC RHINITIS 06/22/2018 A 401.9 UNSP ECIFIED ESSENTIAL HYPERTENSION 06/22/2018 A I10 ESSENT IAL (PRIMARY) HYPERTENSION 07/10/2018 W 401.9 UNSP ECIFIED ESSENTIAL HYPERTENSION 07/10/2018 W 724.1 PAIN IN THORACIC SPINE 07/10/2018 W 728.85 SPA SM OF MUSCLE 07/10/2018 W I10 ESSENT IAL (PRIMARY) HYPERTENSION 07/10/2018 W M54.6 PAIN IN THORACIC SPINE 07/10/2018 W M62.838 OT HER MUSCLE SPASM 10/18/2018 W 401.9 UNSP ECIFIED ESSENTIAL HYPERTENSION 10/18/2018 W I10 ESSENT IAL (PRIMARY) HYPERTENSION 01/01/2020 RUDILUPIS SINGH HASHER MACHINE OPERATOR Ot E78.5 HYPERLIPIDEMIA, UNSPECIFIED 01/01/2020 RUDILUPIS SINGH L HASHER MACHINE OPERATOR Ot I25.10 ATHSCL HEART DISEASE OF [place] CORONARY 01/01/2020 RUDILUPIS SINGH HASHER MACHINE OPERATOR Ot I44.4 LEFT ANTERIOR FASCICULAR BLOCK 01/01/2020 RUDIFRANCISCO LUPIS L HASHER MACHINE OPERATOR Ot I45.10 UNSPECIFIED RIGHT BUNDLE-BRANCH BLOCK 01/01/2020 JON ULPIS L HASHER MACHINE OPERATOR Ot I77.9 DISORDER OF ARTERIES AND ARTERIOLES, UNS 01/01/2020 KATIE DO, CHANDROUTIE Ot R10.13 EPIGASTRIC PAIN 01/01/2020 KATIE DO, CHANDROUTIE Ot R13.10 DYSPHAGIA, UNSPECIFIED 01/02/2020 BAIMA, LUPIS L HASHER MACHINE OPERATOR Ot E78.5 HYPERLIPIDEMIA, UNSPECIFIED 01/02/2020 BAIMA, ULPIS L HASHER MACHINE OPERATOR Ot I25.10 ATHSCL HEART DISEASE OF [place] CORONARY 01/02/2020 BAIMA, LUPIS L HASHER MACHINE OPERATOR Ot I44.4 LEFT ANTERIOR FASCICULAR BLOCK 01/02/2020 BAIMA, LUPIS L HASHER MACHINE OPERATOR Ot I45.10 UNSPECIFIED RIGHT BUNDLE-BRANCH BLOCK 01/02/2020 BAIMA, LUPIS L HASHER MACHINE OPERATOR Ot I77.9 DISORDER OF ARTERIES AND ARTERIOLES, UNS 01/02/2020 KATIE DO, CHANDROUTIE Ot R10.13 EPIGASTRIC PAIN 01/02/2020 KATIE DO, CHANDROUTIE Ot R13.10 DYSPHAGIA, UNSPECIFIED 01/03/2020 BAIMA, LUPIS L HASHER MACHINE OPERATOR Ot E78.5 HYPERLIPIDEMIA, UNSPECIFIED 01/03/2020 BAIMA, LUPIS L HASHER MACHINE OPERATOR Ot I25.10 ATHSCL HEART DISEASE OF [place] CORONARY 01/03/2020 BAIMA, LUPIS L HASHER MACHINE OPERATOR Ot I44.4 LEFT ANTERIOR FASCICULAR BLOCK 01/03/2020 BAIMA, LUPIS L HASHER MACHINE OPERATOR Ot I45.10 UNSPECIFIED RIGHT BUNDLE-BRANCH BLOCK 01/03/2020 BAIMA, LUPIS L HASHER MACHINE OPERATOR Ot I77.9 DISORDER OF ARTERIES AND ARTERIOLES, UNS 01/03/2020 KATIE DO, CHANDROUTIE Ot R10.13 EPIGASTRIC PAIN 01/03/2020 KATIE DO, CHANDROUTIE Ot R13.10 DYSPHAGIA, UNSPECIFIED 01/03/2020 GURMEET MACE, CASSY Damon Ot H25.11 AGE-RELATED NUCLEAR CATARACT, RIGHT EYE 01/03/2020 GURMEET MACE, CASSY Damon Ot I10 ESSENTIAL (PRIMARY) HYPERTENSION 01/03/2020 GURMEET MACE, CASSY Damon Ot Z79.899 OTHER PIANO MOVER (CURRENT) DRUG THERAPY 01/03/2020 GURMEET MACE, CASSY Damon Ot Z83 .3 FAMILY HISTORY OF DIABETES MELLITUS 01/07/2020 GURMEET MACE, CASSY Damon Ot H25.11 AGE-RELATED NUCLEAR CATARACT, RIGHT EYE 01/07/2020 GURMEET MACE, CASSY Damon Ot I10 ESSENTIAL (PRIMARY) HYPERTENSION 01/07/2020 GURMEET MACE, CASSY Damon Ot Z79.899 OTHER SKILLED NURSING (CURRENT) DRUG THERAPY 01/07/2020 GURMEET MACE, CASSY Damon Ot Z83 .3 FAMILY HISTORY OF DIABETES MELLITUS Procedures Code Description Performed By Per formed On 00.40 07/06/2010 00.66 07/06/2010 37.22 07/06/2010 88.45 07/06/2010 88.53 07/06/2010 88.56 07/06/[address] C HEST W/DYE 07/16/[address] A BDOMEN & PELVIS W/ & W/O CONTRAST 07/16/2012 52180 CMP 07/16/2012 33069 ROUT INE VENIPUNCTURE 09/21/2012 20718 LIPI D PANEL 09/21/2012 57282 TSH 09/23/[address] S INUS W/O CONTRAST 10/01/2012 Otolaryng George Tompkins 10/01/2012 51014 ROUT INE VENIPUNCTURE 01/07/2013 39876 CMP 01/07/2013 89698 LIPI D PANEL 01/07/2013 4670900 GF R CALC (RESULT ONLY) 01/07/2013 98509 TSH 01/07/2013 11433 ROUT INE VENIPUNCTURE 01/30/2013 54344 IRON BNDNG CAP 01/30/2013 10841 IRON SERUM 01/30/2013 15145 FERRITIN 01/30/2013 03771 HEPA TITIS PROFILE 01/31/2013 9784476 HC V INDEX (RESULT ONLY) 01/31/2013 IRGROUP IR ON GROUP (Iron,TIBC, Ferritin) 02/06/2013 79431 ROUT INE VENIPUNCTURE 02/08/2013 58317 URIN E DRUG SCREEN (IN-HOUSE) 02/08/2013 71880 PT/INR 02/08/2013 99617 AFP TUMOR MARKER 02/08/2013 55824 HEP C PCR QUANT W/DAVID 02/13/2013 86339 ROUT INE VENIPUNCTURE 05/03/2013 42970 UA W / CULTURE IF INDICATED 05/03/2013 94441 MRI BRAIN W/O & W/DYE 05/03/2013 36408 PSA FREE AND TOTAL 05/03/2013 42322 SYPH [facility] 05/03/2013 UROLOGY TA YASMANI CASSIDY 05/03/2013 24033 A1C (IN-HOUSE) 05/03/2013 51239 LIPI D PANEL 05/03/2013 16128 TSH 05/03/2013 68382 BNP 05/03/2013 95931 ROUT INE VENIPUNCTURE 07/01/2013 97332 CMP 07/01/2013 95388 ROUT INE VENIPUNCTURE 08/01/2013 43228 TSH 08/01/2013 2819061 GF R CALC (RESULT ONLY) 08/01/2013 34423 CMP 08/01/2013 67512 LIPI D PANEL 08/01/2013 37.22 LEFT HEART CARDIAC CATH 11/09/2013 88.53 LT H EART ANGIOCARDIOGRAM 11/09/2013 88.56 JHONATAN VIRGILIO ARTERIOGR-2 CATH 11/09/2013 Results Test Result Range Comprehensive Metabolic Panel - 10/18/18 11:00 Albumin 4.2 g/dL 3.6-5.1 ALP 64 U/L 35-130 ALT 16 U/L 6-45 Anion Gap 14 6-14 AST 21 U/L 2-40 BUN 13 mg/dL 5-25 Calcium 9.5 mg/dL 8.3-10.4 Chloride 106 mmol/L 95-114 CO2 26 mEq/L 22-33 Creat 0.96 mg/dL 0.50-1.50 eGFR 79 mL/min/1.73m2 >59 Globulin 2.5 g/dL 2.3-3.5 Glucose 97 mg/dL 70-110 Osmo 293 280-295 Potassium 4.2 mmol/L 3.5-5.3 Sodium 142 mmol/L 134-148 TBil 0.8 mg/dL 0.2-1.2 TP 6.7 g/dL 6.0-8.3 Coronavirus SARS-CoV-2 SO 2018 - 0 08:16 Coronavirus Ab [Units/volume] in Serum Negative Negative Encounters ACCT No. Visit Date/Time Discharge Status Pt. Type Provider Facility Loc./Unit Complaint [id number] 11/23/2017 08:39:53 11/23/2017 23:59:5 9 CLS Outpatient [id number] 07/09/2019 13:22:00 07/09/2019 23:59 :00 DIS Outpatient Stephan Rachael [id number] 06/10/2019 09:15:00 06/10/2019 23:59 :00 DIS Outpatient SCOTTIE CARLTON [id number] 10/18/2018 13:07:00 10/18/2018 23:59: 00 DIS Outpatient Dez Gold [id number] 10/18/2018 10:56:00 Document Registration [id number] 07/10/2018 14:18:00 Document Registration [id number] 06/22/2018 10:35:00 Document Registration [id number] 09/08/2017 08:47:00 Document Registration [id number] 01/14/2020 05:45:00 13:05:00 DIS Outpatient CASSY LEVI MD [facility] PREOP CATARACT LEFT EYE [id number] 01/03/2020 06:59:00 09:00:00 DIS Outpatient CASSY LEVI MD [facility] SDC CATARACT RIGHT EYE [id number] 12/31/2019 05:40:00 13:32:00 DIS Outpatient CASSY LEVI MD [facility] PREOP CATARACT RIGHT EYE [id number] 08/20/2015 11:37:00 016 23:59:59 CLS Outpatient RACHANA WILSON DO [facility] CARD DSYPHAGIA, ABD PAIN [id number] 08/18/2015 07:57:00 016 23:59:59 CLS Outpatient LUPIS WEBB [facility] CARD CAD,RIGHT BUNDL E BRANCH BLOCK [id number] 05/14/2014 00:10:00 014 23:59:59 CLS Preadmit BONITA LAWLER MD [facility] ONC [id number] 03/19/2014 09:07:00 014 00:01:00 DIS Outpatient BONITA LAWLER MD [facility] ONC [id number] 12/12/2013 10:36:00 014 00:01:00 DIS Outpatient BONITA LAWLER MD [facility] ONC [id number] 01/10/2014 10:11:00 23:59:59 CLS Outpatient RUDILUPIS SINGH Nelson HASHER MACHINE OPERATOR [facility] CARD CAD,HLP,RBBB,SE ADRIANNE HYPERTENSION [id number] 11/08/2013 20:49:00 10:40:00 DIS Inpatient CANDIDA MACE FACC, JOEL SANTANAP CCD S [facility] ICU NON-ST ELEVATE D AR ELEVATED TROPONIN [id number] 07/12/2013 10:13:00 00:01:00 DIS Outpatient NURIS MACE, BONITA Lujan [facility] ONC [id number] 06/14/2013 09:36:00 23:59:59 CLS Outpatient YASMANI BAZZI MD [facility] RAD PROSTATE CA [id number] 05/03/2013 14:39:00 23:59:59 CLS Outpatient KRISTYN BUNNUA M [facility] RAD HEADACHE,EAR FULLNESS,V ERTIGO [id number] 01/30/2013 09:31:00 013 23:59:59 CLS Outpatient RONNI BUNNSHUA M [facility] RAD [id number] 10/04/2012 16:32:00 23:59:59 CLS Outpatient RONNI BUNNSHUA M [facility] RAD [id number] 01/17/2020 09:00:00 P CASSY Sampson MD [facility] CATARACT LEFT EYE [id number] 07/18/2012 09:44:00 Document Registration [id number] 04/09/2012 11:55:00 Document Registration [id number] 03/23/2012 10:28:00 Document Registration [id number] 07/06/2010 13:45:00 Document Registration [id number] 08/19/2013 10:24:00 08/19/2013 23:59: 59 CLS Outpatient RAMSEY MONIQUE DO [id number] 08/01/2013 14:01:00 08/01/2013 23:59: 59 CLS Outpatient RAMSEY MONIQUE DO [id number] 07/01/2013 13:15:00 07/01/2013 23:59: 59 CLS Outpatient RAMSEY MNOIQUE DO [id number] 05/03/2013 11:39:00 05/03/2013 23:59: 59 CLS Outpatient RAMSEY MONIQUE DO [id number] 03/25/2013 10:34:00 03/25/2013 23:59: 59 CLS Outpatient RAMSEY MONIQUE DO [id number] 2012 08:58:00 2012 23:59: 59 CLS Outpatient RAMSEY MONIQUE DO [id number] 04/17/2012 10:42:00 04/17/2012 23:59: 59 CLS Outpatient [id number] 03/16/2012 11:01:00 03/16/2012 23:59:5 9 CLS Outpatient RAMSEY MONIQUE DO [id number] 02/08/2013 13:23:00 Document Registration [id number] 01/30/2013 08:06:00 Document Registration [id number] 10/01/2012 17:00:00 Document Registration [id number] 09/21/2012 08:36:00 Document Registration
[2020-01-17 06:45] VITALS: BP 170/103
[2020-01-17] MEDS ORDERED: MOXIFLOXACIN OPHTH SOLN 5 MG/ML 0.3 ML SYRINGE OP ONE (06:45)
[2020-01-17] MEDS ORDERED: TIMOLOL MALEATE 0.5% 5 ML (TIMOPTIC) BTL OU PRN (06:45)
[2020-01-17] MEDS ORDERED: LIDOCAINE PF 1% 2 ML VIAL IR PRN (06:45)
[2020-01-17] MEDS ORDERED: POVIDONE (BETADINE) OPHTH SOLN 5% 30 ML OP ONE (06:45)
[2020-01-17] MEDS: TETRACAINE 0.5% OPHTH SOLN 4 ML BTL (SINGLE DOSE ONLY) OU PRN ×4 (06:49→07:20)
[2020-01-17] MEDS ORDERED: MIDAZOLAM 2 MG/2 ML (VERSED) VIAL ONE (06:52)
[2020-01-17] MEDS: CYCLOPENTOLATE 1% (CYCLOGYL) 2 ML DROPS OP SCH ×3 (07:03→07:20)
[2020-01-17] MEDS: PHENYLEPHRINE 10% OPHTH (NEO-SYN) 5 ML BTL OU SCH ×3 (07:03→07:21)
[2020-01-17] MEDS ORDERED: acetaZOLAMIDE ER 500 MG CAP (DIAMOX SEQUELS) PO ONE (08:00)
--- NOTE | 2020-01-17 08:15 | Ophthalmologist Pre-Op Note ---
Pre-Operative Progress Note H&P Reviewed The H&P was reviewed, patient examined and no changes noted. Date H&P Reviewed: Jan 17, 2020 Time H&P Reviewed: 08:15 Pre-Op Dx Cataract, Left Eye CASSY LEVI MD Jan 17, 2020 08:15
--- NOTE | 2020-01-17 08:38 | Ophthalmology Operative Report ---
Cataract removal/placement IOL PREOPERATIVE DIAGNOSIS: Cataract Left Eye POSTOPERATIVE DIAGNOSIS: Cataract Left Eye PROCEDURE: Cataract removal and placement of posterior chamber implant, left eye SURGEON: Christiano Levi ANESTHESIA: Topical with sedation COMPLICATIONS: None ESTIMATED BLOOD LOSS: Minimal DESCRIPTION OF PROCEDURE: After proper informed consent was obtained, the patient, a 64 male, was taken to the Operating Room and the left eye was anesthetized with tetracaine. The left eye was then prepped and draped in the usual manner. A wire lid speculum was placed. A paracentesis was made at the left hand position. Preservative free lidocaine was injected into the anterior chamber followed by viscoelastic. A clear corneal incision was made in the temporal position. A capsulorrhexis was preformed and the central nuclear and cortical material were removed. The posterior capsule was polished and an Jono 20.0 AU00T0 was placed into the capsular bag. The residual viscoelastic was aspirated and balanced saline solution was injected into the anterior chamber. Moxifloxacin was injected into the anterior chamber. The wound was checked and found to be water tight. The patient tolerated the procedure well without complications. CHRISTIANO LEVI MD Jan 17, 2020 08:38
[2020-01-17 08:45] VITALS: BP 163/83
--- NOTE | 2020-01-21 09:32 | Anesthesia-General Post-Op ---
MAC Patient Condition Mental Status/LOC: Same as Preop Cardiovascular: Satisfactory Nausea/Vomiting: Absent Respiratory: Satisfactory Pain: Controlled Complications: Absent Post Op Complications Complications None Follow Up Care/Instructions Patient Instructions None needed. Anesthesiology Discharge Order Discharge Order Post-dated progress note: Patient was seen on 01-17-20 at approximately 0845 and he was doing well, no complaints, stable vital signs, no apparent adverse anesthesia problems. GREGORY STACY DO Jan 21, 2020 09:32
== END 2020-01-17 08:45 | disposition home or self-care (01) ==
LOC: SDC 06:30
PROVIDERS: ATTEND Specialist
DX: H25.12 Age-related nuclear cataract, left eye (principal); I10 Essential (primary) hypertension; Z79.899 Other long term (current) drug therapy
CPT/HCPCS: 66984; V2632

== ENCOUNTER 2021-05-30 12:29 | Emergency (ER) | payer MEDICARE, OTHER ==
[~2021-05-30] VITALS: Ht 185 cm; Wt 107.0 kg
[~2021-05-30 12:29] MED LIST changes: +LISI40TA9 PO
[2021-05-30 13:19] LABS: BASOPHILS # (AUTO) 0.1 10^3/uL (0.0-0.1); BASOPHILS % (AUTO) 1 % (0-10); EOSINOPHILS # (AUTO) 0.2 10^3/uL (0.0-0.3); EOSINOPHILS % (AUTO) 3 % (0-10); HEMATOCRIT 46 % (40-54); HEMOGLOBIN 15.7 g/dL (13.3-17.7); LYMPHOCYTES # (AUTO) 1.3 X 10^3 (1.0-4.0); LYMPHOCYTES % (AUTO) 15 % (12-44); MEAN CORPUSCULAR HEMOGLOBIN 30 pg (25-34); MEAN CORPUSCULAR HGB CONC 34 g/dL (32-36); MEAN CORPUSCULAR VOLUME 89 fL (80-99); MEAN PLATELET VOLUME 10.5 fL (9.0-12.2); MONOCYTES # (AUTO) 0.8 X 10^3 (0.0-1.0); MONOCYTES % (AUTO) 10 % (0-12); NEUTROPHILS # (AUTO) 5.7 X 10^3 (1.8-7.8); NEUTROPHILS % (AUTO) 71 % (42-75); PLATELET COUNT 242 10^3/uL (130-400); WHITE BLOOD COUNT 8.1 10^3/uL (4.3-11.0)
[2021-05-30 13:20] LABS: POTASSIUM 3.6 MMOL/L (3.6-5.0); PROTHROMBIN TIME PATIENT 13.9 SEC (12.2-14.7)
[2021-05-30 13:21] LABS: ALBUMIN 4.5 GM/DL (3.2-4.5); BILIRUBIN,TOTAL 0.5 MG/DL (0.1-1.0); CREATININE SERUM 1.33 MG/DL (0.60-1.30); MAGNESIUM 2.2 MG/DL (1.6-2.4); TOTAL PROTEIN 7.1 GM/DL (6.4-8.2)
[2021-05-30 13:31] LABS: BILIRUBIN,URINE NEGATIVE (NEGATIVE); CLARITY,URINE CLEAR; COLOR,URINE YELLOW; GLUCOSE, URINE (UA) NEGATIVE (NEGATIVE); KETONES,URINE NEGATIVE (NEGATIVE); NITRITE,URINE NEGATIVE (NEGATIVE); PH,URINE 5.5 (5-9); PROTEIN,URINE NEGATIVE (NEGATIVE)
[2021-05-30 13:32] LABS: BACTERIA,URINE TRACE /HPF; LEUKOCYTE ESTERASE ,URINE NEGATIVE (NEGATIVE); YEAST,URINE FEW /HPF
--- NOTE | 2021-05-30 13:35 | ED General ---
General Chief Complaint: Neurological Problems Stated Complaint: RT SIDED WEAKNESS; L[facility] Nursing Triage Note: PT REPROTS HE WAS GOING TO [employer] [facility] AND HIS RIGHT HAND AND RIGHT LEG DID NOT WANT TO WORK. HE REPORTS HE WENT AHEAD AND WENT IN THE STORE AND GOT HIS STUFF AND THEN DROVE BACK HOME. ALL SYMPTOMS HAVE RESOLVED EXCEPT HIS LAST 2 FINGERS ON HIS RIGHT HAND FEEL A "LITTLE WEIRD" REPORTS A HX OF A TIA. Source of Information: Patient History of Present Illness Date Seen by Provider: May 30, 2021 Time Seen by Provider: 12:40 Initial Comments 65-year-old male presenting with complaints of right-sided weakness and fatigue with feeling like he can not concentrate and his brain is in a fog. He states that that happened around 11 AM. He was at [employer] when this occurred. He finished his shopping at [employer] and then went home. When he got home he texted his nephew and told him he was having problems. His nephew came and got him and they came here to the emergency department. In the meantime he had taken a BC powder since he was having some joint pain in his hands as well as the right knee and right ankle. As that was kicking and he was feeling better and was able to use his right arm and leg better. By the time he was evaluated in the ED he states that he felt like he was back to normal. He denies having any fever, chills, nausea, vomiting, headache, change in vision, numbness or tingling, head injury. He did feel like he might be starting to come down with a cough and upper respiratory infection. He had worked out at 3 AM and said he had no problems or issues while he did his workout. He reports some similar issues in 2003 when he had a TIA that was evaluated in [place]. Associated Systoms: No Chest Pain; Cough; No Diaphoresis, No Fever/Chills, No Headaches, No Loss of Appetite, No Malaise, No Nausea/Vomiting, No Rash, No Seizure, No Shortness of Air, No Syncope Allergies and Home Medications Allergies Coded Allergies: No Known Drug Allergies (Unverified , 12/30/19) Patient Home Medication List Home Medication List Reviewed: Yes Carvedilol (Carvedilol) 25 Mg Tablet, 25 MG PO BID, (Reported) Entered as Reported by: LIZ LEVINE on 12/30/19 1301 Lisinopril (Lisinopril) 40 Mg Tablet, 40 MG PO DAILY, (Reported) Entered as Reported by: LIZ LEVINE on 12/30/19 1259 Review of Systems Review of Systems Constitutional: No chills, No dizziness, No fever EENTM: No ear pain, No nose congestion Respiratory: cough (mild) Cardiovascular: No edema, No palpitations Gastrointestinal: No nausea, No vomiting Genitourinary: No dysuria, No frequency Musculoskeletal: muscle pain (mild soreness in chest wall from working out this am) Skin: no symptoms reported Psychiatric/Neurological: See HPI; Denies Headache, Denies Numbness, Denies Paresthesia, Denies Tingling, Denies Tremors Hematologic/Lymphatic: Denies Blood Clots, Denies Easy Bleeding, Denies Easy Bruising Past Atxhlqv-Fjkjyi-Ktafff Hx Patient Social History Tobacco Use?: No Use of E-Cig and/or Vaping dev: No Substance use?: No Alcohol Use?: Yes Alcohol type: Beer Alcohol Frequency: Once in a while Pt feels they are or have been: No Past Medical History Surgery/Hospitalization HX: TIA in 2003, Lacunar Infarcts Left Basal Ganglia Surgeries: No Respiratory: No Cardiac: Yes Hypertension Neurological: Yes TIA Reproductive Disorders: No Sexually Transmitted Disease: No HIV/AIDS: No Genitourinary: Yes Prostate Problems Gastrointestinal: No Ulcer Musculoskeletal: No Endocrine: Yes Hyperthyroidism HEENT: Yes Tinnitis Loss of Vision: Denies Hearing Impairment: Denies Prostate Psychosocial: No Depression Physical Exam Vital Signs Vital Signs - First Documented 05/30/21 12:51 Temp 36.6 Pulse 61 Resp 20 B/P (MAP) 173/95 (121) Pulse Ox 96 O2 Delivery Room Air Capillary Refill : Less Than 3 Seconds Height, Weight, BMI Height: 6'1.00" Weight: 244lbs. 7.2oz. 110.397363vq; 31.00 BMI Method: General Appearance: No Apparent Distress, WD/WN HEENT: PERRL/EOMI, Normal ENT Inspection, Pharynx Normal, Moist Mucous Membranes Neck: Full Range of Motion, Normal Inspection, Non Tender, Supple; No Carotid Bruit Respiratory: Lungs Clear, Normal Breath Sounds, No Accessory Muscle Use, No Respiratory Distress, Other (mild tenderness to palpation of chest wall muscles) Cardiovascular: Regular Rate, Rhythm, No Murmur, Normal Peripheral Pulses Gastrointestinal: Normal Bowel Sounds, No Pulsatile Mass, Non Tender, Soft Rectal: Deferred Extremity: Normal Capillary Refill, Normal Inspection, Normal Range of Motion, Non Tender, No Calf Tenderness, No Pedal Edema Neurologic/Psychiatric: Alert, Oriented x3, No Motor/Sensory Deficits, Normal Mood/Affect, mold bunch trimmer II-XII Norm as Tested Skin: Normal Color, Warm/Dry Progress/Results/Core Measures Suspected Sepsis SIRS Temperature: Pulse: 61 Respiratory Rate: 20 Laboratory Tests 05/30/21 12:40: White Blood Count 8.1 Blood Pressure 173 /95 Mean: 121 Laboratory Tests 05/30/21 12:40: Creatinine 1.33H, INR Comment 1.0, Platelet Count 242, Total Bilirubin 0.5 Results/Orders Lab Results Laboratory Tests Test 05/30/21 12:40 05/30/21 13:20 Range/Units White Blood Count 8.1 4.3-11.0 10^3/uL Red Blood Count 5.22 4.30-5.52 10^6/uL Hemoglobin 15.7 13.3-17.7 g/dL Hematocrit 46 40-54 % Mean Corpuscular Volume 89 80-99 fL Mean Corpuscular Hemoglobin 30 25-34 pg Mean Corpuscular Hemoglobin Concent 34 32-36 g/dL Red Cell Distribution Width 12.9 10.0-14.5 % Platelet Count 242 130-400 10^3/uL Mean Platelet Volume 10.5 9.0-12.2 fL Immature Granulocyte % (Auto) 0 % Neutrophils (%) (Auto) 71 42-75 % Lymphocytes (%) (Auto) 15 12-44 % Monocytes (%) (Auto) 10 0-12 % Eosinophils (%) (Auto) 3 0-10 % Basophils (%) (Auto) 1 0-10 % Neutrophils # (Auto) 5.7 1.8-7.8 X 10^3 Lymphocytes # (Auto) 1.3 1.0-4.0 X 10^3 Monocytes # (Auto) 0.8 0.0-1.0 X 10^3 Eosinophils # (Auto) 0.2 0.0-0.3 10^3/uL Basophils # (Auto) 0.1 0.0-0.1 10^3/uL Immature Granulocyte # (Auto) 0.0 0.0-0.1 10^3/uL Prothrombin Time 13.9 12.2-14.7 SEC INR Comment 1.0 0.8-1.4 Activated Partial Thromboplast Time 27 24-35 SEC Sodium Level 142 135-145 MMOL/L Potassium Level 3.6 3.6-5.0 MMOL/L Chloride Level 104 98-107 MMOL/L Carbon Dioxide Level 27 21-32 MMOL/L Anion Gap 11 5-14 MMOL/L Blood Urea Nitrogen 29 H 7-18 MG/DL Creatinine 1.33 H 0.60-1.30 MG/DL Estimat Glomerular Filtration Rate 54 BUN/Creatinine Ratio 22 Glucose Level 106 H 70-105 MG/DL Calcium Level 10.0 8.5-10.1 MG/DL Corrected Calcium 9.6 8.5-10.1 MG/DL Magnesium Level 2.2 1.6-2.4 MG/DL Total Bilirubin 0.5 0.1-1.0 MG/DL Aspartate Amino Transf (AST/SGOT) 40 H 5-34 U/L Alanine Aminotransferase (ALT/SGPT) 25 0-55 U/L Alkaline Phosphatase 76 40-136 U/L Troponin I < 0.30 <0.30 NG/ML Pro-B-Type Natriuretic Peptide 417.4 H <75.0 PG/ML Total Protein 7.1 6.4-8.2 GM/DL Albumin 4.5 3.2-4.5 GM/DL Urine Color YELLOW Urine Clarity CLEAR Urine pH 5.5 5-9 Urine Specific Fisher 1.025 H 1.016-1.022 Urine Protein NEGATIVE NEGATIVE Urine Glucose (UA) NEGATIVE NEGATIVE Urine Ketones NEGATIVE NEGATIVE Urine Nitrite NEGATIVE NEGATIVE Urine Bilirubin NEGATIVE NEGATIVE Urine Urobilinogen 0.2 < = 1.0 MG/DL Urine Leukocyte Esterase NEGATIVE NEGATIVE Urine RBC (Auto) NEGATIVE NEGATIVE Urine RBC NONE /HPF Urine WBC NONE /HPF Urine Squamous Epithelial Cells NONE /HPF Urine Crystals NONE /LPF Urine Bacteria TRACE /HPF Urine Casts PRESENT /LPF Urine Hyaline Casts 2-5 H /LPF Urine Mucus LARGE H /LPF Urine Yeast FEW H /HPF Urine Culture Indicated NO My Orders Orders - CHAPO KENNEDY MD Cbc With Automated Diff (05/30/21 13:12) Magnesium (05/30/21 13:12) Chest 1 View Ap/Pa Only (05/30/21 13:12) Ekg Tracing (05/30/21 13:12) Comprehensive Metabolic Panel (05/30/21 13:12) Protime With Inr (05/30/21 13:12) Partial Thromboplastin Time (05/30/21 13:12) Monitor-Rhythm Ecg Trace Only (05/30/21 13:12) Ed Iv/Invasive Line Start (05/30/21 13:12) Troponin I Fs (05/30/21 13:12) Probnp Fs (05/30/21 13:12) Ct Head Wo (05/30/21 13:12) Urinalysis (05/30/21 13:26) Vital Signs/I&O 05/30/21 05/30/21 12:51 14:42 Temp 36.6 36.1 Pulse 61 64 Resp 20 18 B/P (MAP) 173/95 (121) 126/57 Pulse Ox 96 96 O2 Delivery Room Air Room Air Capillary Refill : Less Than 3 Seconds Blood Pressure Mean: 121 Progress Note #1: Progress Note With patient's report of having right-sided weakness and difficulty with his thinking earlier will obtain blood work as well as CT scan and stroke evaluation. Electrocardiogram does not show any acute irregular rhythm or ischemia Progress Note #2: Progress Note The labs appeared stable without acute significant abnormality. He did have mild elevation of the BUN and creatinine to go along with possible mild dehydration. His urine did not show signs of infection. He had negative cardiac enzymes. His chest x-ray was clear of any acute process. His CT scan of his head showed lacunar infarcts of the left basal ganglia. Patient reports he thinks he was told in 2003 as well. Counseled that additional testing should be done for TIA work-up such as MRI, carotid Dopplers, echocardiogram. Patient stated he would rather wait and do that through his primary doctor and call them in the morning. In the meantime he was advised to drink plenty of fluids and stay well-hydrated. Strict return precautions if he started having return of symptoms or weakness or anything new develop to seek medical care immediately ECG Initial ECG Impression Date: May 30, 2021 Initial ECG Impression Time: 12:48 Initial ECG Rate: 62 Initial ECG Rhythm: Normal Sinus Initial ECG Comparisson: No Previous ECG Available Comment Normal sinus rhythm with a heart rate of 62 bpm. NH interval 152 ms. Multiple PVCs are present. Right bundle branch block and left anterior fascicular block. No acute ST elevation. QT interval 458 ms with a QTc interval 466 ms. There is no prior tracing available for comparison Diagnostic Imaging Diagonstic Imaging: Xray Plain Films/CT/US/NM/MRI: chest Comments [facility] [place] NAME: CARINE WAGNER [facility] REC#: [id number] PT STATUS: REG ER : 1955 PHYSICIAN: CHAPO KENNEDY MD ADMIT DATE: 05/30/21/ER FS Draft Date of Exam:05/30/21 CHEST 1 VIEW AP/PA ONLY INDICATION: Right-sided weakness. TIME OF EXAM: 01:46 p.m. COMPARISON: Correlation is made with prior chest from 04/09/2012. FINDINGS: The heart size is normal. The pulmonary vascularity is unremarkable. The lungs are clear. No infiltrate, effusion or pneumothorax is detected. IMPRESSION: No acute cardiopulmonary process is detected. Dictated on workstation # [id number] Dict: 05/30/21 1348 Trans: 05/30/21 1404 AS6 [id number] Interpreted by: ANGÉLICA LAMBERT MD Electronically signed by: Reviewed: Reviewed by Me Diagonstic Imaging: CT Plain Films/CT/US/NM/MRI: head Comments [facility] [place] NAME: CARINE WAGNER [facility] REC#: [id number] PT STATUS: REG ER : 1955 PHYSICIAN: CHAPO KENNEDY MD ADMIT DATE: 05/30/21/ER FS Draft Date of Exam:05/30/21 CT HEAD WO PROCEDURE: CT head without contrast. TECHNIQUE: Multiple contiguous axial images were obtained through the brain without the use of intravenous contrast. Auto Exposure Controls were utilized during the CT exam to meet ALARA standards for radiation dose reduction. INDICATION: New-onset right-sided weakness. COMPARISON: None. DISCUSSION: No acute intracranial hemorrhage, mass, midline shift, or hydrocephalus. White matter hypoattenuation is nonspecific though not greater than expected for age-related chronic small vessel ischemic disease. There are two low-attenuation foci within the left basal ganglia which are age indeterminate though likely chronic lacunar infarcts. MRI could be performed to assess for an acute fracture. Atherosclerotic plaques noted throughout the internal carotid arteries as visualized. The orbits, sinuses, mastoid air cells, and calvarium are unremarkable. IMPRESSION: 1. Age-indeterminate though likely chronic lacunar infarcts within the left basal ganglia. No hemorrhage. Dictated on workstation # [id number] Dict: 05/30/21 1348 Trans: 05/30/21 1406 AS6 [id number] Interpreted by: JEFRY URBANO MD Electronically signed by: Reviewed: Reviewed by Me Departure Impression Primary Impression: Left sided lacunar infarction Additional Impressions: TIA (transient ischemic attack) Dehydration Disposition: HOME, SELF-CARE Condition: Stable Departure-Patient Inst. Decision time for Depature: 14:52 Referrals: SCOTTIE CARLTON MD (PCP) Primary Care Physician Patient Instructions: Dehydration, Adult ED, Transient Ischemic Attack ED Add. Discharge Instructions: Return or seek medical care immediately if you have recurrent weakness. Call your doctor in the morning to see about further testing and work up for TIA. Usually this involves testing of your lipids and cholesterol levels, MRI of brain, Ultrasound of Carotid Arteries and your heart. He may want to do ad ditional testing or see you to determine what else is needed. Try to drink more water and stay well hydrated. All discharge instructions reviewed with patient and/or family. Voiced understanding. NIH Stroke Scale NIH Stroke Scale NIH : Select: Initial Level of Consciousness: 0=Alert Level of Consciousness-Questio: 0=Answers both month/age LOC Commands: 0=Performs both tasks Gaze: 0=Normal Visual Rao: 0=No visual loss Facial Movement (Facial Paresi: 0=Normal symmetrical mnt Motor Function-Arms Right: 0=No drift Motor Function-Arms Left: 0=No drift Motor Function-Legs Right: 0=No drift Motor Function-Legs Left: 0=No drift Limb Ataxia: 0=Absent Sensory: 0=Normal:no loss Best Language: 0=No aphasia Dysarthria: 0=Normal Extinction & Inattention: 0=No abnormality NIH Stroke Scale Score: 0 CHAPO KENNEDY MD May 30, 2021 13:35
--- NOTE | 2021-05-30 14:05 | Diagnostic Imaging Report ---
INDICATION: Right-sided weakness. TIME OF EXAM: 01:46 p.m. COMPARISON: Correlation is made with prior chest from 04/09/2012. FINDINGS: The heart size is normal. The pulmonary vascularity is unremarkable. The lungs are clear. No infiltrate, effusion or pneumothorax is detected. IMPRESSION: No acute cardiopulmonary process is detected. Dictated by: Dictated on workstation # [id number]
--- NOTE | 2021-05-30 14:07 | Diagnostic Imaging Report ---
PROCEDURE: CT head without contrast. TECHNIQUE: Multiple contiguous axial images were obtained through the brain without the use of intravenous contrast. Auto Exposure Controls were utilized during the CT exam to meet ALARA standards for radiation dose reduction. INDICATION: New-onset right-sided weakness. COMPARISON: None. DISCUSSION: No acute intracranial hemorrhage, mass, midline shift, or hydrocephalus. White matter hypoattenuation is nonspecific though not greater than expected for age-related chronic small vessel ischemic disease. There are two low-attenuation foci within the left basal ganglia which are age indeterminate though likely chronic lacunar infarcts. MRI could be performed to assess for an acute fracture. Atherosclerotic plaques noted throughout the internal carotid arteries as visualized. The orbits, sinuses, mastoid air cells, and calvarium are unremarkable. IMPRESSION: 1. Age-indeterminate though likely chronic lacunar infarcts within the left basal ganglia. No hemorrhage. Dictated by: Dictated on workstation # [id number]
[2021-05-30 14:42] VITALS: BP 126/57
== END 2021-05-30 14:55 | disposition home or self-care (01) ==
LOC: EDUNIT# 12:29 → ER FS 12:31
DX: I63.81 Other cerebral infarction due to occlusion or stenosis of small artery (principal); G45.9 Transient cerebral ischemic attack, unspecified; E86.0 Dehydration; I10 Essential (primary) hypertension; Z79.899 Other long term (current) drug therapy
CPT/HCPCS: 36415; 70450; 71045; 80053; 81000; 83735; 83880; 84484; 85025; 85610; 85730; 93005; 93041

== ENCOUNTER 2022-04-23 05:07 | Emergency (ER) | payer MEDICARE, OTHER ==
[~2022-04-23] VITALS: Ht 182 cm; Wt 106.5 kg
--- NOTE | 2022-04-23 05:25 | ED General ---
General Stated Complaint: TROUBLE BREATHING/BACK PAIN History of Present Illness Date Seen by Provider: Apr 23, 2022 Time Seen by Provider: 05:15 Initial Comments 66-year-old male presents with shortness of breath. Patient reports he has been getting short of breath for at least couple weeks. That has been getting worse especially with exertion. Reports a couple months ago he did have COVID. Pat millicent Dickey today because he has some pain and that mid thoracic back area that started around 1 AM and is worsened. He also reports some pain from his posterior left lateral neck down his left arm. 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 patient does not have any chest pain. He has some chronic bilateral upper abdomen pain is been going on for a while. Allergies and Home Medications Allergies Coded Allergies: No Known Drug Allergies (Unverified , 12/30/19) Patient Home Medication List Home Medication List Reviewed: Yes Carvedilol (Carvedilol) 25 Mg Tablet, 25 MG PO BID, (Reported) Entered as Reported by: LIZ LEVINE on 12/30/19 1301 Doxazosin Mesylate (Doxazosin Mesylate) 4 Mg Tablet, (Reported) Entered as Reported by: NATALIE MOSLEY on 04/23/22 0512 Last Action: New Order Lisinopril (Lisinopril) 40 Mg Tablet, 40 MG PO DAILY, (Reported) Entered as Reported by: LIZ LEVINE on 12/30/19 1259 Review of Systems Review of Systems Constitutional: No chills, No dizziness, No fever, No malaise, No weakness EENTM: no symptoms reported Respiratory: cough, short of breath; No wheezing Cardiovascular: No chest pain, No palpitations Gastrointestinal: No constipation, No diarrhea, No nausea, No vomiting Genitourinary: no symptoms reported Musculoskeletal: see HPI, back pain Skin: no symptoms reported Psychiatric/Neurological: No Symptoms Reported Hematologic/Lymphatic: No Symptoms Reported Immunological/Allergic: no symptoms reported Past Suinzza-Glrkfk-Ygrxdc Hx Past Medical History Surgery/Hospitalization HX: TIA in 2003, Lacunar Infarcts Left Basal Ganglia Surgeries: No Respiratory: No Cardiac: Yes Hypertension Neurological: Yes TIA Reproductive Disorders: No Sexually Transmitted Disease: No HIV/AIDS: No Genitourinary: Yes Prostate Problems Gastrointestinal: No Ulcer Musculoskeletal: No Endocrine: Yes Hyperthyroidism HEENT: Yes Tinnitis Loss of Vision: Denies Hearing Impairment: Denies Prostate Psychosocial: No Depression Physical Exam Vital Signs Vital Signs - First Documented 04/23/22 05:15 Temp 36.9 Pulse 81 Resp 20 B/P (MAP) 184/137 (153) Pulse Ox 98 O2 Delivery Room Air Capillary Refill : Height, Weight, BMI Height: 6'1.00" Weight: 244lbs. 7.2oz. 110.042495jj; 31.00 BMI Method: General Appearance: No Apparent Distress, WD/WN HEENT: PERRL/EOMI, Moist Mucous Membranes Neck: Full Range of Motion, Supple, Tender Lateral (Left) Respiratory: Lungs Clear, Normal Breath Sounds, No Accessory Muscle Use, No Respiratory Distress Cardiovascular: Normal Peripheral Pulses, Irregularly Irregular Gastrointestinal: Soft; No Distended, No Guarding Back: No CVA Tenderness, No Vertebral Tenderness, Other (Mild mid approximately T10 paraspinal tenderness) Extremity: Normal Capillary Refill, Normal Inspection, Normal Range of Motion, Non Tender, No Calf Tenderness Neurologic/Psychiatric: Alert, Oriented x3, No Motor/Sensory Deficits Progress/Results/Core Measures Suspected Sepsis SIRS Temperature: Pulse: Respiratory Rate: Laboratory Tests 04/23/22 05:19: White Blood Count 5.9 Blood Pressure / Mean: Laboratory Tests 04/23/22 05:19: Creatinine 1.02, Platelet Count 155, Total Bilirubin 1.1H Results/Orders Lab Results Laboratory Tests Test 04/23/22 05:19 04/23/22 05:40 Range/Units White Blood Count 5.9 4.3-11.0 10^3/uL Red Blood Count 5.13 4.30-5.52 10^6/uL Hemoglobin 15.4 13.3-17.7 g/dL Hematocrit 46 40-54 % Mean Corpuscular Volume 90 80-99 fL Mean Corpuscular Hemoglobin 30 25-34 pg Mean Corpuscular Hemoglobin Concent 34 32-36 g/dL Red Cell Distribution Width 13.3 10.0-14.5 % Platelet Count 155 130-400 10^3/uL Mean Platelet Volume 10.4 9.0-12.2 fL Immature Granulocyte % (Auto) 0 % Neutrophils (%) (Auto) 66 42-75 % Lymphocytes (%) (Auto) 19 12-44 % Monocytes (%) (Auto) 10 0-12 % Eosinophils (%) (Auto) 4 0-10 % Basophils (%) (Auto) 1 0-10 % Neutrophils # (Auto) 3.9 1.8-7.8 10^3/uL Lymphocytes # (Auto) 1.1 1.0-4.0 10^3/uL Monocytes # (Auto) 0.6 0.0-1.0 10^3/uL Eosinophils # (Auto) 0.3 0.0-0.3 10^3/uL Basophils # (Auto) 0.1 0.0-0.1 10^3/uL Immature Granulocyte # (Auto) 0.0 0.0-0.1 10^3/uL D-Dimer 0.42 0.00-0.49 UG/ML Sodium Level 138 135-145 MMOL/L Potassium Level 3.4 L 3.6-5.0 MMOL/L Chloride Level 101 98-107 MMOL/L Carbon Dioxide Level 29 21-32 MMOL/L Anion Gap 8 5-14 MMOL/L Blood Urea Nitrogen 11 7-18 MG/DL Creatinine 1.02 0.60-1.30 MG/DL Estimat Glomerular Filtration Rate 80 BUN/Creatinine Ratio 11 Glucose Level 127 H 70-105 MG/DL Calcium Level 8.8 8.5-10.1 MG/DL Corrected Calcium 8.6 8.5-10.1 MG/DL Magnesium Level 2.1 1.6-2.4 MG/DL Total Bilirubin 1.1 H 0.1-1.0 MG/DL Aspartate Amino Transf (AST/SGOT) 29 5-34 U/L Alanine Aminotransferase (ALT/SGPT) 34 0-55 U/L Alkaline Phosphatase 71 40-136 U/L Troponin I < 0.30 <0.30 NG/ML C-Reactive Protein < 0.30 <0.50 MG/DL Total Protein 6.6 6.4-8.2 GM/DL Albumin 4.2 3.2-4.5 GM/DL Lipase 28 8-78 U/L Influenza Type A (RT-PCR) Not Detected Not Detecte Influenza Type B (RT-PCR) Not Detected Not Detecte SARS-CoV-2 RNA (RT-PCR) Not Detected Not Detecte My Orders Orders - MADHU GONZALEZ DO Cbc With Automated Diff (04/23/22 05:25) Comprehensive Metabolic Panel (04/23/22 05:25) Fibrin Degradation Products (04/23/22 05:25) Lipase (04/23/22 05:25) Magnesium (04/23/22 05:25) Influenza A And B By Pcr (04/23/22 05:25) Crp Fs (04/23/22 05:25) Troponin I Fs (04/23/22 05:25) Covid 19 Inhouse Test (04/23/22 05:25) Chest Pa/Lat (2 View) (04/23/22 05:25) Ketorolac Injection (Toradol Injection) (04/23/22 05:50) Orphenadrine Inj (Ed Only) (Norflex Inje (04/23/22 05:50) Procalcitonin (Pct) (04/23/22 05:19) Vital Signs/I&O 04/23/22 05:15 Temp 36.9 Pulse 81 Resp 20 B/P (MAP) 184/137 (153) Pulse Ox 98 O2 Delivery Room Air Capillary Refill : Progress Note : Progress Note Patient's symptoms and exam are consistent with a myofascial strain. Patient with negative troponin with greater than 4 hours of discomfort and mid back. Patient negative D-dimer, chest x-ray and labs. Did recommend a follow-up with a primary care provider and consider a cardiology consultation with stress test and possible echo due to his dyspnea with exertion. Patient stable discharged home. ECG Initial ECG Impression Date: Apr 23, 2022 Initial ECG Impression Time: 05:16 Initial ECG Rate: 81 Initial ECG Rhythm: A Fib/Flutter, PVC Initial ECG Impression: Atrial Fibrillation Comment afib with occasional PVC, right bundle branch block. No acute ST elevation or changes Diagnostic Imaging Diagonstic Imaging: Xray Plain Films/CT/US/NM/MRI: chest Comments Date of Exam:04/23/22 CHEST PA/LAT (2 VIEW) CHEST PA/LAT (2 VIEW) Indication: Shortness of breath Comparison: 05/30/2021 Findings: No pulmonary mass or consolidation. No pleural effusion or pneumothorax. Normal heart size and mediastinal contours. Impression: No acute cardiopulmonary process. Departure Impression Primary Impression: Thoracic back pain Qualified Codes: M54.6 - Pain in thoracic spine Additional Impressions: Cervical myofascial strain Qualified Codes: S16.1XXA - Strain of muscle, fascia and tendon at neck level, initial encounter Thoracic myofascial strain Qualified Codes: S29.019A - Strain of muscle and tendon of unspecified wall of thorax, initial encounter Disposition: HOME, SELF-CARE Condition: Stable Departure-Patient Inst. Referrals: SCOTTIE CARLTON MD (PCP/Family) Primary Care Physician Patient Instructions: Upper Back Pain ED, Neck Pain Exercises, Neck Pain ED Add. Discharge Instructions: 4% topical lidocaine with menthol cream gel or patch use as directed on pack Follow-up with your primary care provider next week for recheck of symptoms. Please mention your shortness of breath with exertion and have them consider stress test and possible cardiology consult MADHU GONZALEZ DO Apr 23, 2022 05:25
[2022-04-23] MEDS ORDERED: DOXA4TAB2 (05:46)
[2022-04-23] MEDS ORDERED: ORPHENADRINE 60 MG/2 ML (NORFLEX) AMP (ED ONLY) IV STA (05:50)
[2022-04-23] MEDS ORDERED: KETOROLAC 30 MG/ML VIAL IVP STA (05:50)
[2022-04-23 05:52] LABS: BASOPHILS # (AUTO) 0.1 10^3/uL (0.0-0.1); BASOPHILS % (AUTO) 1 % (0-10); EOSINOPHILS # (AUTO) 0.3 10^3/uL (0.0-0.3); EOSINOPHILS % (AUTO) 4 % (0-10); HEMATOCRIT 46 % (40-54); HEMOGLOBIN 15.4 g/dL (13.3-17.7); LYMPHOCYTES # (AUTO) 1.1 10^3/uL (1.0-4.0); LYMPHOCYTES % (AUTO) 19 % (12-44); MEAN CORPUSCULAR HEMOGLOBIN 30 pg (25-34); MEAN CORPUSCULAR HGB CONC 34 g/dL (32-36); MEAN CORPUSCULAR VOLUME 90 fL (80-99); MEAN PLATELET VOLUME 10.4 fL (9.0-12.2); MONOCYTES # (AUTO) 0.6 10^3/uL (0.0-1.0); MONOCYTES % (AUTO) 10 % (0-12); NEUTROPHILS # (AUTO) 3.9 10^3/uL (1.8-7.8); NEUTROPHILS % (AUTO) 66 % (42-75); PLATELET COUNT 155 10^3/uL (130-400); WHITE BLOOD COUNT 5.9 10^3/uL (4.3-11.0)
--- NOTE | 2022-04-23 06:01 | Diagnostic Imaging Report ---
CHEST PA/LAT (2 VIEW) Indication: Shortness of breath Comparison: 05/30/2021 Findings: No pulmonary mass or consolidation. No pleural effusion or pneumothorax. Normal heart size and mediastinal contours. Impression: No acute cardiopulmonary process. Dictated by: Dictated on workstation # [id number]
[2022-04-23 06:04] LABS: ALANINE AMINOTRANSFERASE 34 U/L (0-55); ALKALINE PHOSPHATASE 71 U/L (40-136); BILIRUBIN,TOTAL 1.1 MG/DL (0.1-1.0); BUN/CREATININE RATIO 11; CALCIUM 8.8 MG/DL (8.5-10.1); CARBON DIOXIDE 29 MMOL/L (21-32); CHLORIDE 101 MMOL/L (98-107); CREATININE SERUM 1.02 MG/DL (0.60-1.30); GFR ESTIMATED 80; GLUCOSE 127 MG/DL (70-105); MAGNESIUM 2.1 MG/DL (1.6-2.4); POTASSIUM 3.4 MMOL/L (3.6-5.0); SODIUM 138 MMOL/L (135-145)
[2022-04-23 06:05] LABS: ALBUMIN 4.2 GM/DL (3.2-4.5); LIPASE 28 U/L (8-78); TOTAL PROTEIN 6.6 GM/DL (6.4-8.2)
[2022-04-23 06:33] VITALS: BP 166/113
== END 2022-04-23 06:46 | disposition home or self-care (01) ==
LOC: EDUNIT# 05:07 → ER FS 05:10
DX: S29.012A Strain of muscle and tendon of back wall of thorax, initial encounter (principal); S16.1XXA Strain of muscle, fascia and tendon at neck level, initial encounter; Z86.16 Personal history of COVID-19; Z20.822 Contact with and (suspected) exposure to COVID-19; X50.0XXA Overexertion from strenuous movement or load, initial encounter
CPT/HCPCS: 36415; 71046; 80053; 83690; 83735; 84145; 84484; 85025; 85379; 86141; 87636; 93005

== ENCOUNTER 2022-06-19 09:32 | Emergency (ER) | payer MEDICARE, OTHER ==
[~2022-06-19] VITALS: Ht 182.9 cm; Wt 112.2 kg
[~2022-06-19 09:32] MED LIST changes: +DOXA4TAB2
[2022-06-19] MEDS ORDERED: KETOROLAC 15 MG/ML VIAL IVP STA (09:49)
[2022-06-19] MEDS ORDERED: ORPHENADRINE 60 MG/2 ML (NORFLEX) AMP (ED ONLY) IVP STA (09:49)
[2022-06-19] MEDS ORDERED: NS IV 1000 ML 1,000 ML IV STA (09:49)
[2022-06-19 09:54] LABS: BASOPHILS # (AUTO) 0.1 10^3/uL (0.0-0.1); BASOPHILS % (AUTO) 1 % (0-10); EOSINOPHILS # (AUTO) 0.2 10^3/uL (0.0-0.3); EOSINOPHILS % (AUTO) 2 % (0-10); HEMATOCRIT 46 % (40-54); HEMOGLOBIN 16.7 g/dL (13.3-17.7); LYMPHOCYTES % (AUTO) 12 % (12-44); MEAN CORPUSCULAR HEMOGLOBIN 30 pg (25-34); MEAN CORPUSCULAR HGB CONC 36 g/dL (32-36); MEAN CORPUSCULAR VOLUME 83 fL (80-99); MEAN PLATELET VOLUME 9.1 fL (9.0-12.2); MONOCYTES # (AUTO) 0.7 10^3/uL (0.0-1.0); MONOCYTES % (AUTO) 8 % (0-12); NEUTROPHILS # (AUTO) 6.6 10^3/uL (1.8-7.8); NEUTROPHILS % (AUTO) 78 % (42-75); PLATELET COUNT 184 10^3/uL (130-400); WHITE BLOOD COUNT 8.4 10^3/uL (4.3-11.0)
--- NOTE | 2022-06-19 10:01 | ED General ---
General Chief Complaint: General Problems/Pain Stated Complaint: GENERAL MUSCLE PAIN Source of Information: Patient, Old Records (Cardiology notes/tests from 2013) Exam Limitations: No Limitations History of Present Illness Date Seen by Provider: Jun 19, 2022 Time Seen by Provider: 09:34 Initial Comments 66-year-old male presenting with complaints of sharp pains in his muscles with muscle spasms. He states that its in both legs and arms as well as wrapping francheska und his upper abdomen and lower chest. He has pain around his shoulder blades bilaterally. 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 He reports that his primary care doctor out of [facility] had recently been trying to change his blood pressure medicines. He has 2 diuretics that are new. He saw his doctor on Monday and told him that he was still having muscle spasms and pain and the doctor had told him he needs to give time for his body to get used to the medications. He is supposed to see his doctor again on Monday and have blood work. He reports that overnight he had trouble sleeping because his pain was so bad. He had gone to the store and picked up some medicine for pain and inflammation but cannot remember the name of it. He has been using Biofreeze and heating pad to try and help with muscle pain. He states that usually it is worse when he first takes the medicine in the morning but then usually improves during the day but it has not improved in the last day or 2. He did not take his diuretic medicines this morning as he felt like it might exacerbate his problems. He denies any fever, chills, cough, shortness of breath, weakness in his arms or legs, headache, vision changes. He denies having any pain with urination or change in his bowels. He has had pain to his upper abdomen off and on for a long time but states the sharp muscle pains and spasms are now worse. He has chest wall pains with the muscles but denies chest pain otherwise. Timing/Duration: Getting Worse (but happening for the last month or more since starting diuretic medicines) Severity: Severe Modifying Factors: worse with Medication (feels that the diuretics make his pain worse) Associated Systoms: Chest Pain (chest wall pain from muscles and spasms); No Cough, No Diaphoresis, No Fever/Chills, No Headaches, No Loss of Appetite, No Malaise, No Nausea/Vomiting, No Rash, No Seizure, No Shortness of Air, No Syncope, No Weakness Allergies and Home Medications Allergies Coded Allergies: No Known Drug Allergies (Unverified , 12/30/19) Patient Home Medication List Home Medication List Reviewed: Yes Carvedilol (Carvedilol) 25 Mg Tablet, 25 MG PO BID, (Reported) Entered as Reported by: LIZ LEVINE on 12/30/19 1301 Doxazosin Mesylate (Doxazosin Mesylate) 4 Mg Tablet, (Reported) Entered as Reported by: NATALIE MOSLEY on 04/23/22 0546 Lisinopril (Lisinopril) 40 Mg Tablet, 40 MG PO DAILY, (Reported) Entered as Reported by: LIZ LEVINE on 12/30/19 1259 Methocarbamol (Methocarbamol) 750 Mg Tablet, 750 MG PO Q8H PRN for MUSCLE SPASMS Prescribed by: CHAPO KENNEDY on 06/19/22 1102 Review of Systems Review of Systems Constitutional: No chills, No diaphoresis, No dizziness, No fever, No weakness EENTM: No nose congestion, No throat pain Respiratory: No cough, No short of breath Cardiovascular: see HPI Gastrointestinal: see HPI; No nausea, No vomiting Genitourinary: No dysuria, No frequency Musculoskeletal: see HPI Skin: No change in color, No rash Psychiatric/Neurological: Denies Headache, Denies Numbness, Denies Paresthesia Past Zgdnrbe-Ljioyr-Asqhtn Hx Past Medical History Surgery/Hospitalization HX: TIA in 2003, Lacunar Infarcts Left Basal Ganglia, Hypertension, coronary artery disease, hypothyroidism, hyperlipidemia, chronic kidney disease, anxiety, depression Surgeries: Yes Cardiac (Cardiac Catheterization, Echocardiography, Stress Test) Respiratory: No Cardiac: Yes Coronary Artery Disease, High Cholesterol, Hypertension Neurological: Yes TIA Reproductive Disorders: No Sexually Transmitted Disease: No HIV/AIDS: No Genitourinary: Yes Prostate Problems Gastrointestinal: No Ulcer Musculoskeletal: No Endocrine: Yes Hypothyroidsim HEENT: Yes Tinnitis Loss of Vision: Denies Hearing Impairment: Denies Prostate Psychosocial: Yes Anxiety, Depression Physical Exam Vital Signs Vital Signs - First Documented 06/19/22 09:40 Temp 36.2 Pulse 72 Resp 16 B/P (MAP) 153/105 (121) Pulse Ox 97 O2 Delivery Room Air Capillary Refill : Height, Weight, BMI Height: 6'1.00" Weight: 244lbs. 7.2oz. [id number]; 32.00 BMI Method: General Appearance: No Apparent Distress, WD/WN HEENT: PERRL/EOMI, Pharynx Normal Neck: Full Range of Motion, Normal Inspection, Non Tender, Supple Respiratory: No Chest Non Tender (tender to palpation of chest wall especially around shoulder blades and anterior bilateral lower chest/ribs); Lungs Clear, Normal Breath Sounds, No Accessory Muscle Use, No Respiratory Distress Cardiovascular: No Murmur, Normal Peripheral Pulses, Extra Beats, Irregularly Irregular Gastrointestinal: Normal Bowel Sounds, No Pulsatile Mass, Soft; No Distended, No Guarding, No Rebound; Tenderness (tender to palpation on the upper abdominal wall) Rectal: Deferred Back: No CVA Tenderness, No Vertebral Tenderness Extremity: Normal Capillary Refill, Normal Range of Motion, No Pedal Edema, Other (complains of pain with palpation of muscles in arms and legs) Neurologic/Psychiatric: Alert, Oriented x3, No Motor/Sensory Deficits, branch coordinator II- XII Norm as Tested Skin: Normal Color, Warm/Dry; No Rash Progress/Results/Core Measures Suspected Sepsis SIRS Temperature: Pulse: Respiratory Rate: Laboratory Tests 06/19/22 09:50: White Blood Count 8.4 Blood Pressure / Mean: Laboratory Tests 06/19/22 09:50: Creatinine 1.03, INR Comment 1.0, Platelet Count 184, Total Bilirubin 1.4H Results/Orders Lab Results Laboratory Tests Test 06/19/22 09:50 Range/Units White Blood Count 8.4 4.3-11.0 10^3/uL Red Blood Count 5.55 H 4.30-5.52 10^6/uL Hemoglobin 16.7 13.3-17.7 g/dL Hematocrit 46 40-54 % Mean Corpuscular Volume 83 80-99 fL Mean Corpuscular Hemoglobin 30 25-34 pg Mean Corpuscular Hemoglobin Concent 36 32-36 g/dL Red Cell Distribution Width 12.1 10.0-14.5 % Platelet Count 184 130-400 10^3/uL Mean Platelet Volume 9.1 9.0-12.2 fL Immature Granulocyte % (Auto) 0 % Neutrophils (%) (Auto) 78 H 42-75 % Lymphocytes (%) (Auto) 12 12-44 % Monocytes (%) (Auto) 8 0-12 % Eosinophils (%) (Auto) 2 0-10 % Basophils (%) (Auto) 1 0-10 % Neutrophils # (Auto) 6.6 1.8-7.8 10^3/uL Lymphocytes # (Auto) 1.0 1.0-4.0 10^3/uL Monocytes # (Auto) 0.7 0.0-1.0 10^3/uL Eosinophils # (Auto) 0.2 0.0-0.3 10^3/uL Basophils # (Auto) 0.1 0.0-0.1 10^3/uL Immature Granulocyte # (Auto) 0.0 0.0-0.1 10^3/uL Prothrombin Time 13.8 12.2-14.7 SEC INR Comment 1.0 0.8-1.4 Activated Partial Thromboplast Time 28 24-35 SEC Sodium Level 128 L 135-145 MMOL/L Potassium Level 4.1 3.6-5.0 MMOL/L Chloride Level 94 L 98-107 MMOL/L Carbon Dioxide Level 21 21-32 MMOL/L Anion Gap 13 5-14 MMOL/L Blood Urea Nitrogen 20 H 7-18 MG/DL Creatinine 1.03 0.60-1.30 MG/DL Estimat Glomerular Filtration Rate 79 BUN/Creatinine Ratio 19 Glucose Level 131 H 70-105 MG/DL Calcium Level 9.2 8.5-10.1 MG/DL Corrected Calcium 9.0 8.5-10.1 MG/DL Magnesium Level 1.9 1.6-2.4 MG/DL Total Bilirubin 1.4 H 0.1-1.0 MG/DL Aspartate Amino Transf (AST/SGOT) 22 5-34 U/L Alanine Aminotransferase (ALT/SGPT) 23 0-55 U/L Alkaline Phosphatase 63 40-136 U/L Myoglobin 93.8 H <72.0 NG/ML Troponin I < 0.30 <0.30 NG/ML Pro-B-Type Natriuretic Peptide 836.9 H <125.0 PG/ML Total Protein 6.7 6.4-8.2 GM/DL Albumin 4.3 3.2-4.5 GM/DL Lipase 58 8-78 U/L My Orders Orders - CHAPO KENNEDY MD Cbc With Automated Diff (06/19/22 09:49) Magnesium (06/19/22 09:49) Chest 1 View Ap/Pa Only (06/19/22 09:49) Ekg Tracing (06/19/22 09:49) Comprehensive Metabolic Panel (06/19/22 09:49) Myoglobin Serum (06/19/22 09:49) Protime With Inr (06/19/22 09:49) Partial Thromboplastin Time (06/19/22 09:49) O2 (06/19/22 09:49) Monitor-Rhythm Ecg Trace Only (06/19/22 09:49) Ed Iv/Invasive Line Start (06/19/22 09:49) Lipase (06/19/22 09:49) Troponin I Fs (06/19/22 09:49) Probnp Fs (06/19/22 09:49) Ns Iv 1000 Ml (Sodium Chloride 0.9%) (06/19/22 09:49) Orphenadrine Inj (Ed Only) (Norflex Inje (06/19/22 09:49) Ketorolac Injection (Toradol Injection) (06/19/22 09:49) Vital Signs/I&O 06/19/22 09:40 Temp 36.2 Pulse 72 Resp 16 B/P (MAP) 153/105 (121) Pulse Ox 97 O2 Delivery Room Air Capillary Refill : Progress Note #1: Progress Note Order CBC to look for signs of anemia or elevated white count for infection. C hemistry panel to look for abnormal electrolytes, renal failure, hepatic failure. Cardiac enzymes looking for acute coronary syndrome or myocardial infarction. Chest x-ray to look for signs of infection, mass, effusion, cardiomegaly. Electrocardiogram to look for his rhythm as his physical exam demonstrates frequent beats and an irregular rhythm. Review of his prior electronic medical record particularly with his cardiology notes from 2011 through 2015. Placed on cardiac child monitor to watch his vital signs and rate and rhythm. His initial cardiac telemetry heart rate in the 60s with irregular rhythm and frequent PVCs. For his complaints of severe muscle pain diffusely will give 1 L normal saline IV fluid for hydration, Toradol 15 mg IV for anti-inflammatory pain effect, Norflex 60 mg IV for muscle spasms. Evaluate for life threatening conditions such as rhabdomyolysis, acute coronary syndrome, myocardial infarction, acute renal failure, acute hepatic failure, electrolyte disturbance, anemia, congestive heart failure. Progress Note #2: Time: 10:17 Progress Note On my personal review and interpretation of his chest x-ray he does not have an acute infiltrate or effusion and no cardiomegaly. He has chronic increased perihilar markings similar to chest x-ray from April 2022 in May 2021. 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 This is similar to his last electrocardiogram in the system from April 23, 2022 but the atrial fibrillation is new since his previous electrocardiogram May 30, 2021. His initial blood pressure was elevated on arrival 159/103 but as he was resting in the bed his blood pressure came down to 135/96. Progress Note #3: Time: 10:29 Progress Note CBC without acute significant normality. He has a normal white count and hemoglobin. His coags were normal as well. His chemistry panel showed mild hyponatremia at 128, BUN up to 20 with normal Cr 1.01. This could go with some mild dehydration. His myoglobin was slightly elevated at 93.8. His troponin was negative at less than 0.3. He had mild elevation of his proBNP to 836.9, up from prior testing May 2021 when he was 417.4. Reviewed radiologist report of his chest x-ray is being read out as no acute process, similar to my personal review and interpretation of no acute process in the chest but appears similar to prior images. His testing and physical exam today as well as cardiac telemetry monitoring have helped to rule out concern for rhabdomyolysis, acute coronary syndrome, acute myocardial infarction, heart failure, renal failure, liver failure. He does have some electrolyte disturbance with low sodium at 128. I spent 20 minutes reviewing his test results and discussing cardiology records and notes from the early as well as his test from today. Advised to take at least a baby aspirin once a day to help thin his blood since he has the atrial fibrillation. He states that he tends to bleed a lot and easily anyway so he was concerned about taking the blood thinners. I told him to at least take a baby aspirin to give him some help and protection from blood clots that might cause a stroke, heart attack, blood clot to his lungs or organs. Counseled to hold his diuretic medications until he can follow-up with his doctor and might need to see cardiology as well. He should continue to take his other blood pressure medicines to keep his blood pressure under control. Encouraged to drink electrolyte drinks to help bring his sodium up. Will prescribe a muscle relaxer for muscle spasms to be used as needed if he has worsening symptoms again. If his symptoms keep escalating or he has new concerns then he should return or be seen sooner otherwise keep the appointment on Monday with his doctor. Consider following up with a molder apprentice for the atrial fibrillation and hypertension so they could help with his care. Given information for Dr. Vance as he has followed up with him in the past. Counseled on follow up and return precautions. While I considered hospital admit for his atrial fibrillation and severe muscle spasms and pain, upon review of his old cardiology notes from Dr. Vance, Dr. Trotter, and Dr. Montano as well as his most recent ECG from Apr 2022, I felt this was likely a chronic condition and with rate controlled he would be appropriate to have outpatient follow up with the caveat of returning if having new or worsening problems. Stressed importance of at least taking aspirin and follow up as soon as possible with PCP and Cardiology as well as reviewed changes to his chronic medications and new medicine for him to try to treat muscle spasms and muscle pain. ECG Initial ECG Impression Date: Jun 19, 2022 Initial ECG Impression Time: 09:55 Initial ECG Rate: 69 Initial ECG Rhythm: A Fib/Flutter Initial ECG Comparisson: Unchanged (similar to 04/23/2022 but new atrial fibrillation from 05/30/2021) Comment Based on my personal interpretation and review of his electrocardiogram he has atrial fibrillation with frequent PVCs and a heart rate of 69 bpm. 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 There is no acute ST elevation. His QT interval is 415 ms with a QTc interval 434 ms. Overall this appears similar to tracing from April 23, 2022 but the atrial fibrillation is new since May 30, 2021. From review of cardiology notes from 2011 through 2015 he had concerns for possible atrial fibrillation or atrial flutter and had some episodes of SVT and has moderate coronary artery disease diffusely. Diagnostic Imaging Diagonstic Imaging: Xray Plain Films/CT/US/NM/MRI: chest Comments NAME: CARINE WAGNER III MED REC#: [id number] PT STATUS: REG ER : 1955 PHYSICIAN: CHAPO KENNEDY MD ADMIT DATE: 06/19/22/ER FS Draft Date of Exam:06/19/22 CHEST 1 VIEW AP/PA ONLY INDICATION: Chest wall pain. COMPARISON: 04/23/2022. FINDINGS: The lungs are clear. No failure, effusion, or pneumothorax. IMPRESSION: Negative. Dictated on workstation # [id number] Dict: 06/19/22 1012 Trans: 06/19/22 1022 [id number] Interpreted by: ODESSA GAMBOA Electronically signed by: Reviewed: Reviewed by Me Departure Impression Primary Impression: Muscle pain, myofascial Additional Impressions: Atrial fibrillation with controlled ventricular rate Hyponatremia Muscle spasm Disposition: HOME, SELF-CARE Condition: Improved Departure-Patient Inst. Decision time for Depature: 11:01 Referrals: LYSSA MCDOWELL MD (PCP) Primary Care Physician JEOL VANCE MD FACP FACC CCDS Patient Instructions: Muscle Spasm ED, Atrial Fibrillation and Atrial Flutter ED, Hyponatremia (DC) Add. Discharge Instructions: Until you can check with your regular doctor or cardiology hold taking the hydrochlorothiazide and the spironolactone. Continue with your other blood pressure medications. Try to drink electrolyte drinks to help with your sodium and electrolytes. Consider taking a Baby aspirin 81 mg daily to help thin your blood and help prevent blood clots from your irregular heart beat (Atrial Fibrillation). Follow up with Cardiology about the irregular heart beat as they may need to do additional testing or different treatments to help get better control of that and lower your risk for stroke, heart attack and blood clots to your legs or lungs. You could try taking the muscle relaxer medicine if needed to help with your muscle pains and spasms. Check with your doctor on Monday about the test results from today showing low sodium at 128, irregular heart beat (Atrial Fibrillation) and your muscle spasms and pain. All discharge instructions reviewed with patient and/or family. Voiced understanding. Scripts Methocarbamol (Methocarbamol) 750 Mg Tablet 750 MG PO Q8H PRN for MUSCLE SPASMS for 5 Days, #15 TAB 0 Refills Prov: CHAPO KENNEDY MD 06/19/22 CHAPO KENNEDY MD Jun 19, 2022 10:01
[2022-06-19 10:04] LABS: PROTHROMBIN TIME PATIENT 13.8 SEC (12.2-14.7)
[2022-06-19 10:13] LABS: CREATININE SERUM 1.03 MG/DL (0.60-1.30); POTASSIUM 4.1 MMOL/L (3.6-5.0)
[2022-06-19 10:14] LABS: ALBUMIN 4.3 GM/DL (3.2-4.5); BILIRUBIN,TOTAL 1.4 MG/DL (0.1-1.0); CALCIUM 9.2 MG/DL (8.5-10.1); MAGNESIUM 1.9 MG/DL (1.6-2.4); TOTAL PROTEIN 6.7 GM/DL (6.4-8.2)
--- NOTE | 2022-06-19 10:23 | Diagnostic Imaging Report ---
INDICATION: Chest wall pain. COMPARISON: 04/23/2022. FINDINGS: The lungs are clear. No failure, effusion, or pneumothorax. IMPRESSION: Negative. Dictated by: Dictated on workstation # [id number]
[2022-06-19] MEDS ORDERED: METH-732 PO (11:02)
[2022-06-19 11:07] VITALS: BP 131/96
== END 2022-06-19 11:08 | disposition home or self-care (01) ==
LOC: EDUNIT# 09:32 → ER FS 09:35
DX: I48.91 Unspecified atrial fibrillation (principal); E87.1 Hypo-osmolality and hyponatremia; M62.838 Other muscle spasm; I10 Essential (primary) hypertension; I45.2 Bifascicular block; Z98.61 Coronary angioplasty status; Z28.310 Unvaccinated for COVID-19
CPT/HCPCS: 36415; 71045; 80053; 83690; 83735; 83874; 83880; 84484; 85025; 85610; 85730; 93005; 93041

== ENCOUNTER 2022-06-20 11:42 | Emergency (ER) | payer MEDICARE, OTHER ==
[~2022-06-20 11:42] MED LIST changes: +METH-732 PO
--- NOTE | 2022-06-20 11:57 | ED Chest Pain ---
General Chief Complaint: Chest Pain Stated Complaint: CHEST PAIN; SOB Source: patient Exam Limitations: no limitations History of Present Illness Date Seen by Provider: Jun 20, 2022 Time Seen by Provider: 11:45 Initial Comments 66-year-old male presents to the emergency department via ambulance for chest pain. He describes a sharp stabbing pain in his left anterior chest and a sharp pain between his shoulder blades. Symptoms started about 930 or 10:00 this mo rning. He was seen here yesterday and diagnosed with an irregular heartbeat and "abnormal electrolytes." Record review shows that he had atrial fibrillation as well as hyponatremia with a sodium of 128. He was started on diuretics recently, about a month ago and states his symptoms have been present since that time. He was having similar pains during his visit yesterday that ultimately resolved prior to discharge. He denies any significant cardiac history. He had a heart cath in 2013 with a "partial blockage." He had 1 prior heart cath to that as well. He does not have any stents. No COPD, respiratory issues. His pain is constant, without radiation. No obvious alleviating factors and not specifically associated with exertion. Pain in his anterior chest is worse with direct palpation of the area. Denies any recent fevers chills cough. Allergies and Home Medications Allergies Coded Allergies: No Known Drug Allergies (Unverified , 12/30/19) Patient Home Medication List Home Medication List Reviewed: Yes Carvedilol (Carvedilol) 25 Mg Tablet, 25 MG PO BID, (Reported) Entered as Reported by: LIZ LEVINE on 12/30/19 1301 Doxazosin Mesylate (Doxazosin Mesylate) 4 Mg Tablet, (Reported) Entered as Reported by: NATALIE MOSLEY on 04/23/22 0546 Lisinopril (Lisinopril) 40 Mg Tablet, 40 MG PO DAILY, (Reported) Entered as Reported by: LIZ LEVINE on 12/30/19 1259 Methocarbamol (Methocarbamol) 750 Mg Tablet, 750 MG PO Q8H PRN for MUSCLE SPASMS Prescribed by: CHAPO KENNEDY on 06/19/22 1102 Review of Systems Review of Systems Constitutional: no symptoms reported EENTM: No Symptoms Reported Respiratory: No Symptoms Reported Cardiovascular: Chest Pain Gastrointestinal: No Symptoms Reported Genitourinary: No Symptoms Reported Musculoskeletal: no symptoms reported Skin: no symptoms reported Psychiatric/Neurological: No Symptoms Reported Endocrine: No Symptoms Reported Hematologic/Lymphatic: No Symptoms Reported Past [id number] Hx Patient Social History Tobacco Use?: No Use of E-Cig and/or Vaping dev: No Substance use?: No Alcohol Use?: No Past Medical History Surgery/Hospitalization HX: TIA in 2004, Lacunar Infarcts Left Basal Ganglia, Hypertension, coronary artery disease, hypothyroidism, hyperlipidemia, chronic kidney disease, anxiety, depression Surgeries: Yes Cardiac Respiratory: No Cardiac: Yes Coronary Artery Disease, High Cholesterol, Hypertension Neurological: Yes TIA Reproductive Disorders: No Sexually Transmitted Disease: No HIV/AIDS: No Genitourinary: Yes Prostate Problems Gastrointestinal: No Ulcer Musculoskeletal: No Endocrine: Yes Hypothyroidsim HEENT: Yes Tinnitis Loss of Vision: Denies Hearing Impairment: Denies Prostate Psychosocial: Yes Anxiety, Depression Family Medical History Reviewed Nursing Family Hx No Pertinent Family Hx Physical Exam Vital Signs Vital Signs - First Documented 06/20/22 11:45 Temp 36.7 Pulse 71 Resp 15 B/P (MAP) 162/106 (124) Pulse Ox 98 O2 Delivery Room Air Capillary Refill : Height, Weight, BMI Height: 6'1.00" Weight: 244lbs. 7.2oz. [id number]; 33.00 BMI Method: General Appearance: No Apparent Distress, WD/WN HEENT: Normal ENT Inspection, Pharynx Normal Neck: Full Range of Motion, Normal Inspection, Non Tender, Supple Respiratory: Lungs Clear, Normal Breath Sounds, No Accessory Muscle Use, No Respiratory Distress, Other Cardiovascular: No Edema, No Gallop, No Murmur, Normal Peripheral Pulses, Irregularly Irregular, Other (Occasional PVCs) Gastrointestinal: Normal Bowel Sounds, No Organomegaly, Non Tender, Soft Extremity: Normal Capillary Refill, Normal Inspection, Normal Range of Motion, Non Tender, No Calf Tenderness, No Pedal Edema Neurologic/Psychiatric: Alert, Oriented x3, No Motor/Sensory Deficits Skin: Normal Color, Warm/Dry Lymphatic: No Adenopathy Progress/Results/Core Measures Results/Orders Lab Results Laboratory Tests Test 06/20/22 11:49 Range/Units White Blood Count 8.7 4.3-11.0 10^3/uL Red Blood Count 5.25 4.30-5.52 10^6/uL Hemoglobin 15.7 13.3-17.7 g/dL Hematocrit 44 40-54 % Mean Corpuscular Volume 84 80-99 fL Mean Corpuscular Hemoglobin 30 25-34 pg Mean Corpuscular Hemoglobin Concent 36 32-36 g/dL Red Cell Distribution Width 12.1 10.0-14.5 % Platelet Count 193 130-400 10^3/uL Mean Platelet Volume 9.9 9.0-12.2 fL Immature Granulocyte % (Auto) 1 % Neutrophils (%) (Auto) 74 42-75 % Lymphocytes (%) (Auto) 15 12-44 % Monocytes (%) (Auto) 8 0-12 % Eosinophils (%) (Auto) 2 0-10 % Basophils (%) (Auto) 1 0-10 % Neutrophils # (Auto) 6.4 1.8-7.8 10^3/uL Lymphocytes # (Auto) 1.3 1.0-4.0 10^3/uL Monocytes # (Auto) 0.7 0.0-1.0 10^3/uL Eosinophils # (Auto) 0.2 0.0-0.3 10^3/uL Basophils # (Auto) 0.1 0.0-0.1 10^3/uL Immature Granulocyte # (Auto) 0.0 0.0-0.1 10^3/uL Prothrombin Time 13.8 12.2-14.7 SEC INR Comment 1.0 0.8-1.4 Activated Partial Thromboplast Time 28 24-35 SEC Sodium Level 131 L 135-145 MMOL/L Potassium Level 4.3 3.6-5.0 MMOL/L Chloride Level 96 L 98-107 MMOL/L Carbon Dioxide Level 25 21-32 MMOL/L Anion Gap 10 5-14 MMOL/L Blood Urea Nitrogen 20 H 7-18 MG/DL Creatinine 1.03 0.60-1.30 MG/DL Estimat Glomerular Filtration Rate 79 BUN/Creatinine Ratio 19 Glucose Level 131 H 70-105 MG/DL Calcium Level 9.0 8.5-10.1 MG/DL Corrected Calcium 8.8 8.5-10.1 MG/DL Magnesium Level 1.8 1.6-2.4 MG/DL Total Bilirubin 1.2 H 0.1-1.0 MG/DL Aspartate Amino Transf (AST/SGOT) 22 5-34 U/L Alanine Aminotransferase (ALT/SGPT) 23 0-55 U/L Alkaline Phosphatase 66 40-136 U/L Myoglobin 123.6 H <72.0 NG/ML Troponin I < 0.30 <0.30 NG/ML Total Protein 6.5 6.4-8.2 GM/DL Albumin 4.2 3.2-4.5 GM/DL My Orders Orders - LUCERO HERNÁNDEZ DO Cbc With Automated Diff (06/20/22 11:51) Magnesium (06/20/22 11:51) Chest 1 View Ap/Pa Only (06/20/22 11:51) Ekg Tracing (06/20/22 11:51) Comprehensive Metabolic Panel (06/20/22 11:51) Myoglobin Serum (06/20/22 11:51) Protime With Inr (06/20/22 11:51) Partial Thromboplastin Time (06/20/22 11:51) Aspirin Chewable Tablet (Baby Aspirin Ch (06/20/22 12:00) Troponin I Fs (06/20/22 11:51) Medications Given in ED Vital Signs/I&O 06/20/22 06/20/22 11:45 12:45 Temp 36.7 36.7 Pulse 71 66 Resp 15 18 B/P (MAP) 162/106 (124) 165/91 Pulse Ox 98 97 O2 Delivery Room Air Room Air Comment Atrial fibrillation with a rate of 67 bpm. Right bundle branch block. Normal intervals outside of [place] interval. Occasional PVC. No ST or T wave abnormalities. No STEMI Departure Communication (Admissions) 1200: I have ordered CBC to check for anemia, troponin to check for cardiac muscle damage, electrolytes to recheck sodium, review potassium magnesium to see if this might be contributing to atrial fibrillation, check renal function. Sodium may be contributing to his muscle type pains. He denies any fevers or chills. We will get a chest x-ray to evaluate for mass, pneumothorax, infectious appearance. He has been ordered aspirin. I did review his medical records including cardiology records of heart cath, previous emergency medicine visits. I have independently reviewed his chest x-ray and is negative for any acute process. 1235: I spoke with Dr. Alvarez, cardiology. His myoglobin is slightly elevated. He states this is not concerning to him at all and does not recommend sending CK, CK-MB which would be send out labs here as his troponin is undetectable and that is what he is really worried about. Given his symptoms of least 30 days he states no further emergent testing would be indicated from a cardiac standpoint. There is no indication of a pulmonary etiology. His sodium is actually better today. I did advise that he continue to hold his diuretic medications. He does have an appoint with his primary doctor Dr. Jarrett, tomorrow at 2:00. He will call to schedule an appoint with Dr. Vance. He states the muscle relaxers provided to him yesterday are helping him and he will continue these for now Impression Primary Impression: Chest wall pain Additional Impression: Atrial fibrillation with controlled ventricular rate Disposition: HOME, SELF-CARE Condition: Stable Departure-Patient Inst. Referrals: LYSSA JARRETT MD (PCP) Primary Care Physician Patient Instructions: Chest Pain That Is Not Caused by the Heart (DC) Add. Discharge Instructions: Continue to take anti-inflammatory medicines, muscle relaxers at home as needed. Keep your appoint with Dr. Jarrett tomorrow call. Dr. Vance's office to schedule follow-up appointment as well. Return to the emergency department if you develop any severe pain, severe shortness of breath, specifically if it is not responding to the provided therapies. All discharge instructions reviewed with patient and/or family. Voiced understanding. LUCERO HERNÁNDEZ DO Jun 20, 2022 11:57
[2022-06-20 11:58] LABS: BASOPHILS # (AUTO) 0.1 10^3/uL (0.0-0.1); BASOPHILS % (AUTO) 1 % (0-10); EOSINOPHILS # (AUTO) 0.2 10^3/uL (0.0-0.3); EOSINOPHILS % (AUTO) 2 % (0-10); HEMATOCRIT 44 % (40-54); HEMOGLOBIN 15.7 g/dL (13.3-17.7); LYMPHOCYTES # (AUTO) 1.3 10^3/uL (1.0-4.0); LYMPHOCYTES % (AUTO) 15 % (12-44); MEAN CORPUSCULAR HEMOGLOBIN 30 pg (25-34); MEAN CORPUSCULAR HGB CONC 36 g/dL (32-36); MEAN CORPUSCULAR VOLUME 84 fL (80-99); MEAN PLATELET VOLUME 9.9 fL (9.0-12.2); MONOCYTES # (AUTO) 0.7 10^3/uL (0.0-1.0); MONOCYTES % (AUTO) 8 % (0-12); NEUTROPHILS # (AUTO) 6.4 10^3/uL (1.8-7.8); NEUTROPHILS % (AUTO) 74 % (42-75); PLATELET COUNT 193 10^3/uL (130-400); WHITE BLOOD COUNT 8.7 10^3/uL (4.3-11.0)
[2022-06-20] MEDS ORDERED: ASPIRIN 81 MG CHEW (CHILDREN'S ASA) PO ONE (12:00)
[2022-06-20 12:09] LABS: PROTHROMBIN TIME PATIENT 13.8 SEC (12.2-14.7)
[2022-06-20 12:19] LABS: BILIRUBIN,TOTAL 1.2 MG/DL (0.1-1.0); CREATININE SERUM 1.03 MG/DL (0.60-1.30); MAGNESIUM 1.8 MG/DL (1.6-2.4); POTASSIUM 4.3 MMOL/L (3.6-5.0)
[2022-06-20 12:20] LABS: ALBUMIN 4.2 GM/DL (3.2-4.5); TOTAL PROTEIN 6.5 GM/DL (6.4-8.2)
--- NOTE | 2022-06-20 12:23 | Diagnostic Imaging Report ---
INDICATION: Chest pain. TECHNIQUE: Upright portable AP view of the chest is obtained with comparison made to study of 06/19/2022. FINDINGS: There is cardiomegaly with pulmonary vascularity at the upper limits of normal. No overt edema is identified. There is continued elevation of the right hemidiaphragm with gaseous distention of colon interposed between the liver and diaphragm. IMPRESSION: Mild cardiomegaly with pulmonary vascularity at the upper limits of normal. Dictated by: Dictated on workstation # [id number]
[2022-06-20 12:45] VITALS: BP 165/91
== END 2022-06-20 12:45 | disposition home or self-care (01) ==
LOC: EDUNIT# 11:42 → ER FS 11:43
DX: I48.91 Unspecified atrial fibrillation (principal); R82.1 Myoglobinuria; Z98.61 Coronary angioplasty status
CPT/HCPCS: 36415; 71045; 80053; 83735; 83874; 84484; 85025; 85610; 85730; 93005

== ENCOUNTER 2022-06-22 17:17 | Emergency (ER) | payer MEDICARE, OTHER ==
[~2022-06-22] VITALS: Ht 182 cm; Wt 114.0 kg
[2022-06-22] MEDS ORDERED: morphine INJ 10 MG/ML 1ML (SYR OR VIAL) IVP ONE (17:45)
[2022-06-22] MEDS ORDERED: NITROGLYCERIN 2% OINT 1 GM UNIT DOSE PACKET TOP ONE (17:45)
[2022-06-22] MEDS ORDERED: NITROGLYCERIN 0.4 MG SL TABS BTL 25'S SL PRN (17:45)
[2022-06-22 17:47] LABS: BASOPHILS # (AUTO) 0.1 10^3/uL (0.0-0.1); BASOPHILS % (AUTO) 1 % (0-10); EOSINOPHILS # (AUTO) 0.3 10^3/uL (0.0-0.3); EOSINOPHILS % (AUTO) 4 % (0-10); HEMATOCRIT 42 % (40-54); HEMOGLOBIN 14.8 g/dL (13.3-17.7); LYMPHOCYTES # (AUTO) 1.5 10^3/uL (1.0-4.0); LYMPHOCYTES % (AUTO) 22 % (12-44); MEAN CORPUSCULAR HEMOGLOBIN 30 pg (25-34); MEAN CORPUSCULAR HGB CONC 35 g/dL (32-36); MEAN CORPUSCULAR VOLUME 85 fL (80-99); MEAN PLATELET VOLUME 10.1 fL (9.0-12.2); MONOCYTES # (AUTO) 0.6 10^3/uL (0.0-1.0); MONOCYTES % (AUTO) 8 % (0-12); NEUTROPHILS # (AUTO) 4.5 10^3/uL (1.8-7.8); NEUTROPHILS % (AUTO) 65 % (42-75); PLATELET COUNT 172 10^3/uL (130-400)
--- NOTE | 2022-06-22 17:47 | ED Chest Pain ---
General Chief Complaint: Chest Pain Stated Complaint: CHEST PAIN Source: patient, old records Exam Limitations: no limitations History of Present Illness Date Seen by Provider: Jun 22, 2022 Time Seen by Provider: 17:19 Initial Comments 66yoM with PMH of recently diagnosed pAfib on Xarelto, CAD (no interventions on previous heart caths), HTN, HLD coming in due to chest pain and palpitations. This is his third ER visit within the past several days for the same issues. This chest pain started several hours ago, left side of his chest, radiates through to his back, goes up his neck slightly. It is mild to moderate, constant, nothing really seems to make it better or worse. He took 5 baby aspirin earlier when this started. He did take his blood pressure medicines this morning, but has not had his nighttime dose. He also took Xarelto this morning and it was his first day on the medication. Denies any prior history of DVT or PE, lower extremity swelling or pain, recent surgery, recent long travel, hemoptysis, or shortness of breath. He states he does feel like his heart rate is irregular for the past several hours as well. He takes carvedilol twice a day for his blood pressure and has been holding his diuretic because of electrolyte abnormalities. He has a follow-up appointment with a air conditioning installer supervisor later this week. He is having some intermittent tingling to his left leg with numbness at times, denies any at this time. Denies any headache, vision changes, weakness, fever, nausea, vomiting, diarrhea, rash, or any other concerns. Allergies and Home Medications Allergies Coded Allergies: No Known Drug Allergies (Unverified , 12/30/19) Patient Home Medication List Home Medication List Reviewed: Yes Carvedilol (Carvedilol) 25 Mg Tablet, 25 MG PO BID, (Reported) Entered as Reported by: LIZ LEVINE on 12/30/19 1301 Doxazosin Mesylate (Doxazosin Mesylate) 4 Mg Tablet, (Reported) Entered as Reported by: NATALIE MOSLEY on 04/23/22 0546 Lisinopril (Lisinopril) 40 Mg Tablet, 40 MG PO DAILY, (Reported) Entered as Reported by: LIZ LEVINE on 12/30/19 1259 Methocarbamol (Methocarbamol) 750 Mg Tablet, 750 MG PO Q8H PRN for MUSCLE SPASMS Prescribed by: CHAPO KENNEDY on 06/19/22 1102 Review of Systems Review of Systems Constitutional: No fever EENTM: No Blurred Vision Respiratory: Denies Cough, Denies Shortness of Air Cardiovascular: Chest Pain Gastrointestinal: Denies Diarrhea, Denies Nausea Genitourinary: No Symptoms Reported Musculoskeletal: no symptoms reported Skin: no symptoms reported Psychiatric/Neurological: Tingling Endocrine: No Symptoms Reported Hematologic/Lymphatic: No Symptoms Reported All Other Systems Reviewed Negative Unless Noted: Yes Past Tqjkmaj-Hivbwv-Okfhyy Hx Patient Social History Tobacco Use?: No Use of E-Cig and/or Vaping dev: No Substance use?: No Alcohol Use?: No Pt feels they are or have been: No Past Medical History Surgery/Hospitalization HX: TIA in 2003, Lacunar Infarcts Left Basal Ganglia, Hypertension, coronaryartery disease, hypothyroidism, hyperlipidemia, chronic kidney disease,anxiety, depression Surgeries: Yes Cardiac Respiratory: No Cardiac: Yes Coronary Artery Disease, High Cholesterol, Hypertension Neurological: Yes TIA Reproductive Disorders: No Sexually Transmitted Disease: No HIV/AIDS: No Genitourinary: Yes Prostate Problems Gastrointestinal: No Ulcer Musculoskeletal: No Endocrine: Yes Hypothyroidsim HEENT: Yes Tinnitis Loss of Vision: Denies Hearing Impairment: Denies Prostate Psychosocial: Yes Anxiety, Depression Family Medical History No Pertinent Family Hx Physical Exam Vital Signs Vital Signs - First Documented 06/22/22 17:57 Temp 36.0 Pulse 101 Resp 20 B/P (MAP) 200/130 (153) Pulse Ox 95 O2 Delivery Room Air Capillary Refill : NONE Height, Weight, BMI Height: 6'1.00" Weight: 244lbs. 7.2oz. 110.040895lz; 33.00 BMI Method: General Appearance: No Apparent Distress, WD/WN HEENT: PERRL/EOMI, Normal ENT Inspection, Pharynx Normal Neck: Full Range of Motion, Normal Inspection, Non Tender, Supple Respiratory: Chest Non Tender, Lungs Clear, Normal Breath Sounds, No Accessory Muscle Use, No Respiratory Distress Cardiovascular: No Edema, Normal Peripheral Pulses, Irregularly Irregular Gastrointestinal: Normal Bowel Sounds, Non Tender, Soft; No Distended, No Guarding Extremity: Normal Capillary Refill, Normal Inspection, Normal Range of Motion, Non Tender, No Calf Tenderness, No Pedal Edema Neurologic/Psychiatric: Alert, Oriented x3, No Motor/Sensory Deficits, Normal Mood/Affect, facility mechanic II-XII Norm as Tested, Other (Normal gait) Skin: Normal Color, Warm/Dry Lymphatic: No Adenopathy Progress/Results/Core Measures Results/Orders Lab Results Laboratory Tests Test 06/22/22 17:26 Range/Units White Blood Count 7.0 4.3-11.0 10^3/uL Red Blood Count 4.93 4.30-5.52 10^6/uL Hemoglobin 14.8 13.3-17.7 g/dL Hematocrit 42 40-54 % Mean Corpuscular Volume 85 80-99 fL Mean Corpuscular Hemoglobin 30 25-34 pg Mean Corpuscular Hemoglobin Concent 35 32-36 g/dL Red Cell Distribution Width 12.3 10.0-14.5 % Platelet Count 172 130-400 10^3/uL Mean Platelet Volume 10.1 9.0-12.2 fL Immature Granulocyte % (Auto) 0 % Neutrophils (%) (Auto) 65 42-75 % Lymphocytes (%) (Auto) 22 12-44 % Monocytes (%) (Auto) 8 0-12 % Eosinophils (%) (Auto) 4 0-10 % Basophils (%) (Auto) 1 0-10 % Neutrophils # (Auto) 4.5 1.8-7.8 10^3/uL Lymphocytes # (Auto) 1.5 1.0-4.0 10^3/uL Monocytes # (Auto) 0.6 0.0-1.0 10^3/uL Eosinophils # (Auto) 0.3 0.0-0.3 10^3/uL Basophils # (Auto) 0.1 0.0-0.1 10^3/uL Immature Granulocyte # (Auto) 0.0 0.0-0.1 10^3/uL Prothrombin Time 14.7 12.2-14.7 SEC INR Comment 1.1 0.8-1.4 Activated Partial Thromboplast Time 34 24-35 SEC Sodium Level 131 L 135-145 MMOL/L Potassium Level 4.3 3.6-5.0 MMOL/L Chloride Level 97 L 98-107 MMOL/L Carbon Dioxide Level 25 21-32 MMOL/L Anion Gap 9 5-14 MMOL/L Blood Urea Nitrogen 16 7-18 MG/DL Creatinine 1.08 0.60-1.30 MG/DL Estimat Glomerular Filtration Rate 75 BUN/Creatinine Ratio 15 Glucose Level 155 H 70-105 MG/DL Calcium Level 8.7 8.5-10.1 MG/DL Corrected Calcium 8.5 8.5-10.1 MG/DL Magnesium Level 2.0 1.6-2.4 MG/DL Total Bilirubin 0.8 0.1-1.0 MG/DL Aspartate Amino Transf (AST/SGOT) 26 5-34 U/L Alanine Aminotransferase (ALT/SGPT) 24 0-55 U/L Alkaline Phosphatase 59 40-136 U/L Troponin I < 0.30 <0.30 NG/ML Total Protein 6.5 6.4-8.2 GM/DL Albumin 4.3 3.2-4.5 GM/DL Lipase 70 8-78 U/L My Orders Orders - TUNDE MULLINS MD Cbc With Automated Diff (06/22/22 17:36) Magnesium (06/22/22 17:36) Ekg Tracing (06/22/22 17:36) Comprehensive Metabolic Panel (06/22/22 17:36) Protime With Inr (06/22/22 17:36) Partial Thromboplastin Time (06/22/22 17:36) O2 (06/22/22 17:36) Monitor-Rhythm Ecg Trace Only (06/22/22 17:36) Nitroglycerin 0.4 Mg Btl 25's (Nitrostat (06/22/22 17:45) Ed Iv/Invasive Line Start (06/22/22 17:36) Lipase (06/22/22 17:36) Troponin I Fs (06/22/22 17:36) Morphine Injection (Morphine Injection (06/22/22 17:45) Ct Head Wo-R/O Stroke (06/22/22 17:36) Nitroglycerin Ointment (Nitrobid Ointme (06/22/22 17:45) Iohexol Injection (Omnipaque 350 Mg/Ml 1 (06/22/22 18:00) Received Contrast (Hold Metformin- Contr (06/22/22 18:00) Sodium Chloride Flush (Catheter Flush Sy (06/22/22 18:00) Ns (Ivpb) (Sodium Chloride 0.9% Ivpb Bag (06/22/22 18:00) Ct Angio Chest/Abd/Pelv W (06/22/22 17:36) Medications Given in ED Current Medications Medications Dose Ordered Sig/Hernesto Route Start Time Stop Time Status Last Admin Dose Admin Iohexol 100 ml ONCE ONCE IV 06/22/22 18:00 06/22/22 18:01 DC 06/22/22 18:21 100 ML Morphine Sulfate 4 mg ONCE ONCE IVP 06/22/22 17:45 06/22/22 17:46 DC 06/22/22 17:43 4 MG Nitroglycerin 0.4 mg UD PRN SL 06/22/22 17:45 06/22/22 17:43 0.4 MG Nitroglycerin 1 inch ONCE ONCE TOP 06/22/22 17:45 06/22/22 17:46 DC 06/22/22 17:43 1 INCH Sodium Chloride 10 ml NEEDED PRN IV 06/22/22 18:00 06/22/22 18:22 10 ML Sodium Chloride 100 ml ONCE ONCE IV 06/22/22 18:00 06/22/22 18:01 DC 06/22/22 18:21 100 ML Vital Signs/I&O 06/22/22 17:57 Temp 36.0 Pulse 101 Resp 20 B/P (MAP) 200/130 (153) Pulse Ox 95 O2 Delivery Room Air Progress Progress Note : Progress Note 66-year-old male with above history coming in due to chest pain, palpitations, and vague left-sided intermittent numbness. Not feeling any numbness at this time and none evident on exam objectively. EKG was obtained showing atrial fibrillation with no acute ischemic changes on my interpretation. It appears si milar to prior EKG. An IV was placed and basic labs were obtained including cardiac biomarkers. His troponin is undetectable, and given constant pain for over 3 hours, it is very unlikely this is ACS related. I reviewed his chart from multiple visits, and he has had a similar presentation a couple times this week. Similar work-up has been done and also has been negative. Today however he does endorse more radiation of the pain to his back, neck, and this vague numbness. CT head without acute findings, although his NIH is technically 0 on my exam. CTA chest, abdomen, pelvis with and without ordered to evaluate for dissection given the symptoms. He did have elevated blood pressure on arrival here 200 over more than 100 diastolic. He was given nitro tabs as well as Nitropaste to help bring his blood pressure down. CTA was negative for aortic dissection or central pulmonary embolism. Patient's heart rate was elevated on arrival in atrial fibrillation with rapid ventricular response to the 100s. His heart rate came down on its own and was rate controlled to the 60-70's shortly after arrival without intervention. Symptoms improved upon rate control. I suspect he was just very symptomatic with his atrial fibrillation. He is anticoagulated currently, and since he is currently rate controlled and symptoms have improved with a relatively unremarkable work-up, I believe he stable for discharge with outpatient follow-up with his air conditioning installer supervisor which he has. He was sent home with strict return precautions. Initial ECG Impression Date: Jun 22, 2022 Initial ECG Impression Time: 17:23 Initial ECG Rate: 86 Initial ECG Rhythm: A Fib/Flutter Comment On my interpretation: Wide QRS with a right bundle branch block, significant motion artifact, but accounting for that no STEMI, appears similar to prior EKG from 2 days ago Diagnostic Imaging Diagonstic Imaging: CT (CTA chest/abd/pelvis dissection protocol, CT head without) Comments NAME: CARINE WAGNER III MED REC#: [id number] PT STATUS: REG ER : 1955 PHYSICIAN: TUNDE MULLINS MD ADMIT DATE: 06/22/22/ER FS Draft Date of Exam:06/22/22 CT ANGIO CHEST/ABD/PELV W PROCEDURE: CT angiography of the chest with contrast and CT abdomen and pelvis with contrast. TECHNIQUE: Multiple contiguous axial images were obtained through the chest, abdomen and pelvis after administration of intravenous contrast. 3D MIP reconstructed CT angiography acquisitions of the aorta were then performed. Auto Exposure Controls were utilized during the CT exam to meet ALARA standards for radiation dose reduction. INDICATION: Left paresthesia There is good opacification of the pulmonary arteries without intraluminal filling defect identified. Thoracic aorta is of normal caliber without evidence of intimal abnormality. There does appear to be aneurysmal dilatation of left main coronary artery with dense calcification extending into the left anterior descending and circumflex branches. Additional calcification is seen within right coronary artery. Calcified granulomas are seen in the mediastinum with gaseous distention of the esophagus, diffusely. This can be related to reflux. Minimal subpleural scarring is present within the lungs. No definite mass or focal infiltrate is appreciated. Left subclavian artery is widely patent. 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 Clinical correlation would be useful. CTA ABDOMEN and pelvis: Abdominal aorta is of normal caliber with mild atherosclerotic disease. There appears to be good perfusion to the liver, spleen and both kidneys. No gallbladder, pancreatic or adrenal gland abnormality is seen. There is lumbar spondylosis. IMPRESSION: Aortoiliac atherosclerosis without evidence of significant stenosis, occlusion or aneurysm. Dictated on workstation # [id number] Dict: 06/22/221838 Trans: 06/22/22 185 LIA [id number] Interpreted by: ODESSA DERAS MD Electronically signed by: ROSA ISELA [facility] [place], [place] NAME: CARINE WAGNER III [facility] REC#: [id number] PT STATUS: REG ER : 1955 PHYSICIAN: TUNDE MULLINS MD ADMIT DATE: 06/22/22/ER FS Draft Date of Exam:06/22/22 CT HEAD WO-R/O STROKE PROCEDURE: CT head wo r/o stroke. TECHNIQUE: Multiple contiguous axial images were obtained through the brain without the use of intravenous contrast. Auto Exposure Controls were utilized during the CT exam to meet ALARA standards for radiation dose reduction. INDICATION: Left paresthesia. COMPARISON: 05/30/2021. FINDINGS: Ventricles and sulci are within normal limits for patient's age. Lucencies in the left basal ganglia are again noted and likely represent nonacute lacunar infarcts. There is dense atherosclerotic calcification within distal internal carotid and vertebral arteries. No hemorrhage is identified. There is no abnormal mass effect or shift of midline structures. IMPRESSION: Stable chronic findings without CT evidence of acute intracranial abnormality. Dictated on workstation # [id number] Dict: 06/22/221825 Trans: 06/22/221830 AS6 [id number] Interpreted by: ODESSA DERAS MD Electronically signed by: Departure Impression Primary Impression: Chest pain Qualified Codes: R07.82 - Intercostal pain Additional Impression: Atrial fibrillation with controlled ventricular rate Disposition: 01 HOME, SELF-CARE Condition: Stable Departure-Patient Inst. Decision time for Depature: 19:15 Referrals: LYSSA MCDOWELL MD (PCP) Primary Care Physician SCOTTIE CARLTON MD (Family) Primary Care Physician Patient Instructions: Atrial Fibrillation and Atrial Flutter ED Add. Discharge Instructions: I suspect your symptoms were due to your atrial fibrillation being slightly out of control and your heart rate was slightly elevated when you arrived here. When your heart rate came down, your symptoms did improve. Your blood pressure also was very elevated on arrival here and came down with medications. Be sure to take your nightly blood pressure medicine. Also be sure to follow-up with the air conditioning installer supervisor to discuss potential medication changes. TUNDE MULLINS MD Jun 22, 2022 17:47
[2022-06-22 17:54] LABS: INR 1.1 (0.8-1.4); PROTHROMBIN TIME PATIENT 14.7 SEC (12.2-14.7)
[2022-06-22 17:59] LABS: ALBUMIN 4.3 GM/DL (3.2-4.5); BILIRUBIN,TOTAL 0.8 MG/DL (0.1-1.0); CALCIUM 8.7 MG/DL (8.5-10.1); CREATININE SERUM 1.08 MG/DL (0.60-1.30); POTASSIUM 4.3 MMOL/L (3.6-5.0); TOTAL PROTEIN 6.5 GM/DL (6.4-8.2)
[2022-06-22] MEDS ORDERED: HOLD METFORMIN - RECEIVED CONTRAST 20 ML VIAL IV SCH (18:00)
[2022-06-22] MEDS ORDERED: IOHEXOL 350 MG/ML 100 ML (OMNIPAQUE 350) VIAL IV ONE (18:00)
[2022-06-22] MEDS ORDERED: CATHETER FLUSH 10 ML SYR IV PRN (18:00)
[2022-06-22] MEDS ORDERED: NS 100 ML (IVPB) BAG IV ONE (18:00)
--- NOTE | 2022-06-22 18:33 | Diagnostic Imaging Report ---
PROCEDURE: CT head wo r/o stroke. TECHNIQUE: Multiple contiguous axial images were obtained through the brain without the use of intravenous contrast. Auto Exposure Controls were utilized during the CT exam to meet ALARA standards for radiation dose reduction. INDICATION: Left paresthesia. COMPARISON: 05/30/2021. FINDINGS: Ventricles and sulci are within normal limits for patient's age. Lucencies in the left basal ganglia are again noted and likely represent nonacute lacunar infarcts. There is dense atherosclerotic calcification within distal internal carotid and vertebral arteries. No hemorrhage is identified. There is no abnormal mass effect or shift of midline structures. IMPRESSION: Stable chronic findings without CT evidence of acute intracranial abnormality. Dictated by: Dictated on workstation # [id number]
--- NOTE | 2022-06-22 18:52 | Diagnostic Imaging Report ---
PROCEDURE: CT angiography of the chest with contrast and CT abdomen and pelvis with contrast. TECHNIQUE: Multiple contiguous axial images were obtained through the chest, abdomen and pelvis after administration of intravenous contrast. 3D MIP reconstructed CT angiography acquisitions of the aorta were then performed. Auto Exposure Controls were utilized during the CT exam to meet ALARA standards for radiation dose reduction. INDICATION: Left paresthesia There is good opacification of the pulmonary arteries without intraluminal filling defect identified. Thoracic aorta is of normal caliber without evidence of intimal abnormality. There does appear to be aneurysmal dilatation of left main coronary artery with dense calcification extending into the left anterior descending and circumflex branches. Additional calcification is seen within right coronary artery. Calcified granulomas are seen in the mediastinum with gaseous distention of the esophagus, diffusely. This can be related to reflux. Minimal subpleural scarring is present within the lungs. No definite mass or focal infiltrate is appreciated. Left subclavian artery is widely patent. 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 Clinical correlation would be useful. CTA ABDOMEN and pelvis: Abdominal aorta is of normal caliber with mild atherosclerotic disease. There appears to be good perfusion to the liver, spleen and both kidneys. No gallbladder, pancreatic or adrenal gland abnormality is seen. There is lumbar spondylosis. IMPRESSION: Aortoiliac atherosclerosis without evidence of significant stenosis, occlusion or aneurysm. Dictated by: Dictated on workstation # [id number]
[2022-06-22 19:10] VITALS: BP 143/84
== END 2022-06-22 19:11 | disposition home or self-care (01) ==
LOC: EDUNIT# 17:17 → ER FS 17:19
DX: R07.89 Other chest pain (principal); I48.91 Unspecified atrial fibrillation; I10 Essential (primary) hypertension; Z79.01 Long term (current) use of anticoagulants
CPT/HCPCS: 36415; 70450; 71275; 74174; 80053; 83690; 83735; 84484; 85025; 85610; 85730; 93005; 93041

== ENCOUNTER 2022-06-23 10:49 | Emergency (ER) | payer MEDICARE, OTHER ==
[2022-06-23] MEDS ORDERED: ASPIRIN 81 MG CHEW (CHILDREN'S ASA) PO ONE (11:30)
[2022-06-23] MEDS ORDERED: NITROGLYCERIN 0.4 MG SL TABS BTL 25'S SL PRN (11:30)
--- NOTE | 2022-06-23 11:30 | ED Cardiac General ---
History of Present Illness General Chief Complaint: Chest Pain Stated Complaint: HIGH BLOOD PRESSURE | CHEST DISCOMFORT Nursing Triage Note: PT AMB TO [facility] 7 WITH C/O CP AND HIGH BLOOD PRESSURE. PT STATES HE WAS ON HIS WAY TO SEE DR TIRADO AT HIS OFFICE TODAY WHEN HE STARTED HAVING CHEST PAIN SO HE CAME TO ER Source: patient Exam Limitations: no limitations History of Present Illness Date Seen by Provider: Jun 23, 2022 Time Seen by Provider: 11:15 Initial Comments History provided by patient. Patient is a 66-year-old male who presents to the emergency department for evaluation of palpitations, rapid heart rate, and mild chest pain. Patient has been evaluated at the [facility] on 06/19, 06/20, and 06/22 for similar symptoms. He has had extensive work-ups at each of these visits. He was noted to be in atrial fibrillation on the initial visit and was placed on Xarelto. He was also found to be hyponatremic at that time and told to stop his diuretics. Patient has also been having issues with hypertension. At his visit on 06/22 his work-up was overall reassuring with a negative troponin. Patient was also endorsing some lower extremity tingling and thus a CT of the head was ordered that was acutely negative. CTA of the chest was also acutely negative. He states his pain today is much improved from what it was 2 days ago at his prior ER visit. He was coming here for an appointment with his clearance diver Dr. Tirado when he felt like his palpitations were worsening thus he presented to the ER for further evaluation. Patient states he has been having intermittent periods of similar symptoms for over 1 month. He states he did take a dose of his previously prescribed diuretics today due to his blood pressure being elevated. ASA po TOOL SPECIALIST: No Allergies and Home Medications Allergies Coded Allergies: No Known Drug Allergies (Unverified , 12/30/19) Patient Home Medication List Home Medication List Reviewed: Yes Carvedilol (Carvedilol) 25 Mg Tablet, 25 MG PO BID, (Reported) Entered as Reported by: LIZ LEVINE on 12/30/19 1301 Doxazosin Mesylate (Doxazosin Mesylate) 4 Mg Tablet, (Reported) Entered as Reported by: NATALIE MOSLEY on 04/23/22 0546 Lisinopril (Lisinopril) 40 Mg Tablet, 40 MG PO DAILY, (Reported) Entered as Reported by: LZI LEVINE on 12/30/19 1259 Methocarbamol (Methocarbamol) 750 Mg Tablet, 750 MG PO Q8H PRN for MUSCLE SPASMS Prescribed by: CHAPO KENNEDY on 06/19/22 1102 Review of Systems Review of Systems Constitutional: no symptoms reported EENTM: No Symptoms Reported Respiratory: No Symptoms Reported Cardiovascular: See HPI, Chest Pain, Irregular Heart Rate, Palpitations Gastrointestinal: No Symptoms Reported Genitourinary: No Symptoms Reported Musculoskeletal: no symptoms reported Skin: no symptoms reported Psychiatric/Neurological: No Symptoms Reported Endocrine: No Symptoms Reported Hematologic/Lymphatic: No Symptoms Reported Past Esrayet-Fztflh-Ojdlsx Hx Patient Social History Tobacco Use?: No Use of E-Cig and/or Vaping dev: No Substance use?: No Alcohol Use?: No Pt feels they are or have been: No Immunizations Up To Date Influenza Vaccine Up-to-Date: No; Not Current Past Medical History Surgery/Hospitalization HX: TIA in 2003, Lacunar Infarcts Left Basal Ganglia, Hypertension, coronaryartery disease, hypothyroidism, hyperlipidemia, chronic kidney disease,anxiety, depression Surgeries: Yes Cardiac Respiratory: No Cardiac: Yes Coronary Artery Disease, High Cholesterol, Hypertension Neurological: Yes TIA Reproductive Disorders: No Sexually Transmitted Disease: No HIV/AIDS: No Genitourinary: Yes Prostate Problems Gastrointestinal: No Ulcer Musculoskeletal: No Endocrine: Yes Hypothyroidsim HEENT: Yes Tinnitis Loss of Vision: Denies Hearing Impairment: Denies Prostate Psychosocial: Yes Anxiety, Depression Family Medical History No Pertinent Family Hx Physical Exam Vital Signs Vital Signs - First Documented 06/23/22 11:02 Temp 36.6 Pulse 95 Resp 20 B/P (MAP) 201/129 (153) Capillary Refill : Height, Weight, BMI Height: 6'1.00" Weight: 244lbs. 7.2oz. 110.139639mv; 34.00 BMI Method: General Appearance: No Apparent Distress, WD/WN HEENT: PERRL/EOMI, TMs Normal, Normal ENT Inspection, Pharynx Normal Neck: Full Range of Motion, Normal Inspection, Non Tender, Supple Respiratory: Chest Non Tender, Lungs Clear, Normal Breath Sounds, No Accessory Muscle Use, No Respiratory Distress Cardiovascular: Normal Peripheral Pulses, Irregularly Irregular Gastrointestinal: Non Tender, Soft Extremity: Non Tender, No Calf Tenderness Neurologic/Psychiatric: Alert, Oriented x3, No Motor/Sensory Deficits, Normal Mood/Affect Skin: Normal Color, Warm/Dry Progress/Results/Core Measures Results/Orders Lab Results Laboratory Tests Test 06/23/22 10:58 06/23/22 11:45 Range/Units White Blood Count 8.5 4.3-11.0 10^3/uL Red Blood Count 5.30 4.30-5.52 10^6/uL Hemoglobin 15.6 13.3-17.7 g/dL Hematocrit 46 40-54 % Mean Corpuscular Volume 87 80-99 fL Mean Corpuscular Hemoglobin 29 25-34 pg Mean Corpuscular Hemoglobin Concent 34 32-36 g/dL Red Cell Distribution Width 12.5 10.0-14.5 % Platelet Count 184 130-400 10^3/uL Mean Platelet Volume 9.7 9.0-12.2 fL Immature Granulocyte % (Auto) 0 % Neutrophils (%) (Auto) 74 42-75 % Lymphocytes (%) (Auto) 14 12-44 % Monocytes (%) (Auto) 8 0-12 % Eosinophils (%) (Auto) 3 0-10 % Basophils (%) (Auto) 1 0-10 % Neutrophils # (Auto) 6.3 1.8-7.8 X 10^3 Lymphocytes # (Auto) 1.2 1.0-4.0 X 10^3 Monocytes # (Auto) 0.7 0.0-1.0 X 10^3 Eosinophils # (Auto) 0.3 0.0-0.3 10^3/uL Basophils # (Auto) 0.1 0.0-0.1 10^3/uL Immature Granulocyte # (Auto) 0.0 0.0-0.1 10^3/uL Sodium Level 133 L 135-145 MMOL/L Potassium Level 4.1 3.6-5.0 MMOL/L Chloride Level 100 98-107 MMOL/L Carbon Dioxide Level 23 21-32 MMOL/L Anion Gap 10 5-14 MMOL/L Blood Urea Nitrogen 17 7-18 MG/DL Creatinine 1.02 0.60-1.30 MG/DL Estimat Glomerular Filtration Rate 80 BUN/Creatinine Ratio 17 Glucose Level 104 70-105 MG/DL Calcium Level 9.0 8.5-10.1 MG/DL Corrected Calcium 8.8 8.5-10.1 MG/DL Magnesium Level 2.1 1.6-2.4 MG/DL Total Bilirubin 1.1 H 0.1-1.0 MG/DL Aspartate Amino Transf (AST/SGOT) 34 5-34 U/L Alanine Aminotransferase (ALT/SGPT) 27 0-55 U/L Alkaline Phosphatase 61 40-136 U/L Troponin I < 0.028 <0.028 NG/ML Total Protein 7.3 6.4-8.2 GM/DL Albumin 4.3 3.2-4.5 GM/DL Prothrombin Time 23.3 H 12.2-14.7 SEC INR Comment 2.0 H 0.8-1.4 Activated Partial Thromboplast Time 38 H 24-35 SEC My Orders Orders - [facility] [employer] Cbc With Automated Diff (06/23/22 11:26) Magnesium (06/23/22 11:26) Chest 1 View, Ap/Pa Only (06/23/22 11:26) Comprehensive Metabolic Panel (06/23/22 11:26) Protime With Inr (06/23/22 11:26) Partial Thromboplastin Time (06/23/22 11:26) O2 (06/23/22 11:26) Monitor-Rhythm Ecg Trace Only (06/23/22 11:26) Ed Iv/Invasive Line Start (06/23/22 11:26) Troponin I Bent (06/23/22 11:26) Nitroglycerin 0.4 Mg Btl 25's (Nitrostat (06/23/22 11:30) Aspirin Chewable Tablet (Baby Aspirin Ch (06/23/22 11:30) Medications Given in ED Current Medications Medications Dose Ordered Sig/Hernesto Route Start Time Stop Time Status Last Admin Dose Admin Nitroglycerin 0.4 mg UD PRN SL 06/23/22 11:30 06/23/22 11:35 0.4 MG Vital Signs/I&O 06/23/22 11:02 Temp 36.6 Pulse 95 Resp 20 B/P (MAP) 201/129 (153) Blood Pressure Mean: 153 Progress Progress Note : Progress Note Patient is nontoxic and well-hydrated on exam. Vital signs are overall reassuring other than hypertension. Patient's chest pain is pinpoint on the left side of his chest. He also endorses some pain in his left upper back. States the pain today is much improved from what it was 2 days ago. Heart rate on initial EKG was 105 but during the majority of my exam his heart rate was between 70 and 90 on the monitor in the room. Patient is ambulatory without issue. Denies any significant shortness of breath. States chest pain is not associated with exertion. Denies any specific exacerbating factors. Denies any recent lower extremity swelling. Chest pain work-up ordered including CBC, CMP, magnesium, chest x-ray, coagulation studies, and EKG. Initial EKG reveals atrial fibrillation and right bundle branch block without any obvious ischemic changes. CBC is unremarkable. Complete metabolic panel shows a sodium of 133 which is improved compared to the evaluation of the last 3 ER visits. Troponin is negative. Chest x-ray acutely negative. Patient was given 2 doses of nitroglycerin and states his chest pain is 1 out of 10. His blood pressure reduced as well. Patient took 5 baby aspirins before coming to the emergency department and thus no further aspirin was given. Patient has an appointment with Dr. Tirado later today and this will be discharged to the emergency department to make that appointment for further cardiology evaluation. His work-up today is very reassuring. No need for a repeat troponin as his p ain has been intermittently present for several days. Discussed supportive care and anticipatory guidance. Follow-up with Dr. Tirado today as scheduled. Return precautions for urgent symptomology discussed. Patient verbalized understanding. EKG : EKG Time: 10:56 Rate: 15 Rhythm: A Fib/Flutter ECG Comparisson: Unchanged ECG Impression: Atrial Fibrillation, Atrial Fibrillation w/RVR Departure Impression Primary Impression: Chest pain Qualified Codes: R07.9 - Chest pain, unspecified Additional Impression: Atrial fibrillation with controlled ventricular rate Disposition: HOME, SELF-CARE Condition: Stable Departure-Patient Inst. Decision time for Depature: 12:25 Referrals: LYSSA MCDOWELL MD (PCP) Primary Care Physician SCOTTIE CARLTON MD (Family) Primary Care Physician Patient Instructions: Atrial Fibrillation and Atrial Flutter ED, Chest Pain, Adult ED Add. Discharge Instructions: Follow-up with Dr. Tirado today as scheduled for further evaluation. All discharge instructions reviewed with patient and/or family. Voiced understanding. TRENA BOLDEN APRN Jun 23, 2022 11:30
[2022-06-23 11:35] LABS: BASOPHILS # (AUTO) 0.1 10^3/uL (0.0-0.1); BASOPHILS % (AUTO) 1 % (0-10); EOSINOPHILS # (AUTO) 0.3 10^3/uL (0.0-0.3); EOSINOPHILS % (AUTO) 3 % (0-10); HEMATOCRIT 46 % (40-54); HEMOGLOBIN 15.6 g/dL (13.3-17.7); LYMPHOCYTES # (AUTO) 1.2 X 10^3 (1.0-4.0); LYMPHOCYTES % (AUTO) 14 % (12-44); MEAN CORPUSCULAR HEMOGLOBIN 29 pg (25-34); MEAN CORPUSCULAR HGB CONC 34 g/dL (32-36); MEAN CORPUSCULAR VOLUME 87 fL (80-99); MEAN PLATELET VOLUME 9.7 fL (9.0-12.2); MONOCYTES # (AUTO) 0.7 X 10^3 (0.0-1.0); MONOCYTES % (AUTO) 8 % (0-12); NEUTROPHILS # (AUTO) 6.3 X 10^3 (1.8-7.8); NEUTROPHILS % (AUTO) 74 % (42-75); PLATELET COUNT 184 10^3/uL (130-400); WHITE BLOOD COUNT 8.5 10^3/uL (4.3-11.0)
[2022-06-23 11:37] LABS: ALBUMIN 4.3 GM/DL (3.2-4.5)
[2022-06-23 11:38] LABS: POTASSIUM 4.1 MMOL/L (3.6-5.0)
[2022-06-23 11:40] LABS: TOTAL PROTEIN 7.3 GM/DL (6.4-8.2)
[2022-06-23 11:42] LABS: BILIRUBIN,TOTAL 1.1 MG/DL (0.1-1.0)
[2022-06-23 11:43] LABS: CREATININE SERUM 1.02 MG/DL (0.60-1.30)
--- NOTE | 2022-06-23 11:45 | Diagnostic Imaging Report ---
Indication: Chest pain and elevated blood pressure. Time of Exam: 11:25 AM Correlation is made with prior chest 06/20/2022. The heart is enlarged and stable. Right hemidiaphragm is chronically elevated. Lungs are clear. No infiltrates are detected. There is no effusion or pneumothorax. IMPRESSION: Stable chest. No acute feature is detected. Dictated by: Dictated on workstation # [id number]
[2022-06-23 11:46] LABS: MAGNESIUM 2.1 MG/DL (1.6-2.4)
[2022-06-23 12:11] LABS: PROTHROMBIN TIME PATIENT 23.3 SEC (12.2-14.7)
[2022-06-23 12:32] VITALS: BP 160/107
== END 2022-06-23 12:33 | disposition home or self-care (01) ==
LOC: EDUNIT# 10:49 → ER 10:51
DX: I48.91 Unspecified atrial fibrillation (principal); I45.10 Unspecified right bundle-branch block; I12.9 Hypertensive chronic kidney disease with stage 1 through stage 4 chronic kidney disease, or unspecified chronic kidney disease; N18.9 Chronic kidney disease, unspecified; Z79.01 Long term (current) use of anticoagulants; Z28.310 Unvaccinated for COVID-19
CPT/HCPCS: 36415; 71045; 80053; 83735; 84484; 85025; 85610; 85730; 93005; 93041

== ENCOUNTER → 2022-06-28 | Outpatient (CLI) | payer MEDICARE, OTHER ==
[~2022-06-28] VITALS: Ht 182 cm; Wt 114.0 kg
[~2022-06-28] MED LIST changes: +CATHETER FLUSH 10 ML SYR IVP PRN; +REGADENOSON 0.4 MG/5 ML SYR (LEXISCAN) IV ONE
[2022-06-28 09:33] VITALS: BP 177/111
--- NOTE | 2022-06-28 18:55 | STRESS TEST ---
DATE OF SERVICE: 06/28/2022 RESTING AND POST REGADENOSON TECHNETIUM-99M TETROFOSMIN SPECT CT IMAGING ORDERING PHYSICIAN: Tex Vance M.D.; FRANCISCO; ANTONIA; ROMAN. PRIMARY PHYSICIAN: Dr. Burgos. CLINICAL DIAGNOSIS: Coronary artery disease. DESCRIPTION OF PROCEDURE: Baseline images were carried out after injection of 10.74 mCi of technetium-99m tetrofosmin. This was followed by 0.4 mg regadenoson and 30.2 mCi of technetium-99m tetrofosmin for stress imaging. The electrocardiogram showed atrial fibrillation and right-bundle branch block throughout the study. The electrocardiogram did not change significantly with regadenoson infusion. The patient tolerated the procedure well. Review of images at rest and following stress indicated anterior and inferior perfusion defects that appeared to be transient. Gated images show no distinct regional wall motion abnormality. Left ventricular ejection fraction is calculated to be 54%. Left ventricular end-diastolic volume is 131 mL. CONCLUSIONS: 1. This study is indicative of ischemia in the anterior and inferior ferro. Ischemia is moderate. 2. Well-preserved global left ventricular systolic function with an ejection fraction of 54% without distinct regional wall motion abnormality. 3. Moderate cardiomegaly. Job ID: [id number] DocumentID: [id number] Dictated Date: 06/28/2022 14:27:37 Garment Mender Date: 06/28/2022 18:52:00 Dictated By: TEX VANCE MD; FRANCISCO; ANTONIA; ROMAN;
== END ==
LOC: CARD 07:39
PROVIDERS: ATTEND Internal Medicine Cardiovascular Disease
DX: I51.7 Cardiomegaly (principal); I25.10 Atherosclerotic heart disease of native coronary artery without angina pectoris
CPT/HCPCS: 78452; 93017; A9502

== ENCOUNTER → 2022-06-30 | Outpatient (CLI) | payer MEDICARE, OTHER ==
[~2022-06-30] MED LIST changes: +ASPI1POW PO; +ATOR20TA66 PO; -CATHETER FLUSH 10 ML SYR IVP PRN; +DOXA8TAB73 PO; +FLUT9.9S NS; +HYDR25TA4 PO; +IBUP-30 PO; +IBUP1TAB14 PO; +LOSA100T57 PO; +MAGN400T39 PO; -REGADENOSON 0.4 MG/5 ML SYR (LEXISCAN) IV ONE; +RIVA20TA PO; +SPIR25TA5 PO
== END ==
LOC: CARDFS 12:45
PROVIDERS: ATTEND Internal Medicine Cardiovascular Disease
DX: I08.0 Rheumatic disorders of both mitral and aortic valves (principal); I25.10 Atherosclerotic heart disease of native coronary artery without angina pectoris
CPT/HCPCS: 93306

== ENCOUNTER 2022-07-05 10:39 | Day surgery (SDC) | payer MEDICARE, OTHER ==
[2022-07-05] VITALS (9 sets, daily range): BP systolic 127–162; BP diastolic 97–115
[~2022-07-05] VITALS: Ht 185 cm; Wt 115.0 kg
[~2022-07-05 10:39] MED LIST changes: -ASPI1POW PO; -ATOR20TA66 PO; -DOXA8TAB73 PO; -FLUT9.9S NS; -HYDR25TA4 PO; -IBUP-30 PO; -IBUP1TAB14 PO; -LOSA100T57 PO; -MAGN400T39 PO; -RIVA20TA PO; -SPIR25TA5 PO
[2022-07-05] MEDS ORDERED: NS IV 1000 ML 1,000 ML IV SCH ×2 (11:00→14:15)
[2022-07-05] MEDS ORDERED: LIDOCAINE 1% INJ 20 ML VIAL ONE (11:02)
[2022-07-05] MEDS ORDERED: NS IV 1000 ML 1,000 ML ONE (11:02)
[2022-07-05] MEDS ORDERED: HEParin (CATH LAB) 2,000 ML IV ONE (11:02)
[2022-07-05 11:36] LABS: HEMATOCRIT 44 % (40-54); HEMOGLOBIN 14.8 g/dL (13.3-17.7); MEAN CORPUSCULAR HEMOGLOBIN 30 pg (25-34); MEAN CORPUSCULAR HGB CONC 34 g/dL (32-36); MEAN CORPUSCULAR VOLUME 90 fL (80-99); MEAN PLATELET VOLUME 9.6 fL (9.0-12.2); PLATELET COUNT 175 10^3/uL (130-400); WHITE BLOOD COUNT 7.4 10^3/uL (4.3-11.0)
[2022-07-05 11:48] LABS: INR 1.1 (0.8-1.4); PROTHROMBIN TIME PATIENT 15.1 SEC (12.2-14.7)
[2022-07-05] MEDS ORDERED: SPIR25TA5 PO (11:55)
[2022-07-05] MEDS ORDERED: LOSA100T57 PO (11:55)
[2022-07-05] MEDS ORDERED: ASPI1POW PO (11:55)
[2022-07-05] MEDS ORDERED: IBUP1TAB14 PO (11:55)
[2022-07-05] MEDS ORDERED: IBUP-30 PO (11:55)
[2022-07-05] MEDS ORDERED: DOXA8TAB73 PO (11:55)
[2022-07-05] MEDS ORDERED: RIVA20TA PO (11:55)
[2022-07-05] MEDS ORDERED: MAGN400T39 PO (11:55)
[2022-07-05] MEDS ORDERED: FLUT9.9S NS (11:55)
[2022-07-05] MEDS ORDERED: HYDR25TA4 PO (11:55)
[2022-07-05 11:57] LABS: ALBUMIN 4.1 GM/DL (3.2-4.5); BILIRUBIN,TOTAL 1.4 MG/DL (0.1-1.0); CALCIUM 9.1 MG/DL (8.5-10.1); CREATININE SERUM 1.11 MG/DL (0.60-1.30); POTASSIUM 3.8 MMOL/L (3.6-5.0); TOTAL PROTEIN 6.9 GM/DL (6.4-8.2)
[2022-07-05] MEDS ORDERED: MIDAZOLAM 5 MG/5 ML (VERSED) VIAL ONE (12:11)
[2022-07-05] MEDS ORDERED: fentaNYL INJ 100 MCG/2 ML AMP ONE (12:11)
[2022-07-05] MEDS ORDERED: diphenhydrAMINE 50 MG/ML INJ (BENADRYL) ONE (13:25)
--- NOTE | 2022-07-05 14:01 | Cardiac Procedure Note-CS/ASA ---
Pre-Procedure Note Pre-Op Procedure Note Date of Available H&P: Jun 23, 2022 Date H&P Reviewed: Jul 05, 2022 Time H&P Reviewed: 12:30 History & Physical: H&P Reviewed, No changes noted Conscious Sedation Pre-Proced ASA Score 3 For ASA 3 and 4: Consider anesthesia and medical clearance. Also, for patients with a history of failed moderate sedation consider anesthesia. Airway Lungs Heart ASA score ASA 1: a normal healthy patient ASA 2: a patient with a mild systemic disease (mid diabetes, controlled hypertension, obesity ASA 3: a patient with a severe systemic disease that limits activity (angina, COPD, prior Myocardial infarction) ASA 4: a patient with an incapacitating disease that is a constant threat to life (CHF, renal failure) ASA 5: a moribund patient not expected to survive 24 hrs. (ruptured aneurysm) ASA 6: a declared brain- patient whose organs are being harvested. For emergent operations, add the letter E after the classification Mallampati Classification Grade 2 Sedation Plan Analgesia, Amnesia, Plan communicated to team members The patient is an appropriate candidate to undergo the planned procedure, sedation, and anesthesia. The patient immediately re-assessed prior to indication. JOEL TIRADO MD FACP FAC CCDS Jul 05, 2022 14:01
--- NOTE | 2022-07-05 14:04 | Discharge Inst-Cardiology ---
Discharge Inst-Cardiac Discharge Medications Continued Medications: Aspirin/Caffeine (Bc Arthritis Powder Packet) 1,000 Mg-65 Mg Powd.pack 1 EACH PO Q6H PRN for ARTHITIS PAIN, EACH Carvedilol (Carvedilol) 25 Mg Tablet 25 MG PO BID, TAB Doxazosin Mesylate (Doxazosin Mesylate) 8 Mg Tablet 16 MG PO DAILY, TAB TAKES 2 (8MG) TABLETS Fluticasone Propionate (Flonase Allergy Relief) 50 Mcg/Actuation Wishon.susp 1 SPRAY NS DAILY PRN for DRY NOSE, EACH Hydrochlorothiazide (Hydrochlorothiazide) 25 Mg Tablet 25 MG PO DAILY, TAB Losartan Potassium (Losartan Potassium) 100 Mg Tablet 100 MG PO DAILY, TAB Magnesium Oxide (Magnesium) 400 Mg Magnesium Tablet 400 MG PO BID, TAB Rivaroxaban (Xarelto) 20 Mg Tablet 20 MG PO DAILY, TAB Spironolactone (Spironolactone) 25 Mg Tablet 25 MG PO DAILY, TAB Discontinued Medications: Ibuprofen (Advil) 200 Mg Tablet 400 MG PO Q6H PRN for PAIN-MILD (1-4), TAB Ibuprofen/Diphenhydramine Cit (Advil Pm Caplet) 200 Mg-38 Mg Tablet 2 EACH PO HS, TAB JOEL TIRADO MD FACP [facility] CCDS Jul 05, 2022 14:04
--- NOTE | 2022-07-05 14:05 | Discharge Inst-Post CATH ---
Discharge Inst-CATH/EP Post Cardiac Cath/EP D/C Inst Follow Up/Plan F/u with Dr Vance in 1-2 weeks ACTIVITY * Go Home directly and rest. * Limit activity of the leg (or wrist if it was used) for 7 days including aerobics, swimming, jogging, bicycling, etc. * Restrict stair-climbing for 7 days if possible, if not, climb up with your non-cath leg, then bring together on the same step. * Avoid lifting, pushing, pulling or excessive movement of the affected e xtremity for 7 days. * Customary sexual activity may be resumed after 2 days-use caution not to use a position that strains or causes pain to the affected extremity. * No driving for 24 hours. * NO SMOKING. * Avoid straining for bowel movements for 7 days. * Gentle walking on level ground is allowed. * Returning to work will depend on the type of procedure and the results. Your doctor will discuss this with you. CALL YOUR DOCTOR FOR ANY OF THE FOLLOWING: *If bleeding from the puncture site occurs- Apply gentle pressure to site with clean cloth and call your doctor or EMS. * If a knot or lump forms under the skin, increases in size, or causes pain. * If bruising appears to be worsening or moving further down your leg instead of disappearing. * Temperature above 101 F. CARE OF YOUR GROIN INCISION; * Bruising or purple discoloration of the skin near the puncture site is common. * You may shower only, no bathtub bathing for 5 days. Be careful to avoid slipping as your leg may feel stiff. * If a closure device was used on your femoral artery, please see the attached guide regarding care of the device and your leg. * Leave dressing on FOR 24 hours. CARE OF YOUR WRIST INCISION; * Bruising or purple discoloration of the skin near the puncture site is common. * You may shower. * DO NOT submerge wrist. * Leave dressing on FOR 24 hours. JOEL VANCE MD FACP FAC CCDS Jul 05, 2022 14:05
[2022-07-05] MEDS ORDERED: ATOR20TA66 PO (14:08)
[2022-07-05] MEDS ORDERED: PATIENT MAY USE OWN MEDS, ALL PO SCH (14:15)
--- NOTE | 2022-07-05 15:56 | CARDIAC CATHETERIZATION ---
DATE OF SERVICE: 07/05/2022 CARDIAC CATHETERIZATION INDICATION: The patient is a 66-year-old gentleman who has a history of coronary artery disease. Recent myocardial perfusion imaging indicated anterior and inferior ischemia. Cardiac catheterization was carried out after having obtained an informed consent. DESCRIPTION OF PROCEDURE: The patient was brought to the cardiac catheterization laboratory in a fasting state. Right groin was prepared and draped in the usual sterile fashion. A 1% lidocaine used for local anesthesia. Modified Seldinger technique used to advance a 5-Tunisian sheath in the right femoral artery. Subsequently, we exchanged the sheath over a long wire for a 6-Tunisian 45 cm sheath. This was done because there was considerable aortoiliac tortuosity and the long sheath provided better support for the catheters and for torquing the catheters. We used a 6-Tunisian JL5 catheter to engage the left coronary artery and a 6-Tunisian JR4 catheter to engage the right coronary artery. We used a 6-Tunisian pigtail catheter to carry out left heart catheterization, left ventricular angiography. The catheters were removed. The sheath was exchanged over a long wire for a short 6-Tunisian sheath. The wire was removed. Angiography of the right femoral artery was carried out through the sheath and Mynx was used to achieve hemostasis following sheath removal. He tolerated the procedure well. HEMODYNAMICS: Left ventricular end diastolic pressure following coronary angiography was 21 mmHg. There was no significant pressure gradient on pullback across the aortic valve. Ascending aortic pressure is 141/103 with a mean of 119 mmHg. CORONARY ANGIOGRAPHY: Diffuse coronary calcification is present. Left main coronary artery is large and does not exhibit significant disease. Left anterior descending artery has diffuse moderate disease and calcification. There is approximately 50% proximal stenosis of the left anterior descending. The left anterior descending artery is occluded in its distal portion and there is a faint antegrade collateral supplying the very distal/apical segment of the left anterior descending. The right coronary artery also fills via left to right collaterals. The right coronary artery is occluded in its mid portion. There is diffuse moderate disease of the patent portion of the right coronary artery. LEFT VENTRICULAR ANGIOGRAPHY: Left ventricular angiography was carried out in the right anterior oblique projection. Global left ventricular systolic function appears to be well preserved. Left ventricular ejection fraction is approximately 60%. No distinct regional wall motion abnormalities were seen on this study. CONCLUSION: 1. Multivessel coronary artery disease including distal occlusion of the left anterior descending and mid vessel occlusion of the right coronary. The distal left anterior descending and the distal right coronary artery are supplied via collaterals. There is moderate diffuse disease and calcification of all coronary vessels. 2. Well preserved global left ventricular systolic function with an ejection fraction of approximately 60%. 3. Elevated left ventricular end-diastolic pressure (21 mmHg). Job ID: [id number] DocumentID: [id number] Dictated Date: 07/05/2022 13:57:28 Smog Technician Date: 07/05/2022 15:54:00 Dictated By: JOEL TIRADO MD; FRANCISCO; FACP; FACC;
== END 2022-07-05 17:35 | disposition home or self-care (01) ==
LOC: CATH 10:39 → SDC 14:14 → CATH 17:35
PROVIDERS: ATTEND Internal Medicine Cardiovascular Disease
DX: I25.10 Atherosclerotic heart disease of native coronary artery without angina pectoris (principal); I48.0 Paroxysmal atrial fibrillation; I10 Essential (primary) hypertension; E78.5 Hyperlipidemia, unspecified; E66.9 Obesity, unspecified; I25.2 Old myocardial infarction; E03.9 Hypothyroidism, unspecified; C61 Malignant neoplasm of prostate; R73.01 Impaired fasting glucose; E78.2 Mixed hyperlipidemia; R07.89 Other chest pain; R94.31 Abnormal electrocardiogram [ECG] [EKG]; Z28.310 Unvaccinated for COVID-19; Z79.890 Hormone replacement therapy; Z79.01 Long term (current) use of anticoagulants; Z87.891 Personal history of nicotine dependence; Z68.33 Body mass index [BMI] 33.0-33.9, adult
CPT/HCPCS: 80053; 80061; 85027; 85610; 85730; 87081; 93005; 93458; C1760; C1894 ×3; 36415

== ENCOUNTER 2022-08-25 05:41 | Emergency (ER) | payer MEDICARE, OTHER ==
[~2022-08-25] VITALS: Ht 182.8 cm; Wt 113.0 kg
[~2022-08-25 05:41] MED LIST changes: +ASPI1POW PO; +ATOR20TA66 PO; +DOXA8TAB73 PO; +FLUT9.9S NS; +HYDR25TA4 PO; +IBUP-30 PO; +IBUP1TAB14 PO; +LOSA100T57 PO; +MAGN400T39 PO; +RIVA20TA PO; +SPIR25TA5 PO
[2022-08-25 05:45] VITALS: BP 194/111
--- NOTE | 2022-08-25 06:15 | ED Cardiac General ---
History of Present Illness General Chief Complaint: Cardiac/General Problems Stated Complaint: AFIB,IRREGULAR HEARTBEAT Nursing Triage Note: Pt presents with c/o a-fib. Pt states he was diagnosed with a-fib approx 3 months ago. He reports over the past day and a half he's felt the a-fib, and could not sleep last night. he does report chest tightness. Source: patient Exam Limitations: no limitations History of Present Illness Date Seen by Provider: Aug 25, 2022 Time Seen by Provider: 05:49 Initial Comments 67-year-old male with past medical history of A-fib on Xarelto and high blood pressure coming in due to feeling like he can feel the A-fib more than usual, and also taking his blood pressure this morning and it was elevated. He did take his medicines just prior to arrival including his blood pressure medicine. He states he has been in A-fib for roughly 3 months, so that still relatively new to him. He states he felt like his heart was going fast, although when he actually checked his heart rate he was in the 60s. Has maybe some mild chest tightness, no real pain, no shortness of breath, fever, nausea, vomiting, diarrhea, focal weakness or numbness, abdominal pain, rash, or any other concerns. Allergies and Home Medications Allergies Coded Allergies: No Known Drug Allergies (Unverified , 12/30/19) Patient Home Medication List Home Medication List Reviewed: Yes Aspirin/Caffeine (Bc Arthritis Powder Packet) 1,000 Mg-65 Mg Powd.pack, 1 EACH PO Q6H PRN for ARTHITIS PAIN, (Reported) Entered as Reported by: DYLON CAPPS on 07/05/22 1155 Atorvastatin Calcium (Atorvastatin Calcium) 20 Mg Tablet, 20 MG PO DAILY Prescribed by: JOEL TIRADO on 07/05/22 1408 Carvedilol (Carvedilol) 25 Mg Tablet, 25 MG PO BID, (Reported) Entered as Reported by: LIZ LEVINE on 12/30/19 1301 Doxazosin Mesylate (Doxazosin Mesylate) 8 Mg Tablet, 16 MG PO DAILY, (Reported) Entered as Reported by: DYLON CAPPS on 07/05/22 1155 Fluticasone Propionate (Flonase Allergy Relief) 50 Mcg/Actuation [place].susp, 1 SPRAY NS DAILY PRN for DRY NOSE, (Reported) Entered as Reported by: DYLON CAPPS on 07/05/22 115 Hydrochlorothiazide (Hydrochlorothiazide) 25 Mg Tablet, 25 MG PO DAILY, (Reported) Entered as Reported by: DYLON CAPPS on 07/05/22 115 Losartan Potassium (Losartan Potassium) 100 Mg Tablet, 100 MG PO DAILY, (Reported) Entered as Reported by: DYLON CAPPS on 07/05/22 115 Magnesium Oxide (Magnesium) 400 Mg Magnesium Tablet, 400 MG PO BID, (Reported) Entered as Reported by: DYLON CAPPS on 07/05/22 115 Rivaroxaban (Xarelto) 20 Mg Tablet, 20 MG PO DAILY, (Reported) Entered as Reported by: DYLON CAPPS on 07/05/22 115 Spironolactone (Spironolactone) 25 Mg Tablet, 25 MG PO DAILY, (Reported) Entered as Reported by: DYLON CAPPS on 07/05/22 115 Review of Systems Review of Systems Constitutional: No fever EENTM: No Symptoms Reported Respiratory: No Symptoms Reported Cardiovascular: See HPI Gastrointestinal: No Symptoms Reported Genitourinary: No Symptoms Reported Musculoskeletal: no symptoms reported Skin: no symptoms reported Psychiatric/Neurological: No Symptoms Reported Endocrine: No Symptoms Reported Hematologic/Lymphatic: No Symptoms Reported Past Dlwrjau-Isvrcn-Sdsjnx Hx Patient Social History Tobacco Use?: No Past Medical History Surgery/Hospitalization HX: TIA in 2003, Lacunar Infarcts Left Basal Ganglia, Hypertension, coronaryartery disease, hypothyroidism, hyperlipidemia, chronic kidney disease,anxiety, depression Surgeries: Yes Tonsillectomy Respiratory: No Cardiac: Yes Atrial Fibrillation, Coronary Artery Disease, High Cholesterol, Hypertension Neurological: Yes TIA Reproductive Disorders: No Sexually Transmitted Disease: No HIV/AIDS: No Genitourinary: Yes Prostate Problems Gastrointestinal: No Diverticulosis, Hiatal Hernia, Ulcer Musculoskeletal: No Endocrine: Yes Hypothyroidsim HEENT: Yes Tinnitis Loss of Vision: Denies Hearing Impairment: Denies Prostate Psychosocial: Yes Anxiety, Depression Family Medical History No Pertinent Family Hx Physical Exam Vital Signs Vital Signs - First Documented 08/25/22 05:45 Temp 35.0 Pulse 83 Resp 16 B/P (MAP) 194/111 (138) Capillary Refill : Less Than 3 Seconds Height, Weight, BMI Height: 6'1.00" Weight: 244lbs. 7.2oz. [id number]; 33.00 BMI Method: General Appearance: No Apparent Distress, WD/WN HEENT: PERRL/EOMI, Normal ENT Inspection, Pharynx Normal Neck: Full Range of Motion, Normal Inspection, Non Tender, Supple Respiratory: Chest Non Tender, Lungs Clear, Normal Breath Sounds, No Accessory Muscle Use, No Respiratory Distress Cardiovascular: No Edema, Normal Peripheral Pulses, Irregularly Irregular Gastrointestinal: Normal Bowel Sounds, Non Tender, Soft; No Distended, No Guarding Extremity: Normal Capillary Refill, Normal Inspection, Normal Range of Motion, Non Tender, No Calf Tenderness, No Pedal Edema Neurologic/Psychiatric: Alert, No Motor/Sensory Deficits, Normal Mood/Affect Skin: Normal Color, Warm/Dry Progress/Results/Core Measures Results/Orders Lab Results Laboratory Tests Test 08/25/22 06:10 Range/Units White Blood Count 7.7 4.3-11.0 10^3/uL Red Blood Count 4.69 4.30-5.52 10^6/uL Hemoglobin 14.1 13.3-17.7 g/dL Hematocrit 42 40-54 % Mean Corpuscular Volume 90 80-99 fL Mean Corpuscular Hemoglobin 30 25-34 pg Mean Corpuscular Hemoglobin Concent 33 32-36 g/dL Red Cell Distribution Width 13.9 10.0-14.5 % Platelet Count 175 130-400 10^3/uL Mean Platelet Volume 9.9 9.0-12.2 fL Immature Granulocyte % (Auto) 0 % Neutrophils (%) (Auto) 72 42-75 % Lymphocytes (%) (Auto) 14 12-44 % Monocytes (%) (Auto) 8 0-12 % Eosinophils (%) (Auto) 4 0-10 % Basophils (%) (Auto) 1 0-10 % Neutrophils # (Auto) 5.6 1.8-7.8 10^3/uL Lymphocytes # (Auto) 1.1 1.0-4.0 10^3/uL Monocytes # (Auto) 0.6 0.0-1.0 10^3/uL Eosinophils # (Auto) 0.3 0.0-0.3 10^3/uL Basophils # (Auto) 0.1 0.0-0.1 10^3/uL Immature Granulocyte # (Auto) 0.0 0.0-0.1 10^3/uL Prothrombin Time 20.5 H 12.2-14.7 SEC INR Comment 1.7 H 0.8-1.4 Activated Partial Thromboplast Time 42 H 24-35 SEC Sodium Level 140 135-145 MMOL/L Potassium Level 4.0 3.6-5.0 MMOL/L Chloride Level 102 98-107 MMOL/L Carbon Dioxide Level 28 21-32 MMOL/L Anion Gap 10 5-14 MMOL/L Blood Urea Nitrogen 14 7-18 MG/DL Creatinine 1.06 0.60-1.30 MG/DL Estimat Glomerular Filtration Rate 76 BUN/Creatinine Ratio 13 Glucose Level 129 H 70-105 MG/DL Calcium Level 9.2 8.5-10.1 MG/DL Corrected Calcium 9.0 8.5-10.1 MG/DL Magnesium Level 2.3 1.6-2.4 MG/DL Total Bilirubin 1.1 H 0.1-1.0 MG/DL Aspartate Amino Transf (AST/SGOT) 22 5-34 U/L Alanine Aminotransferase (ALT/SGPT) 23 0-55 U/L Alkaline Phosphatase 60 40-136 U/L Troponin I < 0.30 <0.30 NG/ML Pro-B-Type Natriuretic Peptide 2349.0 H <125.0 PG/ML Total Protein 6.8 6.4-8.2 GM/DL Albumin 4.3 3.2-4.5 GM/DL Lipase 35 8-78 U/L My Orders Orders - TUNDE MULLINS MD Ekg Tracing (08/25/22 05:55) Cbc With Automated Diff (08/25/22 06:10) Magnesium (08/25/22 06:10) Chest 1 View Ap/Pa Only (08/25/22 06:10) Ekg Tracing (08/25/22 06:10) Comprehensive Metabolic Panel (08/25/22 06:10) Protime With Inr (08/25/22 06:10) Partial Thromboplastin Time (08/25/22 06:10) O2 (08/25/22 06:10) Monitor-Rhythm Ecg Trace Only (08/25/22 06:10) Ed Iv/Invasive Line Start (08/25/22 06:10) Lipase (08/25/22 06:10) Troponin I Fs (08/25/22 06:10) Probnp Fs (08/25/22 06:10) Furosemide Injection (Lasix Injection) (08/25/22 07:00) Vital Signs/I&O 08/25/22 05:45 Temp 35.0 Pulse 83 Resp 16 B/P (MAP) 194/111 (138) Blood Pressure Mean: 138 Progress Progress Note : Progress Note 67-year-old male with above history essentially coming in due to palpitations in the setting of his A-fib. He states he felt like sometimes his heart rate was elevated. The patient was placed on the monitor here, and is consistently in the 60s to 70s in A-fib and appears well controlled with his rate. He is already anticoagulated. He does have some PVCs on EKG, which could be what he is feeling. An IV was placed and basic labs were obtained including cardiac biomarkers. Regards the patient's elevated blood pressure, he just took his blood pressure medicine right before coming, so we will continue to trend this. His electrolytes are within normal limits, creatinine unremarkable, troponin negative, his proBNP was greater than 2000 which is higher than its been in the past. He does have some cardiomegaly on chest x-ray my interpretation but no other bhavesh signs of heart failure. We will give him a one-time dose of IV Lasix here and have him follow-up with cardiology as an outpatient to decide if they would like to continue this. I believe he is otherwise stable for discharg e with outpatient follow-up. He was sent home with strict return precautions. His rate was controlled the entire time was here, his blood pressure trended down after he took his blood pressure medicine at home. Initial ECG Impression Date: Aug 25, 2022 Initial ECG Impression Time: 06:00 Initial ECG Rate: 65 Initial ECG Rhythm: A Fib/Flutter Comment Wide QRS with a right bundle branch block, left anterior fascicular block, some PVCs present Diagnostic Imaging Diagonstic Imaging: Xray (chest) Comments NAME: CARINE WAGNER PUSHPA MED REC#: [id number] PT STATUS: REG ER : 1955 PHYSICIAN: TUNDE MULLINS MD ADMIT DATE: 08/25/22/ER FS Draft Date of Exam:08/25/22 CHEST 1 VIEW AP/PA ONLY INDICATION: Chest pain FINDINGS: There is cardiomegaly. There is elevation of the right hemidiaphragm. There is no pleural effusion or pneumothorax. The mediastinum is unremarkable. IMPRESSION: Cardiomegaly and elevation of the right hemidiaphragm, however no other acute cardiopulmonary abnormality. Dictated on workstation # [id number] Dict: 08/25/22622 Trans: 08/25/2231 [facility] [id number] Interpreted by: ART COOL MD Electronically signed by: Departure Impression Primary Impression: Afib Qualified Codes: I48.19 - Other persistent atrial fibrillation Additional Impressions: PVC (premature ventricular contraction) Palpitations Disposition: HOME, SELF-CARE Condition: Stable Departure-Patient Inst. Decision time for Depature: 07:05 Referrals: LYSSA MCDOWELL MD (PCP) Primary Care Physician SCOTTIE CARLTON MD (Family) Primary Care Physician Patient Instructions: Atrial Fibrillation and Atrial Flutter ED Add. Discharge Instructions: You are in A-fib and are also having some premature ventricular contractions meaning essentially having some skipped heartbeats which is likely what you are feeling. Your heart rate was well controlled, typically in A-fib we want to be less than 100 which is has been the entire time in the ER. You are not showing any signs of heart attack or anything like that. You do have some extra signs of fluid, could be related to your A-fib. We gave you a dose of medicine to help pee out extra fluid in the ER. Please call your wholesale loan processor to decide if they would like to keep you on this medicine. Please call your wholesale loan processor and your PCP if you continue to not feel well. Work/School Note: Work Release Form Date Seen in the Emergency Department: Aug 25, 2022 Return to Work: Aug 26, 2022 Restrictions: No Restrictions TUNDE MULLINS MD Aug 25, 2022 06:15
[2022-08-25 06:20] LABS: BASOPHILS # (AUTO) 0.1 10^3/uL (0.0-0.1); BASOPHILS % (AUTO) 1 % (0-10); EOSINOPHILS # (AUTO) 0.3 10^3/uL (0.0-0.3); EOSINOPHILS % (AUTO) 4 % (0-10); HEMATOCRIT 42 % (40-54); HEMOGLOBIN 14.1 g/dL (13.3-17.7); LYMPHOCYTES # (AUTO) 1.1 10^3/uL (1.0-4.0); LYMPHOCYTES % (AUTO) 14 % (12-44); MEAN CORPUSCULAR HEMOGLOBIN 30 pg (25-34); MEAN CORPUSCULAR HGB CONC 33 g/dL (32-36); MEAN CORPUSCULAR VOLUME 90 fL (80-99); MEAN PLATELET VOLUME 9.9 fL (9.0-12.2); MONOCYTES # (AUTO) 0.6 10^3/uL (0.0-1.0); MONOCYTES % (AUTO) 8 % (0-12); NEUTROPHILS # (AUTO) 5.6 10^3/uL (1.8-7.8); NEUTROPHILS % (AUTO) 72 % (42-75); PLATELET COUNT 175 10^3/uL (130-400); WHITE BLOOD COUNT 7.7 10^3/uL (4.3-11.0)
--- NOTE | 2022-08-25 06:32 | Diagnostic Imaging Report ---
INDICATION: Chest pain FINDINGS: There is cardiomegaly. There is elevation of the right hemidiaphragm. There is no pleural effusion or pneumothorax. The mediastinum is unremarkable. IMPRESSION: Cardiomegaly and elevation of the right hemidiaphragm, however no other acute cardiopulmonary abnormality. Dictated by: Dictated on workstation # [id number]
[2022-08-25 06:44] LABS: PROTHROMBIN TIME PATIENT 20.5 SEC (12.2-14.7)
[2022-08-25 06:45] LABS: INR 1.7 (0.8-1.4)
[2022-08-25 06:52] LABS: BILIRUBIN,TOTAL 1.1 MG/DL (0.1-1.0); CALCIUM 9.2 MG/DL (8.5-10.1); CREATININE SERUM 1.06 MG/DL (0.60-1.30); MAGNESIUM 2.3 MG/DL (1.6-2.4)
[2022-08-25 06:53] LABS: ALBUMIN 4.3 GM/DL (3.2-4.5); TOTAL PROTEIN 6.8 GM/DL (6.4-8.2)
[2022-08-25] MEDS ORDERED: FUROSEMIDE 40 MG/4 ML INJ (LASIX) IVP ONE (07:00)
== END 2022-08-25 07:05 | disposition home or self-care (01) ==
LOC: EDUNIT# 05:41 → ER FS 05:42
DX: I49.3 Ventricular premature depolarization (principal); I48.91 Unspecified atrial fibrillation; I12.9 Hypertensive chronic kidney disease with stage 1 through stage 4 chronic kidney disease, or unspecified chronic kidney disease; N18.9 Chronic kidney disease, unspecified; Z79.01 Long term (current) use of anticoagulants; Z28.310 Unvaccinated for COVID-19
CPT/HCPCS: 36415; 71045; 80053; 83690; 83735; 83880; 84484; 85025; 85610; 85730; 93005; 93041

== ENCOUNTER 2022-09-06 11:23 | Emergency (ER) | payer MEDICARE, OTHER ==
--- NOTE | 2022-09-06 11:40 | ED Respiratory ---
General Chief Complaint: Respiratory Problems Stated Complaint: SOB Source: patient Exam Limitations: no limitations History of Present Illness Date Seen by Provider: Sep 06, 2022 Time Seen by Provider: 11:29 Initial Comments 67-year-old male with A-fib diagnosed about 3 months ago, known coronary artery disease presents to the emergency department today for shortness of breath. He states his symptoms have been present for the last 3 weeks or so. He was seen here about 2 weeks ago for A-fib, feeling as though his heart was in A-fib more than usual. His work-up at that time was unremarkable. I reviewed external records showing he had a heart cath in June. This shows chronic occlusions of the distal LAD in the midportion of the right coronary artery with good collateral flow and no interventions were ultimately undertaken. Heart cath undertaken due to an abnormal stress test. He tells me now that he feels like his lungs are "full of fluid." He states he is on 3 different water pills. About a week ago he was started on furosemide is the third agent. He is also taking spironolactone and hydralazine. He denies any fevers or chills. His cough is nonproductive. No chest pains. No unilateral lower extremity pain, swelling. He has no significant peripheral edema. Allergies and Home Medications Allergies Coded Allergies: No Known Drug Allergies (Unverified , 12/30/19) Patient Home Medication List Home Medication List Reviewed: Yes Aspirin/Caffeine (Bc Arthritis Powder Packet) 1,000 Mg-65 Mg Powd.pack, 1 EACH PO Q6H PRN for ARTHITIS PAIN, (Reported) Entered as Reported by: DYLON CAPPS on 07/05/22 1155 Atorvastatin Calcium (Atorvastatin Calcium) 20 Mg Tablet, 20 MG PO DAILY Prescribed by: JOEL TIRADO on 07/05/22 1408 Carvedilol (Carvedilol) 25 Mg Tablet, 25 MG PO BID, (Reported) Entered as Reported by: LIZ LEVINE on 12/30/19 1301 Doxazosin Mesylate (Doxazosin Mesylate) 8 Mg Tablet, 16 MG PO DAILY, (Reported) Entered as Reported by: DYLON CAPPS on 07/05/22 1155 Fluticasone Propionate (Flonase Allergy Relief) 50 Mcg/Actuation [place].susp, 1 SPRAY NS DAILY PRN for DRY NOSE, (Reported) Entered as Reported by: DYLON CAPPS on 07/05/22 1155 Hydrochlorothiazide (Hydrochlorothiazide) 25 Mg Tablet, 25 MG PO DAILY, (Reported) Entered as Reported by: DYLON CAPPS on 07/05/22 1155 Losartan Potassium (Losartan Potassium) 100 Mg Tablet, 100 MG PO DAILY, (Reported) Entered as Reported by: DYLON CAPPS on 07/05/22 115 Magnesium Oxide (Magnesium) 400 Mg Magnesium Tablet, 400 MG PO BID, (Reported) Entered as Reported by: DYLON CAPPS on 07/05/22 115 Rivaroxaban (Xarelto) 20 Mg Tablet, 20 MG PO DAILY, (Reported) Entered as Reported by: DYLON CAPPS on 07/05/22 115 Spironolactone (Spironolactone) 25 Mg Tablet, 25 MG PO DAILY, (Reported) Entered as Reported by: DYLON CAPPS on 07/05/22 115 Review of Systems Review of Systems Constitutional: see HPI Past Sxligyg-Yabqpd-Pxgarf Hx Patient Social History Tobacco Use?: No Use of E-Cig and/or Vaping dev: No Substance use?: No Alcohol Use?: No Pt feels they are or have been: No Past Medical History Surgery/Hospitalization HX: TIA in 2003, Lacunar Infarcts Left Basal Ganglia, Hypertension, coronaryartery disease, hypothyroidism, hyperlipidemia, chronic kidney disease,anxiety, depression Surgeries: Yes Tonsillectomy Respiratory: No Cardiac: Yes Atrial Fibrillation, Coronary Artery Disease, High Cholesterol, Hypertension Neurological: Yes TIA Reproductive Disorders: No Sexually Transmitted Disease: No HIV/AIDS: No Genitourinary: Yes Prostate Problems Gastrointestinal: No Diverticulosis, Hiatal Hernia, Ulcer Musculoskeletal: No Endocrine: Yes Hypothyroidsim HEENT: Yes Tinnitis Loss of Vision: Denies Hearing Impairment: Denies Prostate Psychosocial: Yes Anxiety, Depression Family Medical History Reviewed Nursing Family Hx No Pertinent Family Hx Physical Exam Vital Signs - First Documented 09/06/22 11:28 Temp 36.1 Pulse 65 Resp 16 Pulse Ox 99 O2 Delivery Room Air Capillary Refill : Height: 6'1.00" Weight: 244lbs. 7.2oz. [id number]; 33.00 BMI Method: General Appearance: WD/WN, no apparent distress HEENT: normal ENT inspection, pharynx normal Respiratory: chest non-tender, lungs clear, normal breath sounds, no respiratory distress, no accessory muscle use Cardiovascular: regular rate, rhythm, no edema, no murmur Gastrointestinal: normal bowel sounds, non tender, soft, no organomegaly Extremities: normal range of motion, non-tender, normal inspection, no pedal edema, no calf tenderness, normal capillary refill Neurologic/Psychiatric: alert, normal mood/affect, oriented x 3 Skin: normal color, warm/dry Progress/Results/Core Measures Suspected Sepsis SIRS Temperature: Pulse: Respiratory Rate: Laboratory Tests 09/06/22 11:40: White Blood Count 6.3 Blood Pressure / Mean: Laboratory Tests 09/06/22 11:40: Creatinine 1.22, Platelet Count 171, Total Bilirubin 0.6 Results/Orders Lab Results Laboratory Tests Test 09/06/22 11:40 Range/Units White Blood Count 6.3 4.3-11.0 10^3/uL Red Blood Count 4.58 4.30-5.52 10^6/uL Hemoglobin 13.9 13.3-17.7 g/dL Hematocrit 42 40-54 % Mean Corpuscular Volume 92 80-99 fL Mean Corpuscular Hemoglobin 30 25-34 pg Mean Corpuscular Hemoglobin Concent 33 32-36 g/dL Red Cell Distribution Width 13.8 10.0-14.5 % Platelet Count 171 130-400 10^3/uL Mean Platelet Volume 10.3 9.0-12.2 fL Immature Granulocyte % (Auto) 0 % Neutrophils (%) (Auto) 62 42-75 % Lymphocytes (%) (Auto) 20 12-44 % Monocytes (%) (Auto) 10 0-12 % Eosinophils (%) (Auto) 6 0-10 % Basophils (%) (Auto) 1 0-10 % Neutrophils # (Auto) 3.9 1.8-7.8 10^3/uL Lymphocytes # (Auto) 1.3 1.0-4.0 10^3/uL Monocytes # (Auto) 0.6 0.0-1.0 10^3/uL Eosinophils # (Auto) 0.4 H 0.0-0.3 10^3/uL Basophils # (Auto) 0.1 0.0-0.1 10^3/uL Immature Granulocyte # (Auto) 0.0 0.0-0.1 10^3/uL Sodium Level 139 135-145 MMOL/L Potassium Level 4.1 3.6-5.0 MMOL/L Chloride Level 102 98-107 MMOL/L Carbon Dioxide Level 27 21-32 MMOL/L Anion Gap 10 5-14 MMOL/L Blood Urea Nitrogen 23 H 7-18 MG/DL Creatinine 1.22 0.60-1.30 MG/DL Estimat Glomerular Filtration Rate 64 BUN/Creatinine Ratio 19 Glucose Level 109 H 70-105 MG/DL Calcium Level 8.8 8.5-10.1 MG/DL Corrected Calcium 8.6 8.5-10.1 MG/DL Total Bilirubin 0.6 0.1-1.0 MG/DL Aspartate Amino Transf (AST/SGOT) 28 5-34 U/L Alanine Aminotransferase (ALT/SGPT) 28 0-55 U/L Alkaline Phosphatase 60 40-136 U/L Troponin I < 0.30 <0.30 NG/ML Total Protein 6.4 6.4-8.2 GM/DL Albumin 4.2 3.2-4.5 GM/DL My Orders Orders - LUCERO HERNÁNDEZ DO Cbc With Automated Diff (09/06/22 11:36) Comprehensive Metabolic Panel (09/06/22 11:36) Chest Pa/Lat (2 View) (09/06/22 11:36) Troponin I Fs (09/06/22 11:37) Ekg Tracing (09/06/22 11:37) Vital Signs/I&O 09/06/22 11:28 Temp 36.1 Pulse 65 Resp 16 B/P (MAP) Pulse Ox 99 O2 Delivery Room Air Capillary Refill : ECG Comment Independent interpretation of twelve-lead EKG showed atrial fibrillation with an overall rate about 71 bpm. Normal intervals outside of [place] interval. Left axis deviation. There is a right bundle branch block. No ST or T wave abno rmalities. No ectopy. Departure Communication (Admissions) Independent review of the chest x-ray shows some mild atelectasis versus scarring on the right side. No effusion. No significant pulmonary edema. Patient is hemodynamically stable. Initial differential diagnosis includes pulmonary edema, pneumonia, pneumothorax, cardiac deconditioning, ACS. Troponin negative, EKG is nonischemic he is not having any chest pain I do not think this is an anginal equivalent and I do not think it is ACS. There is no evidence of pulmonary edema on his chest x-ray. No pneumonia or pneumothorax either. I th ink this is likely related to cardiac deconditioning with A-fib and chronic occlusions as well as declining lung function overall. No indication to change his diuretic regimen at this time. No evidence for an acute emergent condition at this time. Impression Primary Impression: Dyspnea Qualified Codes: R06.00 - Dyspnea, unspecified Disposition: HOME, SELF-CARE Condition: Stable Departure-Patient Inst. Referrals: LYSSA MCDOWELL MD (PCP) Primary Care Physician SCOTTIE CARLTON MD (Family) Primary Care Physician Patient Instructions: Shortness of Breath, Adult ED Add. Discharge Instructions: You are seen in the emergency department today for shortness of breath. Your chest x-ray is clear with no evidence for fluid overload, pneumonia or collapsed lungs. We checked out your heart today as well with an electrical tracing as well as an enzyme that tells us if there is any damage to the muscle of your heart. These are normal as well. I think this is a combination of A-fib and deconditioning causing your symptoms. Continue your diuretics as previously prescribed. Follow-up with your primary doctor for further testing recommendations. Return to the emergency department for any severe concerns. All discharge instructions reviewed with patient and/or family. Voiced understanding. LUCERO HERNÁNDEZ DO Sep 06, 2022 11:40
[2022-09-06 11:59] LABS: BASOPHILS # (AUTO) 0.1 10^3/uL (0.0-0.1); BASOPHILS % (AUTO) 1 % (0-10); EOSINOPHILS # (AUTO) 0.4 10^3/uL (0.0-0.3); EOSINOPHILS % (AUTO) 6 % (0-10); HEMATOCRIT 42 % (40-54); HEMOGLOBIN 13.9 g/dL (13.3-17.7); LYMPHOCYTES # (AUTO) 1.3 10^3/uL (1.0-4.0); LYMPHOCYTES % (AUTO) 20 % (12-44); MEAN CORPUSCULAR HEMOGLOBIN 30 pg (25-34); MEAN CORPUSCULAR HGB CONC 33 g/dL (32-36); MEAN CORPUSCULAR VOLUME 92 fL (80-99); MEAN PLATELET VOLUME 10.3 fL (9.0-12.2); MONOCYTES # (AUTO) 0.6 10^3/uL (0.0-1.0); MONOCYTES % (AUTO) 10 % (0-12); NEUTROPHILS # (AUTO) 3.9 10^3/uL (1.8-7.8); NEUTROPHILS % (AUTO) 62 % (42-75); PLATELET COUNT 171 10^3/uL (130-400); WHITE BLOOD COUNT 6.3 10^3/uL (4.3-11.0)
--- NOTE | 2022-09-06 12:08 | Diagnostic Imaging Report ---
Clinical indications: Patient with dyspnea. EXAM: Chest x-ray PA and lateral views. COMPARISON: Chest x-ray dated 08/25/2022. FINDINGS: Lungs/pleura: There is interval mild atelectasis involving the right lung base/middle lobe. Stable elevation of the right hemidiaphragm. The remainder of lungs are clear. There is no pneumothorax. There is no pleural effusion. Mediastinum: Unremarkable. Pulmonary vasculature: Unremarkable. Heart: Stable cardiomegaly. Bones/extrathoracic soft tissue: There are hypertrophic spurs involving the thoracic spine. IMPRESSION: 1: There is no radiographic evidence of acute cardiopulmonary process. 2: There is interval development of mild right lung base and middle lobe atelectasis. Again seen elevation right hemidiaphragm. 3: Stable cardiomegaly with no significant pulmonary vascular congestion. Dictated by: Dictated on workstation # [id number]
[2022-09-06 12:21] LABS: ALANINE AMINOTRANSFERASE 28 U/L (0-55); ALBUMIN 4.2 GM/DL (3.2-4.5); ALKALINE PHOSPHATASE 60 U/L (40-136); BILIRUBIN,TOTAL 0.6 MG/DL (0.1-1.0); BUN/CREATININE RATIO 19; CALCIUM 8.8 MG/DL (8.5-10.1); CARBON DIOXIDE 27 MMOL/L (21-32); CHLORIDE 102 MMOL/L (98-107); CREATININE SERUM 1.22 MG/DL (0.60-1.30); GFR ESTIMATED 64; GLUCOSE 109 MG/DL (70-105); POTASSIUM 4.1 MMOL/L (3.6-5.0); SODIUM 139 MMOL/L (135-145); TOTAL PROTEIN 6.4 GM/DL (6.4-8.2)
[2022-09-06 12:30] VITALS: BP 131/82
== END 2022-09-06 12:31 | disposition home or self-care (01) ==
LOC: EDUNIT# 11:23 → ER FS 11:25
DX: R06.00 Dyspnea, unspecified (principal)
CPT/HCPCS: 36415; 71046; 80053; 84484; 85025; 85027; 93005

== ENCOUNTER 2023-05-02 18:23 | Emergency (ER) | payer MEDICARE, OTHER ==
[~2023-05-02] VITALS: Ht 182 cm; Wt 115.0 kg
[~2023-05-02 18:23] MED LIST changes: -LOSA100T57 PO; +LOSA100T58 PO
[2023-05-02 18:43] LABS: BASOPHILS # (AUTO) 0.1 10^3/uL (0.0-0.1); BASOPHILS % (AUTO) 1 % (0-10); EOSINOPHILS # (AUTO) 0.3 10^3/uL (0.0-0.3); EOSINOPHILS % (AUTO) 4 % (0-10); HEMATOCRIT 41 % (40-54); HEMOGLOBIN 13.5 g/dL (13.3-17.7); LYMPHOCYTES % (AUTO) 14 % (12-44); MEAN CORPUSCULAR HEMOGLOBIN 31 pg (25-34); MEAN CORPUSCULAR HGB CONC 33 g/dL (32-36); MEAN CORPUSCULAR VOLUME 93 fL (80-99); MEAN PLATELET VOLUME 10.4 fL (9.0-12.2); MONOCYTES # (AUTO) 0.6 10^3/uL (0.0-1.0); MONOCYTES % (AUTO) 8 % (0-12); NEUTROPHILS # (AUTO) 5.5 10^3/uL (1.8-7.8); NEUTROPHILS % (AUTO) 73 % (42-75); PLATELET COUNT 173 10^3/uL (130-400); WHITE BLOOD COUNT 7.5 10^3/uL (4.3-11.0)
[2023-05-02 18:57] LABS: POTASSIUM 3.6 MMOL/L (3.6-5.0)
--- NOTE | 2023-05-02 18:57 | Diagnostic Imaging Report ---
INDICATION: Left-sided numbness and slow speech. Time of Exam: 6:42 PM Correlation is made with prior chest from 08/25/2022. Heart appears enlarged. Lungs are clear. No infiltrates are detected. There is no effusion or pneumothorax. IMPRESSION: Cardiomegaly. No acute cardiopulmonary process is detected. Dictated by: Dictated on workstation # [id number]
--- NOTE | 2023-05-02 19:00 | ED General ---
General Chief Complaint: General Problems/Pain Stated Complaint: L SIDE NUMBNESS Source of Information: Patient, EMS History of Present Illness Date Seen by Provider: May 02, 2023 Time Seen by Provider: 18:23 Initial Comments 67-year-old male presenting by EMS with complaints of left-sided numbness that started around 530 tonight. He had just left his primary care provider, Dr. Aubrey Jarrett, at the [facility]. A week ago he was flown directly to [place] as a stroke patient. He states that he had full resolution of his symptoms there and did not have any new medications started. He has a history of atrial fibrillation that is usually rate controlled. His blood pressure was doing fine when he saw his doctor this afternoon. He is to follow-up with his doctor in the next week. Since he had the numbness he called EMS after getting home. He reports that the numbness is now resolved. He also felt like he was having slowness with his speech that he feels is doing better now as well. He does take Xarelto for his atrial fibrillation and was not taking it regularly prior to his stroke symptoms last week but he states he did take it today and is taking it regularly now. He denies having any pain, headache, change in vision, difficulty swallowing, chest pain, nausea, vomiting, abdominal pain, pain with urination. Timing/Duration: 1/2 Hour Severity: Mild Associated Systoms: No Chest Pain, No Cough, No Diaphoresis, No Fever/Chills, No Headaches, No Loss of Appetite, No Malaise, No Nausea/Vomiting, No Rash, No Seizure, No Shortness of Air, No Syncope, No Weakness Allergies and Home Medications Allergies Coded Allergies: No Known Drug Allergies (Unverified , 12/30/19) Patient Home Medication List Home Medication List Reviewed: Yes Aspirin/Caffeine (Bc Arthritis Powder Packet) 1,000 Mg-65 Mg Powd.pack, 1 EACH PO Q6H PRN for ARTHITIS PAIN, (Reported) Entered as Reported by: DYOLN CAPPS on 07/05/22 1155 Atorvastatin Calcium (Atorvastatin Calcium) 20 Mg Tablet, 20 MG PO DAILY Prescribed by: JOEL TIRADO on 07/05/22 1408 Carvedilol (Carvedilol) 25 Mg Tablet, 25 MG PO BID, (Reported) Entered as Reported by: LIZ LEVINE on 12/30/19 1301 Doxazosin Mesylate (Doxazosin Mesylate) 8 Mg Tablet, 16 MG PO DAILY, (Reported) Entered as Reported by: DYLON CAPPS on 07/05/22 1155 Fluticasone Propionate (Flonase Allergy Relief) 50 Mcg/Actuation [place].susp, 1 SPRAY NS DAILY PRN for DRY NOSE, (Reported) Entered as Reported by: DYLON CAPPS on 07/05/22 115 Hydrochlorothiazide (Hydrochlorothiazide) 25 Mg Tablet, 25 MG PO DAILY, (Reported) Entered as Reported by: DYLON CAPPS on 07/05/22 115 Losartan Potassium (Losartan Potassium) 100 Mg Tablet, 100 MG PO DAILY, (Reported) Entered as Reported by: DYLON CAPPS on 07/05/22 115 Magnesium Oxide (Magnesium) 400 Mg Magnesium Tablet, 400 MG PO BID, (Reported) Entered as Reported by: DYLON CAPPS on 07/05/22 115 Rivaroxaban (Xarelto) 20 Mg Tablet, 20 MG PO DAILY, (Reported) Entered as Reported by: DYLON CAPPS on 07/05/22 115 Spironolactone (Spironolactone) 25 Mg Tablet, 25 MG PO DAILY, (Reported) Entered as Reported by: DYLON CAPPS on 07/05/22 115 Review of Systems Review of Systems Constitutional: No chills, No fever EENTM: no symptoms reported Respiratory: no symptoms reported Cardiovascular: no symptoms reported Gastrointestinal: no symptoms reported Genitourinary: no symptoms reported Musculoskeletal: no symptoms reported Skin: no symptoms reported Psychiatric/Neurological: See HPI Past Voegiwd-Qcakwg-Vphosa Hx Patient Social History Tobacco Use?: No Substance use?: No Alcohol type: Beer Alcohol Frequency: Once in a while Past Medical History Surgery/Hospitalization HX: TIA in 2003, Lacunar Infarcts Left Basal Ganglia, Hypertension, coronaryartery disease, hypothyroidism, hyperlipidemia, chronic kidney disease,anxiety, depression Surgeries: Yes Tonsillectomy Respiratory: No Cardiac: Yes Atrial Fibrillation, Coronary Artery Disease, High Cholesterol, Hypertension Neurological: Yes TIA Reproductive Disorders: No Sexually Transmitted Disease: No HIV/AIDS: No Genitourinary: Yes Prostate Problems Gastrointestinal: No Diverticulosis, Hiatal Hernia, Ulcer Musculoskeletal: No Endocrine: Yes Hypothyroidsim HEENT: Yes Tinnitis Loss of Vision: Denies Hearing Impairment: Denies Prostate Psychosocial: Yes Anxiety, Depression Family Medical History No Pertinent Family Hx Physical Exam Vital Signs Vital Signs - First Documented 05/02/23 18:35 Temp 36.0 Pulse 82 Resp 19 B/P (MAP) 164/104 (124) Pulse Ox 95 O2 Delivery Room Air Capillary Refill : Height, Weight, BMI Height: 6'1.00" Weight: 244lbs. 7.2oz. [id number]; 34.00 BMI Method: General Appearance: No Apparent Distress, WD/WN HEENT: PERRL/EOMI, Pharynx Normal, Moist Mucous Membranes Neck: Full Range of Motion, Normal Inspection, Non Tender, Supple Respiratory: Chest Non Tender, Lungs Clear, Normal Breath Sounds, No Accessory Muscle Use, No Respiratory Distress Cardiovascular: No Murmur, Normal Peripheral Pulses, Irregularly Irregular Gastrointestinal: Normal Bowel Sounds, No Pulsatile Mass, Non Tender, Soft Rectal: Deferred Extremity: Normal Capillary Refill, Normal Inspection, Normal Range of Motion, Non Tender, No Calf Tenderness, No Pedal Edema Neurologic/Psychiatric: Alert, Oriented x3, No Motor/Sensory Deficits, Normal Mood/Affect, 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 II-XII Norm as Tested Skin: Normal Color, Warm/Dry Progress/Results/Core Measures Suspected Sepsis SIRS Temperature: Pulse: 82 Respiratory Rate: 19 Laboratory Tests 05/02/23 18:30: White Blood Count 7.5 Blood Pressure 164 /104 Mean: 124 Laboratory Tests 05/02/23 18:30: Creatinine 1.18, INR Comment 1.6H, Platelet Count 173, Total Bilirubin 1.6H Results/Orders Lab Results Laboratory Tests Test 05/02/23 18:30 05/02/23 18:39 05/02/23 19:05 Range/Units White Blood Count 7.5 4.3-11.0 10^3/uL Red Blood Count 4.38 4.30-5.52 10^6/uL Hemoglobin 13.5 13.3-17.7 g/dL Hematocrit 41 40-54 % Mean Corpuscular Volume 93 80-99 fL Mean Corpuscular Hemoglobin 31 25-34 pg Mean Corpuscular Hemoglobin Concent 33 32-36 g/dL Red Cell Distribution Width 13.6 10.0-14.5 % Platelet Count 173 130-400 10^3/uL Mean Platelet Volume 10.4 9.0-12.2 fL Immature Granulocyte % (Auto) 0 % Neutrophils (%) (Auto) 73 42-75 % Lymphocytes (%) (Auto) 14 12-44 % Monocytes (%) (Auto) 8 0-12 % Eosinophils (%) (Auto) 4 0-10 % Basophils (%) (Auto) 1 0-10 % Neutrophils # (Auto) 5.5 1.8-7.8 10^3/uL Lymphocytes # (Auto) 1.0 1.0-4.0 10^3/uL Monocytes # (Auto) 0.6 0.0-1.0 10^3/uL Eosinophils # (Auto) 0.3 0.0-0.3 10^3/uL Basophils # (Auto) 0.1 0.0-0.1 10^3/uL Immature Granulocyte # (Auto) 0.0 0.0-0.1 10^3/uL Prothrombin Time 19.3 H 12.2-14.7 SEC INR Comment 1.6 H 0.8-1.4 Activated Partial Thromboplast Time 35 24-35 SEC D-Dimer 0.79 H 0.00-0.49 UG/ML Sodium Level 137 135-145 MMOL/L Potassium Level 3.6 3.6-5.0 MMOL/L Chloride Level 102 98-107 MMOL/L Carbon Dioxide Level 26 21-32 MMOL/L Anion Gap 9 5-14 MMOL/L Blood Urea Nitrogen 17 7-18 MG/DL Creatinine 1.18 0.60-1.30 MG/DL Estimat Glomerular Filtration Rate 67 BUN/Creatinine Ratio 14 Glucose Level 124 H 70-105 MG/DL Calcium Level 8.6 8.5-10.1 MG/DL Corrected Calcium 8.8 8.5-10.1 MG/DL Total Bilirubin 1.6 H 0.1-1.0 MG/DL Aspartate Amino Transf (AST/SGOT) 21 5-34 U/L Alanine Aminotransferase (ALT/SGPT) 18 0-55 U/L Alkaline Phosphatase 67 40-136 U/L Troponin I < 0.30 <0.30 NG/ML Total Protein 6.3 L 6.4-8.2 GM/DL Albumin 3.8 3.2-4.5 GM/DL Glucometer 104 70-110 MG/DL Urine Color YELLOW Urine Clarity CLEAR Urine pH 6.0 5-9 Urine Specific [place] 1.015 L 1.016-1.022 Urine Protein NEGATIVE NEGATIVE Urine Glucose (UA) NEGATIVE NEGATIVE Urine Ketones NEGATIVE NEGATIVE Urine Nitrite NEGATIVE NEGATIVE Urine Bilirubin NEGATIVE NEGATIVE Urine Urobilinogen 0.2 < = 1.0 MG/DL Urine Leukocyte Esterase NEGATIVE NEGATIVE Urine RBC (Auto) NEGATIVE NEGATIVE Urine RBC NONE /HPF Urine WBC RARE /HPF Urine Squamous Epithelial Cells RARE /HPF Urine Crystals NONE /LPF Urine Bacteria NEGATIVE /HPF Urine Casts NONE /LPF Urine Mucus SMALL H /LPF Urine Culture Indicated NO My Orders Orders - CHAPO KENNEDY MD Cbc And Automated Diff (05/02/23 18:33) Protime With Inr (05/02/23 18:33) Partial Thromboplastin Time (05/02/23 18:33) Comprehensive Metabolic Panel (05/02/23 18:33) Fibrin Degradation Products (05/02/23 18:33) Troponin I Fs (05/02/23 18:33) Ua Culture If Indicated (05/02/23 18:33) Chest 1 View Ap/Pa Only (05/02/23 18:33) Ekg Tracing (05/02/23 18:33) Accucheck Stat ONCE (05/02/23 18:33) Ed Iv/Invasive Line Start (05/02/23 18:33) Vital Signs Stroke Patient Q15M (05/02/23 18:33) Ct Head Wo-R/O Stroke (05/02/23 18:33) O2 (05/02/23 18:33) Intake & Output 06,14,22 (05/02/23 18:33) Monitor-Rhythm Ecg Trace Only (05/02/23 18:33) Dysphagia Screening Tool [id number] (05/02/23 18:33) Post Thrombolytic Adminstratio (05/02/23 18:33) Ct Angio Head/Neck (05/02/23 20:09) Vital Signs/I&O 05/02/23 18:35 Temp 36.0 Pulse 82 Resp 19 B/P (MAP) 164/104 (124) Pulse Ox 95 O2 Delivery Room Air Capillary Refill : Blood Pressure Mean: 124 Point of Care Testing Finger Stick Blood Glucose: 134 Blood Glucose Action Taken: Dr. Kennedy aware. Progress Note #1: Progress Note Differential diagnosis was TIA, recurrent stroke, paresthesia, peripheral neuropathy, hypertensive urgency, pinched nerve. His NIH stroke scale is 0 and he had rapid improvement of his symptoms spontaneously. It sounds like he had a full stroke work-up while he was at [place] last week. Peripheral IV established and send labs for complete blood count, comprehensive metabolic profile, coagulation factors, troponin, uri nalysis. 1 view chest x-ray looking for pathology. CT head without contrast to look for signs of acute stroke or bleeding. Electrocardiogram to document his heart rate and rhythm and look for ischemia. Placed on cardiac mold checker and my initial interpretation is it shows atrial fibrillation with a heart rate in the 80s. Oxygen saturation is 98% on room air. Progress Note #2: Progress Note Complete blood count did not show any acute abnormality. His white count was normal at 7.5. His comprehensive metabolic profile did not show any acute electrolyte abnormality. His coagulation factors were elevated to go along with him taking the Xarelto. His CT scan of the head without contrast showed atherosclerotic changes and old lacunar infarcts but no acute hemorrhage or infarct. Chest x-ray was clear of any acute process. 1948 call placed to the stroke neurologist for consult. Patient currently has a NIH stroke scale is 0 and is not having symptoms since he arrived in the [place]. I spoke with JA Henley. She connected me with the stroke neurologist. I reviewed with her the patient's presentation and findings as well as the fact that he had admission to [facility] in [place] last week for stroke. Since I did not have his medical records from [facility] she suggested CT angio and admission to ensure that the stroke and TIA work-up had been done. She also suggested trying to get those records from [facility] and if he had had all that work-up done then there would not be additional testing to do so he could be discharged and stressed importance of taking his medicines and returning or following up if having worsening symptoms. Updated patient and added on CT angiography of the head and neck. Progress Note #3: Time: 21:[address] angiography did not show any acute ischemia or hemorrhage. He did have diffuse atherosclerotic changes. There was no large vessel occlusion or medium size vessel occlusion seen on the imaging. He did have extensive small vessel disease. 2230 records from [facility] came across on the fax machine. Patient was treated for an NIH stroke scale of 10 and he received TNKase. This did improve his symptoms and get them to resolve. He had moderate to high-grade stenosis in the bilateral vertebral arteries at the intracranial portion and high-grade stenosis of the right MCA distal M2 portion. He did have MRI and echocardiogram. The MRI had shown area of ischemia in the thalamus and the left internal capsule. Patient was educated on anticoagulation for his atrial fibrillation and started on Eliquis 5 mg twice daily. Stressed importance of lifestyle modifications and getting the cholesterol levels lower. Keep his blood pressure controlled. As the stroke neurologist and request that he be admitted to have the stroke and TIA work-up completed however this was already done when he was admitted April 28 through the that [facility]. He had no recurrence of any numbness or weakness here in the emergency department. He was denied having a headache or any change in his vision. His blood pressure was elevated at time of discharge but he was also anxious to leave as he had been here for over 4 hours. Stressed importance of returning or following up immediately if he started having new symptoms. Otherwise make sure he is taking his medications as prescribed and follow-up with his regular doctor. ECG Initial ECG Impression Date: May 02, 2023 Initial ECG Impression Time: 18:38 Initial ECG Rate: 80 Initial ECG Rhythm: A Fib/Flutter Initial ECG Comparisson: Unchanged (09/06/2022) Comment My initial interpretation and review of his electrocardiogram shows atrial fibrillation with heart rate of 80 bpm. There is a right bundle branch block. No acute ST elevation. QT interval 405 ms with a QTc interval 440 ms. Overall appears similar to tracing from September 06, 2022. Diagnostic Imaging Diagonstic Imaging: Xray Plain Films/CT/US/NM/MRI: chest Comments [facility] [place], [place] NAME: CARINE WAGNER III [facility] REC#: [id number] PT STATUS: REG ER : 1955 PHYSICIAN: CHAPO KENNEDY MD ADMIT DATE: 05/02/23/ER FS Draft Date of Exam:05/02/23 CHEST 1 VIEW AP/PA ONLY INDICATION: Left-sided numbness and slow speech. Time of Exam: 6:42 PM Correlation is made with prior chest from 08/25/2022. Heart appears enlarged. Lungs are clear. No infiltrates are detected. There is no effusion or pneumothorax. IMPRESSION: Cardiomegaly. No acute cardiopulmonary process is detected. Dictated on workstation # [id number] Dict: 05/02/231854 Trans: 05/02/231856 [facility] [id number] Interpreted by: ANGÉLICA LAMBERT MD Electronically signed by: Reviewed: Reviewed by Me Diagonstic Imaging: CT Plain Films/CT/US/NM/MRI: head Comments NAME: CARINE WAGNER III [facility] REC#: [id number] PT STATUS: REG ER : 1955 PHYSICIAN: CHAPO KENNEDY MD ADMIT DATE: 05/02/23/ER FS Draft Date of Exam:05/02/23 CT HEAD WO-R/O STROKE PROCEDURE: CT head wo r/o stroke. TECHNIQUE: Multiple contiguous axial images were obtained through the brain without the use of intravenous contrast. Auto Exposure Controls were utilized during the CT exam to meet ALARA standards for radiation dose reduction. INDICATION: 67-year-old male with left-sided numbness and slurred speech. COMPARISONS: None. FINDINGS: Midline structures are not displaced. Lateral, third, and fourth ventricles are normal in size, shape, and anatomic position. There are small focal areas of low attenuation, which probably represent old lacunar-sized infarcts with encephalomalacia. Background chronic areas of microvascular ischemic changes are also noted. Gaspar-white differentiation is maintained, and there is no sulcal effacement. There are no abnormal extra-axial fluid collections or hemorrhage. Basilar cisterns appear normal. There is extensive calcific atherosclerosis within the carotid siphons, visualized vertebral arteries extending into the basilar artery. Sinuses, orbits, and mastoid air cells are grossly normal. Bone windows show no calvarial changes. IMPRESSION: 1. Old lacunar-sized infarcts encephalomalacia seen in both cerebral hemispheres. In addition, there are background chronic areas of microvascular ischemic change, but no acute findings identified by nonenhanced CT criteria. 2. There is extensive calcific atherosclerosis within the carotid siphons, visualized vertebral arteries extending into the basilar artery. Dictated on workstation # [id number] Dict: 05/02/231851 Trans: 05/02/231903 [id number] Interpreted by: JESSICA SHABAZZ MD Electronically signed by: Reviewed: Reviewed by Me Diagonstic Imaging: CT Plain Films/CT/US/NM/MRI: head (And neck angiography) Comments NAME: CARINE WAGNER III [facility] REC#: [id number] PT STATUS: REG ER : 1955 PHYSICIAN: CHAPO KENNEDY MD ADMIT DATE: 05/02/23/ER FS Draft Date of Exam:05/02/23 CT ANGIO HEAD/NECK PROCEDURE: CT angiography of the head and CT angiography of the neck with and without contrast. TECHNIQUE: Contiguous noncontrast images were obtained from the skull base through the vertex. After intravenous contrast administration, helical CT angiography of the neck was performed. Source data was reformatted into 3D MIP projections. Delayed post contrast acquisition was also obtained. Auto Exposure Controls were utilized during the CT exam to meet ALARA standards for radiation dose reduction. INDICATION: Left-sided numbness, slurred speech with altered mental status. COMPARISON: CT head 05/02/2023. FINDINGS: Overall contrast opacification is suboptimal. There is normal arch origin of the great vessels. Both common carotid arteries are patent. Carotid bifurcations show heavily calcified plaque. This does result in high-grade 80-90% stenosis at the origin of the right ICA. There is also 20-30% stenosis of the proximal left ICA. Cervical, high cervical, petrous, cavernous and supraclinoid segments are patent. There is bilateral carotid siphon disease but no evidence of hemodynamically significant stenosis. A1, A2 and A3 segments of both ACAs, M1, M2 and M3 trifurcation vessels of both MCAs show contrast opacification. The vertebral arteries are codominant and are patent to the skull base. There is heavily calcified plaque in the V4 segments of both vertebral arteries. The basilar artery, AICA, SCA and stripper printed circuit boards show contrast opacification. There is a moderate mid basilar stenosis with slight poststenotic dilatation of the basilar tip. The P1 and P2 segments of both stripper printed circuit boards are patent. The lung apices are clear. The superior mediastinum is unremarkable. The parapharyngeal and paraspinous soft tissues are also grossly normal. There is age appropriate cervical spondylosis IMPRESSION: 1. 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 There is a 20-30% stenosis at the origin of the left ICA. Overall assessment is limited due to the suboptimal contrast opacification of the CT angiographic assessment of the extracranial carotid and vertebral circulation and intracranial vasculature. 2. There is bilateral carotid siphon disease with calcific atherosclerosis but no evidence of hemodynamically significant stenosis. 3. Heavily calcified plaque in the V4 segments of both vertebral arteries result in moderate stenosis. 4. There is no large vessel or medium vessel occlusion seen in the intracranial circulation. Small vessel disease however is present. Additional nonemergent findings as described above. Dictated on workstation # [id number] Dict: 05/02/232118 Trans: 05/02/232128 [facility] [id number] Interpreted by: JESSICA SHABAZZ MD Electronically signed by: Reviewed: Reviewed by Me Departure Impression Primary Impression: TIA (transient ischemic attack) Additional Impression: Left sided numbness Disposition: 01 HOME, SELF-CARE Condition: Stable Departure-Patient Inst. Decision time for Depature: 22:06 Referrals: AUBREY JARRETT MD (PCP) Primary Care Physician SCOTTIE CARLTON MD (Family) Primary Care Physician Patient Instructions: Transient Ischemic Attack ED Add. Discharge Instructions: Be diligent in continuing to take your medications as prescribed especially the blood thinner. Follow-up with your primary care and neurology as needed. If you have recurrent or new symptoms then you should be seen right away to see if there is any new change or intervention that could be done. All discharge instructions reviewed with patient and/or family. Voiced understa nding. CHAPO KENNEDY MD May 02, 2023 19:00
--- NOTE | 2023-05-02 19:04 | Diagnostic Imaging Report ---
PROCEDURE: CT head wo r/o stroke. TECHNIQUE: Multiple contiguous axial images were obtained through the brain without the use of intravenous contrast. Auto Exposure Controls were utilized during the CT exam to meet ALARA standards for radiation dose reduction. INDICATION: 67-year-old male with left-sided numbness and slurred speech. COMPARISONS: None. FINDINGS: Midline structures are not displaced. Lateral, third, and fourth ventricles are normal in size, shape, and anatomic position. There are small focal areas of low attenuation, which probably represent old lacunar-sized infarcts with encephalomalacia. Background chronic areas of microvascular ischemic changes are also noted. Gaspar-white differentiation is maintained, and there is no sulcal effacement. There are no abnormal extra-axial fluid collections or hemorrhage. Basilar cisterns appear normal. There is extensive calcific atherosclerosis within the carotid siphons, visualized vertebral arteries extending into the basilar artery. Sinuses, orbits, and mastoid air cells are grossly normal. Bone windows show no calvarial changes. IMPRESSION: 1. Old lacunar-sized infarcts encephalomalacia seen in both cerebral hemispheres. In addition, there are background chronic areas of microvascular ischemic change, but no acute findings identified by nonenhanced CT criteria. 2. There is extensive calcific atherosclerosis within the carotid siphons, visualized vertebral arteries extending into the basilar artery. Dictated by: Dictated on workstation # [id number]
[2023-05-02 19:10] LABS: ALKALINE PHOSPHATASE 67 U/L (40-136); BILIRUBIN,TOTAL 1.6 MG/DL (0.1-1.0); BUN/CREATININE RATIO 14; CALCIUM 8.6 MG/DL (8.5-10.1); CARBON DIOXIDE 26 MMOL/L (21-32); CHLORIDE 102 MMOL/L (98-107); CREATININE SERUM 1.18 MG/DL (0.60-1.30); GFR ESTIMATED 67; GLUCOSE 124 MG/DL (70-105); SODIUM 137 MMOL/L (135-145)
[2023-05-02 19:11] LABS: ALANINE AMINOTRANSFERASE 18 U/L (0-55); ALBUMIN 3.8 GM/DL (3.2-4.5); TOTAL PROTEIN 6.3 GM/DL (6.4-8.2)
[2023-05-02 19:12] LABS: FIBRIN DEGRADATION PRODUCTS 0.79 UG/ML (0.00-0.49); INR 1.6 (0.8-1.4); PROTHROMBIN TIME PATIENT 19.3 SEC (12.2-14.7)
[2023-05-02 19:18] LABS: BILIRUBIN,URINE NEGATIVE (NEGATIVE); CLARITY,URINE CLEAR; COLOR,URINE YELLOW; GLUCOSE, URINE (UA) NEGATIVE (NEGATIVE); KETONES,URINE NEGATIVE (NEGATIVE); LEUKOCYTE ESTERASE ,URINE NEGATIVE (NEGATIVE); NITRITE,URINE NEGATIVE (NEGATIVE); PROTEIN,URINE NEGATIVE (NEGATIVE)
[2023-05-02 19:24] LABS: BACTERIA,URINE NEGATIVE /HPF; SQUAMOUS EPITHELIAL CELL,UR RARE /HPF; WBC,URINE RARE /HPF
--- NOTE | 2023-05-02 21:30 | Diagnostic Imaging Report ---
PROCEDURE: CT angiography of the head and CT angiography of the neck with and without contrast. TECHNIQUE: Contiguous noncontrast images were obtained from the skull base through the vertex. After intravenous contrast administration, helical CT angiography of the neck was performed. Source data was reformatted into 3D MIP projections. Delayed post contrast acquisition was also obtained. Auto Exposure Controls were utilized during the CT exam to meet ALARA standards for radiation dose reduction. INDICATION: Left-sided numbness, slurred speech with altered mental status. COMPARISON: CT head 05/02/2023. FINDINGS: Overall contrast opacification is suboptimal. There is normal arch origin of the great vessels. Both common carotid arteries are patent. Carotid bifurcations show heavily calcified plaque. This does result in high-grade 80-90% stenosis at the origin of the right ICA. There is also 20-30% stenosis of the proximal left ICA. Cervical, high cervical, petrous, cavernous and supraclinoid segments are patent. There is bilateral carotid siphon disease but no evidence of hemodynamically significant stenosis. A1, A2 and A3 segments of both ACAs, M1, M2 and M3 trifurcation vessels of both MCAs show contrast opacification. The vertebral arteries are codominant and are patent to the skull base. There is heavily calcified plaque in the V4 segments of both vertebral arteries. The basilar artery, AICA, SCA and candle maker show contrast opacification. There is a moderate mid basilar stenosis with slight poststenotic dilatation of the basilar tip. The P1 and P2 segments of both candle maker are patent. The lung apices are clear. The superior mediastinum is unremarkable. The parapharyngeal and paraspinous soft tissues are also grossly normal. There is age appropriate cervical spondylosis IMPRESSION: 1. 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 There is a 20-30% stenosis at the origin of the left ICA. Overall assessment is limited due to the suboptimal contrast opacification of the CT angiographic assessment of the extracranial carotid and vertebral circulation and intracranial vasculature. 2. There is bilateral carotid siphon disease with calcific atherosclerosis but no evidence of hemodynamically significant stenosis. 3. Heavily calcified plaque in the V4 segments of both vertebral arteries result in moderate stenosis. 4. There is no large vessel or medium vessel occlusion seen in the intracranial circulation. Small vessel disease however is present. Additional nonemergent findings as described above. Dictated by: Dictated on workstation # [id number]
[2023-05-02 22:50] VITALS: BP 181/133
== END 2023-05-02 22:50 | disposition home or self-care (01) ==
LOC: EDUNIT# 18:23 → ER FS 18:25
DX: G45.9 Transient cerebral ischemic attack, unspecified (principal)
CPT/HCPCS: 36415; 70450; 70496; 70498; 71045; 80053; 81000; 82947; 84484; 85025; 85379; 85610; 85730; 93005; 93041; Q9967